=== PATIENT | female | born 1940 | race Caucasian/White ===

== ENCOUNTER → 2018-07-11 16:17 | Outpatient (REF) | payer MEDICARE, SELFPAY | LOC: LAB 16:17 | PROVIDERS: Visit Provider Student in an Organized Health Care Education/Training Program | DX: N89.8 Other specified noninflammatory disorders of vagina (principal) ==

== ENCOUNTER → 2018-10-17 09:20 | Outpatient (CLI) | payer MEDICARE, SELFPAY ==
[2018-10-17 10:05] LABS: BUN Creatinine Ratio 16.7 (6-22); Blood Urea Nitrogen 15 mg/dL (7-17); Calcium 9.3 mg/dL (8.4-10.2); Carbon Dioxide 25 mmol/L (22-32); Chloride 104 mmol/L (98-107); Estimated Glomerular Filt Rate > 60.0 mL/min (>60); Glucose 110 mg/dL (80-110); HEMOLYSIS < 15 (0-50); Potassium 4.2 mmol/L (3.4-5.1); Sodium 139 mmol/L (137-145)
[2018-10-17 11:02] LABS: Thyroid Stimulating Hormone 5.22 uIU/mL (0.47-4.68)
== END ==
PROVIDERS: Visit Provider Physician Assistant
DX: E03.9 Hypothyroidism, unspecified (principal); I10 Essential (primary) hypertension
CPT/HCPCS: 36415; 80048; 84443

== ENCOUNTER → 2018-11-10 11:43 | Outpatient (CLI) | payer MEDICARE, SELFPAY ==
[2018-11-10 13:12] LABS: TSH w/ Reflex to FT4 2.07 uIU/mL (0.47-4.68)
== END ==
PROVIDERS: Visit Provider Physician Assistant
DX: E03.9 Hypothyroidism, unspecified (principal)
CPT/HCPCS: 36415; 84443

== ENCOUNTER → 2018-12-08 14:46 | Outpatient (CLI) | payer MEDICARE, SELFPAY ==
[2018-12-08 15:33] LABS: Appearance Urine UA CLOUDY; Bilirubin Urine UA NEGATIVE (NEGATIVE); Color Urine UA YELLOW; Glucose Urine UA NEGATIVE (Negative); Ketones Urine UA NEGATIVE (NEGATIVE); Leukocyte Esterase Urine UA 2+ (NEGATIVE); Nitrite Urine UA NEGATIVE (Negative); Occult Blood Urine UA 3+ (Negative); Protein Urine UA 3+ (Negative); Specific Gravity Urine UA >=1.030 (1.000-1.035)
[2018-12-08 15:42] LABS: Bacteria Urine Few (2-10); Culture Indicated Urine Specimen Cultured; RBC Urine >100/HPF (0-5/HPF); Squamous Epithelial Cell Urine 0-1 /HPF (0-5/HPF); WBC Urine 5-10/HPF (0-5/HPF)
== END ==
PROVIDERS: Visit Provider Urology
DX: R30.9 Painful micturition, unspecified (principal); R30.0 Dysuria
CPT/HCPCS: 81001; 87086

== ENCOUNTER → 2018-12-14 11:32 | Outpatient (CLI) | payer MEDICARE, SELFPAY ==
[2018-12-14 12:39] LABS: Blood Urea Nitrogen 17 mg/dL (7-17); Estimated Glomerular Filt Rate 53.8 mL/min (>60)
== END ==
PROVIDERS: Visit Provider Urology
DX: Z85.528 Personal history of other malignant neoplasm of kidney (principal)
CPT/HCPCS: 36415; 82565; 84520

== ENCOUNTER → 2018-12-16 12:26 | Outpatient (CLI) | payer MEDICARE, SELFPAY ==
--- NOTE | 2018-12-16 | DI.CT.S_ITS ---
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 After the administration of intravenous contrast, 5 mm thick images again acquired from the diaphragm to the iliac crests in the arterial and urographic phases. 5 mm thick coronal and sagittal reformats were then acquired. For radiation dose reduction, the following was used: automated exposure control, adjustment of mA and/or kV according to patient size. COMPARISON: [facility], CT, CT ABD PELVIS W CON, 04/13/2017, 11:31. FINDINGS: Image quality: Excellent. Lung bases: Lung bases are clear. Heart size is normal. Genitourinary: There has been interval resolution of a small linear low-density soft tissue thickening in the medial left renal fossa. No evidence of new solid tissue in the left renal fossa to suggest recurrent disease. Right renal morphology is normal. The right kidney is under rotated. Other solid organs: Liver is normal in size and redemonstrates innumerable, mainly subcentimeter hypodensities throughout the liver without enhancement. One multilobulated hypodensity measures up to 2.8 cm.. Gallbladder contains dependent sludge in the fundus.. Biliary system is non dilated. Pancreas enhances normally. Spleen is normal in size and enhancement. The left adrenal gland is surgically absent. A stable, slight nodular thickening involving the anterior portion of the right adrenal gland. Peritoneum and bowel: Unenhanced bowel loops are normal in wall thickness and caliber. No free fluid or air. The appendix is surgically absent. Nodes and vessels: No retroperitoneal or mesenteric adenopathy by size criteria. Aorta and inferior vena cava are normal in caliber. Bones: No suspicious bony lesions. Extensive surgical changes to the thoracolumbar spine including multiple levels of transpedicular screws, 2 levels with disc spacers, and Noriega rods in place. Extensive disc height loss. No vertebral body compression fractures. Miscellaneous: No ventral hernias. IMPRESSION: 1. 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 No evidence of residual or recurrent disease. 2. Normal right renal morphology. 3. Gallbladder sludge. 4. 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 Dictated by: Milla Nelson M.D. on 12/16/2018 at 13:49 Approved by: Milla Nelson M.D. on 12/16/2018 at 14:16
== END ==
PROVIDERS: PCP Internal Medicine; Visit Provider Urology
DX: D49.519 Neoplasm of unspecified behavior of unspecified kidney (principal); K83.8 Other specified diseases of biliary tract; K76.89 Other specified diseases of liver
CPT/HCPCS: 74170; Q9967

== ENCOUNTER → 2019-12-08 10:05 | Outpatient (CLI) | payer MEDICARE, SELFPAY ==
[2019-12-08 11:56] LABS: Add Manual Diff / Slide Review NO; Basophils Absolute Auto 100 /uL (0-100); Eosinophils Absolute Auto 200 /uL (0-450); Eosinophils Percent Auto 1.6 % (2-4); Hematocrit 43.3 % (36-46); Hemoglobin 14.7 g/dL (12.0-16.0); Lymphocytes Absolute Auto 3000 /uL (1100-4500); Lymphocytes Percent Auto 32.1 % (25-40); Mean Corpuscular Hemoglobin 32.3 PG (26-34); Mean Corpuscular Volume 95.1 fL (80-100); Monocytes Absolute Auto 900 /uL (0-900); Monocytes Percent Auto 9.5 % (3-14); Neutrophils Absolute Auto 5200 /uL (1500-7000); Neutrophils Percent Auto 55.8 % (50-75); Platelet Count 189 X10^3/uL (150-400); Red Blood Cell Count 4.56 X10^6/uL (4.0-5.2); Red Cell Distribution Width 14.7 % (11.6-14.8); White Blood Cell Count 9.3 X10^3/uL (4.5-11.0)
[2019-12-08 12:19] LABS: Blood Urea Nitrogen 16 mg/dL (7-17); Calcium 9.4 mg/dL (8.4-10.2); Carbon Dioxide 25 mmol/L (22-32); Chloride 106 mmol/L (98-107); Cholesterol 260 mg/dL (140-199); Estimated Glomerular Filt Rate 57.6 mL/min (>60); Glucose 109 mg/dL (80-110); HDL Cholesterol 42 mg/dL (40-60); HEMOLYSIS < 15 (0-50); LDL Cholesterol Calculated 168 mg/dL (<100); Potassium 4.2 mmol/L (3.4-5.1); Sodium 141 mmol/L (137-145); Triglycerides 249 mg/dL (35-150)
== END ==
PROVIDERS: PCP Internal Medicine; Referring Provider Internal Medicine Interventional Cardiology; Visit Provider Internal Medicine Interventional Cardiology
DX: I73.9 Peripheral vascular disease, unspecified (principal); E78.5 Hyperlipidemia, unspecified
CPT/HCPCS: 36415; 80048; 80061; 85025

== ENCOUNTER → 2019-12-12 09:15 | Outpatient (CLI) | payer MEDICARE, SELFPAY ==
[2019-12-12 10:34] LABS: Appearance Urine UA CLOUDY; Bilirubin Urine UA NEGATIVE (NEGATIVE); Color Urine UA YELLOW; Glucose Urine UA NEGATIVE (Negative); Ketones Urine UA NEGATIVE (NEGATIVE); Leukocyte Esterase Urine UA 2+ (NEGATIVE); Nitrite Urine UA POSITIVE (Negative); Occult Blood Urine UA 3+ (Negative); Protein Urine UA 1+ (Negative); Specific Gravity Urine UA 1.025 (1.000-1.035); Urobilinogen Urine UA 0.2 E.U./dL (0.2)
[2019-12-12 10:39] LABS: Bacteria Urine Moderate (10-30); Culture Indicated Urine Specimen Cultured; RBC Urine 30-100/HPF (0-5/HPF); Squamous Epithelial Cell Urine 1-5 /HPF (0-5/HPF); WBC Urine 10-30/HPF (0-5/HPF)
== END ==
PROVIDERS: PCP Internal Medicine; Referring Provider Urology; Visit Provider Urology
DX: R30.0 Dysuria (principal)
CPT/HCPCS: 81001; 87077; 87086; 87147; 87186

== ENCOUNTER → 2020-01-19 07:19 | Outpatient (CLI) | payer MEDICARE, SELFPAY ==
--- NOTE | 2020-01-19 | DI.NM.S_ITS ---
PROCEDURE: NM JOSEPH PERF SPECT R&S PHARM Rest and pharmacological stress myocardial perfusion SPECT with gated imaging and ejection fraction RADIOPHARMACEUTICAL: 12.2 mCi Tc-99m tetrafosmin IV at rest and 25.6 mCi Tc-99m tetrafosmin IV at peak effect of pharmacological stress. [id number] was performed. INDICATIONS: Peripheral vascular disease, unspecified TECHNIQUE: Radiopharmaceutical was injected at peak stress test, and also at rest. SPECT images were obtained. SPECT myocardial perfusion images were displayed in short axis, horizontal long axis, and vertical long axis views. Gated images were reviewed using [employer] software. COMPARISON: None. CARDIAC STRESS: A pharmacologic stress test was performed under the supervision of an attending staff, using an infusion of 0.4mg IV of lexiscan. Hemodynamic data: There is normal blood pressure and heart rate response to pharmacologic stress. Symptoms: The patient denied anginal chest pain. Aminophylline: none EKG: No diagnostic changes of ischemia; no ectopy. FINDINGS: Raw data: There is good myocardial uptake of radiotracer. No significant motion artifacts. Zvaq-[id number]-[id number] ratio is 0.46 (normal is less than 0.38 for tetrafosmin tracer). Left ventricle function: Gated images demonstrate normal left ventricular wall thickening. No segmental wall motion abnormalities. No transient ischemic dilation; TID is 1.05 (normal less than 1.3). Left ventricle resting end diastolic volume is 60 mL. Left ventricle stress ejection fraction is 87%; normal range is above 45%. Myocardial perfusion: There is normal distribution of activity in the right and left ventricular myocardium. No fixed or reversible perfusion defects. IMPRESSION: Low risk, normal pharmaceutical nuclear stress test from ischemia standpoint. Elevated lung heart ratio of 0.46; consider Echo to rule out valvular disease. 1) No perfusion evidence of ischemia or infarction. 2) Normal left ventricular size, wall motion, and systolic function (EF post stress 87%). 3) Elevated lung heart ratio of 0.46; consider echo to rule out valvular disease. 4) No ECG evidence of ischemia. 5) No angina during the study. 6) No prior nuclear stress test available for comparison. Dictated by: Deshaun Iverson MD on 01/19/2020 at 16:24 Approved by: Deshaun Iverson MD on 01/19/2020 at 16:27
== END ==
PROVIDERS: PCP Family Medicine; Referring Provider Family Medicine; Visit Provider Internal Medicine Interventional Cardiology
DX: I73.9 Peripheral vascular disease, unspecified (principal); I70.0 Atherosclerosis of aorta
CPT/HCPCS: 78452; 93017; A9502; J2785

== ENCOUNTER → 2020-02-01 09:28 | Outpatient (CLI) | payer MEDICARE, SELFPAY ==
[2020-02-01 11:01] LABS: Alanine Aminotransferase 15 IU/L (<35); Albumin Globulin Ratio 1.3 (1.0-2.8); Alkaline Phosphatase 126 U/L (38-126); Aspartate Aminotransferase 25 IU/L (14-36); BUN Creatinine Ratio 15.7 (6-22); Bilirubin Total 0.4 mg/dL (0.2-1.3); Blood Urea Nitrogen 14 mg/dL (7-17); C-Reactive Protein Quant 1.4 mg/dL (<1.0); Calcium 9.1 mg/dL (8.4-10.2); Carbon Dioxide 23 mmol/L (22-32); Chloride 106 mmol/L (98-107); Estimated Glomerular Filt Rate > 60.0 mL/min (>60); Glucose 110 mg/dL (80-110); HEMOLYSIS < 15 (0-50); Potassium 4.1 mmol/L (3.4-5.1); Sodium 137 mmol/L (137-145)
[2020-02-01 11:11] LABS: Erythrocyte Sedimentation Rate 42 MM/HR (0-20)
[2020-02-01 16:04] LABS: Hepatitis B Surface Antigen NEGATIVE s/c (NEGATIVE)
[2020-02-01 16:24] LABS: Hep C Virus Ab w/Reflex Quant NEGATIVE s/c (NEGATIVE)
[2020-02-02 04:36] LABS: Hepatitis B Core AB w/Reflex Negative (Negative)
== END ==
PROVIDERS: PCP Family Medicine; Referring Provider Internal Medicine Rheumatology; Visit Provider Internal Medicine Rheumatology
DX: Z11.59 Encounter for screening for other viral diseases (principal); Z91.89 Other specified personal risk factors, not elsewhere classified; M12.9 Arthropathy, unspecified
CPT/HCPCS: 36415; 80053; 83516; 83520; 85651; 86140; 86225; 86235; 86430; 86704; 86706; 86803; 87340

== ENCOUNTER → 2020-05-07 16:32 | Outpatient (CLI) | payer MEDICARE, SELFPAY ==
[2020-05-07 16:43] LABS: RBC Urine None Seen (0-5/HPF)
[2020-05-07 16:53] LABS: Appearance Urine UA CLEAR; Bilirubin Urine UA NEGATIVE (NEGATIVE); Color Urine UA YELLOW; Glucose Urine UA NEGATIVE (Negative); Ketones Urine UA NEGATIVE (NEGATIVE); Leukocyte Esterase Urine UA 1+ (NEGATIVE); Nitrite Urine UA NEGATIVE (Negative); Occult Blood Urine UA NEGATIVE (Negative); Protein Urine UA TRACE (Negative); Urobilinogen Urine UA 0.2 E.U./dL (0.2)
[2020-05-07 16:58] LABS: pH Urine UA 5.5 (4.5-8.0)
[2020-05-07 17:08] LABS: Bacteria Urine Few (2-10); Culture Indicated Urine Specimen Cultured; Squamous Epithelial Cell Urine 1-5 /HPF (0-5/HPF); WBC Urine 10-30/HPF (0-5/HPF)
== END ==
PROVIDERS: PCP Family Medicine; Referring Provider Urology; Visit Provider Urology
DX: R30.0 Dysuria (principal)
CPT/HCPCS: 81001; 87086

== ENCOUNTER → 2020-05-15 16:03 | Outpatient (CLI) | payer MEDICARE, SELFPAY | PROVIDERS: PCP Family Medicine; Visit Provider Physician Assistant | DX: N30.01 Acute cystitis with hematuria (principal) | CPT/HCPCS: 87077; 87086; 87186 ==

== ENCOUNTER 2020-06-22 12:17 | Emergency (ER) | payer MEDICARE, SELFPAY ==
[2020-06-22] VITALS (10 sets, daily range): BP systolic 115–153; BP diastolic 70–85; PULSE 81–145; RESP 12–25; TEMP 36.8; O2SAT 94–99
--- NOTE | 2020-06-22 12:33 | DI.RAD.S_ITS ---
PROCEDURE: XR CHEST 1V INDICATIONS: SOB TECHNIQUE: One view of the chest was acquired. COMPARISON: [facility], CT, CT CHEST WO CON, 12/21/2016, 13:01. [facility], CR, CHEST 2 VIEW, 01/24/2016, 12:58. FINDINGS: Surgical changes and devices: Partially imaged lower thoracic spinal fusion hardware. Lungs and pleura: Mild diffuse interstitial prominence, likely chronic. No focal consolidations. No pneumothorax or pleural effusion. Minimal streaky bibasilar opacities. Mediastinum: Mediastinal contours appear stable. Heart size is normal. Bones and chest wall: No suspicious bony lesions. Overlying soft tissues appear unremarkable. IMPRESSION: 1. Chronic appearing subtle diffuse interstitial prominence suggestive of chronic interstitial lung disease. 2. Minimal streaky bibasilar opacities favored to represent atelectasis. No focal consolidation. Dictated by: Yann Ferreira M.D. on 06/22/2020 at 12:23 Approved by: Yann Ferreira M.D. on 06/22/2020 at 12:26
--- NOTE | 2020-06-22 12:36 | ED_ITS ---
HPI - Arrhythmia/Palpitations <Nasra LeavittARRON - Last Filed: 06/22/20 17:49> General Chief Complaint: Arrhythmia/Palpitations Stated Complaint: Off of medication/having side effects Time Seen by Provider: 06/22/20 12:21 Source: patient Mode of arrival: Ambulatory Limitations: no limitations History of Present Illness HPI narrative: 79yo female smoker, with a histrory of HTN and anxiety, history of nephrectomy due to renal cancer, presents emergency department for medication refill. She states she ran out of her Effexor which she has taken daily for the past few years without side effects. She states her last dose was approximately 3 days ago, she was attempting to switch pharmacies and the pharmacy did not have a refill prescription. Patient states today she developed anxiety, high heart rate, and shortness of breath. She believes this may be related to the medication. She denies any chest pain, dizziness, nausea, vomiting, diarrhea, abdominal pain, activity intolerance, vision changes, or any other concerns. She states she has run out of her Effexor a few years ago, does not remember if he had any of these feelings at this time. Related Data Home Medications Medication Instructions Recorded Confirmed aspirin 81 mg tablet,delayed 81 mg PO DAILY 01/19/19 03/02/19 release estradiol 1 mg tablet 1 mg PO DAILY #90 tab 01/19/19 03/02/19 levothyroxine 100 mcg tablet 100 mcg PO DAILY #90 tab 01/19/19 03/02/19 multivitamin 1 tab PO DAILY 01/19/19 03/02/19 venlafaxine 150 mg 150 mg PO DAILY #90 cap 01/19/19 03/02/19 capsule,extended release 24 hr zolpidem 5 mg tablet 5 mg PO DAILY #90 tab 01/19/19 03/02/19 nitrofurantoin 100 mg PO BEDTIME cap 03/02/19 03/02/19 monohydrate/macrocrystals 100 mg capsule sennosides 8.6 mg-docusate sodium 1 tab PO BID 03/02/19 03/02/19 50 mg tablet Previous Rx's Medication Instructions Recorded nystatin 100,000 unit/gram topical 1 applictn TOP TID #60 gram 01/19/19 powder atorvastatin 20 mg tablet 20 mg PO DAILY #90 tab 03/02/19 carisoprodol 350 mg tablet 350 mg PO BEDTIME #30 tab 03/02/19 metoprolol succinate 25 mg capsule 25 mg PO DAILY #30 each 03/02/19 sprinkle, ext. release 24 hr alprazolam 0.5 mg tablet See Rx Instructions PO .COMPLEX 03/17/19 PRN #45 tab hydroxyzine HCl 25 mg tablet 25 mg PO Q6H PRN #120 tab 03/17/19 venlafaxine [Effexor XR] 150 mg PO DAILY 20 Days #20 cap 06/22/20 Allergies Allergy/AdvReac Type Severity Reaction Status Date / Time cyclobenzaprine Allergy Unknown Verified 05/15/20 15:54 [CYCLOBENZAPRINE] doxycycline Allergy Diarrhea Verified 05/15/20 15:54 morphine Allergy hallucinati Verified 05/15/20 15:54 ons Review of Systems <ARRON Acosta - Last Filed: 06/22/20 17:49> Review of Systems Narrative: REVIEW OF SYSTEMS: GENERAL: Denies fever or chills. HENT: No head trauma. EYES: No loss of vision, double vision, eye pain, or irritation. CARDIOVASCULAR: No chest pain. Reports increased heart rate, see HPI. RESPIRATORY: No shortness of breath or cough. GASTROINTESTINAL: No nausea, vomiting, diarrhea, or constipation. GENITOURINARY: No flank pain or dysuria. MUSCULOSKELETAL: No pain. INTEGUMENTARY: No rash, lesions, or pruritus. NEURO: No numbness or tingling. PSYCH: No behavior or mood changes. Patient History <ARRON Acosta - Last Filed: 06/22/20 17:49> Medical History Anxiety (Chronic) Depression (Chronic) Essential hypertension (Chronic) Hyperlipidemia (Chronic) Hypothyroidism, acquired (Chronic) Urinary incontinence (Chronic) Urinary tract infection (Acute) Surgical History History of back surgery (Chronic) S/P cataract extraction and insertion of intraocular lens (Chronic) S/P hysterectomy (Chronic ~1976) Social History Smoking Status: Former smoker Smoking Status: Former smoker alcohol intake frequency: 0-2 drinks per day Substance Use Type: does not use Exam <Nasra ARRON Leavitt - Last Filed: 06/22/20 17:49> Initial Vital Signs Initial Vital Signs: Vital Signs Temperature 98.3 F 06/22/20 12:20 Pulse Rate 145 H 06/22/20 12:20 Respiratory Rate 24 06/22/20 12:20 Blood Pressure 136/83 06/22/20 12:20 Pulse Oximetry 96 06/22/20 12:20 PHYSICAL EXAMINATION: GENERAL: Well groomed, alert, and cooperative. Answers questions promptly and appropriately. Vital signs noted. HENT: Normocephalic, atraumatic. Ear canals patent. Oral mucosa is pink and moist. EYES: Conjunctiva pink, sclera white, no periorbital swelling. CHEST: Normal to inspection and without deformities. CARDIOVASCULAR: S1 and S2 sounds normal. Increased rate and regular rhythm, no murmurs, clicks, or bruits. RESPIRATORY: Normal respiratory rate, trachea midline, airway patent. No stridor, nasal flaring or accessory muscle use. Lungs are clear in all perez without wheeze, rhonchi, or crackles. No cough observed. MUSCULOSKELETAL: Normal gait and coordination. Equal tone and mass bilaterally. EXTREMITIES: CMS intact. Moves all extremities. SKIN: Warm, dry, soft, appropriate color for ethnicity. No lesions, rashes, or wounds. NEURO: Alert and Oriented X 3. Good coordination. No ataxia, or sensory deficits, or cognitive issues. PSYCH: Appropriate affect and mood. <Florencio Tellez DO - Last Filed: 06/22/20 17:59> Initial Vital Signs Initial Vital Signs: Vital Signs Temperature 98.3 F 06/22/20 12:20 Pulse Rate 145 H 06/22/20 12:20 Respiratory Rate 24 06/22/20 12:20 Blood Pressure 136/83 06/22/20 12:20 Pulse Oximetry 96 06/22/20 12:20 Scores <ARRON Acosta - Last Filed: 06/22/20 17:49> PERC Score Age greater than or equal to 50 years: Yes Heart rate greater than or equal to 100 bpm: Yes Room Air O2 Sat less than 95%: No Unilateral leg swelling: No Recent trauma or surgery: No Hemoptysis: No Prior PE or DVT: No Hormone Use: No Total PERC Score: 2 Wells' Criteria for PE Clinical signs and symptoms of DVT: No PE is #1 Dx or equally likely: No Heart rate > 100: Yes Immobilization at least 3 days or surg in previous 4 weeks: No History of PE or DVT: No Hemoptysis: No Malignancy w/Treatment within 6 months or palliative: No Wells' PE Score total: 1.5 Course <ARRON Acosta - Last Filed: 06/22/20 17:49> Course Course Narrative: 1400: Patient states she is feeling nauseated, Nate villegas PT Updated on laboratory results and need for CT scan. Patient consented. HR decreased to 96bpm. 1500: Patient states she is feeling much better, RT called to demonstrate spacer and inhaler teaching. Patient and family updated on results. Family agreed to plan of care verbalized understanding. Orders Ordered: ED Orders 06/22/20 12:28 EKG-12 Lead Stat 06/22/20 12:33 XR chest 1V Stat 06/22/20 13:02 Complete Blood Count AUTO DIFF Stat Comprehensive Metabolic Panel Stat D Dimer Stat Lipase Stat Troponin & CK Cardiac Panel Stat 06/22/20 13:49 COVID19 -ED/INPAT/OR/L&D Stat 06/22/20 14:00 CT angio chest PE protocol Stat Discontinued Medications Albuterol (Ventolin Hfa Prepack) 1 box MISC SEEINSTR ONE Stop: 06/22/20 15:41 Last Admin: 06/22/20 15:50 Dose: 1 box Documented by: BRIANNA Sodium Chloride (Normal Saline 0.9%) 1,000 mls @ 150 mls/hr IV CONT JAHAIRA Last Infusion: 06/22/20 15:56 Dose: 0 mls/hr Documented by: Infusion: 06/22/20 14:38 Dose: 500 mls/hr Documented by: Admin: 06/22/20 13:07 Dose: 150 mls/hr Documented by: FAREED Sodium Chloride (Normal Saline 0.9%) 1,000 mls @ 500 mls/hr IV BOLUS ONE Stop: 06/22/20 16:34 Last Admin: 06/22/20 14:39 Dose: Not Given Documented by: FAREED Ondansetron HCl (Zofran) 4 mg IV NOW ONE Stop: 06/22/20 14:12 Last Admin: 06/22/20 14:14 Dose: 4 mg Documented by: FAREED Venlafaxine HCl (Effexor Xr) 150 mg PO DAILY [facility] Last Admin: 06/22/20 12:47 Dose: 150 mg Documented by: MARTA Vital Signs Vital signs: Vital Signs - 8 hr 06/22/20 12:20 06/22/20 12:31 06/22/20 13:00 Temperature 98.3 F Pulse Rate 145 H 116 H 107 H Respiratory Rate 24 21 23 Blood Pressure 136/83 115/77 Pulse Oximetry 96 96 96 06/22/20 13:30 06/22/20 14:00 06/22/20 14:32 Temperature Pulse Rate 100 H 91 H 85 Respiratory Rate 19 13 22 Blood Pressure 122/85 126/71 Pulse Oximetry 94 94 97 06/22/20 14:57 06/22/20 15:00 06/22/20 15:51 Temperature Pulse Rate 81 81 Respiratory Rate 25 H 22 20 Blood Pressure 147/72 H 142/70 H Pulse Oximetry 98 98 99 06/22/20 15:57 Temperature Pulse Rate 82 Respiratory Rate 12 Blood Pressure 153/73 H Pulse Oximetry 98 <Florencio Tellez DO - Last Filed: 06/22/20 17:59> Orders Ordered: ED Orders 06/22/20 12:28 EKG-12 Lead Stat 06/22/20 12:33 XR chest 1V Stat 06/22/20 13:02 Complete Blood Count AUTO DIFF Stat Comprehensive Metabolic Panel Stat D Dimer Stat Lipase Stat Troponin & CK Cardiac Panel Stat 06/22/20 13:49 COVID19 -ED/INPAT/OR/L&D Stat 06/22/20 14:00 CT angio chest PE protocol Stat Discontinued Medications Albuterol (Ventolin Hfa Prepack) 1 box MISC SEEINSTR ONE Stop: 06/22/20 15:41 Last Admin: 06/22/20 15:50 Dose: 1 box Documented by: BRIANNA Sodium Chloride (Normal Saline 0.9%) 1,000 mls @ 150 mls/hr IV CONT JAHAIRA Last Infusion: 06/22/20 15:56 Dose: 0 mls/hr Documented by: Infusion: 06/22/20 14:38 Dose: 500 mls/hr Documented by: Admin: 06/22/20 13:07 Dose: 150 mls/hr Documented by: FAREED Sodium Chloride (Normal Saline 0.9%) 1,000 mls @ 500 mls/hr IV BOLUS ONE Stop: 06/22/20 16:34 Last Admin: 06/22/20 14:39 Dose: Not Given Documented by: FAREED Ondansetron HCl (Zofran) 4 mg IV NOW ONE Stop: 06/22/20 14:12 Last Admin: 06/22/20 14:14 Dose: 4 mg Documented by: FAREED Venlafaxine HCl (Effexor Xr) 150 mg PO DAILY JAHAIRA Last Admin: 06/22/20 12:47 Dose: 150 mg Documented by: MARTA Vital Signs Vital signs: Vital Signs - 8 hr 06/22/20 12:20 06/22/20 12:31 06/22/20 13:00 Temperature 98.3 F Pulse Rate 145 H 116 H 107 H Respiratory Rate 24 21 23 Blood Pressure 136/83 115/77 Pulse Oximetry 96 96 96 06/22/20 13:30 06/22/20 14:00 06/22/20 14:32 Temperature Pulse Rate 100 H 91 H 85 Respiratory Rate 19 13 22 Blood Pressure 122/85 126/71 Pulse Oximetry 94 94 97 06/22/20 14:57 06/22/20 15:00 06/22/20 15:51 Temperature Pulse Rate 81 81 Respiratory Rate 25 H 22 20 Blood Pressure 147/72 H 142/70 H Pulse Oximetry 98 98 99 06/22/20 15:57 Temperature Pulse Rate 82 Respiratory Rate 12 Blood Pressure 153/73 H Pulse Oximetry 98 MDM - Arrhythmia/Palpitations <ARRON Acosta - Last Filed: 06/22/20 17:49> Medical Records Attestation: I reviewed the patient's medical records. Lab Data Attestation: I reviewed the patient's lab results. Result diagrams: 06/22/20 13:02 06/22/20 13:02 Labs: Lab Results 06/22/20 06/22/20 06/22/20 Range/Units 13:02 13:02 13:02 WBC 10.9 (4.5-11.0) X10^3/uL RBC 4.44 (4.0-5.2) X10^6/uL Hgb 13.7 (12.0-16.0) g/dL Hct 41.5 (36-46) % MCV 93.4 (80-100) fL MCH 30.9 (26-34) PG MCHC 33.1 (30-36) % RDW 14.4 (11.6-14.8) % Plt Count 163 (150-400) X10^3/uL Neut % (Auto) 68.2 (50-75) % Lymph % (Auto) 17.8 L (25-40) % Alpine % (Auto) 10.5 (3-14) % Eos % (Auto) 2.0 (2-4) % Baso % (Auto) 1.5 (0-2) % Neut # (Auto) 7400 H (1102-5956) /uL Lymph # (Auto) 1900 (9098-1143) /uL Alpine # (Auto) 1100 H (0-900) /uL Eos # (Auto) 200 (0-450) /uL Baso # (Auto) 200 H (0-100) /uL D-Dimer 552 H (<230) ng/mL Sodium 137 (137-145) mmol/L Potassium 4.1 (3.4-5.1) mmol/L Chloride 106 (98-107) mmol/L Carbon Dioxide 25 (22-32) mmol/L BUN 16 (7-17) mg/dL Creatinine 0.91 (0.52-1.04) mg/dL Estimated GFR 59.8 L (>60) mL/min BUN/Creatinine Ratio 17.6 (6-22) Glucose 122 H (80-110) mg/dL Calcium 9.3 (8.4-10.2) mg/dL Total Bilirubin 0.7 (0.2-1.3) mg/dL AST 38 H (14-36) IU/L ALT 30 (<35) IU/L Alkaline Phosphatase 157 H (38-126) U/L Total Creatine Kinase 26 L (30-135) U/L CK-MB (CK-2) TNP CK-MB (CK-2) Rel Index TNP Troponin I < 0.012 (0.01-0.034) ng/mL Total Protein 7.7 (6.3-8.2) g/dL Albumin 4.2 (3.5-5.0) g/dL Globulin 3.5 (1.7-4.1) g/dL Albumin/Globulin Ratio 1.2 (1.0-2.8) Lipase 186 (23-300) U/L COVID-19 PCR (Negative) 06/22/20 Range/Units 13:49 WBC (4.5-11.0) X10^3/uL RBC (4.0-5.2) X10^6/uL Hgb (12.0-16.0) g/dL Hct (36-46) % MCV (80-100) fL MCH (26-34) PG MCHC (30-36) % RDW (11.6-14.8) % Plt Count (150-400) X10^3/uL Neut % (Auto) (50-75) % Lymph % (Auto) (25-40) % Alpine % (Auto) (3-14) % Eos % (Auto) (2-4) % Baso % (Auto) (0-2) % Neut # (Auto) (2185-5070) /uL Lymph # (Auto) (0334-3976) /uL Alpine # (Auto) (0-900) /uL Eos # (Auto) (0-450) /uL Baso # (Auto) (0-100) /uL D-Dimer (<230) ng/mL Sodium (137-145) mmol/L Potassium (3.4-5.1) mmol/L Chloride (98-107) mmol/L Carbon Dioxide (22-32) mmol/L BUN (7-17) mg/dL Creatinine (0.52-1.04) mg/dL Estimated GFR (>60) mL/min BUN/Creatinine Ratio (6-22) Glucose (80-110) mg/dL Calcium (8.4-10.2) mg/dL Total Bilirubin (0.2-1.3) mg/dL AST (14-36) IU/L ALT (<35) IU/L Alkaline Phosphatase (38-126) U/L Total Creatine Kinase (30-135) U/L CK-MB (CK-2) CK-MB (CK-2) Rel Index Troponin I (0.01-0.034) ng/mL Total Protein (6.3-8.2) g/dL Albumin (3.5-5.0) g/dL Globulin (1.7-4.1) g/dL Albumin/Globulin Ratio (1.0-2.8) Lipase (23-300) U/L COVID-19 PCR Negative (Negative) Imaging Data Chest x-ray: Radiologist's Impresson: [address] [id number] XRay Report Signed Patient: Nikki Voss [facility]#: [id number] : 2Acct:[id number] Age/Sex: 79 / FDate of Service: 06/22/20 Loc: ED Accession Number: [id number] Procedure: XR chest 1V Ordering Provider: Nasra Leavitt PROCEDURE: XR CHEST 1V INDICATIONS: SOB TECHNIQUE: One view of the chest was acquired. COMPARISON: [facility], CT, CT CHEST WO CON, 12/21/2016, 13:01. [facility], CR, CHEST 2 VIEW, 01/24/2016, 12:58. FINDINGS: Surgical changes and devices: Partially imaged lower thoracic spinal fusion hardware. Lungs and pleura: Mild diffuse interstitial prominence, likely chronic. No focal consolidations. No pneumothorax or pleural effusion. Minimal streaky bibasilar opacities. Mediastinum: Mediastinal contours appear stable. Heart size is normal. Bones and chest wall: No suspicious bony lesions. Overlying soft tissues appear unremarkable. IMPRESSION: 1. Chronic appearing subtle diffuse interstitial prominence suggestive of chronic interstitial lung disease. 2. Minimal streaky bibasilar opacities favored to represent atelectasis. No focal consolidation. Dictated by: Yann Ferreira M.D. on 06/22/2020 at 12:23 Approved by: Yann Ferreira M.D. on 06/22/2020 at 12:26 CT scan - chest: Radiologist's Impresson: [address] [address] [address] Scan Report Signed Patient: Nikki Voss [facility]#: [id number] : 2At:[id number] Age/Sex: 79 / FDate of Service: 06/22/20 Loc: ED Accession Number: [id number] Procedure: CT angio chest PE protocol Ordering Provider: Hedlin,Nasra [employer] PROCEDURE: CT ANGIO CHEST PE PROTOCOL INDICATIONS: SOb, elevated d-dimer TECHNIQUE: After the administration of intravenous contrast, 2 mm thick sections acquired from the pulmonary apices to the posterior costophrenic angles. 3-dimensional maximum intensity projection (MIP) coronal and sagittal reformats were then acquired through the thorax. For radiation dose reduction, the following was used: automated exposure control, adjustment of mA and/or kV according to patient size. COMPARISON: [facility], CT, CT ABDOMEN WO/W CON, 12/16/2018, 12:30. [facility], CT, CT CHEST WO CON, 12/21/2016, 13:01. FINDINGS: Image quality: Excellent. Pulmonary arteries: Pulmonary arteries are normal in size, and demonstrate no intraluminal filling defects to suggest central pulmonary embolism. Lungs and pleura: Patchy bilateral dependent atelectasis. No focal consolidations. Stable nodule in the right middle lobe. No pleural effusions or pneumothorax. Central and peripheral airways are patent. There is bilateral perihilar airway thickening of the central and more peripheral airways involving all lobes. Mediastinum: Heart size is normal, without pericardial effusion. Scattered atherosclerotic calcifications of the coronary arteries are noted. No mediastinal or hilar adenopathy by size criteria. Redemonstration of numerous scattered mediastinal lymph nodes more notable for number rather than size and likely reactive in etiology. Thoracic aorta is normal in caliber and enhancement. Esophagus is normal in caliber, without hiatal hernia. Bones and chest wall: No suspicious bony lesions. Ribs and thoracic spine appear intact throughout. Thyroid gland is stable in appearance. No axillary or supraclavicular adenopathy. No acute compression fractures. Status post spinal fusion of the lower thoracic and visualized lumbar spine. Abdomen: Redemonstration of innumerable hepatic hypodensities likely representing cysts. Remainder of the visualized upper abdominal solid organs appear normal in the early arterial phase of enhancement. IMPRESSION: No acute pulmonary emboli. Bilateral airway thickening likely representing nonspecific bronchitis versus reactive airway disease. Scattered patchy dependent atelectasis. No focal consolidation. Stable appearance of innumerable hepatic hypodensities which likely represent hepatic cysts. Dictated by: Yann Ferreira M.D. on 06/22/2020 at 13:44 Approved by: Yann Ferreira M.D. on 06/22/2020 at 13:54 ECG Data Interpretation: 1230: Sinus tach, rate 118, SD interval 178, QTC 454. No ST elevation, no ectopy. No T-wave inversion. EKG also viewed by Dr. Tellez per protocol. MDM Narrative Medical decision making narrative: 79yo presents emergency department for shortness of breath. Last took her Effexor 3 days ago. I suspect patient's shortness of breath is most likely related to her chronic lung disease/bronchitis as seen on x-ray and CT. Albuterol and spacer teaching were given. Patient states she quit smoking 3 weeks ago. Less likely PE given negative CT PE scan which was ordered after positive D- dimer (positive age adjusted D-dimer), this was initially ordered due to well's criteria, patient was tachycardic and short of breath, history of cancer. Less concern for ACS as EKG is non-remarkable other than some sinus tachycardia, troponin negative, chest x-ray negative for any heart abnormalities. Patient continued to have chest pain. Less concern for acute infection given lack of fever, tachycardia resolved after administration of a small amount of fluids, white blood cell count within normal limits, no suspicious source for infection such as dysuria or cough. COVID-19 negative. No viral symptoms. It is possible that Effexor may also be contributing to the when the patient is feeling. She was given a bridge prescription for the next 2 weeks. She is encouraged to follow-up with PCP to continue her prescription. Strict return precautions given for new or worsening symptoms. Patient and agreed to plan of care and verbalized understanding. <Florencio Tellez, DO - Last Filed: 06/22/20 17:59> Lab Data Labs: Lab Results 06/22/20 06/22/20 06/22/20 Range/Units 13:02 13:02 13:02 WBC 10.9 (4.5-11.0) X10^3/uL RBC 4.44 (4.0-5.2) X10^6/uL Hgb 13.7 (12.0-16.0) g/dL Hct 41.5 (36-46) % MCV 93.4 (80-100) fL MCH 30.9 (26-34) PG MCHC 33.1 (30-36) % RDW 14.4 (11.6-14.8) % Plt Count 163 (150-400) X10^3/uL Neut % (Auto) 68.2 (50-75) % Lymph % (Auto) 17.8 L (25-40) % Alpine % (Auto) 10.5 (3-14) % Eos % (Auto) 2.0 (2-4) % Baso % (Auto) 1.5 (0-2) % Neut # (Auto) 7400 H (0486-6761) /uL Lymph # (Auto) 1900 (4594-0941) /uL Alpine # (Auto) 1100 H (0-900) /uL Eos # (Auto) 200 (0-450) /uL Baso # (Auto) 200 H (0-100) /uL D-Dimer 552 H (<230) ng/mL Sodium 137 (137-145) mmol/L Potassium 4.1 (3.4-5.1) mmol/L Chloride 106 (98-107) mmol/L Carbon Dioxide 25 (22-32) mmol/L BUN 16 (7-17) mg/dL Creatinine 0.91 (0.52-1.04) mg/dL Estimated GFR 59.8 L (>60) mL/min BUN/Creatinine Ratio 17.6 (6-22) Glucose 122 H (80-110) mg/dL Calcium 9.3 (8.4-10.2) mg/dL Total Bilirubin 0.7 (0.2-1.3) mg/dL AST 38 H (14-36) IU/L ALT 30 (<35) IU/L Alkaline Phosphatase 157 H (38-126) U/L Total Creatine Kinase 26 L (30-135) U/L CK-MB (CK-2) TNP CK-MB (CK-2) Rel Index TNP Troponin I < 0.012 (0.01-0.034) ng/mL Total Protein 7.7 (6.3-8.2) g/dL Albumin 4.2 (3.5-5.0) g/dL Globulin 3.5 (1.7-4.1) g/dL Albumin/Globulin Ratio 1.2 (1.0-2.8) Lipase 186 (23-300) U/L COVID-19 PCR (Negative) 06/22/20 Range/Units 13:49 WBC (4.5-11.0) X10^3/uL RBC (4.0-5.2) X10^6/uL Hgb (12.0-16.0) g/dL Hct (36-46) % MCV (80-100) fL MCH (26-34) PG MCHC (30-36) % RDW (11.6-14.8) % Plt Count (150-400) X10^3/uL Neut % (Auto) (50-75) % Lymph % (Auto) (25-40) % Alpine % (Auto) (3-14) % Eos % (Auto) (2-4) % Baso % (Auto) (0-2) % Neut # (Auto) (2716-0077) /uL Lymph # (Auto) (3452-0297) /uL Alpine # (Auto) (0-900) /uL Eos # (Auto) (0-450) /uL Baso # (Auto) (0-100) /uL D-Dimer (<230) ng/mL Sodium (137-145) mmol/L Potassium (3.4-5.1) mmol/L Chloride (98-107) mmol/L Carbon Dioxide (22-32) mmol/L BUN (7-17) mg/dL Creatinine (0.52-1.04) mg/dL Estimated GFR (>60) mL/min BUN/Creatinine Ratio (6-22) Glucose (80-110) mg/dL Calcium (8.4-10.2) mg/dL Total Bilirubin (0.2-1.3) mg/dL AST (14-36) IU/L ALT (<35) IU/L Alkaline Phosphatase (38-126) U/L Total Creatine Kinase (30-135) U/L CK-MB (CK-2) CK-MB (CK-2) Rel Index Troponin I (0.01-0.034) ng/mL Total Protein (6.3-8.2) g/dL Albumin (3.5-5.0) g/dL Globulin (1.7-4.1) g/dL Albumin/Globulin Ratio (1.0-2.8) Lipase (23-300) U/L COVID-19 PCR Negative (Negative) Discharge Plan Departure Patient Disposition: Home Clinical Impression: Breath shortness, Encounter for medication refill, Bronchitis Discharge Date/Time: 06/22/20 15:58 Instructions: DI for Chronic Bronchitis Activity Restrictions/Additional Instructions: Thank you for entrusting me with your care today. As discussed, your laboratory work and EKG are non-remarkable. Your CT scan is negative for any blood clots in your lungs. There was an incidental finding of possible cyst on your liver and bronchitis. Please follow-up with your primary care provider regarding the findings. I have given you a prescription for inhaler, use this when you feel short of breath. A can increased heart rate and make you feel jittery. I have refilled your Effexor prescription for the next few weeks, however, you will have to visit your primary care provider to get a full years prescription. Return emergency department for any new or worsening symptoms especially chest pain, worsening shortness of breath, high fevers, or any other concerns. Prescriptions: New venlafaxine [Effexor XR] 150 mg capsule,extended release 24hr 150 mg PO DAILY 20 Days Qty: 20 RF: 0 No Action hydroxyzine HCl 25 mg tablet 25 mg PO Q6H PRN (Reason: itching) Qty: 120 RF: 0 alprazolam 0.5 mg tablet See Rx Instructions PO .COMPLEX PRN (Reason: anxiety) Qty: 45 RF: 0 zolpidem 5 mg tablet 5 mg PO DAILY Qty: 90 RF: 0 aspirin 81 mg tablet,delayed release (DR/EC) 81 mg PO DAILY RF: 0 estradiol 1 mg tablet 1 mg PO DAILY Qty: 90 RF: 0 levothyroxine 100 mcg tablet 100 mcg PO DAILY Qty: 90 RF: 0 venlafaxine 150 mg capsule,extended release 24hr 150 mg PO DAILY Qty: 90 RF: 0 multivitamin tablet 1 tab PO DAILY RF: 0 nystatin 100,000 unit/gram powder 1 applictn TOP TID Qty: 60 RF: 3 nitrofurantoin monohyd/m-cryst 100 mg capsule 100 mg PO BEDTIME RF: 0 sennosides-docusate sodium [Senexon-S] 8.6-50 mg tablet 1 tab PO BID RF: 0 atorvastatin [Lipitor] 20 mg tablet 20 mg PO DAILY Qty: 90 RF: 3 carisoprodol [Soma] 350 mg tablet 350 mg PO BEDTIME Qty: 30 RF: 3 metoprolol succinate 25 mg cap,sprnohemile,ER 24hr dose pack 25 mg PO DAILY Qty: 30 RF: 3 Referrals: Emiliano Vicente [Primary Care Provider] - <Florencio Tellez, - Last Filed: 06/22/20 17:59> Cosign ED Attending Cosignature Attestation: Dr Tellez Co-Sign Statement: I was available for consultation during this patient's emergency department visit. This chart is signed by myself for administrative purposes only. I did not have direct contact with this patient during this visit. They were seen independently by the APC.
[2020-06-22] MEDS: VENLAFAXINE ER 75 MG CAP 150 MG PO (12:47)
[2020-06-22] MEDS: SODIUM CHLORIDE 0.9% 1,000 ML 150 ML IV (13:07)
[2020-06-22 13:09] LABS: Add Manual Diff / Slide Review NO; Basophils Absolute Auto 200 /uL (0-100); Basophils Percent Auto 1.5 % (0-2); Eosinophils Absolute Auto 200 /uL (0-450); Hematocrit 41.5 % (36-46); Hemoglobin 13.7 g/dL (12.0-16.0); Lymphocytes Absolute Auto 1900 /uL (1100-4500); Lymphocytes Percent Auto 17.8 % (25-40); Mean Corpuscular HGB Conc 33.1 % (30-36); Mean Corpuscular Hemoglobin 30.9 PG (26-34); Mean Corpuscular Volume 93.4 fL (80-100); Monocytes Absolute Auto 1100 /uL (0-900); Monocytes Percent Auto 10.5 % (3-14); Neutrophils Absolute Auto 7400 /uL (1500-7000); Neutrophils Percent Auto 68.2 % (50-75); Platelet Count 163 X10^3/uL (150-400); Red Blood Cell Count 4.44 X10^6/uL (4.0-5.2); Red Cell Distribution Width 14.4 % (11.6-14.8); White Blood Cell Count 10.9 X10^3/uL (4.5-11.0)
[2020-06-22 13:22] LABS: Alanine Aminotransferase 30 IU/L (<35); Albumin 4.2 g/dL (3.5-5.0); Albumin Globulin Ratio 1.2 (1.0-2.8); Alkaline Phosphatase 157 U/L (38-126); Aspartate Aminotransferase 38 IU/L (14-36); BUN Creatinine Ratio 17.6 (6-22); Bilirubin Total 0.7 mg/dL (0.2-1.3); Blood Urea Nitrogen 16 mg/dL (7-17); Calcium 9.3 mg/dL (8.4-10.2); Carbon Dioxide 25 mmol/L (22-32); Chloride 106 mmol/L (98-107); Creatine Kinase 26 U/L (30-135); Estimated Glomerular Filt Rate 59.8 mL/min (>60); Globulin 3.5 g/dL (1.7-4.1); Glucose 122 mg/dL (80-110); HEMOLYSIS 34 (0-50); Lipase 186 U/L (23-300); Potassium 4.1 mmol/L (3.4-5.1); Sodium 137 mmol/L (137-145); Total Protein 7.7 g/dL (6.3-8.2)
[2020-06-22 13:34] LABS: Troponin I < 0.012 ng/mL (0.01-0.034)
[2020-06-22 13:47] LABS: D Dimer 552 ng/mL (<230)
--- NOTE | 2020-06-22 14:00 | DI.CT.S_ITS ---
PROCEDURE: CT ANGIO CHEST PE PROTOCOL INDICATIONS: SOb, elevated d-dimer TECHNIQUE: After the administration of intravenous contrast, 2 mm thick sections acquired from the pulmonary apices to the posterior costophrenic angles. 3-dimensional maximum intensity projection (MIP) coronal and sagittal reformats were then acquired through the thorax. For radiation dose reduction, the following was used: automated exposure control, adjustment of mA and/or kV according to patient size. COMPARISON: [facility], CT, CT ABDOMEN WO/W CON, 12/16/2018, 12:30. [facility], CT, CT CHEST WO CON, 12/21/2016, 13:01. FINDINGS: Image quality: Excellent. Pulmonary arteries: Pulmonary arteries are normal in size, and demonstrate no intraluminal filling defects to suggest central pulmonary embolism. Lungs and pleura: Patchy bilateral dependent atelectasis. No focal consolidations. Stable nodule in the right middle lobe. No pleural effusions or pneumothorax. Central and peripheral airways are patent. There is bilateral perihilar airway thickening of the central and more peripheral airways involving all lobes. Mediastinum: Heart size is normal, without pericardial effusion. Scattered atherosclerotic calcifications of the coronary arteries are noted. No mediastinal or hilar adenopathy by size criteria. Redemonstration of numerous scattered mediastinal lymph nodes more notable for number rather than size and likely reactive in etiology. Thoracic aorta is normal in caliber and enhancement. Esophagus is normal in caliber, without hiatal hernia. Bones and chest wall: No suspicious bony lesions. Ribs and thoracic spine appear intact throughout. Thyroid gland is stable in appearance. No axillary or supraclavicular adenopathy. No acute compression fractures. Status post spinal fusion of the lower thoracic and visualized lumbar spine. Abdomen: Redemonstration of innumerable hepatic hypodensities likely representing cysts. Remainder of the visualized upper abdominal solid organs appear normal in the early arterial phase of enhancement. IMPRESSION: No acute pulmonary emboli. Bilateral airway thickening likely representing nonspecific bronchitis versus reactive airway disease. Scattered patchy dependent atelectasis. No focal consolidation. Stable appearance of innumerable hepatic hypodensities which likely represent hepatic cysts. Dictated by: Yann Ferreira M.D. on 06/22/2020 at 13:44 Approved by: Yann Ferreira M.D. on 06/22/2020 at 13:54
[2020-06-22] MEDS: ONDANSETRON 4 MG/2 ML INJ IV (14:14)
[2020-06-22 14:33] LABS: COVID19 -Nasal RAPID Negative (Negative)
[2020-06-22] MEDS: ALBUTEROL HFA PREPACK 1 BOX MISC (15:50)
== END 2020-06-22 15:58 | disposition home or self-care (01) ==
PROVIDERS: Emergency Provider Nurse Practitioner; PCP Family Medicine
DX: J40 Bronchitis, not specified as acute or chronic (principal); R06.02 Shortness of breath; Z76.0 Encounter for issue of repeat prescription; F41.9 Anxiety disorder, unspecified
CPT/HCPCS: 36415; 71045; 71275; 80053; 82550; 83690; 84484; 85025; 85379; 87635; 93005; 94640; 96361; 96374; 99284; J2405; Q9967

== ENCOUNTER → 2020-06-23 08:53 | Outpatient (CLI) | payer MEDICARE, SELFPAY ==
[2020-06-24 20:15] LABS: COVID19 Sendout Not Detected (Not Detect)
== END ==
PROVIDERS: PCP Family Medicine; Visit Provider Physician Assistant
DX: Z11.59 Encounter for screening for other viral diseases (principal)
CPT/HCPCS: 87635

== ENCOUNTER → 2020-06-27 12:35 | Outpatient (CLI) | payer MEDICARE, SELFPAY ==
[2020-06-27 13:03] LABS: Appearance Urine UA CLEAR; Bilirubin Urine UA NEGATIVE (NEGATIVE); Color Urine UA YELLOW; Glucose Urine UA NEGATIVE (Negative); Ketones Urine UA NEGATIVE (NEGATIVE); Leukocyte Esterase Urine UA 2+ (NEGATIVE); Nitrite Urine UA POSITIVE (Negative); Occult Blood Urine UA 3+ (Negative); Protein Urine UA 2+ (Negative); Urobilinogen Urine UA 0.2 E.U./dL (0.2)
[2020-06-27 13:59] LABS: pH Urine UA 6.5 (4.5-8.0)
[2020-06-27 14:00] LABS: Calcium Oxalate Crystals Urine Few; RBC Urine 5-10/HPF (0-5/HPF); Renal Epithelial Cells Urine 0-1/HPF (0-1/HPF); Squamous Epithelial Cell Urine 1-5 /HPF (0-5/HPF); Transitional Epi Cells Urine 0-1/HPF (0-5/HPF); WBC Urine >100/HPF (0-5/HPF)
[2020-06-27 14:01] LABS: Bacteria Urine Many (>30); Culture Indicated Urine Specimen Cultured
== END ==
PROVIDERS: PCP Family Medicine; Referring Provider Urology; Visit Provider Urology
DX: R30.9 Painful micturition, unspecified (principal)
CPT/HCPCS: 81001; 87077; 87086; 87186

== ENCOUNTER → 2020-07-22 14:10 | Outpatient (CLI) | payer MEDICARE, SELFPAY ==
[2020-07-22 17:07] LABS: COVID19 -Nasal RAPID Negative (Negative)
== END ==
PROVIDERS: PCP Family Medicine; Visit Provider Physician Assistant
DX: Z11.59 Encounter for screening for other viral diseases (principal)
CPT/HCPCS: 87635

== ENCOUNTER → 2020-07-31 10:09 | Outpatient (CLI) | payer MEDICARE, SELFPAY ==
[2020-07-31 10:20] LABS: RBC Urine None Seen (0-5/HPF)
[2020-07-31 11:26] LABS: Appearance Urine UA CLOUDY; Bilirubin Urine UA NEGATIVE (NEGATIVE); Color Urine UA YELLOW; Glucose Urine UA NEGATIVE (Negative); Ketones Urine UA TRACE (NEGATIVE); Leukocyte Esterase Urine UA 1+ (NEGATIVE); Nitrite Urine UA NEGATIVE (Negative); Occult Blood Urine UA 3+ (Negative); Protein Urine UA 1+ (Negative); Specific Gravity Urine UA 1.025 (1.000-1.035); Urobilinogen Urine UA 0.2 E.U./dL (0.2); pH Urine UA 5.5 (4.5-8.0)
[2020-07-31 11:32] LABS: Bacteria Urine Many (>30); Calcium Oxalate Crystals Urine Occasional; Culture Indicated Urine Specimen Cultured; WBC Urine 10-30/HPF (0-5/HPF)
== END ==
PROVIDERS: PCP Family Medicine; Referring Provider Urology; Visit Provider Urology
DX: R30.9 Painful micturition, unspecified (principal)
CPT/HCPCS: 81001; 87086

== ENCOUNTER → 2020-08-26 15:50 | Outpatient (CLI) | payer MEDICARE, SELFPAY ==
--- NOTE | 2020-08-26 | DI.RAD.S_ITS ---
PROCEDURE: XR PELVIS 1-2V INDICATIONS: S/P IMPLANTATION OF URINARY ELECTRIC STIMULATOR DEVICE TECHNIQUE: 2 view(s) of the pelvis acquired. COMPARISON: None. FINDINGS: Bones: No fractures or dislocations. No suspicious bony lesions. Partially visualized lower lumbar fusion hardware as well as SI fusion is noted. Hardware is intact. Stimulator is noted overlying the left iliac bone. Intact lead is noted projecting over the central/right paracentral sacrum. Soft tissues: Visualized bowel gas pattern is normal. No suspicious soft tissue calcifications. IMPRESSION: Stimulator placement as above. Dictated by: Juanita Olivares M.D. on 08/26/2020 at 16:51 Approved by: Juanita Olivares M.D. on 08/26/2020 at 16:52
== END ==
PROVIDERS: PCP Family Medicine; Referring Provider Dermatology MOHS-Micrographic Surgery; Visit Provider Dermatology MOHS-Micrographic Surgery
DX: Z46.6 Encounter for fitting and adjustment of urinary device (principal); Z96.82 Presence of neurostimulator
CPT/HCPCS: 72170

== ENCOUNTER 2020-09-14 14:44 | Emergency (ER) | payer MEDICARE, SELFPAY ==
[2020-09-14 14:45] VITALS: BP 137/74; PULSE 115; RESP 16; TEMP 36.2; O2SAT 99
[2020-09-14 15:19] LABS: Appearance Urine UA TURBID; Bilirubin Urine UA NEGATIVE (NEGATIVE); Color Urine UA YELLOW; Glucose Urine UA NEGATIVE (Negative); Ketones Urine UA TRACE (NEGATIVE); Leukocyte Esterase Urine UA 2+ (NEGATIVE); Nitrite Urine UA NEGATIVE (Negative); Occult Blood Urine UA 3+ (Negative); Protein Urine UA 2+ (Negative); Urobilinogen Urine UA 0.2 E.U./dL (0.2)
--- NOTE | 2020-09-14 15:23 | PC.NURSE ---
reports a day or two of bladder pain. reports frequent UTIs and urinairy incontinance with a bladder stimulator in place to help with dribbling. Patient concerned for the stimulator causing the pain and stopped her stimulator. no help with pain relief.
--- NOTE | 2020-09-14 15:29 | ED_ITS ---
HPI - Female Genitourinary General Chief complaint: Urogenital-Female Stated complaint: states bladder problem going on Time Seen by Provider: 09/14/20 14:54 Source: patient Mode of arrival: Ambulatory Limitations: no limitations History of Present Illness HPI Narrative: 80-year-old female history of hypertension, overactive bladder, peripheral vascular disease, nephrectomy due to renal cancer presenting today with pain in her urethra. She says is been ongoing for about a week. She has been over active bladder stimulator which she has turned off. Apparently there was an x-ray done about a week ago to make sure that it was in the correct place. She denies any fever or chills no abdominal pain back pain nausea or vomiting. MD Complaint: UTI Onset (ago): week(s) (1) Related Data Home Medications Medication Instructions Recorded Confirmed aspirin 81 mg tablet,delayed 81 mg PO DAILY 01/19/19 03/02/19 release estradiol 1 mg tablet 1 mg PO DAILY #90 tab 01/19/19 03/02/19 levothyroxine 100 mcg tablet 100 mcg PO DAILY #90 tab 01/19/19 03/02/19 multivitamin 1 tab PO DAILY 01/19/19 03/02/19 venlafaxine 150 mg 150 mg PO DAILY #90 cap 01/19/19 03/02/19 capsule,extended release 24 hr zolpidem 5 mg tablet 5 mg PO DAILY #90 tab 01/19/19 03/02/19 nitrofurantoin 100 mg PO BEDTIME cap 03/02/19 03/02/19 monohydrate/macrocrystals 100 mg capsule sennosides 8.6 mg-docusate sodium 1 tab PO BID 03/02/19 03/02/19 50 mg tablet Previous Rx's Medication Instructions Recorded nystatin 100,000 unit/gram topical 1 applictn TOP TID #60 gram 01/19/19 powder carisoprodol 350 mg tablet 350 mg PO BEDTIME #30 tab 03/02/19 alprazolam 0.5 mg tablet See Rx Instructions PO .COMPLEX 03/17/19 PRN #45 tab hydroxyzine HCl 25 mg tablet 25 mg PO Q6H PRN #120 tab 03/17/19 atorvastatin 20 mg tablet 20 mg PO DAILY #90 tab 08/21/20 metoprolol succinate 25 mg 25 mg PO DAILY #90 tab 08/21/20 tablet,extended release 24 hr cephalexin [Keflex] 500 mg PO TID #21 cap 09/14/20 phenazopyridine [Pyridium] 100 mg PO TID PRN #6 tab 09/14/20 Allergies Allergy/AdvReac Type Severity Reaction Status Date / Time cyclobenzaprine Allergy Unknown Verified 09/14/20 15:27 [CYCLOBENZAPRINE] doxycycline Allergy Diarrhea Verified 09/14/20 15:27 morphine Allergy hallucinati Verified 09/14/20 15:27 ons Review of Systems Review of Systems Narrative: GENERAL: Denies chills, fatigue, malaise, fever, sweats, travel HEENT: Denies sinus pain, ear pain, sore throat, difficulty swallowing, neck p ain RESPIRATORY: Denies dyspnea, cough, wheezing, hemoptysis, sputum. CARDIOVASCULAR: Denies chest pain, palpitations, orthopnea, edema GASTROINTESTINAL: Denies nausea, vomiting, abdominal pain, diarrhea, constipation, melena. : See HPI MUSCULOSKELETAL: Denies weakness, joint pain, or bony pain SKIN: No rash, no erythema, no pruritus NEUROLOGIC: Denies weakness, dizziness, headache, numbness, change in speech, confusion PSYCHIATRIC: No concerning psychosocial issues. 12 point review of systems is negative except for those stated above and HPI Patient History Medical History (Updated 09/14/20 @ 16:01 by Zahra Ordonez DO) Anxiety Depression Essential hypertension Hyperlipidemia Hypothyroidism, acquired Urinary incontinence Urinary tract infection Surgical History History of back surgery S/P cataract extraction and insertion of intraocular lens S/P hysterectomy (~1976) alcohol intake frequency: 0-2 drinks per day Substance Use Type: does not use Exam Initial Vital Signs Initial Vital Signs: Vital Signs Temperature 97.1 F L 09/14/20 14:45 Pulse Rate 115 H 09/14/20 14:45 Respiratory Rate 16 09/14/20 14:45 Blood Pressure 137/74 09/14/20 14:45 Pulse Oximetry 99 09/14/20 14:45 GENERAL: Well-appearing, well-nourished and in no acute distress. HEENT: Head atraumatic,EOMI, pupils reactive, face symmetric, moist mucous membranes CARDIOVASCULAR: Regular rate and rhythm without murmurs, rubs or gallops. RESPIRATORY: Breath sounds equal bilaterally, no wheezes rales or rhonchi. ABDOMEN: Soft, nontender. Normoactive bowel sounds all 4 quadrants. No guarding or rebound. : No CVA tenderness EXTREMITIES: Normal range of motion, no clubbing or edema. Neurovascularly intact NEUROLOGICAL: Alert and oriented x4.Normal gait and speech SKIN: Warm, dry, no laceration, no petechiae, no rashes or lesions. Course Orders Ordered: ED Orders 09/14/20 15:10 UA Complete [Urinalysis and Microscopic] Stat Urine Culture Stat Vital Signs Vital signs: Vital Signs - 8 hr 09/14/20 14:45 09/14/20 16:09 Temperature 97.1 F L Pulse Rate 115 H 101 H Respiratory Rate 16 16 Blood Pressure 137/74 132/78 Pulse Oximetry 99 99 MDM - Female Genitourinary Lab Data Labs: Lab Results 09/14/20 Range/Units 15:10 Urine Color Yellow Urine Appearance Turbid Urine pH 5.5 (4.5-8.0) Ur Specific [place] 1.020 (1.000-1.035) Urine Protein 2+ H (Negative) Urine Glucose (UA) Negative (Negative) g/dL Urine Ketones Trace H (NEGATIVE) Urine Occult Blood 3+ H (Negative) Urine Nitrate Negative (Negative) Urine Bilirubin Negative (NEGATIVE) Urine Urobilinogen 0.2 (0.2) E.U./dL Ur Leukocyte Esterase 2+ H (NEGATIVE) Urine RBC 10-30/hpf H (0-5/HPF) Urine WBC 30-100/hpf H (0-5/HPF) Ur Squamous Epith Cells 1-5 /hpf (0-5/HPF) Ur Transition Epith Cell 1-5/hpf (0-5/HPF) Urine Bacteria Moderate (10-30) H (None) Ur Culture Indicated? Specimen cultured MDM Narrative Medical decision making narrative: Patient's signs and symptoms of UTI despite prophylactic Macrobid. At this time will start her on Keflex. She overall does not appear septic afebrile. Previous cultures have been reviewed will start her on Keflex. Discharge Plan Departure Patient Disposition: Home Clinical Impression: Acute UTI Instructions: DI for Urinary Tract Infection (UTI) Activity Restrictions/Additional Instructions: *You have been diagnosed with bladder infection *What to do: You do seem to have frequent bladder infections. Please follow-up with your urologist *Continue to take medications as directed Keflex 500 mg 3 times a day for 7 days *Follow up with your primary care provider in 2-3 days *Return to ER if you should have a fever, pain or any new, worsening or concerning symptoms Prescriptions: New cephalexin [Keflex] 500 mg capsule 500 mg PO TID Qty: 21 RF: 0 phenazopyridine [Pyridium] 100 mg tablet 100 mg PO TID PRN (Reason: pain) Qty: 6 RF: 0 No Action hydroxyzine HCl 25 mg tablet 25 mg PO Q6H PRN (Reason: itching) Qty: 120 RF: 0 alprazolam 0.5 mg tablet See Rx Instructions PO .COMPLEX PRN (Reason: anxiety) Qty: 45 RF: 0 atorvastatin [Lipitor] 20 mg tablet 20 mg PO DAILY Qty: 90 RF: 0 metoprolol succinate 25 mg tablet extended release 24 hr 25 mg PO DAILY Qty: 90 RF: 0 zolpidem 5 mg tablet 5 mg PO DAILY Qty: 90 RF: 0 aspirin 81 mg tablet,delayed release (DR/EC) 81 mg PO DAILY RF: 0 estradiol 1 mg tablet 1 mg PO DAILY Qty: 90 RF: 0 levothyroxine 100 mcg tablet 100 mcg PO DAILY Qty: 90 RF: 0 venlafaxine 150 mg capsule,extended release 24hr 150 mg PO DAILY Qty: 90 RF: 0 multivitamin tablet 1 tab PO DAILY RF: 0 nystatin 100,000 unit/gram powder 1 applictn TOP TID Qty: 60 RF: 3 nitrofurantoin monohyd/m-cryst 100 mg capsule 100 mg PO BEDTIME RF: 0 sennosides-docusate sodium [Senexon-S] 8.6-50 mg tablet 1 tab PO BID RF: 0 carisoprodol [Soma] 350 mg tablet 350 mg PO BEDTIME Qty: 30 RF: 3 Referrals: Emiliano Vicente MD [Primary Care Provider] -
[2020-09-14 15:53] LABS: pH Urine UA 5.5 (4.5-8.0)
[2020-09-14 15:58] LABS: RBC Urine 10-30/HPF (0-5/HPF)
[2020-09-14 15:59] LABS: Bacteria Urine Moderate (10-30); Culture Indicated Urine Specimen Cultured; Squamous Epithelial Cell Urine 1-5 /HPF (0-5/HPF); Transitional Epi Cells Urine 1-5/HPF (0-5/HPF); WBC Urine 30-100/HPF (0-5/HPF)
[2020-09-14 16:09] VITALS: BP 132/78; PULSE 101; RESP 16; O2SAT 99
== END 2020-09-14 16:10 | disposition home or self-care (01) ==
PROVIDERS: Emergency Provider Emergency Medicine; PCP Family Medicine
DX: N39.0 Urinary tract infection, site not specified (principal); I10 Essential (primary) hypertension; E78.5 Hyperlipidemia, unspecified; E03.9 Hypothyroidism, unspecified; Z86.79 Personal history of other diseases of the circulatory system; Z85.528 Personal history of other malignant neoplasm of kidney
CPT/HCPCS: 81001; 87077; 87086; 87186; 99281; 99282

== ENCOUNTER → 2020-09-25 09:06 | Outpatient (CLI) | payer MEDICARE, SELFPAY ==
--- NOTE | 2020-09-25 | DI.ECHO.S_ITS ---
[place] +---------+ [facility] +---------+ : : [address] : : : : [id number] : : : : Phone: [phone]+ Echocardiogram Report + + :Name: DANIE VERNON Study Date: 09/25/2020 Height: 65 in : :[facility] : Weight: 180 lb: : Gender: Female BSA: 1.9 m2 : :: 1940 Age: 80 yrs BP: 88/64 mmHg: :Reason For Study: ATHEROSCLEROTIC HEART DISEASE OF [place] : :CORONARY ARTERY : :Ordering Physician: : :JESÚS ISABEL Performed By: Sally Kwong : :Referring: SYL DILL : + + Interpretation Summary Small left ventricular cavity with hyperdynamic function and ejection fraction 70-75%. The aortic valve is mildly calcified. Mild mitral annular calcification. Procedure: A two-dimensional transthoracic echocardiogram with color flow and Doppler was performed. The study quality was technically difficult. There is no prior echocardiogram noted for this patient. The patient was in sinus rhythm with heart rates between 72-94 bpm during the exam. Left Ventricle: The left ventricular cavity is small. An intracavitary gradient is suspected. The left ventricle is hyperdynamic. The ejection fraction is estimated to be 70-75%. There are no focal wall motion abnormalities. Right Ventricle: The right ventricle is normal in size and function. Atria: Both atria are normal in size. There is no Doppler evidence for an interatrial shunt. Mitral Valve: The mitral valve leaflets appear mildly thickened, but open well. There is mild mitral annular calcification. There is trace mitral regurgitation. Aortic Valve: The aortic valve is mildly calcified. The aortic valve is trileaflet. There is no aortic valve stenosis. No aortic regurgitation is present. Tricuspid Valve: The tricuspid valve is normal in structure and function. The right ventricular systolic pressure is estimated to be at least 16 mmHg based on an estimated right atrial pressure of 3 mm Hg. There is trace tricuspid regurgitation. Pulmonic Valve: The pulmonic valve is not well visualized. There is no pulmonic valvular regurgitation. Great Vessels: The aortic root is normal size. The dimensions of the ascending aorta are normal. The IVC is of normal diameter and collapses greater than 50% with a sniff. This suggests a low right atrial pressure of 3 mm Hg. Pericardium/ Pleura There is no pericardial effusion. There is an anterior echo-free space consistent with a fat pad. There is no pleural effusion. MMode/2D Measurements & Calculations LVIDd: 3.4 cm LVOT diam: 2.0 cm LVIDs: 1.9 cm Ao root diam: 3.1 cm FS: 43.0 % asc Aorta Diam: 3.3 cm IVSd: 1.0 cm Ao Arch Diam (Prox Trans): 2.8 cm LVPWd: 0.88 cm LV garner. diameter/BSA (cm/m^2): 1.8 LV sys. diameter/BSA (cm/m^2): 1.0 LA A2 area: 19.4 cm2 RA long axis: 4.5 cm LA A4 area: 13.7 cm2 RA area: 10.0 cm2 LA length (vol): 4.9 cm RA vol: 18.9 ml LA vol: 46.1 ml RA : 10.0 ml/m2 LA vol index: 24.4 ml/m2 IVC diam: 0.94 cm RVD1 (basal): 2.4 cm TAPSE: 1.4 cm Doppler Measurements & Calculations Ao V2 max: 104.3 cm/sec LVOT Max Amanuel: 85.1 cm/sec Ao V2 mean: 79.3 cm/sec LV V1 max P.9 mmHg Ao max P.3 mmHg LV V1 VTI: 15.0 cm Ao mean P.7 mmHg DANIEL(I,D): 2.5 cm2 Ao V2 VTI: 17.9 cm DANIEL(V,D): 2.5 cm2 sev ratio: 0.84 DANIEL indexed to BSA (cm^2/m^2): 1.3 MV E max amanuel: 50.3 cm/sec TR max amanuel: 179.5 cm/sec MV A max amanuel: 93.5 cm/sec TR max P.9 mmHg MV E/A: 0.54 PA V2 max: 49.1 cm/sec Med Peak E' Amanuel: 4.8 cm/sec PA V2 mean: 29.7 cm/sec E/E' med: 10.5 PA mean P.44 mmHg Lat Peak E' Amanuel: 5.4 cm/sec PA pr(Accel): 25.9 mmHg E/E' lat: 9.3 E/e' average: 9.9 MV dec time: 0.24 sec SV(LVOT): 45.0 ml Electronically signed by: Jesús Pineda on Reading Physician:09/28/2020 11:18 AM
== END ==
PROVIDERS: PCP Family Medicine; Referring Provider Internal Medicine Interventional Cardiology; Visit Provider Internal Medicine Interventional Cardiology
DX: I25.10 Atherosclerotic heart disease of native coronary artery without angina pectoris (principal)
CPT/HCPCS: 93306

== ENCOUNTER → 2020-09-30 13:34 | Outpatient (CLI) | payer MEDICARE, SELFPAY ==
[2020-09-30 14:12] LABS: COVID19 -Nasal RAPID Negative (Negative)
== END ==
PROVIDERS: PCP Family Medicine; Visit Provider Nurse Practitioner
DX: Z20.822 Contact with and (suspected) exposure to COVID-19 (principal); Z01.812 Encounter for preprocedural laboratory examination
CPT/HCPCS: 87635; C9803

== ENCOUNTER 2020-11-02 14:24 | Emergency (ER) | payer MEDICARE, SELFPAY ==
[2020-11-02] VITALS (13 sets, daily range): BP systolic 98–136; BP diastolic 57–71; PULSE 73–90; RESP 11–35; TEMP 36.3; O2SAT 93–98; BMI 29.9
[2020-11-02] MEDS: SODIUM CHLORIDE 0.9% 500 ML 1000 ML IV (15:43)
[2020-11-02] MEDS: ONDANSETRON 4 MG/2 ML INJ IV (15:43)
[2020-11-02 15:45] LABS: Add Manual Diff / Slide Review NO; Basophils Absolute Auto 100 /uL (0-100); Basophils Percent Auto 1.4 % (0-2); Eosinophils Absolute Auto 400 /uL (0-450); Eosinophils Percent Auto 4.4 % (2-4); Hematocrit 37.8 % (36-46); Hemoglobin 12.5 g/dL (12.0-16.0); Lymphocytes Absolute Auto 1700 /uL (1100-4500); Lymphocytes Percent Auto 17.6 % (25-40); Mean Corpuscular HGB Conc 33.2 % (30-36); Mean Corpuscular Hemoglobin 30.9 PG (26-34); Mean Corpuscular Volume 93.1 fL (80-100); Monocytes Absolute Auto 1100 /uL (0-900); Monocytes Percent Auto 10.8 % (3-14); Neutrophils Absolute Auto 6500 /uL (1500-7000); Neutrophils Percent Auto 65.8 % (50-75); Platelet Count 127 X10^3/uL (150-400); Red Blood Cell Count 4.06 X10^6/uL (4.0-5.2); Red Cell Distribution Width 15.6 % (11.6-14.8); White Blood Cell Count 9.8 X10^3/uL (4.5-11.0)
[2020-11-02 16:00] LABS: Alanine Aminotransferase 37 IU/L (<35); Albumin 3.9 g/dL (3.5-5.0); Alkaline Phosphatase 122 U/L (38-126); Aspartate Aminotransferase 58 IU/L (14-36); BUN Creatinine Ratio 12.8 (6-22); Bilirubin Total 0.6 mg/dL (0.2-1.3); Blood Urea Nitrogen 14 mg/dL (7-17); Calcium 9.6 mg/dL (8.4-10.2); Carbon Dioxide 23 mmol/L (22-32); Chloride 107 mmol/L (98-107); Estimated Glomerular Filt Rate 48.4 mL/min (>60); Globulin 3.8 g/dL (1.7-4.1); Glucose 112 mg/dL (80-110); HEMOLYSIS < 15 (0-50); Lipase 319 U/L (23-300); Sodium 138 mmol/L (137-145); Total Protein 7.7 g/dL (6.3-8.2)
[2020-11-02 16:09] LABS: D Dimer 470 ng/mL (<230)
--- NOTE | 2020-11-02 16:44 | ED_ITS ---
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 Patient reports urinary frequency and dysuria with bladder spasms. Patient also reports short of breath which is new findings. Patient denies chest pain, dizziness, or near syncope. Patient has been taking Soma which has been helping with bladder spasm. Patient reports onset of her symptoms about a month ago while she was in the hospital after the surgery but had not started on antibiotic medications. Patient denies fever, chills but has been nauseous with vomiting for last several days. Patien t reports chronic back pain but denies new/different flank pain. She states feel crappy. 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 Patient also reports surgical incision on right low abdomen/groin is still open and would like it to be assessed. Patient states has been using purewick at home. Related Data Home Medications Medication Instructions Recorded Confirmed aspirin 81 mg tablet,delayed 81 mg PO DAILY 01/19/19 03/02/19 release estradiol 1 mg tablet 1 mg PO DAILY #90 tab 01/19/19 03/02/19 levothyroxine 100 mcg tablet 100 mcg PO DAILY #90 tab 01/19/19 03/02/19 multivitamin 1 tab PO DAILY 01/19/19 03/02/19 venlafaxine 150 mg 150 mg PO DAILY #90 cap 01/19/19 03/02/19 capsule,extended release 24 hr zolpidem 5 mg tablet 5 mg PO DAILY #90 tab 01/19/19 03/02/19 nitrofurantoin 100 mg PO BEDTIME cap 03/02/19 03/02/19 monohydrate/macrocrystals 100 mg capsule sennosides 8.6 mg-docusate sodium 1 tab PO BID 03/02/19 03/02/19 50 mg tablet Previous Rx's Medication Instructions Recorded nystatin 100,000 unit/gram topical 1 applictn TOP TID #60 gram 01/19/19 powder carisoprodol 350 mg tablet 350 mg PO BEDTIME #30 tab 03/02/19 alprazolam 0.5 mg tablet See Rx Instructions PO .COMPLEX 03/17/19 PRN #45 tab hydroxyzine HCl 25 mg tablet 25 mg PO Q6H PRN #120 tab 03/17/19 atorvastatin 20 mg tablet 20 mg PO DAILY #90 tab 08/21/20 metoprolol succinate 25 mg 25 mg PO DAILY #90 tab 08/21/20 tablet,extended release 24 hr cephalexin [Keflex] 500 mg PO TID #21 cap 09/14/20 phenazopyridine [Pyridium] 100 mg PO TID PRN #6 tab 09/14/20 cephalexin 500 mg PO BID 7 Days #14 cap 11/02/20 ondansetron 4 mg PO TID-QID PRN #7 tab 11/02/20 phenazopyridine [Pyridium] 100 mg PO TID PRN #6 tab 11/02/20 Allergies Allergy/AdvReac Type Severity Reaction Status Date / Time cyclobenzaprine Allergy Unknown Verified 11/02/20 14:48 [CYCLOBENZAPRINE] doxycycline Allergy Diarrhea Verified 11/02/20 14:48 morphine Allergy hallucinati Verified 11/02/20 14:48 ons Review of Systems <SHAUN MimsP - Last Filed: 11/02/20 20:03> Review of Systems Narrative: General: Denies fever, chills, fatigue, malaise, sweats. HEENT: Denies sinus pain, ear pain, sore throat, difficulty swallowing, dizziness. Respiratory: Denies (+) SOB with exertion, dyspnea, cough, wheezing, hemoptysis, sputum. Cardiovascular: Denies chest pain, palpitations, orthopnea, edema. Gastrointestinal: See HPI : See HPI Musculoskeletal: Denies weakness, joint pain or bony pain. Skin: See HPI Neurologic: Denies weakness, headache, numbness, change in speech, confusion, seizures, incoordination. Psychiatric: No concerning psychosocial issues. 12-point review of systems is negative except for those stated above. Patient History <ARRON Mims - Last Filed: 11/02/20 20:03> Medical History (Updated 11/02/20 @ 18:50 by ARRON Mims) Anxiety Depression Essential hypertension Hyperlipidemia Hypothyroidism, acquired Urinary incontinence Urinary tract infection Surgical History (Updated 11/02/20 @ 18:22 by ARRON Mims) History of back surgery S/P cataract extraction and insertion of intraocular lens S/P femoral-popliteal bypass surgery S/P hysterectomy (~1976) alcohol intake frequency: 0-2 drinks per day Substance Use Type: does not use Exam <ARRON Mims - Last Filed: 11/02/20 20:03> Narrative Exam Narrative: GEN: Alert, oriented x 3, well appearing and nourished, and in no acute distress. Head: Normal cephalic, atraumatic. No scalp or temporal tenderness, palpable mass or rash. EYES: Pupils are equal, round, and reactive to light and accommodation. Extraocular muscles are intact bilaterally. There is no subconjunctival hemorrhage, exudate and sclera non-icteric. ENT: Hearing grossly intact. Nose without bleeding, purulent discharge or deviation. Mucous membrane dry, no mucosal lesion. Throat without erythema, tonsillar hypertrophy or exudate. Uvula in midline, airway patent. Neck: Trachea in midline. No JVD, non-tender without lymphadenopathy. No masses or thyroid megaly. Supple, non-tender and no meningeal signs. CARDIAC: Normal regular rate and rhythm without murmurs, gallops, or rubs. No chest wall tenderness. No peripheral edema, cyanosis or pallor. Capillary refill is less than 2 seconds. RESPIRATORY: Lungs are clear to auscultate bilaterally. No cough, wheezes, rales, or rhonchi. No stridor, respiratory distress, increase work of breathing, or accessary muscle used. ABD: Abdomen soft and non-distended. Mild tenderness to palpate in suprapubic region. No guarding or rebound tenderness to palpate. Bowel sounds are normal in all 4 quadrants. There is no palpable masses or organomegaly. EXT: Full painless ROM of all extremities with no loss of sensation, strength, effusion or edema. SKIN: 4.5 cm surgical wound opened with thick, yellow discharge on the base of wound which appears to be moist. Surrounding skin mild warmth and erythema without overt hea or redness. Warm, dry, normal color for patient. BACK: Nontender without deformity or crepitance. No flank tenderness. NEUROLOGICAL: Alert and oriented to place, time and person. Sensation and motor function intact bilaterally. No facial droops, dysphasia. PSYCHIATRIC: Good judgement and reason, without hallucinations, abnormal affect or abnormal behaviors during the examination. Patient is not suicidal. Initial Vital Signs Initial Vital Signs: Vital Signs Pulse Rate 88 11/02/20 14:45 Respiratory Rate 35 H 11/02/20 14:45 Pulse Oximetry 95 11/02/20 14:45 <Florencio Tellez DO - Last Filed: 11/05/20 20:17> Initial Vital Signs Initial Vital Signs: Vital Signs Pulse Rate 88 11/02/20 14:45 Respiratory Rate 35 H 11/02/20 14:45 Pulse Oximetry 95 11/02/20 14:45 Scores <ARRON Mims - Last Filed: 11/02/20 20:03> GCS Louisa coma scale eye opening: Spontaneous Chantel coma scale verbal response: Orientated [place] coma scale motor response: Obey commands Louisa coma scale total score: 15 PERC Score Age greater than or equal to 50 years: Yes Heart rate greater than or equal to 100 bpm: No Room Air O2 Sat less than 95%: No Unilateral leg swelling: No Recent trauma or surgery: Yes Hemoptysis: No Prior PE or DVT: No Hormone Use: No Total PERC Score: 2 qSOFA Altered Mental Status (GCS <15): No Respiratory rate greater than/equal to 22: Yes Systolic blood pressure less than or equal to 100: No qSOFA Total: 1 0-1 Not High Risk 1-3 High risk Wells' Criteria for PE Clinical signs and symptoms of DVT: No PE is #1 Dx or equally likely: No Heart rate > 100: No Immobilization at least 3 days or surg in previous 4 weeks: Yes History of PE or DVT: No Hemoptysis: No Malignancy w/Treatment within 6 months or palliative: No Wells' PE Score total: 1.5 Course <ARRON Mims - Last Filed: 11/02/20 20:03> Orders Ordered: Discontinued Medications Cephalexin HCl (Cephalexin 250 Mg Capsule) 500 mg PO NOW ONE Stop: 11/02/20 18:37 Last Admin: 11/02/20 18:55 Dose: 500 mg Documented by: OLEG Sodium Chloride (Normal Saline 0.9%) 500 mls @ 1,000 mls/hr IV BOLUS ONE Stop: 11/02/20 15:29 Last Infusion: 11/02/20 16:45 Dose: 0 mls/hr Documented by: Admin: 11/02/20 15:43 Dose: 1,000 mls/hr Documented by: OLEG Ondansetron HCl (Ondansetron 4 Mg/2 Ml Inj) 4 mg IV NOW ONE Stop: 11/02/20 15:01 Last Admin: 11/02/20 15:43 Dose: 4 mg Documented by: OLEG Phenazopyridine HCl (Phenazopyridine 100 Mg Tablet) 100 mg PO NOW ONE Stop: 11/02/20 18:37 Last Admin: 11/02/20 18:55 Dose: 100 mg Documented by: OLEG Vital Signs Vital signs: Vital Signs - 8 hr 11/02/20 14:45 11/02/20 14:48 11/02/20 15:00 Temperature 97.4 F L Pulse Rate 88 90 85 Respiratory Rate 35 H 18 22 Blood Pressure 127/60 Pulse Oximetry 95 96 93 11/02/20 15:30 11/02/20 15:37 11/02/20 16:00 Temperature Pulse Rate 85 79 73 Respiratory Rate 30 H 28 H 16 Blood Pressure 98/64 115/57 L Pulse Oximetry 97 94 93 11/02/20 16:30 11/02/20 17:00 11/02/20 17:04 Temperature Pulse Rate 78 77 Respiratory Rate 29 H 30 H Blood Pressure 109/62 Pulse Oximetry 96 97 98 11/02/20 17:30 11/02/20 18:00 11/02/20 18:30 Temperature Pulse Rate 73 75 75 Respiratory Rate 14 11 L 11 L Blood Pressure 109/71 Pulse Oximetry 95 96 96 11/02/20 18:53 Temperature Pulse Rate 76 Respiratory Rate 33 H Blood Pressure 136/61 Pulse Oximetry 93 <Florencio Tellez DO - Last Filed: 11/05/20 20:17> Orders Ordered: Discontinued Medications Cephalexin HCl (Cephalexin 250 Mg Capsule) 500 mg PO NOW ONE Stop: 11/02/20 18:37 Last Admin: 11/02/20 18:55 Dose: 500 mg Documented by: OLEG Sodium Chloride (Normal Saline 0.9%) 500 mls @ 1,000 mls/hr IV BOLUS ONE Stop: 11/02/20 15:29 Last Infusion: 11/02/20 16:45 Dose: 0 mls/hr Documented by: Admin: 11/02/20 15:43 Dose: 1,000 mls/hr Documented by: OLEG Ondansetron HCl (Ondansetron 4 Mg/2 Ml Inj) 4 mg IV NOW ONE Stop: 11/02/20 15:01 Last Admin: 11/02/20 15:43 Dose: 4 mg Documented by: OLEG Phenazopyridine HCl (Phenazopyridine 100 Mg Tablet) 100 mg PO NOW ONE Stop: 11/02/20 18:37 Last Admin: 11/02/20 18:55 Dose: 100 mg Documented by: OLEG Vital Signs Vital signs: Vital Signs - 8 hr 11/02/20 14:45 11/02/20 14:48 11/02/20 15:00 Temperature 97.4 F L Pulse Rate 88 90 85 Respiratory Rate 35 H 18 22 Blood Pressure 127/60 Pulse Oximetry 95 96 93 11/02/20 15:30 11/02/20 15:37 11/02/20 16:00 Temperature Pulse Rate 85 79 73 Respiratory Rate 30 H 28 H 16 Blood Pressure 98/64 115/57 L Pulse Oximetry 97 94 93 11/02/20 16:30 11/02/20 17:00 11/02/20 17:04 Temperature Pulse Rate 78 77 Respiratory Rate 29 H 30 H Blood Pressure 109/62 Pulse Oximetry 96 97 98 11/02/20 17:30 11/02/20 18:00 11/02/20 18:30 Temperature Pulse Rate 73 75 75 Respiratory Rate 14 11 L 11 L Blood Pressure 109/71 Pulse Oximetry 95 96 96 11/02/20 18:53 Temperature Pulse Rate 76 Respiratory Rate 33 H Blood Pressure 136/61 Pulse Oximetry 93 MDM - Female Genitourinary <ARRON Mims - Last Filed: 11/02/20 20:03> Differential Diagnosis Differential diagnosis: Likely urinary tract infection and other (Cellulitis, decreased kidney function, sepsis) Medical Records Attestation: I reviewed the patient's medical records. Lab Data Attestation: I reviewed the patient's lab results. Result diagrams: 11/02/20 15:34 11/02/20 15:34 Labs: Lab Results 11/02/20 11/02/20 11/02/20 Range/Units 15:34 15:34 15:34 WBC 9.8 (4.5-11.0) X10^3/uL RBC 4.06 (4.0-5.2) X10^6/uL Hgb 12.5 (12.0-16.0) g/dL Hct 37.8 (36-46) % MCV 93.1 (80-100) fL MCH 30.9 (26-34) PG MCHC 33.2 (30-36) % RDW 15.6 H (11.6-14.8) % Plt Count 127 L (150-400) X10^3/uL Neut % (Auto) 65.8 (50-75) % Lymph % (Auto) 17.6 L (25-40) % Gregory % (Auto) 10.8 (3-14) % Eos % (Auto) 4.4 H (2-4) % Baso % (Auto) 1.4 (0-2) % Neut # (Auto) 6500 (9771-5570) /uL Lymph # (Auto) 1700 (9285-8273) /uL Gregory # (Auto) 1100 H (0-900) /uL Eos # (Auto) 400 (0-450) /uL Baso # (Auto) 100 (0-100) /uL D-Dimer 470 H (<230) ng/mL Sodium 138 (137-145) mmol/L Potassium 4.0 (3.4-5.1) mmol/L Chloride 107 (98-107) mmol/L Carbon Dioxide 23 (22-32) mmol/L BUN 14 (7-17) mg/dL Creatinine 1.09 H (0.52-1.04) mg/dL Estimated GFR 48.4 L (>60) mL/min BUN/Creatinine Ratio 12.8 (6-22) Glucose 112 H (80-110) mg/dL Calcium 9.6 (8.4-10.2) mg/dL Total Bilirubin 0.6 (0.2-1.3) mg/dL AST 58 H (14-36) IU/L ALT 37 H (<35) IU/L Alkaline Phosphatase 122 (38-126) U/L Total Protein 7.7 (6.3-8.2) g/dL Albumin 3.9 (3.5-5.0) g/dL Globulin 3.8 (1.7-4.1) g/dL Albumin/Globulin Ratio 1.0 (1.0-2.8) Lipase 319 H (23-300) U/L Urine Color Urine Appearance Urine pH (4.5-8.0) Ur Specific [place] (1.000-1.035) Urine Protein (Negative) Urine Glucose (UA) (Negative) g/dL Urine Ketones (NEGATIVE) Urine Occult Blood (Negative) Urine Nitrate (Negative) Urine Bilirubin (NEGATIVE) Ur Bilirubin Confirm (Negative) Urine Urobilinogen (0.2) E.U./dL Ur Leukocyte Esterase (NEGATIVE) Urine RBC (0-5/HPF) Urine WBC (0-5/HPF) Ur Squamous Epith Cells (0-5/HPF) Urine Bacteria (None) Ur Culture Indicated? 11/02/20 Range/Units 17:00 WBC (4.5-11.0) X10^3/uL RBC (4.0-5.2) X10^6/uL Hgb (12.0-16.0) g/dL Hct (36-46) % MCV (80-100) fL MCH (26-34) PG MCHC (30-36) % RDW (11.6-14.8) % Plt Count (150-400) X10^3/uL Neut % (Auto) (50-75) % Lymph % (Auto) (25-40) % Gregory % (Auto) (3-14) % Eos % (Auto) (2-4) % Baso % (Auto) (0-2) % Neut # (Auto) (6256-1235) /uL Lymph # (Auto) (4629-0945) /uL Gregory # (Auto) (0-900) /uL Eos # (Auto) (0-450) /uL Baso # (Auto) (0-100) /uL D-Dimer (<230) ng/mL Sodium (137-145) mmol/L Potassium (3.4-5.1) mmol/L Chloride (98-107) mmol/L Carbon Dioxide (22-32) mmol/L BUN (7-17) mg/dL Creatinine (0.52-1.04) mg/dL Estimated GFR (>60) mL/min BUN/Creatinine Ratio (6-22) Glucose (80-110) mg/dL Calcium (8.4-10.2) mg/dL Total Bilirubin (0.2-1.3) mg/dL AST (14-36) IU/L ALT (<35) IU/L Alkaline Phosphatase (38-126) U/L Total Protein (6.3-8.2) g/dL Albumin (3.5-5.0) g/dL Globulin (1.7-4.1) g/dL Albumin/Globulin Ratio (1.0-2.8) Lipase (23-300) U/L Urine Color Lor Urine Appearance Cloudy Urine pH 5.0 (4.5-8.0) Ur Specific [place] 1.025 (1.000-1.035) Urine Protein 2+ H (Negative) Urine Glucose (UA) Trace H (Negative) g/dL Urine Ketones Trace H (NEGATIVE) Urine Occult Blood Trace-intact (Negative) Urine Nitrate Positive H (Negative) Urine Bilirubin 1+ H (NEGATIVE) Ur Bilirubin Confirm Negative (Negative) Urine Urobilinogen 0.2 (0.2) E.U./dL Ur Leukocyte Esterase 1+ H (NEGATIVE) Urine RBC 1-5/hpf D (0-5/HPF) Urine WBC >100/hpf H (0-5/HPF) Ur Squamous Epith Cells 10-30 /hpf H D (0-5/HPF) Urine Bacteria Moderate (10-30) H (None) Ur Culture Indicated? Specimen cultured ECG Data Attestation: I personally reviewed and interpreted this ECG as follows: Prior ECG tracings: available for review Interpretation: Sinus rhythm rate at 81. Normal [place]. DC interval 182, QRS duration 72, QT/QTC 410/[address] changes Similar to previous EKGs in June 2020. MDM Narrative Medical decision making narrative: This is a 80 year female who presents to ED with UTI symptoms with dysuria, bladder spasming discomfort, and urinary frequency intermittently for about a month. Patient reports she has frequent UTI and takes low-dose of Macrobid. Patient denies fever, chills but has been having nausea and diarrhea for last couple of days. She also reports new short of breath with exertion after she had recent surgery for femoral popliteal bypass in left leg at [facility] on 10/02/20. Concerned for pulmonary embolism after surgery, D-dimer and EKG ordered. Wells criteria for pulmonary embolism is 1.5 and PERC score is 1. D-dimer is 470 and negative for age adjusted an EKG is normal sinus rhythm without acute ST changes. No tachycardia in ED. stable H&H of 12.5/37.8 without leukocytosis. Given patient had nausea, vomiting, diarrhea for last couple of days with having 1 functioning kidney, chemistry test was ordered and obtained. Electrolytes were unremarkable but slightly decreased kidney function from her baseline. Today's creatinine is 1.09 with estimated GFR of 48.4 which could be related to mild dehydration. Liver function test slightly elevated of AST 58, ALT 37, alk phosphatase 122 with normal total bilirubin. Lipase mildly elevated to 319. Patient's baseline liver function test mildly elevated in the past. Patient does not endorses epigastric pain but suprapubic tenderness to palpate per physical exam. Nontoxic appearing. Patient afebrile. Blood pressure is within normal tensive without tachycardia. Patient was treated with IV fluid with normal saline while in ED. she was not able to provide good urine sample on arrival but after the IV hydration she was able to provide urine. Urine test shows positive for urine nitrate, protein, 1+ leukocyte esterase with greater than 100 urine WBC, squamous epithelial cell and moderate bacteria. Patient also has 4.5 cm small dehisced surgical wound in left groin without overt signs of infection. Patient advised to follow-up with her surgeon as her PCP also recommended. Concerned for infection, wound culture obtained and is pending. Patient was treated with 1st dose of Keflex 500 mg and Pyridium before leaving ED and advised to continue with medication treatment for next 7 days. Patient informed will receive a phone call from us if requires antibiotic medication change. Zofran ordered for home use for as needed nausea and vomiting and advised to hydrate adequately. Patient also advised to use probiotics while on antibiotic medication. Return precautions discussed with patient and she verbalized understanding and agreement with the treatment plan. <Florencio Tellez, DO - Last Filed: 11/05/20 20:17> Lab Data Labs: Lab Results 11/02/20 11/02/20 11/02/20 Range/Units 15:34 15:34 15:34 WBC 9.8 (4.5-11.0) X10^3/uL RBC 4.06 (4.0-5.2) X10^6/uL Hgb 12.5 (12.0-16.0) g/dL Hct 37.8 (36-46) % MCV 93.1 (80-100) fL MCH 30.9 (26-34) PG MCHC 33.2 (30-36) % RDW 15.6 H (11.6-14.8) % Plt Count 127 L (150-400) X10^3/uL Neut % (Auto) 65.8 (50-75) % Lymph % (Auto) 17.6 L (25-40) % Gregory % (Auto) 10.8 (3-14) % Eos % (Auto) 4.4 H (2-4) % Baso % (Auto) 1.4 (0-2) % Neut # (Auto) 6500 (6059-4610) /uL Lymph # (Auto) 1700 (4495-3680) /uL Gregory # (Auto) 1100 H (0-900) /uL Eos # (Auto) 400 (0-450) /uL Baso # (Auto) 100 (0-100) /uL D-Dimer 470 H (<230) ng/mL Sodium 138 (137-145) mmol/L Potassium 4.0 (3.4-5.1) mmol/L Chloride 107 (98-107) mmol/L Carbon Dioxide 23 (22-32) mmol/L BUN 14 (7-17) mg/dL Creatinine 1.09 H (0.52-1.04) mg/dL Estimated GFR 48.4 L (>60) mL/min BUN/Creatinine Ratio 12.8 (6-22) Glucose 112 H (80-110) mg/dL Calcium 9.6 (8.4-10.2) mg/dL Total Bilirubin 0.6 (0.2-1.3) mg/dL AST 58 H (14-36) IU/L ALT 37 H (<35) IU/L Alkaline Phosphatase 122 (38-126) U/L Total Protein 7.7 (6.3-8.2) g/dL Albumin 3.9 (3.5-5.0) g/dL Globulin 3.8 (1.7-4.1) g/dL Albumin/Globulin Ratio 1.0 (1.0-2.8) Lipase 319 H (23-300) U/L Urine Color Urine Appearance Urine pH (4.5-8.0) Ur Specific [place] (1.000-1.035) Urine Protein (Negative) Urine Glucose (UA) (Negative) g/dL Urine Ketones (NEGATIVE) Urine Occult Blood (Negative) Urine Nitrate (Negative) Urine Bilirubin (NEGATIVE) Ur Bilirubin Confirm (Negative) Urine Urobilinogen (0.2) E.U./dL Ur Leukocyte Esterase (NEGATIVE) Urine RBC (0-5/HPF) Urine WBC (0-5/HPF) Ur Squamous Epith Cells (0-5/HPF) Urine Bacteria (None) Ur Culture Indicated? 11/02/20 Range/Units 17:00 WBC (4.5-11.0) X10^3/uL RBC (4.0-5.2) X10^6/uL Hgb (12.0-16.0) g/dL Hct (36-46) % MCV (80-100) fL MCH (26-34) PG MCHC (30-36) % RDW (11.6-14.8) % Plt Count (150-400) X10^3/uL Neut % (Auto) (50-75) % Lymph % (Auto) (25-40) % Gregory % (Auto) (3-14) % Eos % (Auto) (2-4) % Baso % (Auto) (0-2) % Neut # (Auto) (4679-1603) /uL Lymph # (Auto) (8250-4976) /uL Gregory # (Auto) (0-900) /uL Eos # (Auto) (0-450) /uL Baso # (Auto) (0-100) /uL D-Dimer (<230) ng/mL Sodium (137-145) mmol/L Potassium (3.4-5.1) mmol/L Chloride (98-107) mmol/L Carbon Dioxide (22-32) mmol/L BUN (7-17) mg/dL Creatinine (0.52-1.04) mg/dL Estimated GFR (>60) mL/min BUN/Creatinine Ratio (6-22) Glucose (80-110) mg/dL Calcium (8.4-10.2) mg/dL Total Bilirubin (0.2-1.3) mg/dL AST (14-36) IU/L ALT (<35) IU/L Alkaline Phosphatase (38-126) U/L Total Protein (6.3-8.2) g/dL Albumin (3.5-5.0) g/dL Globulin (1.7-4.1) g/dL Albumin/Globulin Ratio (1.0-2.8) Lipase (23-300) U/L Urine Color Lor Urine Appearance Cloudy Urine pH 5.0 (4.5-8.0) Ur Specific [place] 1.025 (1.000-1.035) Urine Protein 2+ H (Negative) Urine Glucose (UA) Trace H (Negative) g/dL Urine Ketones Trace H (NEGATIVE) Urine Occult Blood Trace-intact (Negative) Urine Nitrate Positive H (Negative) Urine Bilirubin 1+ H (NEGATIVE) Ur Bilirubin Confirm Negative (Negative) Urine Urobilinogen 0.2 (0.2) E.U./dL Ur Leukocyte Esterase 1+ H (NEGATIVE) Urine RBC 1-5/hpf D (0-5/HPF) Urine WBC >100/hpf H (0-5/HPF) Ur Squamous Epith Cells 10-30 /hpf H D (0-5/HPF) Urine Bacteria Moderate (10-30) H (None) Ur Culture Indicated? Specimen cultured Discharge Plan Departure Patient Disposition: Home Clinical Impression: Acute UTI, Decreased renal function Instructions: DI for Urinary Tract Infection (UTI) Activity Restrictions/Additional Instructions: You have been diagnosed with [UTI and decreased kidney function from her baseline. Creatinine level 1.09 and estimated GFR is 48.4. It is likely due to mild dehydration. Hydrate adequately and please follow-up with your primary care doctor for recheck in the future. No indications for severe infection and screening test for PE D-dimer was within normal. Your liver function test and lipase are mildly elevated]. What to do: *Take your medications as directed. Please take Keflex twice a day for next 7 days. Pyridium up to total 6 doses as needed for bladder spasm and dysuria. You will receive a phone call from us if urine culture indicates recurring antibiotic medication change in a couple of days. While your taking Keflex, you can stop taking Macrobid. Zofran has been also transmitted to use for nausea as needed. This medication has been transmitted to [facility]. *Follow up with your primary care provider in 2-3 days, call for an appointment. Let them know you were seen in the ED and that we asked you to be seen in follow up. *Return to ED if you have any new, worsening, or concerning symptoms, such as [fever, flank pain, unable to tolerate medications, chest pain, breathing difficulty, near fainting, abdominal pain or any acute concerns]. Prescriptions: New cephalexin 500 mg capsule 500 mg PO BID 7 Days Qty: 14 RF: 0 phenazopyridine [Pyridium] 100 mg tablet 100 mg PO TID PRN (Reason: pain) Qty: 6 RF: 0 ondansetron 4 mg tablet,disintegrating 4 mg PO TID-QID PRN (Reason: nausea and vomiting) Qty: 7 RF: 0 No Action hydroxyzine HCl 25 mg tablet 25 mg PO Q6H PRN (Reason: itching) Qty: 120 RF: 0 alprazolam 0.5 mg tablet See Rx Instructions PO .COMPLEX PRN (Reason: anxiety) Qty: 45 RF: 0 atorvastatin [Lipitor] 20 mg tablet 20 mg PO DAILY Qty: 90 RF: 0 metoprolol succinate 25 mg tablet extended release 24 hr 25 mg PO DAILY Qty: 90 RF: 0 zolpidem 5 mg tablet 5 mg PO DAILY Qty: 90 RF: 0 aspirin 81 mg tablet,delayed release (DR/EC) 81 mg PO DAILY RF: 0 estradiol 1 mg tablet 1 mg PO DAILY Qty: 90 RF: 0 levothyroxine 100 mcg tablet 100 mcg PO DAILY Qty: 90 RF: 0 venlafaxine 150 mg capsule,extended release 24hr 150 mg PO DAILY Qty: 90 RF: 0 multivitamin tablet 1 tab PO DAILY RF: 0 nystatin 100,000 unit/gram powder 1 applictn TOP TID Qty: 60 RF: 3 nitrofurantoin monohyd/m-cryst 100 mg capsule 100 mg PO BEDTIME RF: 0 sennosides-docusate sodium [Senexon-S] 8.6-50 mg tablet 1 tab PO BID RF: 0 carisoprodol [Soma] 350 mg tablet 350 mg PO BEDTIME Qty: 30 RF: 3 cephalexin [Keflex] 500 mg capsule 500 mg PO TID Qty: 21 RF: 0 phenazopyridine [Pyridium] 100 mg tablet 100 mg PO TID PRN (Reason: pain) Qty: 6 RF: 0 Referrals: Meghan Chu MD [Primary Care Provider] - <Florencio Tellez DO - Last Filed: 11/05/20 20:17> Cosign ED Attending Cosignature Attestation: Dr Tellez Co-Sign Statement: I was available for consultation during this patient's emergency department visit. This chart is signed by myself for administrative purposes only. I did not have direct contact with this patient during this visit. They were seen independently by the APC.
[2020-11-02 18:31] LABS: Bilirubin Urine UA 1+ (NEGATIVE); Glucose Urine UA TRACE g/dL (Negative); Ketones Urine UA TRACE (NEGATIVE); Leukocyte Esterase Urine UA 1+ (NEGATIVE); Nitrite Urine UA POSITIVE (Negative); Occult Blood Urine UA TRACE-INTACT (Negative); Protein Urine UA 2+ (Negative); Specific Gravity Urine UA 1.025 (1.000-1.035); Urobilinogen Urine UA 0.2 E.U./dL (0.2)
[2020-11-02 18:32] LABS: Appearance Urine UA Cloudy; Color Urine UA Amber
[2020-11-02 18:39] LABS: Bacteria Urine Moderate (10-30); Culture Indicated Urine Specimen Cultured; Ictotest Urine Negative (Negative); RBC Urine 1-5/HPF (0-5/HPF); Squamous Epithelial Cell Urine 10-30 /HPF (0-5/HPF); WBC Urine >100/HPF (0-5/HPF)
[2020-11-02] MEDS: PHENAZOPYRIDINE 100 MG TABLET PO (18:55)
[2020-11-02] MEDS: cephALEXin 250 MG CAPSULE 500 MG PO (18:55)
== END 2020-11-02 19:01 | disposition home or self-care (01) ==
PROVIDERS: Emergency Provider Nurse Practitioner Family; PCP Internal Medicine
DX: N39.0 Urinary tract infection, site not specified (principal); N28.9 Disorder of kidney and ureter, unspecified; R06.02 Shortness of breath
CPT/HCPCS: 36415; 51798; 80053; 81001; 83690; 85025; 85379; 87070; 87075; 87077; 87086; 87147; 87186; 87205; 93005; 93010; 96361; 96374; 99284; J2405

== ENCOUNTER → 2020-12-19 11:09 | Outpatient (CLI) | payer MEDICARE, SELFPAY ==
--- NOTE | 2020-12-19 11:11 | DI.RAD.S_ITS ---
PROCEDURE: FL BARIUM SWALLOW INDICATIONS: Dysphagia, unspecified COMPARISON: None. FINDINGS: Function: There is reduced peristalsis with loss of the primary wave. Multiple tertiary contractions are present.. No elicited gastroesophageal reflux. Morphology: Air-contrast images demonstrate normal mucosal morphology. Single contrast views show no esophageal strictures, extrinsic mass effects, or diverticula. IMPRESSION: Esophageal dysmotility. Dictated by: Radha Estrella M.D. on 12/19/2020 at 14:58 Approved by: Radha Estrella M.D. on 12/19/2020 at 14:59
== END ==
PROVIDERS: PCP Internal Medicine; Referring Provider Student in an Organized Health Care Education/Training Program; Visit Provider Student in an Organized Health Care Education/Training Program
DX: R13.10 Dysphagia, unspecified (principal); K22.4 Dyskinesia of esophagus
CPT/HCPCS: 74220

== ENCOUNTER 2021-01-21 19:55 | Emergency (ER) | payer MEDICARE, SELFPAY ==
[2021-01-21] VITALS (9 sets, daily range): BP systolic 136–149; BP diastolic 59–84; PULSE 79–111; RESP 16–25; TEMP 36.7; O2SAT 96–98
--- NOTE | 2021-01-21 20:20 | DI.RAD.S_ITS ---
PROCEDURE: XR ABDOMEN MIN 2V INDICATIONS: abd pain, constipation TECHNIQUE: 2 views of the abdomen were acquired. COMPARISON: None. FINDINGS: Surgical changes and devices: Extensive thoracolumbosacral fusion. Stimulator device. Bowel: No pneumoperitoneum. The bowel gas pattern is normal. Mild fecal load. Soft tissues: No masses; visualized solid organ contours appear normal in size. No suspicious abdominal calcifications. Bones: No suspicious bony abnormalities. IMPRESSION: Normal bowel gas pattern. Mild fecal load. Dictated by: Prosper Couch M.D. on 01/21/2021 at 20:50 Approved by: Prosper Couch M.D. on 01/21/2021 at 20:51
[2021-01-21 20:24] LABS: Add Manual Diff / Slide Review NO; Basophils Absolute Auto 100 /uL (0-100); Basophils Percent Auto 0.9 % (0-2); Eosinophils Absolute Auto 100 /uL (0-450); Eosinophils Percent Auto 0.7 % (2-4); Hemoglobin 13.9 g/dL (12.0-16.0); Lymphocytes Absolute Auto 1400 /uL (1100-4500); Lymphocytes Percent Auto 9.5 % (25-40); Mean Corpuscular HGB Conc 33.2 % (30-36); Mean Corpuscular Volume 93.4 fL (80-100); Monocytes Absolute Auto 1100 /uL (0-900); Monocytes Percent Auto 7.9 % (3-14); Neutrophils Absolute Auto 11600 /uL (1500-7000); Platelet Count 144 X10^3/uL (150-400); Red Cell Distribution Width 15.1 % (11.6-14.8); White Blood Cell Count 14.3 X10^3/uL (4.5-11.0)
[2021-01-21 20:31] LABS: Alanine Aminotransferase 33 IU/L (<35); Albumin 4.1 g/dL (3.5-5.0); Alkaline Phosphatase 144 U/L (38-126); Aspartate Aminotransferase 57 IU/L (14-36); BUN Creatinine Ratio 14.7 (6-22); Bilirubin Total 0.7 mg/dL (0.2-1.3); Blood Urea Nitrogen 15 mg/dL (7-17); Calcium 10.1 mg/dL (8.4-10.2); Carbon Dioxide 23 mmol/L (22-32); Chloride 105 mmol/L (98-107); Estimated Glomerular Filt Rate 52.3 mL/min (>60); Globulin 4.1 g/dL (1.7-4.1); Glucose 116 mg/dL (80-110); HEMOLYSIS 25 (0-50); Lipase 179 U/L (23-300); Potassium 4.1 mmol/L (3.4-5.1); Sodium 136 mmol/L (137-145); Total Protein 8.2 g/dL (6.3-8.2)
[2021-01-21] MEDS: SODIUM CHLORIDE 0.9% 1,000 ML 500 ML IV (20:52)
--- NOTE | 2021-01-21 22:32 | ED_ITS ---
HPI - Abdominal Pain General Chief Complaint: Abdominal Pain Stated Complaint: constipation, abd pain Time Seen by Provider: 01/21/21 20:20 Source: patient and family Mode of arrival: Ambulatory Limitations: no limitations History of Present Illness HPI narrative: This is a 80-year-old female comes emergency department complaint of constipation for the past 4 5 days. She states she has been having small amounts of clear dark liquid for the last day or so. Patient states she tried enema as well as glycerin suppository without much improvement. Patient denies any fevers or chills. No chest pain or shortness of breath. She states she has had pretty significant lower abdominal pain bilaterally. Patient states she has had recent UTIs and she has chronic urinary incontinence and just finished oral antibiotics. She was on Cipro. She states she takes metoprolol for rapid pulse. She denies any prior coronary artery disease, no prior strokes. She has medication for hypothyroidism and dyslipidemia. Patient does have an InterStim for her chronic urinary incontinence. She states she has had back surgery x5. She has had a fem-pop in September and had a barium swallow recently. Patient also notes she has a history of autoimmune skin disease, purigo nodularis. She is allergic to morphine and doxycycline. She takes an aspirin 81 mg when she remembers her primary care is Ramila Galdamez. Related Data Home Medications Medication Instructions Recorded Confirmed aspirin 81 mg tablet,delayed 81 mg PO DAILY 01/19/19 03/02/19 release estradiol 1 mg tablet 1 mg PO DAILY #90 tab 01/19/19 03/02/19 levothyroxine 100 mcg tablet 100 mcg PO DAILY #90 tab 01/19/19 03/02/19 multivitamin 1 tab PO DAILY 01/19/19 03/02/19 venlafaxine 150 mg 150 mg PO DAILY #90 cap 01/19/19 03/02/19 capsule,extended release 24 hr zolpidem 5 mg tablet 5 mg PO DAILY #90 tab 01/19/19 03/02/19 nitrofurantoin 100 mg PO BEDTIME cap 03/02/19 03/02/19 monohydrate/macrocrystals 100 mg capsule sennosides 8.6 mg-docusate sodium 1 tab PO BID 03/02/19 03/02/19 50 mg tablet Previous Rx's Medication Instructions Recorded nystatin 100,000 unit/gram topical 1 applictn TOP TID #60 gram 01/19/19 powder carisoprodol 350 mg tablet 350 mg PO BEDTIME #30 tab 03/02/19 alprazolam 0.5 mg tablet See Rx Instructions PO .COMPLEX 03/17/19 PRN #45 tab hydroxyzine HCl 25 mg tablet 25 mg PO Q6H PRN #120 tab 03/17/19 atorvastatin 20 mg tablet 20 mg PO DAILY #90 tab 08/21/20 metoprolol succinate 25 mg 25 mg PO DAILY #90 tab 08/21/20 tablet,extended release 24 hr cephalexin [Keflex] 500 mg PO TID #21 cap 09/14/20 phenazopyridine [Pyridium] 100 mg PO TID PRN #6 tab 09/14/20 ondansetron 4 mg PO TID-QID PRN #7 tab 11/02/20 phenazopyridine [Pyridium] 100 mg PO TID PRN #6 tab 11/02/20 docusate sodium [Colace] 100 mg PO BID PRN #30 cap 01/22/21 Allergies Allergy/AdvReac Type Severity Reaction Status Date / Time cyclobenzaprine Allergy Unknown Verified 11/02/20 14:48 [CYCLOBENZAPRINE] doxycycline Allergy Diarrhea Verified 11/02/20 14:48 morphine Allergy hallucinati Verified 11/02/20 14:48 ons Review of Systems Review of Systems ROS Unobtainable: All systems reviewed & are unremarkable except as noted in HPI and below Patient History Medical History (Updated 01/22/21 @ 02:17 by Noemy Mendes DO) Anxiety Depression Essential hypertension Hyperlipidemia Hypothyroidism, acquired Prurigo nodularis Urinary incontinence Urinary tract infection Surgical History History of back surgery S/P cataract extraction and insertion of intraocular lens S/P femoral-popliteal bypass surgery S/P hysterectomy (~1976) Social History Smoking Status: Former smoker Smoking Status: Former smoker alcohol intake frequency: 0-2 drinks per day Substance Use Type: does not use Exam Narrative Exam Narrative: GENERAL: Alert and oriented x three, obese female in mild distress. HEENT: Head normocephalic, atraumatic, EOMI, pupils reactive, face symmetric, moist mucous membranes NECK: Supple, full range of motion CARDIOVASCULAR: Regular rate and rhythm without murmurs, rubs or gallops. RESPIRATORY: Breath sounds equal bilaterally, no wheezes rales or rhonchi. ABDOMEN: Soft, patient is quite tender on abdominal exam particularly in the right lower and left lower quadrant.. Normoactive bowel sounds all 4 quadrants. No guarding or rebound, rigidity, no mass. Nondistended. On digital rectal exam patient does have some hard stool noted. No melena or hematochezia. Stool occult is - : No CVA tenderness EXTREMITIES: Normal range of motion, no clubbing or edema. Neurovascularly intact NEUROLOGICAL: Cranial nerves II through XII grossly intact. Moving all extremities SKIN: Warm, dry, no petechiae, no rashes or lesions. Initial Vital Signs Initial Vital Signs: Vital Signs Temperature 98.1 F 01/21/21 20:05 Pulse Rate 111 H 01/21/21 20:05 Respiratory Rate 20 01/21/21 20:05 Blood Pressure 138/84 01/21/21 20:05 Pulse Oximetry 98 01/21/21 20:05 Course Orders Ordered: ED Orders 01/21/21 20:04 EKG-12 Lead Stat 01/21/21 20:13 Complete Blood Count AUTO DIFF Stat Comprehensive Metabolic Panel Stat Lipase Stat 01/21/21 20:20 XR abdomen min 2V Stat 01/21/21 22:49 CT abdomen pelvis w con Stat Discontinued Medications Sodium Chloride (Normal Saline 0.9%) 1,000 mls @ 500 mls/hr IV BOLUS ONE Stop: 01/21/21 22:20 Last Infusion: 01/21/21 23:43 Dose: 0 mls/hr Documented by: Admin: 01/21/21 20:52 Dose: 500 mls/hr Documented by: ZAHRAA Ketorolac Tromethamine (Ketorolac 30 Mg/Ml Vial) 15 mg IV NOW ONE Stop: 01/21/21 22:53 Last Admin: 01/21/21 22:58 Dose: 15 mg Documented by: TIMOTHY Lidocaine HCl (Lidocaine 2% (Glydo) 6 Ml Gel) 6 ml TOP NOW ONE Stop: 01/22/21 01:16 Magnesium Citrate (Magnesium Citrate 300 Ml Solution) 300 ml PO NOW ONE Stop: 06/09/21 01:54 Last Admin: 01/22/21 02:01 Dose: 300 ml Documented by: Vital Signs Vital signs: Vital Signs - 8 hr 01/21/21 20:05 01/21/21 20:19 01/21/21 20:36 Temperature 98.1 F Pulse Rate 111 H 104 H 93 H Respiratory Rate 20 22 17 Blood Pressure 138/84 136/59 L Pulse Oximetry 98 98 97 01/21/21 21:00 01/21/21 21:05 01/21/21 21:30 Temperature Pulse Rate 85 84 94 H Respiratory Rate 16 23 24 Blood Pressure 142/63 H Pulse Oximetry 97 97 96 01/21/21 21:31 01/21/21 22:00 01/21/21 22:09 Temperature Pulse Rate 88 81 79 Respiratory Rate 24 25 H 19 Blood Pressure 149/63 H 138/76 Pulse Oximetry 97 97 MDM - Abdominal Pain Lab Data Attestation: I reviewed the patient's lab results. Result diagrams: 01/21/21 20:13 01/21/21 20:13 Labs: Lab Results 01/21/21 01/21/21 Range/Units 20:13 20:13 WBC 14.3 H (4.5-11.0) X10^3/uL RBC 4.50 (4.0-5.2) X10^6/uL Hgb 13.9 (12.0-16.0) g/dL Hct 42.0 (36-46) % MCV 93.4 (80-100) fL MCH 31.0 (26-34) PG MCHC 33.2 (30-36) % RDW 15.1 H (11.6-14.8) % Plt Count 144 L (150-400) X10^3/uL Neut % (Auto) 81.0 H (50-75) % Lymph % (Auto) 9.5 L (25-40) % [place] % (Auto) 7.9 (3-14) % Eos % (Auto) 0.7 L (2-4) % Baso % (Auto) 0.9 (0-2) % Neut # (Auto) 03355 H (4173-9925) /uL Lymph # (Auto) 1400 (9537-7350) /uL [place] # (Auto) 1100 H (0-900) /uL Eos # (Auto) 100 (0-450) /uL Baso # (Auto) 100 (0-100) /uL Sodium 136 L (137-145) mmol/L Potassium 4.1 (3.4-5.1) mmol/L Chloride 105 (98-107) mmol/L Carbon Dioxide 23 (22-32) mmol/L BUN 15 (7-17) mg/dL Creatinine 1.02 (0.52-1.04) mg/dL Estimated GFR 52.3 L (>60) mL/min BUN/Creatinine Ratio 14.7 (6-22) Glucose 116 H (80-110) mg/dL Calcium 10.1 (8.4-10.2) mg/dL Total Bilirubin 0.7 (0.2-1.3) mg/dL AST 57 H (14-36) IU/L ALT 33 (<35) IU/L Alkaline Phosphatase 144 H (38-126) U/L Total Protein 8.2 (6.3-8.2) g/dL Albumin 4.1 (3.5-5.0) g/dL Globulin 4.1 (1.7-4.1) g/dL Albumin/Globulin Ratio 1.0 (1.0-2.8) Lipase 179 (23-300) U/L Imaging Data Abdominal x-ray: Radiologist's Impression: [address] [id number] ReportSigned Patient: Nikki Voss [facility]#: [id number]: 2Acct:[id number]/Sex: 80 / FDate of Service: 01/21/21Loc: EDAccession Number: [id number] Procedure: XR abdomen min 2V Ordering Provider: Noemy Mendes D.O. PROCEDURE: XR ABDOMEN MIN 2V INDICATIONS: abd pain, constipation TECHNIQUE: 2 views of the abdomen were acquired. COMPARISON: None. FINDINGS: Surgical changes and devices: Extensive thoracolumbosacral fusion. Stimulator device. Bowel: No pneumoperitoneum. The bowel gas pattern is normal. Mild fecal load. Soft tissues: No masses; visualized solid organ contours appear normal in size. No suspicious abdominal calcifications. Bones: No suspicious bony abnormalities. IMPRESSION: Normal bowel gas pattern. Mild fecal load. Dictated by: Prosper Couch M.D. on 01/21/2021 at 20:50 Approved by: Prosper Couch M.D. on 01/21/2021 at 20:51 CT scan - abdomen/pelvis: Radiologist's Impression: Mild reticular interstitial thickening in the lingula and right middle lung. Bibasilar atelectasis. The liver is cirrhotic. Scattered hypodense lesions in the liver may represent cysts. Hyperdense layering stones in the gallbladder. The left kidney is absent. Mild rectal fecal impaction with minimal perirectal stranding and mild presacral edema. No bowel obstruction pneumoperitoneum or pneumatosis. The appendix is absent. Calcified plaque in the nonaneurysmal aorta and iliac arteries. Uterus is absent. No suspicious adnexal lesions. Prior surgical changes in left inguinal region with partially seen left SFA stent. Intact posterior thoracolumbar fusion. Left-sided sacral neurostimulator device. ECG Data Attestation: I personally reviewed and interpreted this ECG as follows: Interpretation: Sinus tachycardia rate of 108 CT 186 QRS of 68 QTC of 474. No acute ST elevation or depression noted. MDM Narrative Medical decision making narrative: This is a 80 comes in with complaint of constipation with the last 4 days with some overflow incontinence. Patient states she has had been increasing abdominal pain and is quite uncomfortable on exam her x-ray does not show any obstructive changes she does have some hard formed stool on digital rectal exam. After discussion patient is quite tender on her physical exam on her right lower left lower quadrants. Concerned the patient might have some colitis or other changes that would be appropriate to evaluate he and she is agreeable to CT imaging. Imaging does show some proctitis in addition to her constipation, patient does have a leukocytosis today with decrease in platelets. 136, slightly elevated AST and alk phos which appears similar to priors from June of 2020 with no other acute lab changes noted. CT today shows proctitis. Patient had enema with very minimal output and attemped digital disimpaction but unable to reach stool. Discharge Plan Departure Patient Disposition: Home Clinical Impression: Acute proctitis Constipation Qualifiers: Constipation type: other constipation type Qualified Code(s): K59.09 - Other constipation Instructions: DI for Constipation Activity Restrictions/Additional Instructions: Follow up with your physician in the next 2-3 days for recheck. Your imaging today shows constipation but also proctitis or irritation of the rectum as well. I would recommend taking colace 1-2 tablets daily. Prescription to [facility] in [place]. Miralax once daily or twice daily if you are not having any improvement after 24 hours of colace. Make sure to increase your fluid intake, these medications won't work well if you are not well hydrated. It's is helpful to increase the fiber in your diet as well. Please return to the ER for fevers greater 100.4 F, new or worsening abdominal, rectal or back or flank pain, black or bloody stools, persistent vomiting, inability to pass bowel movement or gas/flatus, lightheadedness or passing out or other new or concerning symptoms. Prescriptions: New docusate sodium [Colace] 100 mg capsule 100 mg PO BID PRN (Reason: constipation) Qty: 30 RF: 0 No Action hydroxyzine HCl 25 mg tablet 25 mg PO Q6H PRN (Reason: itching) Qty: 120 RF: 0 alprazolam 0.5 mg tablet See Rx Instructions PO .COMPLEX PRN (Reason: anxiety) Qty: 45 RF: 0 atorvastatin [Lipitor] 20 mg tablet 20 mg PO DAILY Qty: 90 RF: 0 metoprolol succinate 25 mg tablet extended release 24 hr 25 mg PO DAILY Qty: 90 RF: 0 zolpidem 5 mg tablet 5 mg PO DAILY Qty: 90 RF: 0 aspirin 81 mg tablet,delayed release (DR/EC) 81 mg PO DAILY RF: 0 estradiol 1 mg tablet 1 mg PO DAILY Qty: 90 RF: 0 levothyroxine 100 mcg tablet 100 mcg PO DAILY Qty: 90 RF: 0 venlafaxine 150 mg capsule,extended release 24hr 150 mg PO DAILY Qty: 90 RF: 0 multivitamin tablet 1 tab PO DAILY RF: 0 nystatin 100,000 unit/gram powder 1 applictn TOP TID Qty: 60 RF: 3 nitrofurantoin monohyd/m-cryst 100 mg capsule 100 mg PO BEDTIME RF: 0 sennosides-docusate sodium [Senexon-S] 8.6-50 mg tablet 1 tab PO BID RF: 0 carisoprodol [Soma] 350 mg tablet 350 mg PO BEDTIME Qty: 30 RF: 3 cephalexin [Keflex] 500 mg capsule 500 mg PO TID Qty: 21 RF: 0 phenazopyridine [Pyridium] 100 mg tablet 100 mg PO TID PRN (Reason: pain) Qty: 6 RF: 0 phenazopyridine [Pyridium] 100 mg tablet 100 mg PO TID PRN (Reason: pain) Qty: 6 RF: 0 ondansetron 4 mg tablet,disintegrating 4 mg PO TID-QID PRN (Reason: nausea and vomiting) Qty: 7 RF: 0 Referrals: Meghan Chu MD [Primary Care Provider] -
--- NOTE | 2021-01-21 22:49 | DI.CT.S_ITS ---
PROCEDURE: CT ABDOMEN PELVIS W CON INDICATIONS: constipation, lower abdominal tenderness. TECHNIQUE: After the administration of intravenous contrast, 5 mm thick sections acquired from the diaphragm to the symphysis. 5 mm coronal and sagittal reformats were acquired. For radiation dose reduction, the following was used: automated exposure control, adjustment of mA and/or kV according to patient size. COMPARISON: [facility], CT, CT ABDOMEN WO/W CON, 12/16/2018, 12:30. [facility], CT, CT ABD PELVIS W CON, 04/13/2017, 11:31. FINDINGS: Image quality: Excellent. ABDOMEN: Lung bases: Minimal basilar dependent change. Heart size is normal. Solid organs: The appearance of the liver is unchanged over multiple years, with innumerable low-density lesions possibly representing cysts versus biliary hamartomas. Gallbladder contains numerous tiny hyperdense stones versus sludge.. Biliary system is non dilated. Pancreas enhances normally. Spleen is normal in size and enhancement. No adrenal nodules. Left kidney is surgically absent. Right kidney is unremarkable. Peritoneum and bowel: Moderate rectal fecal impaction with some degree of presacral edema. Colon is otherwise normal in caliber with moderately large fecal debris. Small bowel is unremarkable. No free air, free fluid, or abscess cavity. Nodes and vessels: No retroperitoneal or mesenteric adenopathy by size criteria. Aorta and inferior vena cava are normal in size. Occluded proximal aspect of left fem-pop bypass graft. Miscellaneous: No ventral hernias. PELVIS: Genitourinary: Bladder wall thickness is normal. Miscellaneous: No inguinal hernias or adenopathy. Uterus is surgically absent. Bones: No suspicious bony lesions. No vertebral body compression fractures. Extensive posterior lateral fusion hardware bridging T9 through the sacrum. IMPRESSION: 1. Remote left nephrectomy. 2. Unchanged appearance of the liver suggesting innumerable cysts versus biliary hamartomas. 3. No evidence of metastatic disease. 4. Gallbladder sludge versus numerous tiny layering stones. 5. Moderate rectal fecal impaction with associated presacral edema. 6. Left fem-pop bypass graft incidentally noted to be thrombosed. Comment: Final report is concordant with preliminary interpretation provided by [facility]. Dictated by: Prosper Couch M.D. on 01/22/2021 at 7:35 Approved by: Prosper Couch M.D. on 01/22/2021 at 7:50
[2021-01-21] MEDS: KETOROLAC 30 MG/ML VIAL 15 MG IV (22:58)
[2021-01-22] MEDS: LIDOCAINE 2% (GLYDO) 6 ML GEL TOP (01:20)
[2021-01-22] MEDS: MAGNESIUM CITRATE 300 ML SOLUTION PO (02:01)
[2021-01-22 02:18] VITALS: BP 155/67; PULSE 88; RESP 20; O2SAT 96
== END 2021-01-22 02:15 | disposition home or self-care (01) ==
PROVIDERS: Emergency Provider Emergency Medicine; PCP Internal Medicine
DX: K62.89 Other specified diseases of anus and rectum (principal); K59.09 Other constipation
CPT/HCPCS: 36415; 74019; 74177; 80053; 83690; 85025; 93005; 96361; 96374; 99284; J1885; Q9967

== ENCOUNTER → 2021-02-24 13:45 | Outpatient (CLI) | payer MEDICARE, SELFPAY | PROVIDERS: PCP Internal Medicine; Visit Provider Urology | DX: N39.0 Urinary tract infection, site not specified (principal); B96.20 Unspecified Escherichia coli [E. coli] as the cause of diseases classified elsewhere; R30.0 Dysuria; Z85.528 Personal history of other malignant neoplasm of kidney; Z90.5 Acquired absence of kidney | CPT/HCPCS: 51798; 81002; 87077; 87086; 87186; 99214 ==

== ENCOUNTER 2021-02-26 14:19 | Emergency (ER) | payer MEDICARE, SELFPAY ==
[2021-02-26 14:44] VITALS: BP 114/66; PULSE 119; RESP 16; TEMP 36.4; O2SAT 95; BMI 29.0
--- NOTE | 2021-02-26 15:11 | ED.FEMALEGU ---
HPI - Female Genitourinary General Chief complaint: Urogenital-Female Stated complaint: uti/in a lot of pain Time Seen by Provider: 02/26/21 14:58 Source: patient Mode of arrival: Wheelchair Limitations: no limitations History of Present Illness HPI Narrative: Nikki presents today with chief complaint of increased frequency urination, burning with urination, bladder spasms. She has a long-time history of urinary tract infections. She saw her urologist yesterday and the test was performed which came back positive for infection. They sent off for culture and not start her on antibiotics. She has tried contacting them but has been unable to get through. Review of her records shows that she has pansensitive E coli. She reports that ciprofloxacin has worked well in the past for her infections. She denies any significant abdominal pain, new back pain, fever, decreased urine output or any other acute concerns or complaints at this time. Related Data Home Medications Medication Instructions Recorded Confirmed aspirin 81 mg tablet,delayed 81 mg PO DAILY 01/19/19 02/24/21 release levothyroxine 100 mcg tablet 100 mcg PO DAILY #90 tab 01/19/19 02/24/21 multivitamin 1 tab PO DAILY 01/19/19 02/24/21 venlafaxine 150 mg 150 mg PO DAILY #90 cap 01/19/19 02/24/21 capsule,extended release 24 hr nitrofurantoin 100 mg PO BEDTIME cap 03/02/19 02/24/21 monohydrate/macrocrystals 100 mg capsule cholecalciferol (vitamin D3) 50 PO 02/24/21 02/24/21 mcg (2,000 unit) capsule melatonin 1 mg tablet mg PO 02/24/21 02/24/21 Previous Rx's Medication Instructions Recorded nystatin 100,000 unit/gram topical 1 applictn TOP TID #60 gram 01/19/19 powder carisoprodol 350 mg tablet (Soma) 350 mg PO BEDTIME #30 tab 03/02/19 hydroxyzine HCl 25 mg tablet 25 mg PO Q6H PRN #120 tab 03/17/19 atorvastatin 20 mg tablet (Lipitor) 20 mg PO DAILY #90 tab 08/21/20 metoprolol succinate 25 mg 25 mg PO DAILY #90 tab 08/21/20 tablet,extended release 24 hr docusate sodium 100 mg capsule 100 mg PO BID PRN #30 cap 01/22/21 (Colace) ciprofloxacin HCl 500 mg tablet 500 mg PO BID 5 Days #10 tab 02/26/21 (Cipro) sulfamethoxazole 800 1 tab PO BID #28 tab 02/26/21 mg-trimethoprim 160 mg tablet (Bactrim DS) Allergies Allergy/AdvReac Type Severity Reaction Status Date / Time cyclobenzaprine Allergy Unknown Verified 02/24/21 12:46 [CYCLOBENZAPRINE] doxycycline Allergy Diarrhea Verified 02/24/21 12:46 morphine Allergy hallucinati Verified 02/24/21 12:46 ons Review of Systems Review of Systems Narrative: As per HPI Patient History Medical History (Updated 02/26/21 @ 15:30 by Jamari Guzmán PA-C) Anxiety Chronic urinary tract infection Depression Dysuria E. coli urinary tract infection Essential hypertension History of kidney cancer Hyperlipidemia Hypothyroidism, acquired Prurigo nodularis Urinary incontinence Urinary tract infection Surgical History History of back surgery History of nephrectomy S/P cataract extraction and insertion of intraocular lens S/P femoral-popliteal bypass surgery S/P hysterectomy (~1976) S/P insertion of spinal cord stimulator alcohol intake frequency: 0-2 drinks per day Substance Use Type: does not use Exam Narrative Exam Narrative: Exam Narrative: Const General: cooperative, healthy appearing, comfortable, no acute distress, well developed and well groomed Nutritional Appearance: average body habitus Orientation: alert and oriented x3 HENMT Head: normal to inspection and atraumatic Ears: hearing grossly normal bilaterally Nose: external nose normal and nares normal Face and sinus: normal facial exam Neck Neck: normal visual inspection and supple Resp Effort & Inspection: normal respiratory effort, able to speak in complete sentences, no audible wheezes, not labored, no nasal flaring and no respiratory distress GI Nondistended, normal to inspection, nontender to palpation No CVA tenderness Neuro General: alert, oriented x3, gait normal, tone normal and moves all extremities Cognition: normal cognition Speech: speech normal Gait: normal gait Initial Vital Signs Initial Vital Signs: Vital Signs Temperature 97.5 F L 02/26/21 14:44 Pulse Rate 119 H 02/26/21 14:44 Respiratory Rate 16 02/26/21 14:44 Blood Pressure 114/66 02/26/21 14:44 Pulse Oximetry 95 02/26/21 14:44 Course Orders Ordered: Discontinued Medications Phenazopyridine HCl (Phenazopyridine 100 Mg Tablet) 100 mg PO NOW ONE Stop: 02/26/21 15:37 Last Admin: 02/26/21 15:49 Dose: 100 mg Documented by: ILENE Vital Signs Vital signs: Vital Signs - 8 hr 02/26/21 14:44 Temperature 97.5 F L Pulse Rate 119 H Respiratory Rate 16 Blood Pressure 114/66 Pulse Oximetry 95 Discharge Plan Departure Patient Disposition: Home Clinical Impression: Urinary tract infection Discharge Date/Time: 02/26/21 15:51 Instructions: DI for Urinary Tract Infection (UTI) Activity Restrictions/Additional Instructions: It was nice to meet you this afternoon. Please take the antibiotics as recommended. You can use azo as needed to help with symptoms. Return precautions including fever, decreased urine output, significant increase in pain, or any other new or worsening complaints. Thank you Jamari SHAH Prescriptions: New ciprofloxacin HCl [Cipro] 500 mg tablet 500 mg PO BID 5 Days Qty: 10 RF: 0 Discontinued phenazopyridine [Pyridium] 100 mg tablet 100 mg PO TID PRN (Reason: pain) Qty: 6 RF: 0 No Action hydroxyzine HCl 25 mg tablet 25 mg PO Q6H PRN (Reason: itching) Qty: 120 RF: 0 atorvastatin [Lipitor] 20 mg tablet 20 mg PO DAILY Qty: 90 RF: 0 metoprolol succinate 25 mg tablet extended release 24 hr 25 mg PO DAILY Qty: 90 RF: 0 aspirin 81 mg tablet,delayed release (DR/EC) 81 mg PO DAILY RF: 0 levothyroxine 100 mcg tablet 100 mcg PO DAILY Qty: 90 RF: 0 venlafaxine 150 mg capsule,extended release 24hr 150 mg PO DAILY Qty: 90 RF: 0 multivitamin tablet 1 tab PO DAILY RF: 0 nystatin 100,000 unit/gram powder 1 applictn TOP TID Qty: 60 RF: 3 nitrofurantoin monohyd/m-cryst 100 mg capsule 100 mg PO BEDTIME RF: 0 carisoprodol [Soma] 350 mg tablet 350 mg PO BEDTIME Qty: 30 RF: 3 docusate sodium [Colace] 100 mg capsule 100 mg PO BID PRN (Reason: constipation) Qty: 30 RF: 0 melatonin 1 mg tablet PO RF: 0 cholecalciferol (vitamin D3) 50 mcg (2,000 unit) capsule PO RF: 0 sulfamethoxazole-trimethoprim [Bactrim DS] 800-160 mg tablet 1 tab PO BID Qty: 28 RF: 0 Referrals: Meghan Chu MD [Primary Care Provider] -
[2021-02-26] MEDS: PHENAZOPYRIDINE 100 MG TABLET PO (15:49)
== END 2021-02-26 15:51 | disposition home or self-care (01) ==
PROVIDERS: Emergency Provider Physician Assistant; PCP Internal Medicine
DX: N39.0 Urinary tract infection, site not specified (principal)
CPT/HCPCS: 99283

== ENCOUNTER → 2021-03-10 15:55 | Outpatient (CLI) | payer MEDICARE, SELFPAY ==
--- NOTE | 2021-03-10 15:59 | DI.ECHO.S_ITS ---
[facility] +---------+ : : [address] : : : : [id number] : : : : Phone: [phone]+ Echocardiogram Report + + :Name: DANIE VERNON Study Date: 03/10/2021 Height: 66 in : :[facility] ReadingLocation: Weight: 180 lb : : Gender: Female BSA: 1.9 m2 : :: 1940 Age: 80 yrs BP: 155/85 mmHg: :Reason For Study: TACHYCARDIA : :Ordering Physician: PILY, : :CHASTITY Performed By: Sally Kwong : :Referring: CHASTITY NASCIMENTO : + + Interpretation Summary Normal left ventricle size with ejection fraction 60-65%. Mild aortic valve sclerosis. Mild mitral annular calcification. Mildly enlarged ascending aorta. Comparison is made with the echocardiogram of 09/25/2020, there has been no significant change. Procedure: A two-dimensional transthoracic echocardiogram with color flow and Doppler was performed. The study quality was technically adequate. Comparison is made with the echocardiogram of 09/25/2020. The patient was in sinus rhythm with heart rates between 75-87 bpm during the exam. Left Ventricle: The left ventricle is normal in size. The ejection fraction is estimated to be 60-65%. There are no focal wall motion abnormalities. Diastolic parameters suggest a relaxation abnormality of the left ventricle, consistent with probable normal filling pressures. Right Ventricle: The right ventricle is normal in size and function. Atria: Both atria are normal in size. There is no Doppler evidence for an interatrial shunt. Mitral Valve: The mitral valve leaflets appear mildly thickened, but open well. There is mild mitral annular calcification. There is trace mitral regurgitation. Aortic Valve: There is mild aortic valve sclerosis. The aortic valve is trileaflet. The aortic valve opens well. There is no aortic valve stenosis. No aortic regurgitation is present. Tricuspid Valve: The tricuspid valve is normal in structure and function. Pulmonary artery pressures cannot be estimated because of the lack of a measurable TR jet velocity but the IVC suggests a CVP of around 3 mmHg. There is trace tricuspid regurgitation. Pulmonic Valve: The pulmonic valve is not well visualized. There is mild pulmonic regurgitation. Great Vessels: The aortic root is normal size. The ascending aorta is mildly enlarged. The IVC is of normal diameter and collapses greater than 50% with a sniff. This suggests a low right atrial pressure of 3 mm Hg. Pericardium/ Pleura There is no pericardial effusion. There is no pleural effusion. MMode/2D Measurements & Calculations LVIDd: 3.3 cm LVOT diam: 2.0 cm LVIDs: 2.2 cm Ao root diam: 3.1 cm FS: 34.1 % asc Aorta Diam: 3.5 cm IVSd: 0.88 cm Ao Arch Diam (Prox Trans): 2.5 cm LVPWd: 0.88 cm LV garner. diameter/BSA (cm/m^2): 1.7 LV sys. diameter/BSA (cm/m^2): 1.1 LA A2 area: 20.1 cm2 RA long axis: 4.9 cm LA A4 area: 14.1 cm2 RA area: 13.7 cm2 LA length (vol): 5.4 cm RA vol: 32.9 ml LA vol: 45.0 ml RA : 17.2 ml/m2 LA vol index: 23.6 ml/m2 IVC diam: 1.2 cm RVD1 (basal): 2.8 cm TAPSE: 1.8 cm Doppler Measurements & Calculations Ao V2 max: 111.3 cm/sec LVOT Max Amanuel: 70.7 cm/sec Ao V2 mean: 80.5 cm/sec LV V1 max P.0 mmHg Ao max P.0 mmHg LV V1 VTI: 12.8 cm Ao mean P.9 mmHg DANIEL(I,D): 1.6 cm2 Ao V2 VTI: 23.9 cm DANIEL(V,D): 1.9 cm2 sev ratio: 0.53 DANIEL indexed to BSA (cm^2/m^2): 0.84 MV E max amanuel: 51.4 cm/sec PA pr(Accel): 34.5 mmHg MV A max amanuel: 81.4 cm/sec MV E/A: 0.63 Med Peak E' Amanuel: 5.2 cm/sec E/E' med: 9.9 Lat Peak E' Amanuel: 5.0 cm/sec E/E' lat: 10.2 E/e' average: 10.0 MV dec time: 0.29 sec SV(LVOT): 38.6 ml Electronically signed by: Maddison Pineda on Reading Physician:03/10/2021 05:47 PM
== END ==
PROVIDERS: PCP Physician Assistant; Referring Provider Physician Assistant; Visit Provider Physician Assistant
DX: I37.1 Nonrheumatic pulmonary valve insufficiency (principal); I77.89 Other specified disorders of arteries and arterioles; R00.0 Tachycardia, unspecified
CPT/HCPCS: 93306

== ENCOUNTER 2021-03-17 01:33 | Emergency (ER) | payer MEDICARE, SELFPAY ==
--- NOTE | 2021-03-17 01:41 | DI.CT.S_ITS ---
PROCEDURE: CT HEAD/BRAIN WO CON INDICATIONS: fall with head injury TECHNIQUE: Noncontrast 4.5 mm thick angled axial sections acquired from the foramen magnum to the vertex, with coronal and sagittal reformats. For radiation dose reduction, the following was used: automated exposure control, adjustment of mA and/or kV according to patient size. COMPARISON: None. FINDINGS: Image quality: Excellent. CSF spaces: Basal cisterns are patent. No extra-axial fluid collections. The ventricles are symmetric in size and shape. Brain: No intracranial bleeds or masses. There is cerebral volume loss for age, with resultant ventricular and sulcal prominence. There are periventricular and deep white matter chronic small vessel ischemic changes. There is intracranial internal carotid artery and vertebral artery atherosclerosis. Skull and face: Calvarium and visualized facial bones appear intact, without suspicious lesions. Sinuses: Visualized sinuses and mastoids are clear. IMPRESSION: No acute intracranial disease process. Dictated by: Beulah Bryant MD, PhD on 03/17/2021 at 7:11 Approved by: Beulah Bryant MD, PhD on 03/17/2021 at 7:12
[2021-03-17 01:42] VITALS: BP 138/76; PULSE 85; RESP 14; TEMP 36.9; O2SAT 94
--- NOTE | 2021-03-17 01:54 | ED_ITS ---
HPI - Fall General Chief Complaint: Fall Stated Complaint: GLF/ Hit Head Time Seen by Provider: 03/17/21 01:35 Source: patient and EMS Mode of arrival: EMS History of Present Illness HPI Narrative: 80-year-old female former smoker with history of hyperlipidemia presents with a chief complaint of a ground level fall resulting in a scalp laceration. She denies loss of consciousness nor nausea or vomiting. She takes no blood thinners. She denies any neck or back pain and is otherwise well and free of complaint. Her tetanus will need to be updated. Related Data Home Medications Medication Instructions Recorded Confirmed aspirin 81 mg tablet,delayed 81 mg PO DAILY 01/19/19 03/14/21 release levothyroxine 100 mcg tablet 100 mcg PO DAILY #90 tab 01/19/19 03/14/21 multivitamin 1 tab PO DAILY 01/19/19 03/14/21 venlafaxine 150 mg 150 mg PO DAILY #90 cap 01/19/19 03/14/21 capsule,extended release 24 hr nitrofurantoin 100 mg PO BEDTIME cap 03/02/19 03/14/21 monohydrate/macrocrystals 100 mg capsule cholecalciferol (vitamin D3) 50 PO 02/24/21 03/14/21 mcg (2,000 unit) capsule melatonin 1 mg tablet mg PO 02/24/21 03/14/21 metoprolol succinate 50 mg 50 mg PO BID tab 03/14/21 03/14/21 tablet,extended release 24 hr Previous Rx's Medication Instructions Recorded nystatin 100,000 unit/gram topical 1 applictn TOP TID #60 gram 01/19/19 powder carisoprodol 350 mg tablet (Soma) 350 mg PO BEDTIME #30 tab 03/02/19 hydroxyzine HCl 25 mg tablet 25 mg PO Q6H PRN #120 tab 03/17/19 atorvastatin 20 mg tablet (Lipitor) 20 mg PO DAILY #90 tab 08/21/20 docusate sodium 100 mg capsule 100 mg PO BID PRN #30 cap 01/22/21 (Colace) sulfamethoxazole 800 1 tab PO BID #28 tab 02/26/21 mg-trimethoprim 160 mg tablet (Bactrim DS) Allergies Allergy/AdvReac Type Severity Reaction Status Date / Time cyclobenzaprine Allergy Unknown Verified 03/17/21 01:42 [CYCLOBENZAPRINE] doxycycline Allergy Diarrhea Verified 03/17/21 01:42 morphine Allergy hallucinati Verified 03/17/21 01:42 ons Review of Systems Review of Systems Narrative: GENERAL: Denies chills, fatigue, malaise, fever, sweats. HEENT: Denies sinus pain, ear pain, sore throat, difficulty swallowing, dizziness. RESPIRATORY: Denies dyspnea, cough, wheezing, hemoptysis, sputum. CARDIOVASCULAR: Denies chest pain, palpitations, orthopnea, edema, GASTROINTESTINAL: Denies nausea, vomiting, abdominal pain, diarrhea, constipation, melena. : Denies dysuria, frequency, incontinence, hematuria, urinary retention. MUSCULOSKELETAL: denies weakness, joint pain, or bony pain SKIN: See HPI NEUROLOGIC: Denies weakness, headache, numbness, change in speech, confusion, seizures, incoordination. PSYCHIATRIC: No concerning psychosocial issues. 12 point review of systems is negative except for those stated above Patient History Medical History Anxiety Chronic urinary tract infection Depression Dysuria E. coli urinary tract infection Essential hypertension History of kidney cancer Hyperlipidemia Hypothyroidism, acquired Prurigo nodularis Urinary incontinence Urinary tract infection Vaginal ulceration Surgical History History of back surgery History of nephrectomy S/P cataract extraction and insertion of intraocular lens S/P femoral-popliteal bypass surgery S/P hysterectomy (~1976) S/P insertion of spinal cord stimulator Social History Smoking Status: Former smoker Smoking Status: Former smoker alcohol intake frequency: holidays/special occasions only Substance Use Type: does not use Exam Narrative Exam Narrative: GENERAL: [80] year old patient appears stated age. Well- developed patient, in mild distress. GCS 15 HEAD: Atraumatic. Normocephalic. Scalp laceration 0.5cm on occiput EYES: Pupils equal round and reactive. Extraocular motions intact. No scleral icterus. No injection or drainage. ENT: Nose without bleeding, purulent drainage. Throat without erythema, tonsi llar hypertrophy or exudate. Airway patent. NECK: Trachea midline. Non tender CARDIOVASCULAR: Regular rate and rhythm without murmurs, gallops, or rubs. Left lateral ribs tender to palpation RESPIRATORY: Clear to auscultation. Breath sounds equal bilaterally. No wheezes, rales, or rhonchi. GASTROINTESTINAL: Abdomen soft, non-tender, nondistended. EXTREMITIES: No edema or joint tenderness. BACK: Nontender without deformity or crepitance. No flank tenderness. NEURO: AOx3. SKIN: No rash or erythema of visible areas Initial Vital Signs Initial Vital Signs: Vital Signs Temperature 98.5 F 03/17/21 01:42 Pulse Rate 85 03/17/21 01:42 Respiratory Rate 14 03/17/21 01:42 Blood Pressure 138/76 03/17/21 01:42 Pulse Oximetry 94 03/17/21 01:42 Procedures Laceration Repair Laceration 1: Site: face Size (cm): 0.5 Description: stellate Depth: simple, single layer Local Anesthetic: lidocaine 1% and with epi Course Orders Ordered: ED Orders 03/17/21 01:41 CT head/brain wo con Stat 03/17/21 02:09 XR ribs LT min 3V w CXR1V Stat Discontinued Medications Diphtheria/Tetanus/Acell Pertussis (Tet,Diph,Pertuss(Acell),Vac/Pf 0.5 Ml Syringe) 0.5 ml IM .ONCE ONE Stop: 03/17/21 01:42 Last Admin: 03/17/21 02:26 Dose: 0.5 ml Documented by: [email or web address] Lidocaine/Epinephrine (Lidocaine 1% W/Epi) 1 ml SUBCUT NOW ONE Stop: 03/17/21 01:42 Last Admin: 03/17/21 02:25 Dose: 1 ml Documented by: [email or web address] Vital Signs Vital signs: Vital Signs - 8 hr 03/17/21 01:42 Temperature 98.5 F Pulse Rate 85 Respiratory Rate 14 Blood Pressure 138/76 Pulse Oximetry 94 MDM - Fall Imaging Data CT scan - head: Radiologist's Impression: No acute findings Chest x-ray: Radiologist's Impression: No fracture or pneumothorax Discharge Plan Departure Patient Disposition: Home Clinical Impression: Laceration of scalp Qualifiers: Encounter type: initial encounter Qualified Code(s): S01.01XA - Laceration without foreign body of scalp, initial encounter Instructions: How to Prevent Falls Activity Restrictions/Additional Instructions: Please keep the wound clean and dry to the best of your ability. Please monitor for signs of infection such as redness to the skin or increasing pain. Have the rafael removed by your doctor in about 7 days. If you are unable to get into your doctor, we would be happy to remove the rafael in that same timeframe. Prescriptions: No Action hydroxyzine HCl 25 mg tablet 25 mg PO Q6H PRN (Reason: itching) Qty: 120 RF: 0 atorvastatin [Lipitor] 20 mg tablet 20 mg PO DAILY Qty: 90 RF: 0 aspirin 81 mg tablet,delayed release (DR/EC) 81 mg PO DAILY RF: 0 levothyroxine 100 mcg tablet 100 mcg PO DAILY Qty: 90 RF: 0 venlafaxine 150 mg capsule,extended release 24hr 150 mg PO DAILY Qty: 90 RF: 0 multivitamin tablet 1 tab PO DAILY RF: 0 nystatin 100,000 unit/gram powder 1 applictn TOP TID Qty: 60 RF: 3 nitrofurantoin monohyd/m-cryst 100 mg capsule 100 mg PO BEDTIME RF: 0 carisoprodol [Soma] 350 mg tablet 350 mg PO BEDTIME Qty: 30 RF: 3 docusate sodium [Colace] 100 mg capsule 100 mg PO BID PRN (Reason: constipation) Qty: 30 RF: 0 melatonin 1 mg tablet PO RF: 0 cholecalciferol (vitamin D3) 50 mcg (2,000 unit) capsule PO RF: 0 sulfamethoxazole-trimethoprim [Bactrim DS] 800-160 mg tablet 1 tab PO BID Qty: 28 RF: 0 metoprolol succinate 50 mg tablet extended release 24 hr 50 mg PO BID RF: 0 Referrals: Ramila Galdamez PA-C [Primary Care Provider] -
--- NOTE | 2021-03-17 02:09 | DI.RAD.S_ITS ---
PROCEDURE: XR RIBS LT MIN 3V W CXR1V INDICATIONS: fall with left rib pain TECHNIQUE: 2 views of the left ribs were acquired, along with a single view chest. COMPARISON: [facility], CT, CT ABDOMEN PELVIS W CON, 01/21/2021, 22:56. [facility], CR, XR CHEST 1V, 06/22/2020, 12:51. FINDINGS: Surgical changes and devices: None. Bones and chest wall: Minimal undulation at the 8-10th lateral ribs. No dislocations. No suspicious bony lesions. Overlying soft tissues appear unremarkable. Thoracolumbar spine hardware partially visualized. Lungs and pleura: No pleural effusions or pneumothorax. Lungs appear clear. Mediastinum: Mediastinal contours appear normal. Heart size is normal. IMPRESSION: Minimal undulation at the left 8-10th lateral ribs. These are suspicious for nondisplaced fractures. -CT of the chest could be considered for further evaluation if clinically indicated This exam is discordant with the preliminary interpretation. Comment: Findings were discussed with Dr. Mendes at the time of dictation. Dictated by: Keith Adams M.D. on 03/17/2021 at 7:50 Approved by: Keith Adams M.D. on 03/17/2021 at 8:03
[2021-03-17] MEDS: LIDOCAINE 1% W/EPI 1 ML SUBCUT (02:25)
[2021-03-17] MEDS: TET,DIPH,PERTUSS(ACELL),VAC/PF 0.5 ML SYRINGE IM (02:26)
[2021-03-17 03:47] VITALS: BP 139/76; PULSE 74; RESP 14; O2SAT 99
== END 2021-03-17 03:48 | disposition home or self-care (01) ==
PROVIDERS: Emergency Provider Emergency Medicine; PCP Physician Assistant
DX: S01.01XA Laceration without foreign body of scalp, initial encounter (principal); R07.81 Pleurodynia; W19.XXXA Unspecified fall, initial encounter; Z23 Encounter for immunization
CPT/HCPCS: 12001; 70450; 71101; 90471; 99283; 99284; 90715

== ENCOUNTER → 2021-04-15 09:44 | Outpatient (CLI) | payer MEDICARE, SELFPAY ==
--- NOTE | 2021-04-15 09:46 | DI.US.S_ITS ---
PROCEDURE: US ABDOMEN COMPLETE INDICATIONS: PAIN TECHNIQUE: Real-time scanning was performed of the abdominal and retroperitoneal organs, with image documentation. COMPARISON: [facility], US, ABDOMEN SONOGRAM, 11/08/2010, 8:27. [facility], CT, CT ABDOMEN WO/W CON, 12/16/2018, 12:30. [facility], CT, CT ABDOMEN PELVIS W CON, 01/21/2021, 22:56. FINDINGS: Liver: The liver is diffusely heterogeneous, without normal tissue identified. A complex cyst can be seen on the left medially measuring 2.7 x 2.3 x 3.5 cm. Within the left lobe laterally, there is a complex cyst seen that measures 1.3 x 1.4 x 1.8 cm. The main portal vein demonstrates normal size and demonstrates normal appearing, hepatopetal flow. Gallbladder: Numerous tiny layering stones can be seen. The gallbladder wall is not thickened, measuring 3 mm or less. No specific pericholecystic fluid is seen. The sonographic Hsu sign is negative. Biliary ducts: Intrahepatic bile ducts are non-dilated. Extrahepatic bile duct caliber measures 3 mm. Normal is 6-7 mm or less in diameter, or 10 mm or less post-cholecystectomy. Pancreas: Visualized portions of the pancreas are sonographically normal. Spleen: Spleen is normal in size and homogeneous in echotexture. Kidneys: The left kidney measures 11 cm in length and demonstrates no hydronephrosis. No shadowing stones are seen. No solid right kidney masses can be seen. The left kidney has been removed. Aorta: Visualized aorta is normal in caliber at less than 3 cm. Iliacs: Not seen, secondary to overlying bowel gas. IVC: Intrahepatic inferior vena cava is patent. Miscellaneous: No free abdominal fluid. IMPRESSION: Gallstones are seen, yet without additional sonographic signs of cholecystitis. Negative for biliary dilatation. Please correlate with physical examination findings, patient presentation, and laboratory values. Abnormal liver, with numerous cystic appearing lesions. The liver abnormalities are better demonstrated on prior CT. Prior left nephrectomy. Dictated by: Geovany Vanessa M.D. on 04/15/2021 at 13:46 Approved by: Geovany Vanessa M.D. on 04/15/2021 at 13:49
== END ==
PROVIDERS: PCP Physician Assistant; Referring Provider Physician Assistant; Visit Provider Physician Assistant
DX: R10.9 Unspecified abdominal pain (principal); R79.89 Other specified abnormal findings of blood chemistry; K80.20 Calculus of gallbladder without cholecystitis without obstruction; K76.9 Liver disease, unspecified; Z90.5 Acquired absence of kidney
CPT/HCPCS: 76700

== ENCOUNTER 2021-05-16 15:54 | Emergency (ER) | payer MEDICARE, SELFPAY ==
[2021-05-16] VITALS (9 sets, daily range): BP systolic 130–174; BP diastolic 63–81; PULSE 101–147; RESP 11–15; TEMP 36; O2SAT 90–96; BMI 27.4
[2021-05-16 16:17] LABS: Appearance Urine UA CLEAR; Bilirubin Urine UA 1+ (NEGATIVE); Color Urine UA YELLOW; Glucose Urine UA NEGATIVE (Negative); Ketones Urine UA 1+ (NEGATIVE); Leukocyte Esterase Urine UA 1+ (NEGATIVE); Nitrite Urine UA NEGATIVE (Negative); Occult Blood Urine UA TRACE-LYSED (Negative); Protein Urine UA 2+ (Negative); Specific Gravity Urine UA 1.025 (1.000-1.035); Urobilinogen Urine UA 0.2 E.U./dL (0.2)
[2021-05-16 16:37] LABS: Bacteria Urine None Seen; Culture Indicated Urine Cult Not Indicated; RBC Urine 1-5/HPF (0-5/HPF); Squamous Epithelial Cell Urine 5-10 /HPF (0-5/HPF); WBC Urine 5-10/HPF (0-5/HPF)
--- NOTE | 2021-05-16 16:37 | ED.FEMALEGU ---
HPI - Female Genitourinary General Chief complaint: Urogenital-Female Stated complaint: urinary pain x5 day Time Seen by Provider: 05/16/21 16:35 Source: patient Mode of arrival: Wheelchair History of Present Illness HPI Narrative: The patient is a 80-year-old female with history of nephrectomy, frequent UTIs a, she reports dysuria today. presenting today with intermittent vomiting for last 5 days some abdominal pain and she reports symptoms of UTI. She denies any fever or chills. She has some body aches. Some epigastric pain were she reports burning. She took 2 tablets of low-dose Macrobid this this morning. She has not been taking any of her other medications. She states that she is in the process of moving and she does not know where all of her pills are. She states that she is always tachycardic she has not taken her metoprolol however she initially is quite tachycardic. She denies any chest pain palpitations dizziness or lightheadedness. She denies any back pain. Related Data Home Medications Medication Instructions Recorded Confirmed aspirin 81 mg tablet,delayed 81 mg PO DAILY 01/19/19 04/30/21 release levothyroxine 100 mcg tablet 100 mcg PO DAILY #90 tab 01/19/19 04/30/21 multivitamin 1 tab PO DAILY 01/19/19 04/30/21 venlafaxine 150 mg 150 mg PO DAILY #90 cap 01/19/19 04/30/21 capsule,extended release 24 hr cholecalciferol (vitamin D3) 50 PO 02/24/21 04/30/21 mcg (2,000 unit) capsule melatonin 1 mg tablet mg PO 02/24/21 04/30/21 metoprolol succinate 50 mg 50 mg PO BID tab 03/14/21 04/30/21 tablet,extended release 24 hr Previous Rx's Medication Instructions Recorded nystatin 100,000 unit/gram topical 1 applictn TOP TID #60 gram 01/19/19 powder carisoprodol 350 mg tablet (Soma) 350 mg PO BEDTIME #30 tab 03/02/19 hydroxyzine HCl 25 mg tablet 25 mg PO Q6H PRN #120 tab 03/17/19 atorvastatin 20 mg tablet (Lipitor) 20 mg PO DAILY #90 tab 08/21/20 docusate sodium 100 mg capsule 100 mg PO BID PRN #30 cap 01/22/21 (Colace) atorvastatin 20 mg tablet 20 mg PO DAILY #14 tab 05/16/21 metoprolol succinate 50 mg capsule 50 mg PO DAILY #14 ea 05/16/21 sprinkle, ext. release 24 hr phenazopyridine 100 mg tablet 100 mg PO TID PRN #6 tab 05/16/21 (Pyridium) venlafaxine 150 mg 150 mg PO DAILY #14 cap 05/16/21 capsule,extended release 24 hr Allergies Allergy/AdvReac Type Severity Reaction Status Date / Time cyclobenzaprine Allergy Unknown Verified 05/16/21 16:00 [CYCLOBENZAPRINE] doxycycline Allergy Diarrhea Verified 05/16/21 16:00 morphine Allergy hallucinati Verified 05/16/21 16:00 ons Review of Systems Review of Systems Narrative: GENERAL: Denies chills, fatigue, malaise, fever, sweats, travel HEENT: Denies sinus pain, ear pain, sore throat, difficulty swallowing, neck pain RESPIRATORY: Denies dyspnea, cough, wheezing, hemoptysis, sputum. CARDIOVASCULAR: Denies chest pain, palpitations, orthopnea, edema GASTROINTESTINAL: Denies nausea, vomiting, abdominal pain, diarrhea, constipation, melena. : See HPI MUSCULOSKELETAL: Denies weakness, joint pain, or bony pain SKIN: No rash, no erythema, no pruritus NEUROLOGIC: Denies weakness, dizziness, headache, numbness, change in speech, confusion PSYCHIATRIC: No concerning psychosocial issues. 12 point review of systems is negative except for those stated above and HPI Patient History Medical History Anxiety Chronic urinary tract infection Depression Dysuria E. coli urinary tract infection Essential hypertension History of kidney cancer Hyperlipidemia Hypothyroidism, acquired Prurigo nodularis Urinary incontinence Urinary tract infection Vaginal ulceration Surgical History History of back surgery History of nephrectomy S/P cataract extraction and insertion of intraocular lens S/P femoral-popliteal bypass surgery S/P hysterectomy (~1976) S/P insertion of spinal cord stimulator alcohol intake frequency: 0-2 drinks per day Substance Use Type: does not use Exam Initial Vital Signs Initial Vital Signs: Vital Signs Temperature 96.8 F L 05/16/21 16:00 Pulse Rate 147 H 05/16/21 16:00 Respiratory Rate 15 05/16/21 16:00 Blood Pressure 132/69 05/16/21 16:00 Pulse Oximetry 92 05/16/21 16:00 GENERAL: Alert well-appearing 80-year-old female in no acute distress. HEENT: Head atraumatic,EOMI, pupils reactive, face symmetric, moist mucous membranes CARDIOVASCULAR: Regular rate tachycardic no murmur RESPIRATORY: Breath sounds equal bilaterally, no wheezes rales or rhonchi. ABDOMEN: Soft, nontender. Normoactive bowel sounds all 4 quadrants. No guarding or rebound. : No CVA tenderness EXTREMITIES: Normal range of motion, no clubbing or edema. Neurovascularly intact NEUROLOGICAL: Alert and oriented x4.Normal gait and speech. SKIN: Warm, dry, no laceration, no petechiae, no rashes or lesions. Course Orders Ordered: Discontinued Medications Sodium Chloride (Normal Saline 0.9%) 1,000 mls @ 1,000 mls/hr IV BOLUS ONE Stop: 05/16/21 17:36 Last Infusion: 05/16/21 17:29 Dose: 0 mls/hr Documented by: Admin: 05/16/21 16:54 Dose: 1,000 mls/hr Documented by: ZAHRAA Vital Signs Vital signs: Vital Signs - 8 hr 05/16/21 16:00 05/16/21 16:21 05/16/21 16:26 Temperature 96.8 F L Pulse Rate 147 H 128 H 126 H Respiratory Rate 15 15 Blood Pressure 132/69 135/81 Pulse Oximetry 92 91 90 L 05/16/21 16:30 Temperature Pulse Rate 124 H Respiratory Rate 11 L Blood Pressure 130/75 Pulse Oximetry 91 MDM - Female Genitourinary Lab Data Result diagrams: 05/16/21 16:25 05/16/21 16:25 Labs: Lab Results 05/16/21 05/16/21 05/16/21 Range/Units 16:05 16:25 16:25 WBC 10.2 (4.5-11.0) X10^3/uL RBC 4.19 (4.0-5.2) X10^6/uL Hgb 13.4 (12.0-16.0) g/dL Hct 40.0 (36-46) % MCV 95.5 (80-100) fL MCH 32.0 (26-34) PG MCHC 33.5 (30-36) % RDW 14.9 H (11.6-14.8) % Plt Count 150 (150-400) X10^3/uL Neut % (Auto) 61.9 (50-75) % Lymph % (Auto) 17.4 L (25-40) % [place] % (Auto) 14.2 H (3-14) % Eos % (Auto) 4.9 H (2-4) % Baso % (Auto) 1.6 (0-2) % Neut # (Auto) 6300 (4327-5254) /uL Lymph # (Auto) 1800 (9086-6344) /uL [place] # (Auto) 1500 H (0-900) /uL Eos # (Auto) 500 H (0-450) /uL Baso # (Auto) 200 H (0-100) /uL Sodium 141 (137-145) mmol/L Potassium 3.7 (3.4-5.1) mmol/L Chloride 108 H (98-107) mmol/L Carbon Dioxide 24 (22-32) mmol/L BUN 18 H (7-17) mg/dL Creatinine 0.96 (0.52-1.04) mg/dL Estimated GFR 56.1 L (>60) mL/min BUN/Creatinine Ratio 18.8 (6-22) Glucose 116 H (80-110) mg/dL Lactate (0.7-2.1) mmol/L Calcium 10.1 (8.4-10.2) mg/dL Total Bilirubin 0.9 (0.2-1.3) mg/dL AST 85 H (14-36) IU/L ALT 50 H (<35) IU/L Alkaline Phosphatase 124 (38-126) U/L Total Creatine Kinase 47 (30-135) U/L CK-MB (CK-2) TNP CK-MB (CK-2) Rel Index TNP Troponin I < 0.012 (0.01-0.034) ng/mL Total Protein 8.4 H (6.3-8.2) g/dL Albumin 4.2 (3.5-5.0) g/dL Globulin 4.2 H (1.7-4.1) g/dL Albumin/Globulin Ratio 1.0 (1.0-2.8) Procalcitonin (<0.5) ng/mL Urine Color Yellow Urine Appearance Clear Urine pH 5.0 (4.5-8.0) Ur Specific [place] 1.025 (1.000-1.035) Urine Protein 2+ H (Negative) Urine Glucose (UA) Negative (Negative) g/dL Urine Ketones 1+ H (NEGATIVE) Urine Occult Blood Trace-lysed (Negative) Urine Nitrate Negative (Negative) Urine Bilirubin 1+ H (NEGATIVE) Ur Bilirubin Confirm Negative (Negative) Urine Urobilinogen 0.2 (0.2) E.U./dL Ur Leukocyte Esterase 1+ H (NEGATIVE) Urine RBC 1-5/hpf (0-5/HPF) Urine WBC 5-10/hpf H (0-5/HPF) Ur Squamous Epith Cells 5-10 /hpf H (0-5/HPF) Urine Bacteria None seen (None) Ur Culture Indicated? Cult not indicated SARS-CoV-2 (PCR) (Negative) 05/16/21 05/16/21 05/16/21 Range/Units 16:25 16:25 16:56 WBC (4.5-11.0) X10^3/uL RBC (4.0-5.2) X10^6/uL Hgb (12.0-16.0) g/dL Hct (36-46) % MCV (80-100) fL MCH (26-34) PG MCHC (30-36) % RDW (11.6-14.8) % Plt Count (150-400) X10^3/uL Neut % (Auto) (50-75) % Lymph % (Auto) (25-40) % [place] % (Auto) (3-14) % Eos % (Auto) (2-4) % Baso % (Auto) (0-2) % Neut # (Auto) (3589-0214) /uL Lymph # (Auto) (0189-9348) /uL [place] # (Auto) (0-900) /uL Eos # (Auto) (0-450) /uL Baso # (Auto) (0-100) /uL Sodium (137-145) mmol/L Potassium (3.4-5.1) mmol/L Chloride (98-107) mmol/L Carbon Dioxide (22-32) mmol/L BUN (7-17) mg/dL Creatinine (0.52-1.04) mg/dL Estimated GFR (>60) mL/min BUN/Creatinine Ratio (6-22) Glucose (80-110) mg/dL Lactate 1.7 (0.7-2.1) mmol/L Calcium (8.4-10.2) mg/dL Total Bilirubin (0.2-1.3) mg/dL AST (14-36) IU/L ALT (<35) IU/L Alkaline Phosphatase (38-126) U/L Total Creatine Kinase (30-135) U/L CK-MB (CK-2) CK-MB (CK-2) Rel Index Troponin I (0.01-0.034) ng/mL Total Protein (6.3-8.2) g/dL Albumin (3.5-5.0) g/dL Globulin (1.7-4.1) g/dL Albumin/Globulin Ratio (1.0-2.8) Procalcitonin 0.10 (<0.5) ng/mL Urine Color Urine Appearance Urine pH (4.5-8.0) Ur Specific [place] (1.000-1.035) Urine Protein (Negative) Urine Glucose (UA) (Negative) g/dL Urine Ketones (NEGATIVE) Urine Occult Blood (Negative) Urine Nitrate (Negative) Urine Bilirubin (NEGATIVE) Ur Bilirubin Confirm (Negative) Urine Urobilinogen (0.2) E.U./dL Ur Leukocyte Esterase (NEGATIVE) Urine RBC (0-5/HPF) Urine WBC (0-5/HPF) Ur Squamous Epith Cells (0-5/HPF) Urine Bacteria (None) Ur Culture Indicated? SARS-CoV-2 (PCR) Negative (Negative) ECG Data Interpretation: Sinus tachycardia rate [address] changes MDM Narrative Medical decision making narrative: Improved very nicely with fluids. At this time she does not appear septic or have an acute infection. In fact urine does not look like there is infection at all. Possible cystitis. However she did take dose of antibiotics earlier today it may have skewed things. However it is very difficult to say. Well. At this time will give her Pyridium and recommend she return if symptoms worsen. She is also requesting that she have some of her medications be refilled since she cannot find her set this time. Discharge Plan Departure Patient Disposition: Home Clinical Impression: Dysuria, Essential hypertension Instructions: DI for Dysuria -- Adult Activity Restrictions/Additional Instructions: *You have been diagnosed with dysuria *What to do: At this time blood work done urine do not show any sign of infection. I recommend waiting to see if symptoms worsen. May try Pyridium. Please try and find her other medications and start taking them as prescribed as well. *Continue to take medications as directed Pyridium 100 mg 3 times a day only for 3 days Metoprolol 50 mg once daily Atorvastatin 20 mg daily Venlafaxine 150 mg daily *Follow up with your primary care provider in 2-3 days *Return to ER if you should have fever, pain, urinary frequency or new, worsening or concerning symptoms Prescriptions: New metoprolol succinate 50 mg capsule,sprinkle,ER 24hr 50 mg PO DAILY Qty: 14 RF: 0 phenazopyridine [Pyridium] 100 mg tablet 100 mg PO TID PRN (Reason: pain) Qty: 6 RF: 0 atorvastatin 20 mg tablet 20 mg PO DAILY Qty: 14 RF: 0 venlafaxine 150 mg capsule,extended release 24hr 150 mg PO DAILY Qty: 14 RF: 0 No Action hydroxyzine HCl 25 mg tablet 25 mg PO Q6H PRN (Reason: itching) Qty: 120 RF: 0 atorvastatin [Lipitor] 20 mg tablet 20 mg PO DAILY Qty: 90 RF: 0 aspirin 81 mg tablet,delayed release (DR/EC) 81 mg PO DAILY RF: 0 levothyroxine 100 mcg tablet 100 mcg PO DAILY Qty: 90 RF: 0 venlafaxine 150 mg capsule,extended release 24hr 150 mg PO DAILY Qty: 90 RF: 0 multivitamin tablet 1 tab PO DAILY RF: 0 nystatin 100,000 unit/gram powder 1 applictn TOP TID Qty: 60 RF: 3 carisoprodol [Soma] 350 mg tablet 350 mg PO BEDTIME Qty: 30 RF: 3 docusate sodium [Colace] 100 mg capsule 100 mg PO BID PRN (Reason: constipation) Qty: 30 RF: 0 melatonin 1 mg tablet PO RF: 0 cholecalciferol (vitamin D3) 50 mcg (2,000 unit) capsule PO RF: 0 metoprolol succinate 50 mg tablet extended release 24 hr 50 mg PO BID RF: 0 Referrals: Ramila Galdamez PA-C [Primary Care Provider] -
[2021-05-16 16:52] LABS: Add Manual Diff / Slide Review NO; Basophils Absolute Auto 200 /uL (0-100); Basophils Percent Auto 1.6 % (0-2); Eosinophils Absolute Auto 500 /uL (0-450); Eosinophils Percent Auto 4.9 % (2-4); Hemoglobin 13.4 g/dL (12.0-16.0); Lymphocytes Absolute Auto 1800 /uL (1100-4500); Lymphocytes Percent Auto 17.4 % (25-40); Mean Corpuscular HGB Conc 33.5 % (30-36); Mean Corpuscular Volume 95.5 fL (80-100); Monocytes Absolute Auto 1500 /uL (0-900); Monocytes Percent Auto 14.2 % (3-14); Neutrophils Absolute Auto 6300 /uL (1500-7000); Neutrophils Percent Auto 61.9 % (50-75); Platelet Count 150 X10^3/uL (150-400); Red Blood Cell Count 4.19 X10^6/uL (4.0-5.2); Red Cell Distribution Width 14.9 % (11.6-14.8); White Blood Cell Count 10.2 X10^3/uL (4.5-11.0)
[2021-05-16] MEDS: SODIUM CHLORIDE 0.9% 1,000 ML 1000 ML IV (16:54)
[2021-05-16 16:56] LABS: Ictotest Urine Negative (Negative)
[2021-05-16 16:58] LABS: Lactate (Lactic Acid) 1.7 mmol/L (0.7-2.1)
[2021-05-16 17:00] LABS: Alanine Aminotransferase 50 IU/L (<35); Albumin 4.2 g/dL (3.5-5.0); Alkaline Phosphatase 124 U/L (38-126); Aspartate Aminotransferase 85 IU/L (14-36); BUN Creatinine Ratio 18.8 (6-22); Bilirubin Total 0.9 mg/dL (0.2-1.3); Blood Urea Nitrogen 18 mg/dL (7-17); Calcium 10.1 mg/dL (8.4-10.2); Carbon Dioxide 24 mmol/L (22-32); Chloride 108 mmol/L (98-107); Creatine Kinase 47 U/L (30-135); Estimated Glomerular Filt Rate 56.1 mL/min (>60); Globulin 4.2 g/dL (1.7-4.1); Glucose 116 mg/dL (80-110); HEMOLYSIS < 15 (0-50); Potassium 3.7 mmol/L (3.4-5.1); Sodium 141 mmol/L (137-145); Total Protein 8.4 g/dL (6.3-8.2)
[2021-05-16 17:11] LABS: Troponin I < 0.012 ng/mL (0.01-0.034)
[2021-05-16 17:21] LABS: COVID19 -Nasal RAPID Negative (Negative)
--- NOTE | 2021-05-16 17:41 | PC.NURSE ---
Pt pulled nitrofurantoin medication vial out of purse, states she has been taking at night for a month r/t UTI. States she took 2 pills this morning for symptoms.
== END 2021-05-16 18:28 | disposition home or self-care (01) ==
PROVIDERS: Emergency Provider Emergency Medicine; PCP Physician Assistant
DX: R30.0 Dysuria (principal); R10.13 Epigastric pain; I10 Essential (primary) hypertension; R00.0 Tachycardia, unspecified; Z20.822 Contact with and (suspected) exposure to COVID-19
CPT/HCPCS: 36415; 80053; 81001; 82550; 83605; 84145; 84484; 85025; 87040; 87635; 93005; 96360; 99284; C9803

== ENCOUNTER → 2021-05-26 12:26 | Outpatient (CLI) | payer MEDICARE, SELFPAY ==
[2021-05-26 13:14] LABS: Appearance Urine UA CLOUDY; Bilirubin Urine UA NEGATIVE (NEGATIVE); Color Urine UA YELLOW; Glucose Urine UA NEGATIVE (Negative); Ketones Urine UA NEGATIVE (NEGATIVE); Leukocyte Esterase Urine UA 3+ (NEGATIVE); Nitrite Urine UA POSITIVE (Negative); Occult Blood Urine UA 2+ (Negative); Protein Urine UA TRACE (Negative); Urobilinogen Urine UA 0.2 E.U./dL (0.2)
[2021-05-26 13:39] LABS: Bacteria Urine Many (>30); Culture Indicated Urine Specimen Cultured; RBC Urine 5-10/HPF (0-5/HPF); Squamous Epithelial Cell Urine 1-5 /HPF (0-5/HPF); WBC Urine >100/HPF (0-5/HPF)
== END ==
PROVIDERS: PCP Physician Assistant; Referring Provider Physician Assistant; Visit Provider Physician Assistant
DX: N39.0 Urinary tract infection, site not specified (principal)
CPT/HCPCS: 81001; 87077; 87086; 87186

== ENCOUNTER 2022-01-25 17:04 | Emergency (ER) | payer MEDICARE, SELFPAY ==
[2022-01-25 17:22] VITALS: BP 123/65; PULSE 80; RESP 20; TEMP 36.6; O2SAT 95
== END 2022-01-25 19:27 | disposition left against medical advice (07) ==
PROVIDERS: Emergency Provider Emergency Medicine; PCP Physician Assistant
CPT/HCPCS: 99281

== ENCOUNTER → 2022-05-06 11:24 | Outpatient (CLI) | payer MEDICARE, SELFPAY ==
[2022-05-06 11:49] LABS: Appearance Urine UA CLOUDY; Bilirubin Urine UA NEGATIVE (NEGATIVE); Color Urine UA YELLOW; Glucose Urine UA NEGATIVE (Negative); Ketones Urine UA NEGATIVE (NEGATIVE); Leukocyte Esterase Urine UA 2+ (NEGATIVE); Nitrite Urine UA NEGATIVE (Negative); Occult Blood Urine UA NEGATIVE (Negative); Protein Urine UA TRACE (Negative); Specific Gravity Urine UA 1.025 (1.000-1.035); Urobilinogen Urine UA 0.2 E.U./dL (0.2)
[2022-05-06 12:12] LABS: Bacteria Urine Moderate (10-30); RBC Urine 0-1/HPF (0-5/HPF); Squamous Epithelial Cell Urine 5-10 /HPF (0-5/HPF); WBC Urine 30-100/HPF (0-5/HPF)
[2022-05-06 12:13] LABS: Calcium Oxalate Crystals Urine Few; Culture Indicated Urine Specimen Cultured
== END ==
PROVIDERS: PCP Physician Assistant; Referring Provider Urology; Visit Provider Urology
DX: R39.15 Urgency of urination (principal); R35.0 Frequency of micturition; Z87.440 Personal history of urinary (tract) infections
CPT/HCPCS: 36415; 81001; 87086

== ENCOUNTER → 2022-08-03 12:43 | Outpatient (CLI) | payer MEDICARE, SELFPAY | PROVIDERS: PCP Physician Assistant; Visit Provider Physician Assistant Medical | DX: R30.0 Dysuria (principal) | CPT/HCPCS: 87077; 87086; 87186 ==

== ENCOUNTER 2022-11-17 19:24 | Emergency (ER) | payer MEDICARE, SELFPAY ==
[2022-11-17] VITALS (14 sets, daily range): BP systolic 131–191; BP diastolic 60–78; PULSE 61–74; RESP 9–22; TEMP 36.4; O2SAT 95–98; BMI 27.4
--- NOTE | 2022-11-17 19:29 | DI.CT.S_ITS ---
PROCEDURE: CT HEAD/BRAIN WO CON INDICATIONS: fall, landing on forhead, did not catch herself with hands TECHNIQUE: Noncontrast 4.5 mm thick angled axial sections acquired from the foramen magnum to the vertex, with coronal and sagittal reformats. For radiation dose reduction, the following was used: automated exposure control, adjustment of mA and/or kV according to patient size. COMPARISON: [facility], CT, CT HEAD/BRAIN WO CON, 03/17/2021, 1:57. FINDINGS: Image quality: Excellent. CSF spaces: Basal cisterns are patent. No extra-axial fluid collections. The ventricles are symmetric in size and shape. Brain: No intracranial bleeds or masses. There is cerebral volume loss for age, with resultant ventricular and sulcal prominence. There are periventricular and deep white matter chronic small vessel ischemic changes. There is intracranial internal carotid artery atherosclerosis. Skull and face: Small frontal subcutaneous scalp hematoma. Calvarium and visualized facial bones appear intact, without suspicious lesions. Sinuses: Visualized sinuses and mastoids are clear. IMPRESSION: Small frontal scalp hematoma. No skull fracture. No acute intracranial hemorrhage. Approved by: Steve Jara M.D. on 11/17/2022 at 20:03
--- NOTE | 2022-11-17 19:30 | DI.CT.S_ITS ---
PROCEDURE: CT CERVICAL SPINE WO CON INDICATIONS: fall onto forhead TECHNIQUE: Noncontrast 3 mm thick sections acquired from the skull base to the T4 level. Sagittal and coronal reformats were then constructed. For radiation dose reduction, the following was used: automated exposure control, adjustment of mA and/or kV according to patient size. COMPARISON: None. FINDINGS: Image quality: Excellent. Bones: No acute fractures or dislocations. Visualized superior ribs are intact. Multilevel degenerative disc disease and uncovertebral joint and facet hypertrophy are seen, which are most prominent at the C5-6 level. Soft tissues: Prevertebral soft tissues are normal in thickness. No paravertebral hematomas. No apical pneumothoraces. IMPRESSION: No acute cervical spine fracture or subluxation. Approved by: Steve Jara M.D. on 11/17/2022 at 20:05
--- NOTE | 2022-11-17 19:30 | ED.FALL ---
HPI - Fall General Chief Complaint: Fall Stated Complaint: GLF Time Seen by Provider: 11/17/22 19:28 Mode of arrival: EMS History of Present Illness HPI Narrative: 82-year-old woman with a history hypertension, hyperlipidemia, chronic urinary tract infection currently on prophylactic Keflex daily, hypothyroidism and distant history of kidney cancer was at home today in her usual state of health when she tripped over a small heater and landed with a direct impact mid forehead. She was not able to get her hands around to try and prevent any damage. She has some minor abrasions to knees. Some minor tenderness to her left elbow and a very large central forehead goose egg. She is not complaining of cervical spine pain. When asked if she had anything to drink today she describes enjoying a milkshake around 4:00 this afternoon. She does not describe a headache. She notes she was able to sit up but not able to stand up after the injury but once helped up she was able to bear weight. She describes no recent fevers, cough, chills. She does feel like she is getting a recurrent bladder infection and was planning on seeing her provider tomorrow to see if additional antibiotics were required. She is describing no dizziness, palpitations, dyspnea. She is very adamant that this was a purely mechanical fall. Related Data Home Medications Medication Instructions Recorded Confirmed aspirin 81 mg tablet,delayed 81 mg PO DAILY 01/19/19 04/30/21 release levothyroxine 100 mcg tablet 100 mcg PO DAILY #90 tabs 01/19/19 04/30/21 multivitamin 1 tab PO DAILY 01/19/19 04/30/21 venlafaxine 150 mg 150 mg PO DAILY #90 caps 01/19/19 04/30/21 capsule,extended release 24 hr cholecalciferol (vitamin D3) 50 PO 02/24/21 04/30/21 mcg (2,000 unit) capsule melatonin 1 mg tablet mg PO 02/24/21 04/30/21 metoprolol succinate 50 mg 50 mg PO BID 03/14/21 04/30/21 tablet,extended release 24 hr Previous Rx's Medication Instructions Recorded nystatin 100,000 unit/gram topical 1 applictn topical TID #60 grams 01/19/19 powder carisoprodol 350 mg tablet (Soma) 350 mg PO BEDTIME #30 tabs 03/02/19 hydroxyzine HCl 25 mg tablet 25 mg PO Q6H PRN itching #120 tabs 03/17/19 atorvastatin 20 mg tablet (Lipitor) 20 mg PO DAILY #90 tabs 08/21/20 docusate sodium 100 mg capsule 100 mg PO BID PRN constipation #30 01/22/21 (Colace) caps atorvastatin 20 mg tablet 20 mg PO DAILY #14 tabs 05/16/21 metoprolol succinate 50 mg capsule 50 mg PO DAILY #14 ea 05/16/21 sprinkle, ext. release 24 hr phenazopyridine 100 mg tablet 100 mg PO TID PRN pain 6 doses #6 05/16/21 (Pyridium) tabs venlafaxine 150 mg 150 mg PO DAILY #14 caps 05/16/21 capsule,extended release 24 hr ciprofloxacin HCl 250 mg tablet 250 mg PO BID #10 tabs 08/03/22 sulfamethoxazole 800 1 tab PO BID #20 tabs 11/17/22 mg-trimethoprim 160 mg tablet (Bactrim DS) Allergies Allergy/AdvReac Type Severity Reaction Status Date / Time cyclobenzaprine Allergy Unknown Verified 05/16/21 16:00 [CYCLOBENZAPRINE] doxycycline Allergy Diarrhea Verified 05/16/21 16:00 morphine Allergy hallucinati Verified 05/16/21 16:00 ons Review of Systems Review of Systems Narrative: Pertinent positive and negative findings as per HPI Patient History Medical History Anxiety Chronic urinary tract infection Depression Dysuria E. coli urinary tract infection Essential hypertension History of kidney cancer Hyperlipidemia Hypothyroidism, acquired Prurigo nodularis Urinary incontinence Urinary tract infection Vaginal ulceration Surgical History History of back surgery History of nephrectomy S/P cataract extraction and insertion of intraocular lens S/P femoral-popliteal bypass surgery S/P hysterectomy (~1976) S/P insertion of spinal cord stimulator Social History Smoking Status: Current some day smoker Smoking Status: Current some day smoker alcohol intake frequency: 0-2 drinks per day Substance Use Type: does not use Exam Initial Vital Signs Initial Vital Signs: Vital Signs Temperature 97.6 F 11/17/22 19:21 Pulse Rate 70 11/17/22 19:21 Respiratory Rate 18 11/17/22 19:21 Blood Pressure 141/76 H 11/17/22 19:21 Pulse Oximetry 97 11/17/22 19:21 Oxygen Delivery Method Room Air 11/17/22 19:21 General: Healthy appearing, in no acute distress. Able to give a complete and coherent history. Well-nourished well-developed. Mildly diaphoretic. HEENT: Large hematoma, mid forehead with no obvious laceration, Moist mucous membranes, normal sclera with reactive pupils, minor swelling over her nose with some dried blood around the nose itself. She is edentulous and does not describe jaw pain or tenderness. Neck: No JVD, supple, Respiratory: Lungs are clear to auscultation, no wheezing no rales no rhonchi. Full and symmetrical air movement Cardiac: Regular rate and rhythm no murmurs no bruits Abdomen: Soft, nontender, good bowel tones, no flank pain Skin: Mildly diaphoretic, no rashes Neurologic: Grossly neurologically intact with no obvious asymmetries or abnormalities Extremities: Minor abrasion to the left knee. Minor tenderness to the left elbow with otherwise full range of motion and no abrasions or contusion Psych: Cooperative, appropriate insight and affect Course Orders Ordered: ED Orders 11/17/22 19:15 Comprehensive Metabolic Panel Stat Troponin I Stat 11/17/22 19:29 CT head/brain wo con Stat 11/17/22 19:30 CT cervical spine wo con Stat 11/17/22 19:39 XR chest 1V Stat EKG-12 Lead Stat 11/17/22 22:48 Urine Culture Stat Discontinued Medications Ketorolac Tromethamine (Ketorolac 30 Mg/Ml Vial) 15 mg IV NOW ONE Stop: 11/17/22 21:15 Last Admin: 11/17/22 21:18 Dose: 15 mg Documented By: AP Trimethoprim/Sulfamethoxazole (Trimeth/Sulfa 160/800 (Ds) Tablet) 1 tab PO NOW ONE Stop: 11/17/22 22:46 Vital Signs Vital signs: Vital Signs - 8 hr 11/17/22 19:21 11/17/22 19:41 11/17/22 19:49 Temperature 97.6 F Pulse Rate 70 66 Respiratory Rate 18 Blood Pressure 141/76 H 131/60 Pulse Oximetry 97 95 Oxygen Delivery Method Room Air 11/17/22 19:49 11/17/22 20:00 11/17/22 20:00 Temperature Pulse Rate 65 61 Respiratory Rate 22 Blood Pressure 131/62 Pulse Oximetry 95 96 Oxygen Delivery Method 11/17/22 20:15 11/17/22 20:15 11/17/22 20:30 Temperature Pulse Rate 63 Respiratory Rate 20 Blood Pressure 146/67 H 142/67 H Pulse Oximetry 96 Oxygen Delivery Method 11/17/22 20:30 11/17/22 20:46 11/17/22 20:46 Temperature Pulse Rate 61 63 Respiratory Rate 19 12 Blood Pressure 164/71 H Pulse Oximetry 96 96 Oxygen Delivery Method 11/17/22 21:00 11/17/22 21:00 11/17/22 21:15 Temperature Pulse Rate 67 Respiratory Rate 12 Blood Pressure 169/78 H 165/75 H Pulse Oximetry 97 Oxygen Delivery Method 11/17/22 21:15 11/17/22 21:30 11/17/22 21:30 Temperature Pulse Rate 68 70 Respiratory Rate 11 L 19 Blood Pressure 191/75 H Pulse Oximetry 97 96 Oxygen Delivery Method 11/17/22 21:46 11/17/22 21:46 Temperature Pulse Rate 71 Respiratory Rate 9 L Blood Pressure 166/75 H Pulse Oximetry 97 Oxygen Delivery Method MDM - Fall Lab Data 11/17/22 19:15 Labs: Lab Results 11/17/22 Range/Units 19:15 Sodium 138 (137-145) mmol/L Potassium 4.5 (3.4-5.1) mmol/L Chloride 107 (98-107) mmol/L Carbon Dioxide 23 (22-32) mmol/L BUN 19 H (7-17) mg/dL Creatinine 0.99 (0.52-1.04) mg/dL Estimated GFR 57 L (>60) mL/min BUN/Creatinine Ratio 19.2 (6-22) Glucose 94 (80-110) mg/dL Calcium 9.2 (8.4-10.2) mg/dL Total Bilirubin 0.8 (0.2-1.3) mg/dL AST 48 H (14-36) IU/L ALT 22 (<35) IU/L Alkaline Phosphatase 88 (38-126) U/L Troponin I < 0.012 (0.01-0.034) ng/mL Total Protein 7.4 (6.3-8.2) g/dL Albumin 4.0 (3.5-5.0) g/dL Globulin 3.4 (1.7-4.1) g/dL Albumin/Globulin Ratio 1.2 (1.0-2.8) MDM Narrative Medical decision making narrative: CC: Self-described mechanical fall with large hematoma to forehead Complicating co-morbidities: Age, limited mobility after 2 knee replacements. Corroborating data: Data collected from: patient, Medical records reviewed: Primary care notes and cloth finishing range tender notes reviewed Differential considered: Patient describes this as a mechanical fall, concern for skull fracture, intracranial bleed with the mechanism C1-2 C2 fractures are considered even though she is not complaining of significant tenderness. She does not have an explanation for her diaphoresis so additional workup will be done just to make sure that this truly was a mechanical fall. With her recent increased urinary tract symptoms have asked for a urinary sample as well Exam documented above, pertinent findings include: Unexplained diaphoresis and large hematoma without laceration to her forehead Lab Test results independently reviewed as above. Pertinent findings: Chemistries are unremarkable Troponin is reassuring Independently reviewed EKG Sinus rhythm at a rate of 64 First-degree block with rightward axis No acute ischemic changes Imaging studies independently reviewed: Head CT: Small frontal scalp hematoma, no skull fracture and no intracranial hemorrhage Cervical spine CT: No acute cervical spine injury Chest x-ray: Low lung volumes, mild pulmonary edema versus vascular crowding Re-evaluations and discussion:1030pm patient is re-evaluated. The large hematoma over her forehead is already seeping in and around her eyes. She is able to get up and walk. Notes for chronic back pain is still present but not particularly worse. She also complains of the continued dysuria and is able to walk to the bathroom to give us a urine sample. She and her are both informed of the reassuring head, cervical spine CTs and chest x-rays. Once her pain has been adequately addressed, diaphoresis has resolved. There is no evidence of infection beyond worsening urinary tract symptoms, no evidence for sepsis no suggestion of acute coronary syndrome. She typically uses Aleve and prefers no additional narcotics or medications. She was given dose of Toradol in the emergency room with slight relief. At this point she will be safe for discharge home. We discussed how much more she is going to hurt tomorrow and anticipated course of recovery including significant bruising over her mid face. She and her both understand and will return if symptoms are worse Discharge Plan Departure Patient Disposition: Home Clinical Impression: Acute exacerbation of chronic low back pain, Acute lower UTI (urinary tract infection) Traumatic hematoma of forehead Qualifiers: Encounter type: initial encounter Qualified Code(s): S00.83XA - Contusion of other part of head, initial encounter Instructions: DI for Hematoma (Bruise), How to Prevent Falls Activity Restrictions/Additional Instructions: Thank you for coming in today I am sorry that you ended up falling. That giant bruise from your forehead is going to give you an impressive bruise all through the middle of your face that will likely take 2-3 weeks to completely heal. Fortunately, there is no bleeding inside your brain and you did not injure your cervical spine. Chest x-ray does not show any acute injuries either. Your urine today does suggest that you may be developing an infection despite your daily Keflex antibiotic prophylaxis. Based on the urine culture from August 03, I am going to suggest that you complete a 10 day course of Septra, sulfa antibiotic. Your urine will be cultured. Please do follow-up with your primary care doctor If you find that you are getting worse or develop any new symptoms, please feel free to return to the emergency department for further evaluation. Prescriptions: New sulfamethoxazole-trimethoprim [Bactrim DS] 800-160 mg tablet 1 tab PO BID Qty: 20 0RF No Action ciprofloxacin HCl 250 mg tablet 250 mg PO BID Qty: 10 1RF hydroxyzine HCl 25 mg tablet 25 mg PO Q6H PRN (Reason: itching) Qty: 120 0RF atorvastatin [Lipitor] 20 mg tablet 20 mg PO DAILY Qty: 90 0RF Rx Instructions: PT DUE FOR FOLLOW UP W/PCP PRIOR TO FUTURE FILLS. OVER A YEAR SINCE LAST SEEN. THANKS. 08/21/20 aspirin 81 mg tablet,delayed release (DR/EC) 81 mg PO DAILY levothyroxine 100 mcg tablet 100 mcg PO DAILY Qty: 90 Patient Comments: 1 TAB DAILY, 1X A WEEK 2 TABS. venlafaxine 150 mg capsule,extended release 24hr 150 mg PO DAILY Qty: 90 multivitamin tablet 1 tab PO DAILY nystatin 100,000 unit/gram powder 1 applictn TOP TID Qty: 60 3RF carisoprodol [Soma] 350 mg tablet 350 mg PO BEDTIME Qty: 30 3RF docusate sodium [Colace] 100 mg capsule 100 mg PO BID PRN (Reason: constipation) Qty: 30 0RF metoprolol succinate 50 mg capsule,sprinkle,ER 24hr 50 mg PO DAILY Qty: 14 0RF phenazopyridine [Pyridium] 100 mg tablet 100 mg PO TID PRN (Reason: pain) Qty: 6 0RF atorvastatin 20 mg tablet 20 mg PO DAILY Qty: 14 0RF venlafaxine 150 mg capsule,extended release 24hr 150 mg PO DAILY Qty: 14 0RF melatonin 1 mg tablet PO Patient Comments: take 1 tablet by mouth at bedtime if needed cholecalciferol (vitamin D3) 50 mcg (2,000 unit) capsule PO Patient Comments: take 1 capsule by mouth once daily metoprolol succinate 50 mg tablet extended release 24 hr 50 mg PO BID Referrals: Ramila Galdamez PA-C [Primary Care Provider] - Stand Alone Forms: Patient Portal/API
--- NOTE | 2022-11-17 19:39 | DI.RAD.S_ITS ---
PROCEDURE: XR CHEST 1V INDICATIONS: fall, diaphoresis TECHNIQUE: One view of the chest was acquired. COMPARISON: [facility], CR, XR CHEST 1VW (PORTABLE), 02/08/2017, 12:35. [facility], CR, XR CHEST 1V, 06/22/2020, 12:51. FINDINGS: Surgical changes and devices: Postsurgical changes are demonstrated within the lower thoracic and lumbar spine. Lungs and pleura: There are low lung volumes. There is pulmonary vascular prominence consistent with pulmonary edema or vascular crowding. No definite pleural effusions or pneumothorax with evaluation limited by supine technique. Mediastinum: Mediastinal contours appear normal. Heart size is normal. Bones and chest wall: No suspicious bony lesions. Overlying soft tissues appear unremarkable. IMPRESSION: 1. Low lung volumes with mild pulmonary edema or vascular crowding. Dictated by: Colby Milner M.D. on 11/17/2022 at 20:34 Approved by: Colby Milner M.D. on 11/17/2022 at 20:35
[2022-11-17 20:01] LABS: Alanine Aminotransferase 22 IU/L (<35); Albumin Globulin Ratio 1.2 (1.0-2.8); Alkaline Phosphatase 88 U/L (38-126); Aspartate Aminotransferase 48 IU/L (14-36); BUN Creatinine Ratio 19.2 (6-22); Bilirubin Total 0.8 mg/dL (0.2-1.3); Blood Urea Nitrogen 19 mg/dL (7-17); Calcium 9.2 mg/dL (8.4-10.2); Carbon Dioxide 23 mmol/L (22-32); Chloride 107 mmol/L (98-107); Estimated Glomerular Filt Rate 57 mL/min (>60); Globulin 3.4 g/dL (1.7-4.1); Glucose 94 mg/dL (80-110); HEMOLYSIS 44 (0-50); Potassium 4.5 mmol/L (3.4-5.1); Sodium 138 mmol/L (137-145); Total Protein 7.4 g/dL (6.3-8.2)
[2022-11-17 20:13] LABS: Troponin I < 0.012 ng/mL (0.01-0.034)
[2022-11-17] MEDS: KETOROLAC 30 MG/ML VIAL 15 MG IV (21:18)
[2022-11-17] MEDS: TRIMETH/SULFA 160/800 (DS) TABLET 1 TAB PO (23:00)
== END 2022-11-17 23:04 | disposition home or self-care (01) ==
PROVIDERS: Emergency Provider Emergency Medicine; PCP Physician Assistant
DX: S00.83XA Contusion of other part of head, initial encounter (principal); M54.50 Low back pain, unspecified; N39.0 Urinary tract infection, site not specified; W18.30XA Fall on same level, unspecified, initial encounter
CPT/HCPCS: 70450; 71045; 72125; 80053; 84484; 93005; 96374; 99284; J1885

== ENCOUNTER → 2023-02-24 13:44 | Outpatient (CLI) | payer MEDICARE, SELFPAY | PROVIDERS: PCP Physician Assistant; Visit Provider Physician Assistant | DX: R30.0 Dysuria (principal) | CPT/HCPCS: 87077; 87086; 87186 ==

== ENCOUNTER 2023-03-26 14:36 | Emergency (ER) | payer MEDICARE, SELFPAY ==
[2023-03-26 15:40] VITALS: BP 156/69; PULSE 87; RESP 20; TEMP 36.6; O2SAT 96; BMI 29.0
[2023-03-26 16:28] LABS: Add Manual Diff / Slide Review NO; Basophils Absolute Auto 100 /uL (0-100); Basophils Percent Auto 1.3 % (0-2); Eosinophils Absolute Auto 100 /uL (0-450); Eosinophils Percent Auto 1.1 % (2-4); Hematocrit 40.4 % (36-46); Hemoglobin 13.4 g/dL (12.0-16.0); Lymphocytes Absolute Auto 2100 /uL (1100-4500); Lymphocytes Percent Auto 19.2 % (25-40); Mean Corpuscular HGB Conc 33.1 % (30-36); Mean Corpuscular Hemoglobin 31.2 PG (26-34); Mean Corpuscular Volume 94.3 fL (80-100); Monocytes Absolute Auto 1300 /uL (0-900); Monocytes Percent Auto 11.6 % (3-14); Neutrophils Absolute Auto 7300 /uL (1500-7000); Neutrophils Percent Auto 66.8 % (50-75); Platelet Count 134 X10^3/uL (150-400); Red Blood Cell Count 4.28 X10^6/uL (4.0-5.2); Red Cell Distribution Width 15.5 % (11.6-14.8); White Blood Cell Count 10.9 X10^3/uL (4.5-11.0)
[2023-03-26 16:37] LABS: Alanine Aminotransferase 15 IU/L (<35); Albumin 4.1 g/dL (3.5-5.0); Albumin Globulin Ratio 1.2 (1.0-2.8); Alkaline Phosphatase 101 U/L (38-126); Aspartate Aminotransferase 22 IU/L (14-36); Bilirubin Total 0.3 mg/dL (0.2-1.3); Blood Urea Nitrogen 20 mg/dL (7-17); Calcium 8.7 mg/dL (8.4-10.2); Carbon Dioxide 27 mmol/L (22-32); Chloride 104 mmol/L (98-107); Estimated Glomerular Filt Rate 53 mL/min (>60); Globulin 3.3 g/dL (1.7-4.1); Glucose 91 mg/dL (80-110); HEMOLYSIS < 15 (0-50); Lipase 327 U/L (23-300); Potassium 4.4 mmol/L (3.4-5.1); Sodium 139 mmol/L (137-145); Total Protein 7.4 g/dL (6.3-8.2)
[2023-03-26 19:03] LABS: Specific Gravity Urine UA 1.025 (1.000-1.035)
[2023-03-26 19:11] LABS: Appearance Urine UA CLOUDY; Color Urine UA ORANGE
[2023-03-26 19:12] LABS: Bacteria Urine Moderate (10-30); Culture Indicated Urine Specimen Cultured; RBC Urine 1-5/HPF (0-5/HPF); Squamous Epithelial Cell Urine 1-5 /HPF (0-5/HPF); WBC Urine >100/HPF (0-5/HPF)
== END 2023-03-26 19:05 | disposition left against medical advice (07) ==
PROVIDERS: Emergency Medicine; Emergency Provider Emergency Medicine; PCP Physician Assistant; Visit Provider Emergency Medicine
DX: N39.0 Urinary tract infection, site not specified (principal)
CPT/HCPCS: 36415; 80053; 81001; 83690; 85025; 87077; 87086; 87186; 99283

== ENCOUNTER → 2023-04-14 13:38 | Outpatient (CLI) | payer MEDICARE, SELFPAY ==
[2023-04-14 15:33] LABS: BUN Creatinine Ratio 12.6 (6-22); Blood Urea Nitrogen 12 mg/dL (7-17); Estimated Glomerular Filt Rate > 60 mL/min (>60)
[2023-04-14 16:11] LABS: Appearance Urine UA CLOUDY; Bacteria Urine Many (>30); Color Urine UA ORANGE; Culture Indicated Urine Specimen Cultured; RBC Urine 1-5/HPF (0-5/HPF); Squamous Epithelial Cell Urine 1-5 /HPF (0-5/HPF); WBC Urine >100/HPF (0-5/HPF)
== END ==
PROVIDERS: PCP Physician Assistant; Referring Provider Physician Assistant Medical; Visit Provider Physician Assistant Medical
DX: R39.9 Unspecified symptoms and signs involving the genitourinary system (principal); Z85.520 Personal history of malignant carcinoid tumor of kidney
CPT/HCPCS: 36415; 81001; 82565; 84520; 87077; 87086; 87186

== ENCOUNTER → 2023-04-15 13:45 | Outpatient (CLI) | payer MEDICARE, SELFPAY ==
--- NOTE | 2023-04-15 | DI.CT.S_ITS ---
PROCEDURE: CT ABDOMEN RENAL PROTOCOL INDICATIONS: HISTORY OF RENAL CELL CARCINOMA TECHNIQUE: Optional 5 mm thick noncontrast images acquired from the diaphragm to the iliac crests. After the administration of intravenous contrast, 5 mm thick images again acquired from the diaphragm to the iliac crests in the arterial and urographic phases. 5 mm thick coronal and sagittal reformats were then acquired. For radiation dose reduction, the following was used: automated exposure control, adjustment of mA and/or kV according to patient size. COMPARISON: [facility], CT, CT ABDOMEN PELVIS W CON, 01/21/2021, 22:56. FINDINGS: Image quality: Excellent. Lung bases: Lung bases are clear. Heart size is normal. Genitourinary: Left kidney is surgically absent. There is a 2 mm nonobstructing anterior middle pole stone. Right kidney is unremarkable with normal enhancement and normal size without hydronephrosis. Other solid organs: Liver is normal in size and enhancement. Gallbladder contains numerous small stones. . Biliary system is non dilated. Pancreas enhances normally. Spleen is normal in size and enhancement. No adrenal nodules. Peritoneum and bowel: Unenhanced bowel loops are normal in wall thickness and caliber. No free fluid or air. Nodes and vessels: No retroperitoneal or mesenteric adenopathy by size criteria. Aorta and inferior vena cava are normal in caliber. Bones: No suspicious bony lesions. No vertebral body compression fractures. Extensive lumbar surgical hardware and upper thoracic surgical hardware. Miscellaneous: No ventral hernias. IMPRESSION: 1. Remote left nephrectomy. 2. Tiny nonobstructing right renal stone. Otherwise unremarkable right kidney. Dictated by: Prosper Couch M.D. on 04/15/2023 at 17:36 Approved by: Prosper Couch M.D. on 04/15/2023 at 17:39
== END ==
PROVIDERS: PCP Physician Assistant; Referring Provider Physician Assistant Medical; Visit Provider Physician Assistant Medical
DX: N20.0 Calculus of kidney (principal); K80.20 Calculus of gallbladder without cholecystitis without obstruction; Z85.528 Personal history of other malignant neoplasm of kidney; Z90.5 Acquired absence of kidney
CPT/HCPCS: 74170; Q9967

== ENCOUNTER → 2023-04-27 14:15 | Outpatient (CLI) | payer MEDICARE, SELFPAY ==
[2023-04-27 15:19] LABS: Color Urine UA Orange
[2023-04-27 15:20] LABS: Appearance Urine UA Cloudy
[2023-04-27 15:21] LABS: Bacteria Urine Many (>30); Culture Indicated Urine Specimen Cultured; RBC Urine None Seen (0-5/HPF); Squamous Epithelial Cell Urine None Seen (0-5/HPF); WBC Urine >100/HPF (0-5/HPF)
== END ==
PROVIDERS: PCP Physician Assistant; Referring Provider Physician Assistant Medical; Visit Provider Physician Assistant Medical
DX: R39.9 Unspecified symptoms and signs involving the genitourinary system (principal)
CPT/HCPCS: 81001; 87077; 87086; 87186

== ENCOUNTER 2023-05-10 18:22 | Emergency (ER) | payer MEDICARE, SELFPAY ==
[2023-05-10] VITALS (7 sets, daily range): BP systolic 139–159; BP diastolic 63–69; PULSE 75–89; RESP 16; TEMP 35.9; O2SAT 90–97; BMI 29.0
[2023-05-10] MEDS: PHENAZOPYRIDINE 100 MG TABLET PO (19:22)
[2023-05-10 21:25] LABS: Appearance Urine UA CLOUDY; Color Urine UA ORANGE
[2023-05-10 21:27] LABS: pH Urine UA 6.5 (4.5-8.0)
[2023-05-10 21:38] LABS: Bacteria Urine Moderate (10-30); WBC Urine >100/HPF (0-5/HPF)
[2023-05-10 21:39] LABS: Culture Indicated Urine Specimen Cultured; Squamous Epithelial Cell Urine 1-5 /HPF (0-5/HPF)
[2023-05-10 21:42] LABS: RBC Urine 0-1/HPF (0-5/HPF)
[2023-05-10] MEDS: NITROFURANTOIN ER 100 MG CAPSULE PO (23:25)
[2023-05-10] MEDS: IBUPROFEN 400 MG TABLET 800 MG PO (23:26)
[2023-05-11] VITALS: BP 143/65; PULSE 74; O2SAT 98
--- NOTE | 2023-05-11 00:10 | ED_ITS ---
HPI - Female Genitourinary General Chief complaint: Urogenital-Female Stated complaint: thinks uti/painful Time Seen by Provider: 05/10/23 23:02 Source: patient, RN notes reviewed and old records reviewed Mode of arrival: Wheelchair Limitations: no limitations History of Present Illness HPI Narrative: 82-year-old female with history of recurrent UTIs, hypertension, unilateral nephrectomy. Dyslipidemia presenting with complaint of burning urination, suprapubic pain but also vaginal irritation. Patient states she is been on multiple antibiotics including amoxicillin or Augmentin, Bactrim has not had any improvement. She states pain has been worsening. There is pain with urination but also in the vaginal area itself is very painful and feels like it is burning. She has not had any pelvic exams. She denies fevers or chills. She is had nausea she would vomiting the other day but nothing recently. She denies any other upper abdominal back or flank pain. She states she is urinating regularly. Patient states she is been having bowel movements. Related Data Home Medications Medication Instructions Recorded Confirmed aspirin 81 mg tablet,delayed 81 mg PO DAILY 01/19/19 04/30/21 release levothyroxine 100 mcg tablet 100 mcg PO DAILY #90 tabs 01/19/19 04/30/21 multivitamin 1 tab PO DAILY 01/19/19 04/30/21 venlafaxine 150 mg 150 mg PO DAILY #90 caps 01/19/19 04/30/21 capsule,extended release 24 hr cholecalciferol (vitamin D3) 50 PO 02/24/21 04/30/21 mcg (2,000 unit) capsule melatonin 1 mg tablet mg PO 02/24/21 04/30/21 metoprolol succinate 50 mg 50 mg PO BID 03/14/21 04/30/21 tablet,extended release 24 hr Previous Rx's Medication Instructions Recorded nystatin 100,000 unit/gram topical 1 applictn topical TID #60 grams 01/19/19 powder carisoprodol 350 mg tablet (Soma) 350 mg PO BEDTIME #30 tabs 03/02/19 hydroxyzine HCl 25 mg tablet 25 mg PO Q6H PRN itching #120 tabs 03/17/19 atorvastatin 20 mg tablet (Lipitor) 20 mg PO DAILY #90 tabs 08/21/20 docusate sodium 100 mg capsule 100 mg PO BID PRN constipation #30 01/22/21 (Colace) caps atorvastatin 20 mg tablet 20 mg PO DAILY #14 tabs 05/16/21 metoprolol succinate 50 mg capsule 50 mg PO DAILY #14 ea 05/16/21 sprinkle, ext. release 24 hr phenazopyridine 100 mg tablet 100 mg PO TID PRN pain 6 doses #6 05/16/21 (Pyridium) tabs venlafaxine 150 mg 150 mg PO DAILY #14 caps 05/16/21 capsule,extended release 24 hr ciprofloxacin HCl 250 mg tablet 250 mg PO BID #10 tabs 08/03/22 sulfamethoxazole 800 1 tab PO BID #20 tabs 11/17/22 mg-trimethoprim 160 mg tablet (Bactrim DS) sulfamethoxazole 800 1 tab PO Q12H #14 tabs 02/24/23 mg-trimethoprim 160 mg tablet (Bactrim DS) miconazole nitrate 2 % vaginal 1 appful vaginal BEDTIME 7 days 05/11/23 cream (Miconazole-7) #45 grams Allergies Allergy/AdvReac Type Severity Reaction Status Date / Time cyclobenzaprine Allergy Unknown Verified 05/10/23 18:40 [CYCLOBENZAPRINE] doxycycline Allergy Diarrhea Verified 05/10/23 18:40 morphine Allergy hallucinati Verified 05/10/23 18:40 ons acetaminophen [From Percocet] AdvReac Vomiting Verified 05/10/23 18:40 amoxicillin [From Augmentin] AdvReac Nausea Verified 05/10/23 18:40 clavulanic acid AdvReac Nausea Verified 05/10/23 18:40 [From Augmentin] oxycodone [From Percocet] AdvReac Vomiting Verified 05/10/23 18:40 Review of Systems Review of Systems ROS Unobtainable: All systems reviewed & are unremarkable except as noted in HPI and below Patient History Medical History Anxiety Chronic urinary tract infection Depression Dysuria E. coli urinary tract infection Essential hypertension History of kidney cancer Hyperlipidemia Hypothyroidism, acquired Prurigo nodularis Urinary incontinence Urinary tract infection Vaginal ulceration Surgical History History of back surgery History of nephrectomy S/P cataract extraction and insertion of intraocular lens S/P femoral-popliteal bypass surgery S/P hysterectomy (~1976) S/P insertion of spinal cord stimulator alcohol intake frequency: 0-2 drinks per day Substance Use Type: does not use Exam Narrative Exam Narrative: GENERAL: Alert and oriented x three, elderly female in [id number] distress. HEENT: Head normocephalic, atraumatic, EOMI, pupils reactive, face symmetric, moist mucous membranes NECK: Supple, full range of motion CARDIOVASCULAR: Regular rate and rhythm without murmurs, rubs or gallops. RESPIRATORY: Breath sounds equal bilaterally, no wheezes rales or rhonchi. ABDOMEN: Soft, nontender on exam even over the suprapubic area. Normoactive bowel sounds all 4 quadrants. No guarding or rebound, rigidity, no mass. Female: externa vaginal examl normal, intravaginally patient has quite a bit of erythema with some scalloping skin breakdown but no subcutaneous exposure. No vaginal bleeding, mild discharge discolored orange (likely from recent pyridium), no cervical motion tenderness, normal speculum exam, no adnexal tenderness/mass. Bimanual exam is normal, no enlarged or tender uterus. Non- gravid. : No CVA tenderness EXTREMITIES: Normal range of motion, no clubbing or edema. Neurovascularly intact NEUROLOGICAL: Cranial nerves II through XII grossly intact. Moving all extremities SKIN: Warm, dry, no petechiae, no rashes or lesions. Initial Vital Signs Initial Vital Signs: Vital Signs Temperature 96.6 F L 05/10/23 18:34 Pulse Rate 89 05/10/23 18:34 Respiratory Rate 16 05/10/23 18:34 Blood Pressure 139/69 05/10/23 18:34 Pulse Oximetry 97 05/10/23 18:34 Oxygen Delivery Method Room Air 05/10/23 18:34 Course Orders Ordered: ED Orders 05/10/23 21:14 Urinalysis and Microscopic Stat Urine Culture Stat 05/11/23 00:25 Genital Culture Stat Wet Prep Tric BV Aspen Stat Discontinued Medications Ibuprofen (Ibuprofen 400 Mg Tablet) 800 mg PO NOW ONE Stop: 05/10/23 23:16 Last Admin: 05/10/23 23:26 Dose: 800 mg Documented By: Nitrofurantoin Macrocrystals (Nitrofurantoin Er 100 Mg Capsule) 100 mg PO NOW ONE Stop: 05/10/23 23:16 Last Admin: 05/10/23 23:25 Dose: 100 mg Documented By: SUZANNE Phenazopyridine HCl (Phenazopyridine 100 Mg Tablet) 100 mg PO NOW ONE Stop: 05/10/23 19:10 Last Admin: 05/10/23 19:22 Dose: 100 mg Documented By: ANGEL Tramadol HCl (Tramadol 50 Mg Prepack) 1 bottle MISC SEEINSTR ONE Stop: 05/11/23 00:44 Last Admin: 05/11/23 00:52 Dose: 1 bottle Documented By: SUZANNE Vital Signs Vital signs: Vital Signs - 8 hr 05/10/23 22:43 05/10/23 23:00 05/10/23 23:01 Temperature Pulse Rate 78 78 82 Blood Pressure Pulse Oximetry 96 95 90 L 05/10/23 23:01 05/10/23 23:20 05/10/23 23:31 Temperature Pulse Rate 78 Blood Pressure 159/68 H 140/63 Pulse Oximetry 97 05/10/23 23:32 05/11/23 00:00 05/11/23 00:00 Temperature Pulse Rate 75 74 Blood Pressure 143/65 H Pulse Oximetry 95 98 05/11/23 00:32 05/11/23 00:32 05/11/23 00:45 Temperature 98 F Pulse Rate 82 Blood Pressure 145/79 H Pulse Oximetry 95 MDM - Female Genitourinary Lab Data Labs: Lab Results 05/10/23 Range/Units 21:14 Urine Color [place] Urine Appearance Cloudy Urine pH 6.5 (4.5-8.0) Ur Specific [place] 1.020 (1.000-1.035) Urine Protein TNP Urine Glucose (UA) TNP Urine Ketones TNP Urine Occult Blood TNP Urine Nitrate TNP Urine Bilirubin TNP Urine Urobilinogen TNP Ur Leukocyte Esterase TNP Urine RBC 0-1/hpf (0-5/HPF) Urine WBC >100/hpf H (0-5/HPF) Ur Squamous Epith Cells 1-5 /hpf (0-5/HPF) Urine Bacteria Moderate (10-30) H (None) Ur Culture Indicated? Specimen cultured Micro UA Comment [facility] Narrative Medical decision making narrative: 82-year-old female with her UTIs but patient is nontender suprapubically. She also notes vaginal irritation. She is not had any pelvic exam is urine shows white cells but no nitrites. On exam patient was quite a bit of vaginal irritation consistent with vaginitis. Wet prep and genital culture were sent. After review of history with patient she is felt to be low risk for gonorrhea/chlamydia does not appear to be herpetic. Patient given prescription for Monistat to mixed with zinc oxide for the affected area. As well as oral Monistat. Discussed return precautions. Patient was given a prepack for pain as she is quite uncomfortable. Discharge Plan Departure Patient Disposition: Home Clinical Impression: Vaginitis Activity Restrictions/Additional Instructions: Your exam today shows irritation of the vaginal lining. Your urine shows white cells but this can sometimes be found with vaginitis. I would wait for culture before starting any antibiotics for UTI. You do have to genital cultures pending if the shows changes that require additional antibiotics or treatment you will be contacted. Use topical zinc oxide, mixed with the antifungal cream provided. Apply nightly to the affected area. Take oral antifungal once daily until gone. Prescription sent to [facility] in [place]. Please return for fevers, new or worsening abdominal back or flank pain, vaginal bleeding, worsening pain, difficulty or inability to urinate, fevers, vomiting or other new or concerning changes. Prescriptions: New miconazole nitrate [Miconazole-7] 2 % cream 1 appful vaginal BEDTIME 7 Days Qty: 45 0RF No Action ciprofloxacin HCl 250 mg tablet 250 mg PO BID Qty: 10 1RF sulfamethoxazole-trimethoprim [Bactrim DS] 800-160 mg tablet 1 tab PO Q12H Qty: 14 0RF hydroxyzine HCl 25 mg tablet 25 mg PO Q6H PRN (Reason: itching) Qty: 120 0RF atorvastatin [Lipitor] 20 mg tablet 20 mg PO DAILY Qty: 90 0RF Rx Instructions: PT DUE FOR FOLLOW UP W/PCP PRIOR TO FUTURE FILLS. OVER A YEAR SINCE LAST SEEN. THANKS. 08/21/20 aspirin 81 mg tablet,delayed release (DR/EC) 81 mg PO DAILY levothyroxine 100 mcg tablet 100 mcg PO DAILY Qty: 90 Patient Comments: 1 TAB DAILY, 1X A WEEK 2 TABS. venlafaxine 150 mg capsule,extended release 24hr 150 mg PO DAILY Qty: 90 multivitamin tablet 1 tab PO DAILY nystatin 100,000 unit/gram powder 1 applictn TOP TID Qty: 60 3RF carisoprodol [Soma] 350 mg tablet 350 mg PO BEDTIME Qty: 30 3RF sulfamethoxazole-trimethoprim [Bactrim DS] 800-160 mg tablet 1 tab PO BID Qty: 20 0RF docusate sodium [Colace] 100 mg capsule 100 mg PO BID PRN (Reason: constipation) Qty: 30 0RF metoprolol succinate 50 mg capsule,sprinkle,ER 24hr 50 mg PO DAILY Qty: 14 0RF phenazopyridine [Pyridium] 100 mg tablet 100 mg PO TID PRN (Reason: pain) Qty: 6 0RF atorvastatin 20 mg tablet 20 mg PO DAILY Qty: 14 0RF venlafaxine 150 mg capsule,extended release 24hr 150 mg PO DAILY Qty: 14 0RF melatonin 1 mg tablet PO Patient Comments: take 1 tablet by mouth at bedtime if needed cholecalciferol (vitamin D3) 50 mcg (2,000 unit) capsule PO Patient Comments: take 1 capsule by mouth once daily metoprolol succinate 50 mg tablet extended release 24 hr 50 mg PO BID Referrals: Kaelyn Meier PA-C [Primary Care Provider] - Stand Alone Forms: Patient Portal/API
[2023-05-11 00:32] VITALS: BP 145/79; PULSE 82; O2SAT 95
[2023-05-11 00:45] VITALS: TEMP 36.6
[2023-05-11] MEDS: TRAMADOL 50 MG PREPACK 1 BOTTLE MISC (00:52)
== END 2023-05-11 00:54 | disposition home or self-care (01) ==
PROVIDERS: Emergency Provider Emergency Medicine; PCP Physician Assistant
DX: N76.0 Acute vaginitis (principal); Z79.899 Other long term (current) drug therapy
CPT/HCPCS: 81001; 87070; 87077; 87086; 87186; 87205; 87210; 99283

== ENCOUNTER 2023-05-12 15:53 | Emergency (ER) | payer MEDICARE, SELFPAY ==
[2023-05-12] VITALS (12 sets, daily range): BP systolic 123–167; BP diastolic 55–70; PULSE 59–67; RESP 16; TEMP 36.5; O2SAT 96–100; BMI 29.0
--- NOTE | 2023-05-12 20:19 | ED_ITS ---
HPI - Female Genitourinary General Chief complaint: Urogenital-Female Stated complaint: UTI Time Seen by Provider: 05/12/23 18:04 Source: patient Mode of arrival: Wheelchair History of Present Illness HPI Narrative: 82-year-old female nonsmoker with history of hypertension and hyperlipidemia with frequent UTIs and recent visit for urinary symptoms and subsequent diagnosis of vaginitis returns in the chief complaint is dysuria, frequency and urgency, particularly uncomfortable when urinating with burning. She had some urinary symptoms during the most recent visit and was not initially treated with antibiotics but her culture has come back with sensitivities noted. She denies any systemic complaints and is not dizzy nor weak or lightheaded. She denies any fever or chills. She denies chest pain, shortness of breath or cough. She denies any abdominal pain, vaginal discharge. Related Data Home Medications Medication Instructions Recorded Confirmed aspirin 81 mg tablet,delayed 81 mg PO DAILY 01/19/19 04/30/21 release levothyroxine 100 mcg tablet 100 mcg PO DAILY #90 tabs 01/19/19 04/30/21 multivitamin 1 tab PO DAILY 01/19/19 04/30/21 venlafaxine 150 mg 150 mg PO DAILY #90 caps 01/19/19 04/30/21 capsule,extended release 24 hr cholecalciferol (vitamin D3) 50 PO 02/24/21 04/30/21 mcg (2,000 unit) capsule melatonin 1 mg tablet mg PO 02/24/21 04/30/21 metoprolol succinate 50 mg 50 mg PO BID 03/14/21 04/30/21 tablet,extended release 24 hr Previous Rx's Medication Instructions Recorded nystatin 100,000 unit/gram topical 1 applictn topical TID #60 grams 01/19/19 powder carisoprodol 350 mg tablet (Soma) 350 mg PO BEDTIME #30 tabs 03/02/19 hydroxyzine HCl 25 mg tablet 25 mg PO Q6H PRN itching #120 tabs 03/17/19 atorvastatin 20 mg tablet (Lipitor) 20 mg PO DAILY #90 tabs 08/21/20 docusate sodium 100 mg capsule 100 mg PO BID PRN constipation #30 01/22/21 (Colace) caps atorvastatin 20 mg tablet 20 mg PO DAILY #14 tabs 05/16/21 metoprolol succinate 50 mg capsule 50 mg PO DAILY #14 ea 05/16/21 sprinkle, ext. release 24 hr phenazopyridine 100 mg tablet 100 mg PO TID PRN pain 6 doses #6 05/16/21 (Pyridium) tabs venlafaxine 150 mg 150 mg PO DAILY #14 caps 05/16/21 capsule,extended release 24 hr ciprofloxacin HCl 250 mg tablet 250 mg PO BID #10 tabs 08/03/22 sulfamethoxazole 800 1 tab PO BID #20 tabs 11/17/22 mg-trimethoprim 160 mg tablet (Bactrim DS) sulfamethoxazole 800 1 tab PO Q12H #14 tabs 02/24/23 mg-trimethoprim 160 mg tablet (Bactrim DS) miconazole nitrate 2 % vaginal 1 appful vaginal BEDTIME 7 days 05/11/23 cream (Miconazole-7) #45 grams nitrofurantoin 100 mg PO Q12H 7 days #14 caps 05/12/23 monohydrate/macrocrystals 100 mg capsule (Macrobid) Allergies Allergy/AdvReac Type Severity Reaction Status Date / Time cyclobenzaprine Allergy Unknown Verified 05/12/23 16:31 [CYCLOBENZAPRINE] doxycycline Allergy Diarrhea Verified 05/12/23 16:31 morphine Allergy hallucinati Verified 05/12/23 16:31 ons acetaminophen [From Percocet] AdvReac Vomiting Verified 05/12/23 16:31 amoxicillin [From Augmentin] AdvReac Nausea Verified 05/12/23 16:31 clavulanic acid AdvReac Nausea Verified 05/12/23 16:31 [From Augmentin] oxycodone [From Percocet] AdvReac Vomiting Verified 05/12/23 16:31 Review of Systems Review of Systems Narrative: GENERAL: Denies chills, fatigue, malaise, fever, sweats. HEENT: Denies sinus pain, ear pain, sore throat, difficulty swallowing, dizziness. RESPIRATORY: Denies dyspnea, cough, wheezing, hemoptysis, sputum. CARDIOVASCULAR: Denies chest pain, palpitations, orthopnea, edema, GASTROINTESTINAL: Denies nausea, vomiting, abdominal pain, diarrhea, constipation, melena. : See HPI MUSCULOSKELETAL: denies weakness, joint pain, or bony pain SKIN: Denies rash, skin lesions, or other NEUROLOGIC: Denies weakness, headache, numbness, change in speech, confusion, seizures, incoordination. PSYCHIATRIC: No concerning psychosocial issues. 12 point review of systems is negative except for those stated above Patient History Medical History Anxiety Chronic urinary tract infection Depression Dysuria E. coli urinary tract infection Essential hypertension History of kidney cancer Hyperlipidemia Hypothyroidism, acquired Prurigo nodularis Urinary incontinence Urinary tract infection Vaginal ulceration Surgical History History of back surgery History of nephrectomy S/P cataract extraction and insertion of intraocular lens S/P femoral-popliteal bypass surgery S/P hysterectomy (~1976) S/P insertion of spinal cord stimulator alcohol intake frequency: 0-2 drinks per day Substance Use Type: does not use Exam Narrative Exam Narrative: GEN: AOx3 and in mild distress EYES: Pupils are equal, round, and reactive to light and accommodation. Extraoccular muscles are intact bilaterally. There is no subconjunctival hemorrhage or exudate. CHEST: Lungs are clear to auscultation bilaterally and free of wheezes, rales, or rhonchi. Heart rate is regular rhythm, there are no murmurs, clicks, rubs, or gallops. There is no chest wall tenderness. ABD: Abdomen is soft and nontender. There is no guarding or rebound. Bowel sounds are normal in all 4 quadrants. There is no mass or organomegaly. PELVIC: refused given recent exam EXT: Full painless ROM of all extremities with no loss of sensation or strength. SKIN: Warm, pink, and dry. No erythema or rash Initial Vital Signs Initial Vital Signs: Vital Signs Temperature 97.7 F 05/12/23 16:26 Pulse Rate 60 05/12/23 16:26 Respiratory Rate 16 05/12/23 16:26 Blood Pressure 123/57 L 05/12/23 16:26 Pulse Oximetry 99 05/12/23 16:26 Oxygen Delivery Method Room Air 05/12/23 16:26 Course Orders Ordered: Discontinued Medications Hydrocodone Bitart/Acetaminophen (Hydrocodone/Acet 5/325 Prepack) 1 bottle MISC SEEINSTR ONE Stop: 05/12/23 20:21 Last Admin: 05/12/23 20:29 Dose: 1 bottle Documented By: TAYLOR Nitrofurantoin Macrocrystals (Nitrofurantoin Er 100 Mg Capsule) 100 mg PO NOW ONE Stop: 05/12/23 18:37 Last Admin: 05/12/23 18:43 Dose: Not Given Documented By: ANJEL Nitrofurantoin Macrocrystals (Nitrofurantoin Er 100 Mg Capsule) 100 mg PO NOW ONE Stop: 05/12/23 20:35 Last Admin: 05/12/23 20:35 Dose: 100 mg Documented By: TAYLOR Phenazopyridine HCl (Phenazopyridine 100 Mg Tablet) 100 mg PO NOW ONE Stop: 05/12/23 18:37 Last Admin: 05/12/23 18:44 Dose: Not Given Documented By: ANJEL Vital Signs Vital signs: Vital Signs - 8 hr 05/12/23 18:15 05/12/23 18:30 05/12/23 18:45 Pulse Rate 59 L 60 63 Blood Pressure Pulse Oximetry 99 99 100 Oxygen Delivery Method 05/12/23 18:12 05/12/23 19:00 05/12/23 19:15 Pulse Rate 61 60 Blood Pressure 167/63 H Pulse Oximetry 99 97 Oxygen Delivery Method 05/12/23 19:30 05/12/23 19:50 05/12/23 19:50 Pulse Rate 63 65 Blood Pressure 165/70 H Pulse Oximetry 98 98 Oxygen Delivery Method Room Air 05/12/23 20:00 05/12/23 20:01 05/12/23 20:01 Pulse Rate 60 63 Blood Pressure 124/55 L Pulse Oximetry 96 96 Oxygen Delivery Method Room Air 05/12/23 20:15 Pulse Rate 67 Blood Pressure Pulse Oximetry 97 Oxygen Delivery Method Room Air MDM - Female Genitourinary MDM Narrative Medical decision making narrative: [82] year old patient presents with dysuria, frequency and urgency Multiple etiologies for patient's symptoms considered including, but not limited to: [UTI versus vaginitis versus other] Prior Charts reviewed in our EMR Primary Historian: patient Labs reviewed and interpreted by myself: Urine consistent with UTI, recent cultures and sensitivity noted, recent pelvic exam swabs noted Patient history and physical exam reassuring, no systemic complaints, no signs of sepsis, though she has been on multiple rounds of antibiotics she does have a relatively resistant strain of E coli and had been on Augmentin, Bactrim in other antibiotics that are likely resistant. Nitrofurantoin chosen given its expected affected his given this culture and sensitivity, patient has no signs of upper tract infection such as back pain, fever, chills or vomiting to suggest that nitrofurantoin would not be appropriate given its minimal renal parenchymal penetration. Patient given discharge instructions and encouraged to follow closely Findings and discharge diagnosis discussed with patient/family followed by verbalization of understanding Return precautions discussed with patient/family whom verbalize understanding of diagnosis and plan Discharge Plan Departure Patient Disposition: Home Clinical Impression: Urinary tract infection Instructions: DI for Urinary Tract Infection (UTI) Activity Restrictions/Additional Instructions: *You have been diagnosed with [urinary tract infection] *What to do: *Please continue to take your regular medications as directed. [ x] New medication prescriptions sent to your pharmacy: [ [facility]] [ ] New medication written as a paper prescription [ ] No new medications given *Please follow up with your urologist as planned on Wednesday. Also as we discussed I have included contact information for local gynecology given your recent diagnosis of vaginitis *If you do not have a primary care provider please contact the [facility] Resource line at [phone]. They will ask some questions about your medical history and help get you set up with a doctor in the community. *Return to Emergency Department if you should have any new, worsening or concerning symptoms, such as [fever greater than 101 F, shaking chills, worsening pain, persistent vomiting or other bothersome symptoms] Prescriptions: New nitrofurantoin monohyd/m-cryst [Macrobid] 100 mg capsule 100 mg PO Q12H 7 Days Qty: 14 0RF Rx Instructions: must administer with a meal/food No Action ciprofloxacin HCl 250 mg tablet 250 mg PO BID Qty: 10 1RF sulfamethoxazole-trimethoprim [Bactrim DS] 800-160 mg tablet 1 tab PO Q12H Qty: 14 0RF hydroxyzine HCl 25 mg tablet 25 mg PO Q6H PRN (Reason: itching) Qty: 120 0RF atorvastatin [Lipitor] 20 mg tablet 20 mg PO DAILY Qty: 90 0RF Rx Instructions: PT DUE FOR FOLLOW UP W/PCP PRIOR TO FUTURE FILLS. OVER A YEAR SINCE LAST SEEN. THANKS. 08/21/20 aspirin 81 mg tablet,delayed release (DR/EC) 81 mg PO DAILY levothyroxine 100 mcg tablet 100 mcg PO DAILY Qty: 90 Patient Comments: 1 TAB DAILY, 1X A WEEK 2 TABS. venlafaxine 150 mg capsule,extended release 24hr 150 mg PO DAILY Qty: 90 multivitamin tablet 1 tab PO DAILY nystatin 100,000 unit/gram powder 1 applictn TOP TID Qty: 60 3RF carisoprodol [Soma] 350 mg tablet 350 mg PO BEDTIME Qty: 30 3RF sulfamethoxazole-trimethoprim [Bactrim DS] 800-160 mg tablet 1 tab PO BID Qty: 20 0RF docusate sodium [Colace] 100 mg capsule 100 mg PO BID PRN (Reason: constipation) Qty: 30 0RF metoprolol succinate 50 mg capsule,sprinkle,ER 24hr 50 mg PO DAILY Qty: 14 0RF phenazopyridine [Pyridium] 100 mg tablet 100 mg PO TID PRN (Reason: pain) Qty: 6 0RF atorvastatin 20 mg tablet 20 mg PO DAILY Qty: 14 0RF venlafaxine 150 mg capsule,extended release 24hr 150 mg PO DAILY Qty: 14 0RF miconazole nitrate [Miconazole-7] 2 % cream 1 appful vaginal BEDTIME 7 Days Qty: 45 0RF melatonin 1 mg tablet PO Patient Comments: take 1 tablet by mouth at bedtime if needed cholecalciferol (vitamin D3) 50 mcg (2,000 unit) capsule PO Patient Comments: take 1 capsule by mouth once daily metoprolol succinate 50 mg tablet extended release 24 hr 50 mg PO BID Referrals: Kaelyn Meier PA-C [Primary Care Provider] - Khoa Lopez MD [Physician] - Stand Alone Forms: Patient Portal/API
[2023-05-12] MEDS: HYDROCODONE/ACET 5/325 PREPACK 1 BOTTLE MISC (20:29)
[2023-05-12] MEDS: NITROFURANTOIN ER 100 MG CAPSULE PO (20:35)
== END 2023-05-12 20:40 | disposition home or self-care (01) ==
PROVIDERS: Emergency Provider Emergency Medicine; PCP Physician Assistant
DX: N39.0 Urinary tract infection, site not specified (principal); Z79.899 Other long term (current) drug therapy
CPT/HCPCS: 99283

== ENCOUNTER → 2023-05-31 14:26 | Outpatient (CLI) | payer MEDICARE, SELFPAY ==
[2023-05-31 16:01] LABS: Appearance Urine UA CLOUDY; Bilirubin Urine UA 1+ (NEGATIVE); Color Urine UA YELLOW; Glucose Urine UA TRACE g/dL (Negative); Ketones Urine UA NEGATIVE (NEGATIVE); Leukocyte Esterase Urine UA 3+ (NEGATIVE); Nitrite Urine UA POSITIVE (Negative); Occult Blood Urine UA 3+ (Negative); Protein Urine UA 3+ (Negative)
[2023-05-31 16:25] LABS: Ictotest Urine Negative (Negative)
[2023-05-31 16:34] LABS: Bacteria Urine Many (>30); Culture Indicated Urine Specimen Cultured; RBC Urine 5-10/HPF (0-5/HPF); Squamous Epithelial Cell Urine 5-10 /HPF (0-5/HPF); WBC Urine 30-100/HPF (0-5/HPF)
== END ==
PROVIDERS: PCP Physician Assistant; Referring Provider Physician Assistant Medical; Visit Provider Physician Assistant Medical
DX: R39.9 Unspecified symptoms and signs involving the genitourinary system (principal)
CPT/HCPCS: 81001; 87077; 87086; 87186

== ENCOUNTER → 2023-09-03 10:27 | Outpatient (CLI) | payer MEDICARE, SELFPAY ==
--- NOTE | 2023-09-03 10:30 | DI.CT.S_ITS ---
PROCEDURE: CT ABDOMEN PELVIS WO CON INDICATIONS: Abnormal weight loss TECHNIQUE: Axial sections were acquired from the lung bases to the pubic symphysis. Coronal and sagittal reformats were performed. For radiation dose reduction, the following was used: automated exposure control, adjustment of mA and/or kV according to patient size. COMPARISON: [facility], CT, CT ABDOMEN RENAL PROTOCOL, 04/15/2023, 14:58. [facility], CT, CT ABDOMEN PELVIS W CON, 01/21/2021, 22:56. No prior report is available. FINDINGS: Image quality: Diagnostic. Lower Chest: Chronic fibrotic lung changes and tree in bud in the partially visualized lung bases. URINARY: Right kidney: Surgically absent. No definite remaining renal parenchyma seen in the surgical bed. Left Kidney: Nonobstructive 2 mm stone versus atherosclerotic calcification in its interpolar region. No hydronephrosis or renal mass on this noncontrast image.. Right Ureter: Not visualized Left Ureter: No hydroureter Bladder: Limited evaluation with no IV contrast. Mostly decompressed and poorly evaluated. A foci of air is seen in the bladder of unknown etiology. ABDOMEN: Liver: In normal hyperdense lesions, largest career representative hypodense lesion in the left lobe measures 2.2 x 2.9 cm (previously 2.3 x 2.9 cm) appearing unchanged. Gallbladder: Vicarious excretion of contrast versus tiny calculi /sludge in the dependent portion Biliary ducts: No definite biliary dilation. Pancreas: No ductal dilation. Spleen: Size is within normal limits. Adrenal Glands: No adrenal nodules. Stomach and Bowel: Normal colonic caliber, without significant wall thickening. Peritoneum: No abnormal intraperitoneal fluid. No free air. Ventral Wall: No hernia. Abdominal Nodes: Otherwise no enlarged retroperitoneal or mesenteric lymph nodes. Vessels: Aorta and inferior vena cava are normal in size. PELVIS: Pelvic Organs: Small amount of air seen in the cervix. Nonvisualized uterus. Questionable soft tissue density right adnexa could be residual right ovary (72/2) or lymph node appearing similar to prior study in 2020 Pelvic Nodes: Unremarkable. Miscellaneous: Partially visualized left femoral bypass. Bones: Extensive postop changes of the lumbar and thoracic spine with posterior spinal fusion orthopedic hardware, intervertebral spacers. Grade 1 anterolisthesis of L4 over L5. Severe osteopenia.. IMPRESSION: 1. Chronic fibrotic lung changes. Left lingular/upper lobe consolidative changes were not well visualized on prior study ; if indicated follow-up CT of the chest in 3-6 months may followup. 2. Multiple hypodense liver lesions appearing similar to prior studies going back to 2020. Dictated by: Khoa Rodas M.D. on 09/03/2023 at 12:39 Approved by: Khoa Rodsa M.D. on 09/03/2023 at 13:32
== END ==
PROVIDERS: PCP Physician Assistant; Referring Provider Physician Assistant; Visit Provider Physician Assistant
DX: R63.4 Abnormal weight loss (principal); K76.9 Liver disease, unspecified; R11.2 Nausea with vomiting, unspecified; R77.9 Abnormality of plasma protein, unspecified; R74.8 Abnormal levels of other serum enzymes; E03.9 Hypothyroidism, unspecified; R79.89 Other specified abnormal findings of blood chemistry; R71.8 Other abnormality of red blood cells; Z90.5 Acquired absence of kidney
CPT/HCPCS: 74176

== ENCOUNTER 2024-04-03 14:44 | Observation (INO) | payer MEDICARE, SELFPAY ==
[2024-04-03] VITALS (12 sets, daily range): BP systolic 108–157; BP diastolic 54–73; PULSE 77–90; RESP 14–21; TEMP 35.7–36.6; O2SAT 95–98; BMI 32.0
--- NOTE | 2024-04-03 14:44 | DI.CT.S_ITS ---
PROCEDURE: CT STROKE INDICATIONS: Positive BE-FAST, Stroke symptoms TECHNIQUE: Noncontrast 4.5 mm thick angled axial sections acquired from the foramen magnum to the vertex, with coronal reformats. For radiation dose reduction, the following was used: automated exposure control, adjustment of mA and/or kV according to patient size. COMPARISON: [facility], CT, CT HEAD/BRAIN WO CON, 03/17/2021, 1:57. FINDINGS: Image quality: Diagnostic. CSF spaces: Basal cisterns are patent. No extra-axial fluid collections. The ventricles are symmetric in size and shape. Brain: No intracranial bleeds or masses. There is cerebral volume loss for age, with resultant ventricular and sulcal prominence. There are severe periventricular and deep white matter chronic small vessel ischemic changes. There is intracranial internal carotid artery atherosclerosis. Skull and face: Calvarium and visualized facial bones appear intact, without suspicious lesions. Sinuses: Visualized sinuses and mastoids are clear. IMPRESSION: No acute intracranial pathology. Age-related volume loss and severe small vessel ischemic change Comment: Findings were discussed with Dr. Sanchez on 04/03/2024 at 1459 hours This study fulfills neurological imaging criteria for inclusion or exclusion of acute stroke therapies based on available published neurological guidelines. Dictated by: Prosper Couch M.D. on 04/03/2024 at 14:58 Approved by: Prosper Couch M.D. on 04/03/2024 at 15:01
--- NOTE | 2024-04-03 14:44 | EKG_ITS ---
[address] [id number] [place] [address] Test Date: 2024-04-04 Pat Name: Nikki Voss Department: [facility] Room: 218 Gender: Female [employer]: GLORIA : 1940 Requested By: Order Number: [id number] Reading MD: Juvenal Collins Measurements Intervals [place] Rate: 75 P: 53 TX: 192 QRS: 16 QRSD: 70 T: 36 QT: 410 QTc: 457 Interpretive Statements Sinus rhythm Low voltage QRS Electronically Signed On 04-10-2024 9:05:36 PDT by Juvenal Collins
--- NOTE | 2024-04-03 14:44 | DI.RAD.S_ITS ---
PROCEDURE: XR CHEST 1V INDICATIONS: Possible stroke TECHNIQUE: One view of the chest was acquired. COMPARISON: [facility], CR, XR CHEST 1V, 11/17/2022, 19:51. [facility], CR, XR CHEST 1V, 06/22/2020, 12:51. FINDINGS: Suboptimal due to patient rotation. Surgical changes and devices: Surgical fusion of the thoracolumbar spine. Lungs and pleura: Lungs are clear. No pleural effusions or pneumothorax. Mediastinum: Mediastinal contours appear normal. Heart size is normal. Bones and chest wall: No suspicious bony lesions. Overlying soft tissues appear unremarkable. IMPRESSION: No acute cardiopulmonary abnormality is seen. Dictated by: Damaso Arias M.D. on 04/03/2024 at 15:55 Approved by: Damaso Arias M.D. on 04/03/2024 at 15:55
--- NOTE | 2024-04-03 14:46 | DI.CT.S_ITS ---
PROCEDURE: CT ANGIO HEAD AND NECK INDICATIONS: code stroke TECHNIQUE: After the administration of intravenous contrast, 1 mm thick sections acquired from the aortic arch through the [place]. 3-dimensional gkezwuw-kxucfsmtr-fdjvnuwfgm (MIP) and/or volume rendering reformats were acquired of the central intracranial vasculature and neck separately. For radiation dose reduction, the following was used: automated exposure control, adjustment of mA and/or kV according to patient size. COMPARISON: None. FINDINGS: Image quality: Diagnostic. BRAIN: CSF spaces: Ventricles are normal in size and shape. Basal cisterns are patent. No extra-axial fluid collections. Brain: No significant abnormality of the brain can be seen. Skull and face: Calvarium and facial bones appear intact, without suspicious lesions. Orbits appear normal. Sinuses: Sinuses and mastoids are clear. HEAD CT ANGIOGRAPHY: Anterior circulation: Intracranial internal carotid arteries demonstrate extensive calcifications and severe resultant stenotic disease bilaterally in the cavernous portions. The flow within the paired anterior cerebral arteries is normal and symmetric. The flow within the middle cerebral arteries is normal and symmetric. The anterior communicating artery is seen. No aneurysms are seen. Posterior circulation: Visualized portions of the vertebral arteries demonstrate normal caliber, and join to form a normal appearing basilar artery. Flow within the posterior cerebral arteries is normal and symmetric. No aneurysms are seen. NECK CT ANGIOGRAPHY: Carotid system: The great vessels demonstrate a conventional anatomy as they arise from the aortic arch. The origins of the common carotid arteries appear patent. The common carotid arteries demonstrate normal caliber and courses. The bifurcation regions are both widely patent. Approximately 50-60% proximal right internal carotid artery stenosis secondary to a mixture of hard and soft plaque. High-grade proximal left internal carotid artery focal stenosis, measuring up to 90%.. Posterior circulation: The origins of the vertebral arteries both appear widely patent. The more superior extracranial portions of both vertebral arteries also demonstrate normal courses and calibers. They join to form a normal appearing basilar artery. Soft tissues: Visualized neck soft tissues demonstrate no suspicious abnormalities. Bones: No suspicious bony lesions. Visualized cervical spine appears normally aligned. IMPRESSION: 1. 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 2. No intracranial large vessel occlusion. No intracranial bowel phenomena identified. 3. High-grade proximal left internal carotid artery stenosis, moderate proximal right internal carotid artery stenosis. Comment: Findings were discussed with Dr. Sanchez on 04/03/2024 at 1507 hours Any quantitative measurements of stenosis were performed using NASCET criteria. Dictated by: Prosper Couch M.D. on 04/03/2024 at 15:01 Approved by: Prosper Couch M.D. on 04/03/2024 at 15:08
--- NOTE | 2024-04-03 15:08 | ED.NEUROSD ---
HPI - Neuro Symptoms/Deficit General Chief Complaint: Neuro Symptoms/Deficit Stated Complaint: code stroke Time Seen by Provider: 04/03/24 15:07 Source: EMS Mode of arrival: EMS History of Present Illness HPI Narrative: 83-year-old female denies history of previous stroke or mini stroke symptoms, last known well proximally 130, noted to have difficulty with speaking, and right facial droop, EMS was called, patient was aphasic and had right-sided facial droop, glucose in the field not diminished. Symptoms seemed to be improved on route. No blood thinner medications, no aspirin or other antiplatelet medications being taken. She has history of hypertension, no history of diabetes, still smokes occasionally. No injury or trauma. No known shaking or seizure activity. No incontinence of urine or stool. On Anticoagulants: No Related Data Home Medications Medication Instructions Recorded Confirmed aspirin 81 mg tablet,delayed 81 mg PO DAILY 01/19/19 04/03/24 release levothyroxine 100 mcg tablet 100 mcg PO DAILY #90 tabs 01/19/19 04/03/24 multivitamin 1 tab PO DAILY 01/19/19 04/03/24 cholecalciferol (vitamin D3) 50 50 mcg PO DAILY 02/24/21 04/03/24 mcg (2,000 unit) capsule metoprolol succinate 50 mg 50 mg PO BID 03/14/21 04/03/24 tablet,extended release 24 hr bimatoprost 0.03 % drops with 1 drp topical ONCE PM 04/03/24 04/03/24 applicator, eyelash base carisoprodol 350 mg tablet 350 mg PO 3XD PRN Pain (Scale 04/03/24 04/03/24 Score 4-6) d-mannose 500 mg capsule 500 mg PO BID PRN infection 04/03/24 04/03/24 prevention venlafaxine 150 mg 150 mg PO DAILY 04/03/24 04/03/24 capsule,extended release 24 hr Previous Rx's Medication Instructions Recorded nystatin 100,000 unit/gram topical 1 applictn topical TID #60 grams 01/19/19 powder docusate sodium 100 mg capsule 100 mg PO BID PRN constipation #30 01/22/21 (Colace) caps atorvastatin 20 mg tablet 20 mg PO DAILY #14 tabs 05/16/21 phenazopyridine 100 mg tablet 100 mg PO TID PRN pain 6 doses #6 05/16/21 (Pyridium) tabs Allergies Allergy/AdvReac Type Severity Reaction Status Date / Time cyclobenzaprine Allergy Unknown Verified 04/03/24 14:56 [CYCLOBENZAPRINE] doxycycline Allergy Diarrhea Verified 04/03/24 14:56 morphine Allergy hallucinati Verified 04/03/24 14:56 ons acetaminophen [From Percocet] AdvReac Vomiting Verified 04/03/24 14:56 amoxicillin [From Augmentin] AdvReac Nausea Verified 04/03/24 14:56 clavulanic acid AdvReac Nausea Verified 04/03/24 14:56 [From Augmentin] oxycodone [From Percocet] AdvReac Vomiting Verified 04/03/24 14:56 Review of Systems Review of Systems Narrative: see HPI Hematologic/Lymphatic On Anticoagulants: No Patient History Medical History Vaginal ulceration E. coli urinary tract infection History of kidney cancer Dysuria Chronic urinary tract infection Prurigo nodularis Urinary tract infection Essential hypertension Anxiety Urinary incontinence Hypothyroidism, acquired Hyperlipidemia Depression Surgical History S/P insertion of spinal cord stimulator History of nephrectomy S/P femoral-popliteal bypass surgery S/P cataract extraction and insertion of intraocular lens S/P hysterectomy (~1976) History of back surgery Social History household members: spouse Smoking Status: Current every day smoker alcohol intake: current Smoking Status: Current every day smoker alcohol intake frequency: 0-2 drinks per day Substance Use Type: does not use Exam Narrative Exam Narrative: GENERAL: Well-developed patient, in mild distress. HEAD: Atraumatic. Normocephalic. EYES: Pupils equal round and reactive. Extraocular motions intact. No scleral icterus. No injection or drainage. ENT: Nose without bleeding, purulent drainage. Throat without erythema, tonsillar hypertrophy or exudate. Airway patent. NECK: Trachea midline. Non tender CARDIOVASCULAR: Regular rate and rhythm without murmurs, gallops, or rubs. RESPIRATORY: Clear to auscultation. Breath sounds equal bilaterally. No wheezes, rales, or rhonchi. GASTROINTESTINAL: Abdomen soft, non-tender, nondistended. EXTREMITIES: No edema or joint tenderness. BACK: Nontender without deformity or crepitance. No flank tenderness. NEURO: AOx3. Alert and cooperative. She does have slurred speech there is no family present but she feels that she has not back to her baseline speech. Pupils equal round reactive to light, extraocular muscles intact, on widened smiling dye can not tell that there is a difference in right versus left, no obvious facial droop. Extrudes in deviates tongue normally. Intact light touch upper mid lower face. Motor 5/5 upper extremities. Motor 4/5 lower extremities but seem equal, she may have some baseline lower extremity weakness, this no asymmetry however. [id number] testing normal. Was able to perform heel to cunha testing well. SKIN: No rash or erythema of visible areas Initial Vital Signs Initial Vital Signs: Vital Signs Temperature 97.8 F 04/03/24 14:51 Pulse Rate 90 04/03/24 14:51 Respiratory Rate 16 04/03/24 14:51 Blood Pressure 120/64 04/03/24 14:51 Pulse Oximetry 98 04/03/24 14:51 Oxygen Delivery Method Room Air 04/03/24 14:51 Course Orders Ordered: ED Orders 04/03/24 14:44 CT Stroke Stat XR chest 1V Stat EKG-12 Lead Stat 04/03/24 14:46 CT angio head and neck Stat 04/03/24 14:48 Complete Blood Count AUTO DIFF Stat Comprehensive Metabolic Panel Stat Magnesium Stat PTT Partial Thromboplastin Chuck Stat Prothrombin Time INR Stat Troponin & CK Cardiac Panel Stat 04/03/24 16:06 US carotid doppler BI Stat 04/03/24 18:57 Urine Drug Screen, Rapid Stat Aspirin (Aspirin Ec 81 Mg Tablet) 81 mg PO DAILY [facility] Atorvastatin Calcium (Atorvastatin 20 Mg Tablet) 80 mg PO BEDTIME [facility] Calcium Carbonate (Calcium Carbonate 500 Mg Tab) 1,000 mg PO Q4HR PRN PRN Reason: Dyspepsia Clopidogrel Bisulfate (Clopidogrel 75 Mg Tablet) 75 mg PO DAILY [facility] Heparin Sodium (Porcine) (Heparin 5,000 Unit/Ml Vial) 5,000 unit SUBCUT BID [facility] Ceftriaxone Sodium 1,000 mg/ (Sodium Chloride) 100 mls @ 200 mls/hr IV Q24H JAHAIRA Stop: 04/05/24 18:00 Last Admin: 04/03/24 17:51 Dose: 200 mls/hr Documented By: RAJINDER Levothyroxine Sodium (Levothyroxine 100 Mcg Tablet) 100 mcg PO 0600 [facility] Naloxone HCl (Naloxone 0.4 Mg/Ml Vial) 0.2 mg IV Q2MIN PRN PRN Reason: Opiate Reversal Ondansetron HCl (Ondansetron 4 Mg/2 Ml Inj) 4 mg IV NOW PRN PRN Reason: Nausea And Vomiting Ondansetron HCl (Ondansetron 4 Mg Odt) 4 mg SL NOW PRN PRN Reason: Nausea And Vomiting Sennosides (Sennosides 8.6 Mg Tablet) 17.2 mg PO BEDTIME JAHAIRA Venlafaxine HCl (Venlafaxine Er 75 Mg Cap) 150 mg PO DAILY JAHAIRA Discontinued Medications Aspirin (Aspirin Ec 325 Mg Tablet) 325 mg PO NOW ONE Stop: 04/03/24 16:05 Last Admin: 04/03/24 16:34 Dose: 325 mg Documented By: RB Clopidogrel Bisulfate (Clopidogrel 75 Mg Tablet) 300 mg PO NOW ONE Stop: 04/03/24 16:05 Last Admin: 04/03/24 16:34 Dose: 300 mg Documented By: RB Vital Signs Vital signs: Vital Signs - 8 hr 04/03/24 14:51 04/03/24 14:54 04/03/24 14:57 Temperature 97.8 F Pulse Rate 90 90 87 Respiratory Rate 16 17 Blood Pressure 120/64 Pulse Oximetry 98 97 98 Oxygen Delivery Method Room Air 04/03/24 14:57 04/03/24 15:00 04/03/24 15:30 Temperature Pulse Rate 86 89 Respiratory Rate 18 21 Blood Pressure 120/64 Pulse Oximetry 97 96 Oxygen Delivery Method 04/03/24 15:45 04/03/24 15:45 04/03/24 16:00 Temperature Pulse Rate 83 84 Respiratory Rate 14 17 Blood Pressure 108/59 L Pulse Oximetry 97 96 Oxygen Delivery Method 04/03/24 16:01 04/03/24 16:01 Temperature Pulse Rate 85 Respiratory Rate 17 Blood Pressure 113/54 L Pulse Oximetry 97 Oxygen Delivery Method MDM - Neuro Symptoms/Deficit Lab Data Attestation: I reviewed the patient's lab results. 04/03/24 14:48 04/03/24 14:48 Labs: Lab Results 04/03/24 Range/Units 14:48 WBC 10.5 (4.5-11.0) X10^3/uL RBC 4.64 (4.0-5.2) X10^6/uL Hgb 14.7 (12.0-16.0) g/dL Hct 44.6 (36-46) % MCV 96.0 (80-100) fL MCH 31.7 (26-34) PG MCHC 33.0 (30-36) % RDW 17.3 H (11.6-14.8) % Plt Count 148 L (150-400) X10^3/uL Neut % (Auto) 62.4 (50-75) % Lymph % (Auto) 22.6 L (25-40) % [facility] % (Auto) 11.2 (3-14) % Eos % (Auto) 1.6 L (2-4) % Baso % (Auto) 2.2 H (0-2) % Neut # (Auto) 6500 (4694-0514) /uL Lymph # (Auto) 2400 (1146-8922) /uL [facility] # (Auto) 1200 H (0-900) /uL Eos # (Auto) 200 (0-450) /uL Baso # (Auto) 200 H (0-100) /uL PT 10.7 (9.4-12.5) SECONDS INR 0.9 (0.9-1.3) APTT 37 H (25.1-36.5) SECONDS Sodium 139 (137-145) mmol/L Potassium 4.2 (3.4-5.1) mmol/L Chloride 107 (98-107) mmol/L Carbon Dioxide 25 (22-32) mmol/L BUN 15 (7-17) mg/dL Creatinine 0.95 (0.52-1.04) mg/dL Estimated GFR 60 (>60) mL/min BUN/Creatinine Ratio 15.8 (6-22) Glucose 115 H (80-110) mg/dL Calcium 9.0 (8.4-10.2) mg/dL Magnesium 1.9 (1.6-2.3) mg/dL Total Bilirubin 0.4 (0.2-1.3) mg/dL AST 24 (14-36) IU/L ALT 14 (<35) IU/L Alkaline Phosphatase 104 (38-126) U/L Total Creatine Kinase 28 L (30-135) U/L Troponin I < 0.012 (0.01-0.034) ng/mL Total Protein 7.3 (6.3-8.2) g/dL Albumin 3.9 (3.5-5.0) g/dL Globulin 3.4 (1.7-4.1) g/dL Albumin/Globulin Ratio 1.1 (1.0-2.8) Point of Care Testing Glucose POC 113 Imaging Data CTA Head/Neck: Radiologist's Impression: [address] [address] [address] Scan Report Signed Patient: Nikki Voss MR#: [id number] : 1940 Acct:[id number] Age/Sex: 83 / F Date of Service: 04/03/24 Loc: ED Accession Number: [id number] Procedure: CT angio head and neck Ordering Provider: Noble Sanchez MD PROCEDURE: CT ANGIO HEAD AND NECK INDICATIONS: code stroke TECHNIQUE: After the administration of intravenous contrast, 1 mm thick sections acquired from the aortic arch through the [place]. 3-dimensional vriebbh-tgbbdpyuf-ckdajobktj (MIP) and/or volume rendering reformats were acquired of the central intracranial vasculature and neck separately. For radiation dose reduction, the following was used: automated exposure control, adjustment of mA and/or kV according to patient size. COMPARISON: None. FINDINGS: Image quality: Diagnostic. BRAIN: CSF spaces: Ventricles are normal in size and shape. Basal cisterns are patent. No extra-axial fluid collections. Brain: No significant abnormality of the brain can be seen. Skull and face: Calvarium and facial bones appear intact, without suspicious lesions. Orbits appear normal. Sinuses: Sinuses and mastoids are clear. HEAD CT ANGIOGRAPHY: Anterior circulation: Intracranial internal carotid arteries demonstrate extensive calcifications and severe resultant stenotic disease bilaterally in the cavernous portions. The flow within the paired anterior cerebral arteries is normal and symmetric. The flow within the middle cerebral arteries is normal and symmetric. The anterior communicating artery is seen. No aneurysms are seen. Posterior circulation: Visualized portions of the vertebral arteries demonstrate normal caliber, and join to form a normal appearing basilar artery. Flow within the posterior cerebral arteries is normal and symmetric. No aneurysms are seen. NECK CT ANGIOGRAPHY: Carotid system: The great vessels demonstrate a conventional anatomy as they arise from the aortic arch. The origins of the common carotid arteries appear patent. The common carotid arteries demonstrate normal caliber and courses. The bifurcation regions are both widely patent. Approximately 50-60% proximal right internal carotid artery stenosis secondary to a mixture of hard and soft plaque. High-grade proximal left internal carotid artery focal stenosis, measuring up to 90%.. Posterior circulation: The origins of the vertebral arteries both appear widely patent. The more superior extracranial portions of both vertebral arteries also demonstrate normal courses and calibers. They join to form a normal appearing basilar artery. Soft tissues: Visualized neck soft tissues demonstrate no suspicious abnormalities. Bones: No suspicious bony lesions. Visualized cervical spine appears normally aligned. IMPRESSION: 1. 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 2. No intracranial large vessel occlusion. No intracranial bowel phenomena identified. 3. High-grade proximal left internal carotid artery stenosis, moderate proximal right internal carotid artery stenosis. Comment: Findings were discussed with Dr. Sanchez on 04/03/[address] scan - head: Radiologist's Impression: [place] [address] CT Scan Report Signed Patient: Nikki Voss MR#: [id number] : 1940 Acct:[id number] Age/Sex: 83 / F Date of Service: 04/03/24 Loc: ED Accession Number: [id number] Procedure: CT angio head and neck Ordering Provider: Noble Sanchez MD PROCEDURE: CT ANGIO HEAD AND NECK INDICATIONS: code stroke TECHNIQUE: After the administration of intravenous contrast, 1 mm thick sections acquired from the aortic arch through the [place]. 3-dimensional ooqnjtq-rzetggxxx-kqedfljsnw (MIP) and/or volume rendering reformats were acquired of the central intracranial vasculature and neck separately. For radiation dose reduction, the following was used: automated exposure control, adjustment of mA and/or kV according to patient size. COMPARISON: None. FINDINGS: Image quality: Diagnostic. BRAIN: CSF spaces: Ventricles are normal in size and shape. Basal cisterns are patent. No extra-axial fluid collections. Brain: No significant abnormality of the brain can be seen. Skull and face: Calvarium and facial bones appear intact, without suspicious lesions. Orbits appear normal. Sinuses: Sinuses and mastoids are clear. HEAD CT ANGIOGRAPHY: Anterior circulation: Intracranial internal carotid arteries demonstrate extensive calcifications and severe resultant stenotic disease bilaterally in the cavernous portions. The flow within the paired anterior cerebral arteries is normal and symmetric. The flow within the middle cerebral arteries is normal and symmetric. The anterior communicating artery is seen. No aneurysms are seen. Posterior circulation: Visualized portions of the vertebral arteries demonstrate normal caliber, and join to form a normal appearing basilar artery. Flow within the posterior cerebral arteries is normal and symmetric. No aneurysms are seen. NECK CT ANGIOGRAPHY: Carotid system: The great vessels demonstrate a conventional anatomy as they arise from the aortic arch. The origins of the common carotid arteries appear patent. The common carotid arteries demonstrate normal caliber and courses. The bifurcation regions are both widely patent. Approximately 50-60% proximal right internal carotid artery stenosis secondary to a mixture of hard and soft plaque. High-grade proximal left internal carotid artery focal stenosis, measuring up to 90%.. Posterior circulation: The origins of the vertebral arteries both appear widely patent. The more superior extracranial portions of both vertebral arteries also demonstrate normal courses and calibers. They join to form a normal appearing basilar artery. Soft tissues: Visualized neck soft tissues demonstrate no suspicious abnormalities. Bones: No suspicious bony lesions. Visualized cervical spine appears normally aligned. IMPRESSION: 1. 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 2. No intracranial large vessel occlusion. No intracranial bowel phenomena identified. 3. High-grade proximal left internal carotid artery stenosis, moderate proximal right internal carotid artery stenosis. Comment: Findings were discussed with Dr. Sanchez on 04/03/2024 at 1507 hours Any quantitative measurements of stenosis were performed using NASCET criteria. Dictated by: Prosper Couch M.D. on 04/03/2024 at 15:01 Approved by: Prosper Couch M.D. on 04/03/2024 at 15:08 [facility] Narrative Medical decision making narrative: 83-year-old female with dysarthria and right facial droop that seems to be improving, NIHSS score 2 for slight dysarthria on our assessment, glucose in the field normal. Normal sinus rhythm on the monitor, EKG pending. CT head stroke protocol no acute changes per phone call to radiology, CT angiogram head and neck vessel results still pending. We will consult Neurology 1515, case discussed with tele stroke Neurology on-call Dr. Castellanos at [facility], she will initiate consultation as patient still has residual symptoms although seems to be improving, NIHSS score likely too low for lytics but might be interventional candidate, she will assess further. 1600, case discussed with tele stroke Dr. Castellanos, after completion of tele-consultation. Low NIHSS score and improving, no lytics advised. Patient is a dual antiplatelet therapy candidate, advised full-strength aspirin Plavix then baby aspirin daily and 75 mg Plavix daily for 21 day course. Consider brain MRI however the patient has some kind of bladder stimulator that is still in place, not known to be compatible with MRI, we could not find any listing of MRI after bladder stimulator was placed 3 years ago to know if she had tolerated this. In the absence of MRI brain study she advises CT head noncontrast repeat at 12:00 p.m.. She also advises further evaluation of the carotids with Doppler ultrasound, stenosis noted on CT angiogram study. Advises admission on telemetry, fasting lipids in the morning, echocardiogram with bubble study. Patient agreeable to this plan. We will contact hospitalist Patient was able to pass swallow screen, see nursing notes. Plavix 300 mg oral dose given, aspirin 325 mg dose given. 1620, case discussed with hospitalist Dr. Garcias, accepts patient for admission to observation Critical Care Time Critical Care Time Total Critical Care Time: 35 Attestation: The high probability of a clinically significant, sudden or life threatening deterioration of the [cerebrovascular, neurologic] system(s) required my full and direct attention, intervention and personal management. The aggregate critical care time was [35] minutes. This time is in addition to time spent performing reported procedures but includes the following: [x] Data Review and interpretation [x] Patient assessment and monitoring of vital signs [x] Documentation [x] Medication orders and management Discharge Plan Departure Patient Disposition: Admitted As Inpatient Clinical Impression: Stroke Admit Date/Time: 04/03/24 16:20 Admit Provider: Juvenal Collins
[2024-04-03 15:15] LABS: Add Manual Diff / Slide Review NO; Basophils Absolute Auto 200 /uL (0-100); Basophils Percent Auto 2.2 % (0-2); Eosinophils Absolute Auto 200 /uL (0-450); Eosinophils Percent Auto 1.6 % (2-4); Hematocrit 44.6 % (36-46); Hemoglobin 14.7 g/dL (12.0-16.0); INR 0.9 (0.9-1.3); Lymphocytes Absolute Auto 2400 /uL (1100-4500); Lymphocytes Percent Auto 22.6 % (25-40); Mean Corpuscular Hemoglobin 31.7 PG (26-34); Monocytes Absolute Auto 1200 /uL (0-900); Monocytes Percent Auto 11.2 % (3-14); Neutrophils Absolute Auto 6500 /uL (1500-7000); Neutrophils Percent Auto 62.4 % (50-75); Platelet Count 148 X10^3/uL (150-400); Prothrombin Time 10.7 SECONDS (9.4-12.5); Red Blood Cell Count 4.64 X10^6/uL (4.0-5.2); Red Cell Distribution Width 17.3 % (11.6-14.8); White Blood Cell Count 10.5 X10^3/uL (4.5-11.0)
[2024-04-03 15:18] LABS: PTT Partial Thromboplastin Tim 37 SECONDS (25.1-36.5)
[2024-04-03 15:20] LABS: Alanine Aminotransferase 14 IU/L (<35); Albumin 3.9 g/dL (3.5-5.0); Albumin Globulin Ratio 1.1 (1.0-2.8); Alkaline Phosphatase 104 U/L (38-126); Aspartate Aminotransferase 24 IU/L (14-36); BUN Creatinine Ratio 15.8 (6-22); Bilirubin Total 0.4 mg/dL (0.2-1.3); Blood Urea Nitrogen 15 mg/dL (7-17); Carbon Dioxide 25 mmol/L (22-32); Chloride 107 mmol/L (98-107); Creatine Kinase 28 U/L (30-135); Estimated Glomerular Filt Rate 60 mL/min (>60); Globulin 3.4 g/dL (1.7-4.1); Glucose 115 mg/dL (80-110); HEMOLYSIS < 15 (0-50); Magnesium 1.9 mg/dL (1.6-2.3); Potassium 4.2 mmol/L (3.4-5.1); Sodium 139 mmol/L (137-145); Total Protein 7.3 g/dL (6.3-8.2)
[2024-04-03 15:31] LABS: Troponin I < 0.012 ng/mL (0.01-0.034)
--- NOTE | 2024-04-03 16:02 | PC.NURSE ---
Bedside telehealth consult with Neurology. Dr Castellanos, recommends no TNK at this time, admission for observation. Dr Sanchez at bedside for conclusion of consult.
[2024-04-03] MEDS: ASPIRIN EC 325 MG TABLET PO (16:34)
[2024-04-03] MEDS: CLOPIDOGREL 75 MG TABLET 300 MG PO (16:34)
--- NOTE | 2024-04-03 16:58 | P.HP_ITS ---
History of Present Illness History of Present Illness Date Patient Seen: 04/03/24 Chief complaint: code stroke Narrative: ED physician: 83-year-old female denies history of previous stroke or mini stroke symptoms, last known well proximally 130, noted to have difficulty with speaking, and right facial droop, EMS was called, patient was aphasic and had right-sided facial droop, glucose in the field not diminished. Symptoms seemed to be improved on route. No blood thinner medications, no aspirin or other antiplatelet medications being taken. She has history of hypertension, no history of diabetes, still smokes occasionally. No injury or trauma. No known shaking or seizure activity. No incontinence of urine or stool. On Anticoagulants: No. Additional information: She notes that her speech became affected around 130 in the afternoon and she had a hard time walking without the assistance of her . She lives in a mobile RV with him. She does not have teeth and her speech is always a little slurred but it was much worse. I saw her in her room after come up to the floor. She was with her family who feels her speech is almost back to normal or back to normal. The patient denied any obvious weakness of 1 leg or arm versus the other. She feels back to normal now. She has no history of TIA or stroke. She does have a long history of smoking and still smokes a couple of cigarettes a day. She does have severe peripheral arterial disease with a failed fem-pop on the left leg. CTA did confirm fairly severe cerebrovascular disease with a duplex ultrasound recommended. This lap and tomorrow. She declines nicotine patch. She was full resuscitation. She has a [employer] bladder stimulator in place with a battery. This is going to be changed out in the near future. This is a contraindication to MRI. 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 She denies urinary symptoms. She did not have a great answer for how they identify an acute UTI versus colonization with her in terms of symptoms. [facility] Medical History Vaginal ulceration E. coli urinary tract infection History of kidney cancer Dysuria Chronic urinary tract infection Prurigo nodularis Urinary tract infection Essential hypertension Anxiety Urinary incontinence Hypothyroidism, acquired Hyperlipidemia Depression Surgical History S/P insertion of spinal cord stimulator History of nephrectomy S/P femoral-popliteal bypass surgery S/P cataract extraction and insertion of intraocular lens S/P hysterectomy (~1976) History of back surgery Social History household members: spouse Smoking Status: Current every day smoker alcohol intake: current Meds Home Medications and Allergies Home Medications Medication Instructions Recorded Confirmed Type aspirin 81 mg tablet,delayed 81 mg PO DAILY 01/19/19 04/30/21 History release levothyroxine 100 mcg tablet 100 mcg PO DAILY #90 tabs 01/19/19 04/30/21 History multivitamin 1 tab PO DAILY 01/19/19 04/30/21 History nystatin 100,000 unit/gram topical 1 applictn topical TID #60 grams 01/19/19 04/30/21 Rx powder venlafaxine 150 mg 150 mg PO DAILY #90 caps 01/19/19 04/30/21 History capsule,extended release 24 hr carisoprodol 350 mg tablet (Soma) 350 mg PO BEDTIME #30 tabs 03/02/19 04/30/21 Rx hydroxyzine HCl 25 mg tablet 25 mg PO Q6H PRN itching #120 tabs 03/17/19 04/30/21 Rx atorvastatin 20 mg tablet (Lipitor) 20 mg PO DAILY #90 tabs 08/21/20 04/30/21 Rx docusate sodium 100 mg capsule 100 mg PO BID PRN constipation #30 01/22/21 04/30/21 Rx (Colace) caps cholecalciferol (vitamin D3) 50 PO 02/24/21 04/30/21 History mcg (2,000 unit) capsule melatonin 1 mg tablet mg PO 02/24/21 04/30/21 History metoprolol succinate 50 mg 50 mg PO BID 03/14/21 04/30/21 History tablet,extended release 24 hr atorvastatin 20 mg tablet 20 mg PO DAILY #14 tabs 05/16/21 Rx metoprolol succinate 50 mg capsule 50 mg PO DAILY #14 ea 05/16/21 Rx sprinkle, ext. release 24 hr phenazopyridine 100 mg tablet 100 mg PO TID PRN pain 6 doses #6 05/16/21 Rx (Pyridium) tabs venlafaxine 150 mg 150 mg PO DAILY #14 caps 05/16/21 Rx capsule,extended release 24 hr ciprofloxacin HCl 250 mg tablet 250 mg PO BID #10 tabs 08/03/22 08/03/22 Rx sulfamethoxazole 800 1 tab PO BID #20 tabs 11/17/22 Rx mg-trimethoprim 160 mg tablet (Bactrim DS) sulfamethoxazole 800 1 tab PO Q12H #14 tabs 02/24/23 02/24/23 Rx mg-trimethoprim 160 mg tablet (Bactrim DS) Allergies Allergy/AdvReac Type Severity Reaction Status Date / Time cyclobenzaprine Allergy Unknown Verified 04/03/24 14:56 [CYCLOBENZAPRINE] doxycycline Allergy Diarrhea Verified 04/03/24 14:56 morphine Allergy hallucinati Verified 04/03/24 14:56 ons acetaminophen [From Percocet] AdvReac Vomiting Verified 04/03/24 14:56 amoxicillin [From Augmentin] AdvReac Nausea Verified 04/03/24 14:56 clavulanic acid AdvReac Nausea Verified 04/03/24 14:56 [From Augmentin] oxycodone [From Percocet] AdvReac Vomiting Verified 04/03/24 14:56 Review of Systems Review of Systems Narrative: All else reviewed and otherwise unremarkable except as noted in the history and physical. Exam Vital Signs (past 8 hours): - 04/03/24 14:51 04/03/24 14:54 04/03/24 14:57 Temperature 97.8 F Pulse Rate 90 90 87 Respiratory Rate 16 17 Blood Pressure 120/64 Pulse Oximetry 98 97 98 Oxygen Delivery Method Room Air 04/03/24 14:57 04/03/24 15:00 04/03/24 15:30 Temperature Pulse Rate 86 89 Respiratory Rate 18 21 Blood Pressure 120/64 Pulse Oximetry 97 96 Oxygen Delivery Method 04/03/24 15:45 04/03/24 15:45 04/03/24 16:00 Temperature Pulse Rate 83 84 Respiratory Rate 14 17 Blood Pressure 108/59 L Pulse Oximetry 97 96 Oxygen Delivery Method 04/03/24 16:01 04/03/24 16:01 04/03/24 16:30 Temperature Pulse Rate 85 Respiratory Rate 17 Blood Pressure 113/54 L 113/55 L Pulse Oximetry 97 Oxygen Delivery Method 04/03/24 16:30 Temperature Pulse Rate 77 Respiratory Rate 15 Blood Pressure Pulse Oximetry 97 Oxygen Delivery Method Oxygen Delivery Method Room Air Narrative Exam Narrative: NAD, alert and oriented, fluent speech, calm. Normocephalic skull, EOMI, anicteric sclera, symmetric pupils. Oropharynx unremarkable, no droop. Neck supple, midline trachea, no adenopathy. Lungs clear, normal rate and effort. Heart regular, no murmur gallop or rub. Abdomen is soft, non distended and non tender. Extremities are free of edema. Skin is free of rash or lesions. Joints are not swollen or deformed. Judgment appears to be normal. Neuro: Normal arm and leg strength with good straight leg raises bilaterally as well as negative pronator drift. Speech is normal and there is very mild dysarthria. She has a very mild left-sided mouth droop. This may be chronic. Cranial nerves are otherwise intact. Objective ECG Impression: Pending Imaging Multiple studies: : Radiologist's impression: Brain CT: No acute intracranial pathology. Age-related volume loss and severe small vessel ischemic change Comment: Findings were discussed with Dr. Sanchez on 04/03/2024 at 1459 hours Head and neck CTA: 1. 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 2. No intracranial large vessel occlusion. No intracranial bowel phenomena identified. 3. High-grade proximal left internal carotid artery stenosis, moderate proximal right internal carotid artery stenosis. Chest x-ray: No acute cardiopulmonary abnormality is seen. Labs 04/03/24 14:48 04/03/24 14:48 Labs: Laboratory Results - last 24 hr 04/03/24 14:48 WBC 10.5 RBC 4.64 Hgb 14.7 Hct 44.6 MCV 96.0 MCH 31.7 MCHC 33.0 RDW 17.3 H Plt Count 148 L Neut % (Auto) 62.4 Lymph % (Auto) 22.6 L Cabell % (Auto) 11.2 Eos % (Auto) 1.6 L Baso % (Auto) 2.2 H Neut # (Auto) 6500 Lymph # (Auto) 2400 Cabell # (Auto) 1200 H Eos # (Auto) 200 Baso # (Auto) 200 H PT 10.7 INR 0.9 APTT 37 H Sodium 139 Potassium 4.2 Chloride 107 Carbon Dioxide 25 BUN 15 Creatinine 0.95 Estimated GFR 60 BUN/Creatinine Ratio 15.8 Glucose 115 H Calcium 9.0 Magnesium 1.9 Total Bilirubin 0.4 AST 24 ALT 14 Alkaline Phosphatase 104 Total Creatine Kinase 28 L Troponin I < 0.012 Total Protein 7.3 Albumin 3.9 Globulin 3.4 Albumin/Globulin Ratio 1.1 Assessment & Plan Assessment & Plan narrative: 1. TIA versus CVA with dysarthria, present on admission and active. 2. Urinary tract infection, present on admission and active. 3. Essential hypertension, present on admission and active. 4. Hyperlipidemia, present on admission and active. 5. Remote kidney cancer, not present on admission are active. She had a nephrectomy. 6. Bladder neurotransmitter, present on admission and active. Plan: -emergency physician discussed with tele neuro at [facility]. Their recommendations were dual antiplatelet therapy for 21 days and then monotherapy. Continue high dose atorvastatin. They recommended carotid duplex ultrasounds and a repeat CT of the brain a 24 hours a she can not have MRI of the brain due to a neurostimulator in her bladder. He was unclear if this is MRI compatible. Also recommend a 2D echo. -monitor dysarthria. -PT, OT, and speech assessments. -discharge planning. -permissive hypertension for 24-48 hours. Full code Proxy decision maker, Eliazar. Observation status, it is unclear if this is TIA or stroke. Initially anticipate a 1 midnight length of stay. Time-Based Coding :: 35 min spent with patient and on the chart (including review of chart, obtaining history, exam, reviewing outside data, placing orders, documenting exam and treatment plan, and counseling patient) on 04/03. Quality MIPS - Admit I confirm the patient?s Advance Care Plan is present, Code status is documented, Surrogate decision maker is in patient?s record [If Yes, STOP here]: Yes MIPS - Meds 'Current medications' to include all prescriptions, [id number] products, herbals, cannabis/cannabidiol products, and vitamin/mineral/dietary (nutritional) supplements. I have utilized all available resources to obtain, update, or review the patient?s current medications. [If Yes, STOP here]: Yes
[2024-04-03] MEDS: cefTRIAXone 1,000 MG in SODIUM CHLORIDE 0.9% 100 ML 200 MG IV (17:51)
[2024-04-03 19:08] LABS: Ur Creatinine Normal (Normal); Ur Specific Gravity Normal (Normal); Urine pH Normal (Normal)
[2024-04-03 19:09] LABS: UR Morphine/Opiate cutoff 300 Negative (Negative); Urine Amphetamines Negative (Negative); Urine Barbiturates Negative (Negative); Urine Benzodiazepines Negative (Negative); Urine Cocaine Negative (Negative); Urine MDMA Negative (Negative); Urine Methadone Negative (Negative); Urine Methamphetamines Negative (Negative); Urine Oxycodone Negative (Negative); Urine Phencyclidine Negative (Negative); Urine Tetrahydrocannabinol Negative (Negative); Urine Tricyclic Antidepressant Negative (Negative)
[2024-04-03 19:23] LABS: Appearance Urine UA CLEAR; Bilirubin Urine UA NEGATIVE (NEGATIVE); Color Urine UA YELLOW; Glucose Urine UA NEGATIVE (Negative); Ketones Urine UA NEGATIVE (NEGATIVE); Leukocyte Esterase Urine UA 1+ (NEGATIVE); Nitrite Urine UA POSITIVE (Negative); Occult Blood Urine UA TRACE-INTACT (Negative); Protein Urine UA TRACE (Negative); Specific Gravity Urine UA 1.015 (1.000-1.035); Urobilinogen Urine UA 0.2 E.U./dL (0.2)
[2024-04-03 19:42] LABS: Bacteria Urine Moderate (10-30); RBC Urine 0-1/HPF (0-5/HPF); Squamous Epithelial Cell Urine 1-5 /HPF (0-5/HPF); Urine Volume 10mL (spun); WBC Urine 30-100/HPF (0-5/HPF)
[2024-04-03 19:43] LABS: Culture Indicated Urine Specimen Cultured; White Blood Cell Casts Urine 1-5/LPF
[2024-04-03] MEDS: HEPARIN 5,000 UNIT/ML VIAL 5000 UNIT SUBCUT (21:13)
[2024-04-03] MEDS: SENNOSIDES 8.6 MG TABLET 17.2 MG PO (21:13)
[2024-04-03] MEDS: VENLAFAXINE ER 75 MG CAP 150 MG PO (21:13)
[2024-04-03] MEDS: ATORVASTATIN 20 MG TABLET 80 MG PO (21:13)
[2024-04-03] MEDS: ACETAMINOPHEN 325 MG TABLET 650 MG PO (21:58)
[2024-04-03] MEDS: PHENAZOPYRIDINE 100 MG TABLET PO (21:59)
[2024-04-04 03:00] VITALS: BP 139/61; PULSE 76; RESP 18; TEMP 35.9; O2SAT 95
[2024-04-04] MEDS: LEVOTHYROXINE 100 MCG TABLET PO (05:02)
[2024-04-04] MEDS: ACETAMINOPHEN 325 MG TABLET 650 MG PO (05:02)
[2024-04-04 05:28] LABS: Add Manual Diff / Slide Review NO; Basophils Absolute Auto 200 /uL (0-100); Basophils Percent Auto 1.5 % (0-2); Eosinophils Absolute Auto 200 /uL (0-450); Eosinophils Percent Auto 1.6 % (2-4); Hematocrit 41.8 % (36-46); Hemoglobin 13.8 g/dL (12.0-16.0); Lymphocytes Absolute Auto 2100 /uL (1100-4500); Lymphocytes Percent Auto 20.1 % (25-40); Mean Corpuscular HGB Conc 33.1 % (30-36); Mean Corpuscular Hemoglobin 31.6 PG (26-34); Mean Corpuscular Volume 95.4 fL (80-100); Monocytes Absolute Auto 1200 /uL (0-900); Monocytes Percent Auto 11.3 % (3-14); Neutrophils Absolute Auto 6800 /uL (1500-7000); Neutrophils Percent Auto 65.5 % (50-75); Platelet Count 130 X10^3/uL (150-400); Red Blood Cell Count 4.38 X10^6/uL (4.0-5.2); Red Cell Distribution Width 16.8 % (11.6-14.8); White Blood Cell Count 10.4 X10^3/uL (4.5-11.0)
[2024-04-04 05:41] LABS: BUN Creatinine Ratio 15.5 (6-22); Blood Urea Nitrogen 16 mg/dL (7-17); Calcium 8.7 mg/dL (8.4-10.2); Carbon Dioxide 24 mmol/L (22-32); Chloride 108 mmol/L (98-107); Estimated Glomerular Filt Rate 54 mL/min (>60); Glucose 103 mg/dL (80-110); HEMOLYSIS < 15 (0-50); Hemoglobin A1C% w Est Avg Glu 5.5 % (4.0-6.0); Potassium 3.8 mmol/L (3.4-5.1); Sodium 138 mmol/L (137-145)
[2024-04-04 07:00] VITALS: BP 160/68; PULSE 79; RESP 19; TEMP 35.8; O2SAT 95
--- NOTE | 2024-04-04 08:00 | DI.US.S_ITS ---
PROCEDURE: US CAROTID DOPPLER BI INDICATIONS: CVA TECHNIQUE: Color and pulse Doppler interrogation was performed of both carotid systems, with image documentation and velocity measurements. COMPARISON: [facility], CT, CT ANGIO HEAD AND NECK, 04/03/2024, 14:45. FINDINGS: Stenosis calculations are based on SRU (Society of Radiologists in Ultrasound) criteria. Technically difficult study secondary to patient body habitus. Right side: Brachial blood pressure: 134/62 mm Hg. Common carotid artery peak systolic velocity: 62 cm/sec. Internal carotid artery peak systolic velocity: 95 cm/sec. Internal carotid artery end diastolic velocity: 30 cm/sec. External carotid artery peak systolic velocity: 118 cm/sec. ICA/CCA peak systolic ratio: 1.3 . Mayers scale imaging description: Calcified plaque decreases visualization of lumen Percent internal carotid artery stenosis: Less than 50% by peak systolic velocity criteria. This is supported by the CTA imaging. Vertebral artery: Flow direction is antegrade. Left side: Brachial blood pressure: 140/76 mm Hg. Common carotid artery peak systolic velocity: 70 cm/sec. Internal carotid artery peak systolic velocity: 158 cm/sec. Internal carotid artery end diastolic velocity: 40 cm/sec. External carotid artery peak systolic velocity: 111 cm/sec. ICA/CCA peak systolic ratio: 2.3 . Mayers scale imaging description: Calcific plaque Percent internal carotid artery stenosis: The peak systolic velocity obtained suggests a stenosis of between 50-69%. However, the CT angiogram suggests a severe stenosis. Reference images 196 and 197 of series 8. Vertebral artery: Flow direction is antegrade. IMPRESSION: 1. This is a technically difficult study. 2. Peak systolic velocity imaging in the left internal carotid region suggests a stenosis of between 50-69%. However, the CT angiogram suggests a severe stenosis that is greater than 70%. Reference the specific images from the CT angiogram. 3. Less than 50% proximal right internal carotid artery stenosis. Dictated by: Prosper Couch M.D. on 04/04/2024 at 8:41 Approved by: Prosper Couch M.D. on 04/04/2024 at 8:46
--- NOTE | 2024-04-04 09:57 | DI.ECHO.S_ITS ---
[place] [facility]---------+ [facility] : : [id number] [place] : : [id number] : : Phone: [phone] Echocardiogram Report + + :Name: DANIE VERNON Study Date: 04/04/2024 Height: 66 in : :[facility] ReadingLocation: Weight: 198 lb : : Gender: Female BSA: 2.0 m2 : :: 1940 Age: 83 yrs BP: 139/61 mmHg: :Reason For Study: TIA/CVA : :Ordering Physician: BENNY, : :GOGO Neville Performed By: Sally Kwong : :Referring: GOGO ZAPATA : + + Interpretation Summary 1) Normal left ventricular thickness, size, wall motion, and systolic function (EF 55-60%). 2) Normal right ventricular size with low normal function. 3) No significant valvular abnormalities. 4) Compared to the Echo done 03/10/2021, no significant change. Procedure: A two-dimensional transthoracic echocardiogram with color flow and Doppler was performed. The study quality was technically difficult. Comparison is made with the echocardiogram of 03/10/2021. The patient was in sinus rhythm with heart rates between 69-76 bpm during the exam. Left Ventricle: The left ventricle is normal in size and wall thickness. The ejection fraction is estimated to be 55-60%. Left ventricular systolic function appears normal without focal wall motion abnormalities. Diastolic parameters suggest a relaxation abnormality of the left ventricle, consistent with probable normal filling pressures. Right Ventricle: The right ventricle is normal size. Right ventricular systolic function is at the lower limits of normal. Atria: The left atrial size is normal. Right atrial size is normal. There is no Doppler evidence for an interatrial shunt. Mitral Valve: There is mild mitral annular calcification. The mitral valve leaflets appear mildly thickened, but open well. There is trace mitral regurgitation. Aortic Valve: The aortic valve is mildly calcified. The aortic valve is trileaflet. There is mild aortic valve sclerosis. There is no aortic valve stenosis. No aortic regurgitation is present. Tricuspid Valve: The tricuspid valve is normal in structure and function. There is trace tricuspid regurgitation. Pulmonary artery pressures cannot be estimated because of the lack of a measurable TR jet velocity but the IVC suggests a CVP of around 13 mmHg. Pulmonic Valve: The pulmonic valve is not well seen, but is grossly normal. There is trace pulmonic regurgitation. Great Vessels: The aortic root is normal size. The ascending aorta is at the upper limits of normal in size. The inferior vena cava was not well visualized. Pericardium/ Pleura There is no pericardial effusion. There is no pleural effusion. MMode/2D Measurements & Calculations LVIDd: 3.7 cm LVOT diam: 2.2 cm LVIDs: 2.6 cm Ao root diam: 3.0 cm FS: 29.2 % asc Aorta Diam: 3.4 cm IVSd: 0.99 cm Ao Arch Diam (Prox Trans): 2.7 cm LVPWd: 0.98 cm LV garner. diameter/BSA (cm/m^2): 1.9 LV sys. diameter/BSA (cm/m^2): 1.3 LA A2 area: 21.2 cm2 RA long axis: 4.7 cm LA A4 area: 15.4 cm2 RA area: 13.3 cm2 LA length (vol): 5.9 cm RA vol: 32.3 ml LA vol: 46.7 ml RA : 16.2 ml/m2 LA vol index: 23.5 ml/m2 RVD1 (basal): 3.1 cm RVD2 (mid): 2.4 cm TAPSE: 1.5 cm Doppler Measurements & Calculations Ao V2 max: 165.6 cm/sec LVOT Max Amanuel: 79.9 cm/sec Ao V2 mean: 114.7 cm/sec LV V1 max P.6 mmHg Ao max P.0 mmHg LV V1 VTI: 19.5 cm Ao mean P.0 mmHg DANIEL(I,D): 2.0 cm2 Ao V2 VTI: 36.8 cm DANIEL(V,D): 1.8 cm2 sev ratio: 0.53 DANIEL indexed to BSA (cm^2/m^2): 1.0 MV E max amanuel: 62.9 cm/sec TR max amanuel: 178.9 cm/sec MV A max amanuel: 101.1 cm/sec TR max P.8 mmHg MV E/A: 0.62 PA V2 max: 70.3 cm/sec Med Peak E' Amanuel: 4.0 cm/sec PA V2 mean: 49.7 cm/sec E/E' med: 15.8 PA mean P.1 mmHg Lat Peak E' Amanuel: 6.5 cm/sec PA pr(Accel): 48.2 mmHg E/E' lat: 9.6 E/e' average: 12.7 MV dec time: 0.29 sec SV(LVOT): 73.6 ml Reading Physician:09:16 AM
[2024-04-04] MEDS: ASPIRIN EC 81 MG TABLET PO (10:06)
[2024-04-04] MEDS: HEPARIN 5,000 UNIT/ML VIAL 5000 UNIT SUBCUT (10:06)
[2024-04-04] MEDS: VENLAFAXINE ER 75 MG CAP 150 MG PO (10:06)
[2024-04-04] MEDS: CLOPIDOGREL 75 MG TABLET PO (10:06)
[2024-04-04 11:00] VITALS: BP 150/78; PULSE 87; RESP 17; TEMP 35.8; O2SAT 96
--- NOTE | 2024-04-04 11:16 | PT.IIE ---
Current Diagnoses Transient cerebral ischemic attack, unspecified (04/03/24) Surgical History (Last Reviewed 04/03/24 @ 16:58 by Juvenal Collins MD) History of back surgery History of nephrectomy S/P cataract extraction and insertion of intraocular lens S/P femoral-popliteal bypass surgery S/P hysterectomy (~1976) S/P insertion of spinal cord stimulator Medical History (Last Reviewed 04/03/24 @ 16:58 by Juvenal Collins MD) Anxiety Chronic urinary tract infection Depression Dysuria E. coli urinary tract infection Essential hypertension History of kidney cancer Hyperlipidemia Hypothyroidism, acquired Prurigo nodularis Urinary incontinence Urinary tract infection Vaginal ulceration Physical Therapy Inpatient Evaluation/Re-Eval M1 PT/OT-IP Prior Functional Status Start: 04/04/24 12:57 Freq: NEEDED Status: Active Protocol: Document 04/04/24 11:16 AB (Rec: 04/04/24 13:15 AB [id number]) Medical Review Prior Functional Status Medical History Reviewed Yes Communication able to make needs known; with confusion Mobility and Gait pt stated that she was independent with all mobilities and ambulation without AD Social History Household Members spouse Living Arrangements RV Number of Floors (Floors) One Floor Number of Stairs To Enter/Railing? 4 steps L rail ascending to enter the house Home Environment Standard Height Toilet,Walk in Shower Home Equipment Front Wheel Walker,Hand Held Shower,Grab Bars In Shower Additional Social History Comment pt sleeps on a recliner at home M2 PT-IP Current Condition Start: 04/04/24 12:57 Freq: NEEDED Status: Active Protocol: Document 04/04/24 11:16 AB (Rec: 04/04/24 13:15 AB [id number]) Physical Therapy Current Condition Current Condition Evaluation Date 04/04/24 Treatment Diagnosis CVA; difficulty in walking Onset Date 04/03/24 M3 PT-IP Subjective Start: 04/04/24 12:57 Freq: NEEDED Status: Active Protocol: Document 04/04/24 11:16 AB (Rec: 04/04/24 13:15 AB [id number]) Subjective Physical Therapy Visit Type Type Initial Evaluation Visit Start Time 11:16 Visit Stop Time 11:50 Number of CREATIVE WRITING TEACHER Visits 0 Physical Therapy Visit Comments Patient Comments agreeable to do PT M4 PT-IP Mobility and Gait Start: 04/04/24 12:57 Freq: NEEDED Status: Active Protocol: Document 04/04/24 11:16 AB (Rec: 04/04/24 13:15 AB [id number]) PT-Bed Mobility Assessment Supine to Sit Supine to Sit Moderate Assistance,Maximum Assistance PT-Transfer Assessment Sit to and From Stand Sit to and from Stand Contact Guard Assistance,1 Person Assistance,Use of Upper Extremities Equipment Transfer Assistive Device Gait Belt,Front Wheeled Walker Orthotic/Prosthetic Devices or Brace: No Transfers Transfer Destination Chair Transfer Technique ambulated Transfer Ability Level of Assist Contact Guard Assistance,1 Person Assistance,Use of Upper Extremities Comments Mobility Comments pt trying to sit on EOB with NAC in room. pt completed supine to sit mod to max A and max cues. c/o dizziness during sitting. BP: 153/80. obtained PLOF and home set up from pt. pt stated that she had previous back surgeries and does not sleep on her bed and has a reclincer to sleep on. completed sit to stand from the EOB CGA and ambulated in room using FWW CGA ~ 15 ft . presents with unsteady antalgic gait but without LOB. attempted to ambulate without AD but pt does not think she is steady and wants to use FWW. pt stated that she already has a FWW at home. pt sat on the chair and rested . agreed to do stairs. completed sit to stand from chair SBA and ambulated in the hallway ~ 40 ft using fWW SBA to occasional CGA. pt completed up/down steps holding on to L rail with B hands SBA. completed 2 sets. pt ambulated back to her room using FWW ~ 125 ft. pt sat on her chair. positioned pt on the chair. call light and table placed within reach. Gait Assessment Gait Gait Assistance Required: Contact Guard Assist Distance (Feet) 125 Able to Maintain Weight Bearing Status Yes During Gait Assistive Devices Assistive Device Gait Belt,Front Wheeled Walker Orthotic/Prosthetic Devices or Brace: No Gait Deviations General Gait Pattern Antalgic,Decreased Stride Length,Decreased Feet Clearance Factors Limiting Gait Function Factors Limiting Gait Function Decreased Activity Tolerance, Decreased Strength,Limited Range of Motion,Poor Balance Stair Climbing Assessment Evaluation Level of Assist On Stairs Standby Assistance Devices Stair Climbing Assistive Devices Left Railing Technique/Endurance Stair Climbing Direction Ascend and Descend Stair Climbing Technique Step to Step Number of Steps Climbed 3 Query Text: Stair Climbing Set # Repetitions (reps) 2 PT-Balance Assessment Sitting Balance and Reactions Static Sitting Balance Ability Normal Dynamic Sitting Balance Ability Good Standing Balance and Reactions Static Standing Balance Ability Fair Dynamic Standing Balance Ability Fair Device Used FWW M5 PT-IP Objective Assessments Start: 04/04/24 12:57 Freq: NEEDED Status: Active Protocol: Document 04/04/24 11:16 AB (Rec: 04/04/24 13:15 AB [id number]) Orientation Orientation/Cognition Level of Alertness Alert Orientation Name,Situation Language Function Ability Hard of Hearing Safety Awareness Decreased Safety Awareness Memory Description Short Term Impaired Comments with slight confusion and memory issues Gross Range of Motion Lower Extremity ROM Assessment Within Functional Limits Strength Lower Extremity Strength Assessment Right Impaired Hip 3+/5 Knee 4-/5 Coordination Assessment Gross Coordination Gross Coordination WNL Sensation Assessment Sensation Gross Sensation WNL Muscle Tone Muscle Tone WNL Yes M6 PT-IP Treatment Start: 04/04/24 12:57 Freq: NEEDED Status: Active Protocol: Document 04/04/24 11:16 AB (Rec: 04/04/24 13:15 AB [id number]) Physical Therapy Treatment Education Education Provided Safety M7 PT-IP Assessment and Plan Start: 04/04/24 12:57 Freq: NEEDED Status: Active Protocol: Document 04/04/24 11:16 AB (Rec: 04/04/24 13:15 AB [id number]) PT Summary Assessment and Plan Potential Rehabilitation Potential Fair Status of Condition at Evaluation Stable Summary Impairments Pain,ROM,Strength,Balance, Coordination,Sensation,Tone, Cognition,Bed Mobility, Transfers,Gait,Activity Tolerance Assessment Summary pt is an 83 y/o F who presented to the ED for speech difficulties and difficulty in walking. pt admitted for CVA. pt requiring SBA to CGA with transfers using FWW. pt plans to go home and spouse to assist. pt may go home when medically stable. Goals Bed Mobility Goal Independent Transfer Goal Independent,Front Wheeled Walker Gait Goal Independent,Front Wheel Walker Gait Distance 200 Other Goals up/down 4 steps L rail mod i improve transfers and ambulation without AD ~ 300 ft mod I Days to Meet Goals 10 Frequency of Treatment Frequency Of Treatment Once a Day Treatment Plan Physical Therapy Treatment Plan Bed Mobility Training,Transfer Training,Gait Training, Therapeutic Exercise,Balance Retraining,Discharge Planning, Hot or Cold Pack,Neuromuscular Re-ed,Coordination Retraining ,Manual Therapy Precautions Other Precautions falls Recommendations To Nursing Amount of Assist Needed 1 Person Assist Discharge Recommendations PT Discharge Recommendations Home with Assistance, Outpatient PT Transportation Needs at Discharge Private Vehicle,Wheelchair/ Cabulance
--- NOTE | 2024-04-04 13:06 | ST.IPIE ---
Visit Care Team Role Provider Type Kaelyn Meier PA-C Primary Care Provider Advanced Bar Attendant Specialty: Medical Address: [address] [place] [address], [id number] Email: Noble Sanchez MD Emergency Provider Physician Referring Provider Specialty: Emergency Medicine Address: [address] [place] [address], [id number] Fax: Email: [email or web address] Juvenal Collins MD Admit Provider Physician Attending Provider Specialty: Internal Medicine Address: [address] [place] [address], [id number] Email: [email or web address] [email or web address] Transient cerebral ischemic attack, unspecified (04/03/24) Past Medical History (Last Reviewed 04/03/24 @ 16:58 by Juvenal Collins MD) Anxiety (Medical) Chronic urinary tract infection (Medical) Depression (Medical) Dysuria (Medical) E. coli urinary tract infection (Medical) Essential hypertension (Medical) History of kidney cancer (Medical) Hyperlipidemia (Medical) Hypothyroidism, acquired (Medical) Prurigo nodularis (Medical) Urinary incontinence (Medical) Urinary tract infection (Medical) Vaginal ulceration (Medical) ST IP Initial Evaluation Report APPRENTICESHIP CONSULTANT Adult Cognitive Linguistic Eval Start: 04/04/24 11:27 Freq: Status: Active Protocol: Document 04/04/24 11:30 SS (Rec: 04/04/24 11:59 SS [id number]) Adult Cognitive Linguistic Evaluation Session Time Visit Start Time 09:40 Visit Stop Time 09:55 Total Visit Minutes 15 Visit Information Visit Number Initial Evaluation Referral Referring Provider Dr. Noble Sanchez Reason for Referral CVA s/sx Setting Assessment Location Acute Care Visit Type Note Type Initial evaluation Patient Information Identification Type Name Patient History Pt was referred to APPRENTICESHIP CONSULTANT for evaluation/treatment of speech /language/cognition and swallowing function following admission to ED with severe cerebrovascular disease and severe peripheral arterial disease. Per H&P report, she denies history of previous stroke or mini stroke symptoms , last known well proximally 130, noted to have difficulty with speaking, and right facial droop, EMS was called, patient was aphasic and had right-sided facial droop, glucose in the field not diminished. Symptoms seemed to be improved on route. No blood thinner medications, no aspirin or other antiplatelet medications being taken. She has history of hypertension, no history of diabetes, still smokes occasionally. No injury or trauma. No known shaking or seizure activity. No incontinence of urine or stool. PMHx includes E. coli urinary tract infection, history of kidney cancer, chronic urinary tract infection, essential hypertension, anxiety, hypothyroidism, hyperlipidemia , and depression. Pt resides with spouse in . They share household management, medication management, and director of financial reporting tasks. 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 Does not wear hearing aids currently. Vision Vision Status Not Impaired Previous Therapy Previous Speech-Language Therapy No Subjective Patient Report Pt was reclined in bed upon APPRENTICESHIP CONSULTANT arrival. Pt denied changes in speech, language, voice, and swallowing. She reported decreased mastication ability as she is edentulous. Additionally, she reported mild difficulty with concentrating, though attributed it fatigue due to minimal sleep since admission to ED. Mental Status Alert,Responsive,Cooperative Assessment Oral Motor Examination Completed Yes: WNL Results CN V (Trigeminal): intact b/l CN VII (Facial): intact b/l CN IX/X (Glossopharyngeal/ Vagus): intact b/l CN XII (Hypoglossal): intact b /l Informal Assessment Receptive Language Normal Yes Expressive Language Normal Yes Pragmatic Language Normal Yes Speech Normal Yes: No dysarthria noted Cognition Normal No Cognitive Impairment(s) Orientation,Attention Formal Assessment Standardized Test/Screener Type [facility] Mental Status ([facility]) Administration Complete Results The [facility] Mental Status (UMS) Examination was used to obtain information regarding the patient?s cognitive abilities. The SLUMS consists of ten questions that assess delayed recall, verbal fluency, comprehension, calculations, attention, working memory, and orientation. A scored is calculated from a possible 30 points. Scores fall in one of three ranges describing a patient?s level of impairment based upon level of education. Patients who have completed high school are expected to score slightly higher on this test than those who have not. For someone with a high school education, WNL is 27-30. The SLUMS was completed on this date. Subtest scores are as follows: Orientation: 3/3 Immediate Recall: 4/5 (not calculated in total score) Numeric Calculation: 1/3 Divergent Namin/3 (total of 15) Delayed Recall: 2/5 Attention/Registration with Digit Span: 1/2 Clock Drawing (Visuospatial & Executive Functioning): 4/4 Geometric Figures: 2/2 Short Story (memory/recall): 4 /8 Total Score: 20/30 Pt demonstrated mild cognitive -communication impairment in the areas of attention and working and short-term memory, though increased fatigue and lack of sleep should be considered as attributing factor. Findings/Results Language Function Within normal limits Cognitive Function Mildly impaired Findings Pt is at an elevated risk of making critical errors with tasks such as medication management, time/schedule management, director of financial reporting, and completion of sap basis consultant, as well as everyday tasks that require adequate skills in the areas of attention and immediate/ delayed memory. Skilled ST services with the goal of providing therapeutic education and training in the use of cognitive-communication compensatory strategies targeting attention and immediate and delayed memory for improved safety and independence at the next level of care are recommended. Pt declined to participate in further treatment services following education on the benefits of participation and expressed that her function was at baseline. Recommended pt seek out referral from PCP for home health or outpatient services if she notes change from baseline abilities upon return home. Pt expressed understanding. Language and speech function were judged to be WFL and no change from baseline was noted given informal assessment. Concomitant Factors Concomitant Factors Hearing loss,Other (comment) Comment Fatigue, lack of sleep Prognosis Prognosis Good Based on Cognitive status,Family support,Time since onset Plan of Care Speech-Language Treatment No Patient/Caregiver Education Described results of evaluation,Patient expressed understanding of evaluation Discharge Recommendations Home with Home Health, Outpatient therapy APPRENTICESHIP CONSULTANT Clinical Swallow Evaluation Start: 04/04/24 11:27 Freq: Status: Active Protocol: Document 04/04/24 11:30 SS (Rec: 04/04/24 11:59 SS [id number]) Clinical Swallow Evaluation Session Time Visit Start Time 09:55 Visit Stop Time 10:15 Total Visit Minutes 20 Visit Information Visit Number Initial Evaluation Referral Referring Provider Dr. Noble Sanchez Reason for Referral Pt reports difficulty with mastication per RN verbal report. Setting Assessment Location Acute Care Visit Type Note Type Initial evaluation Patient Information Identification Type Name History Pt was referred to APPRENTICESHIP CONSULTANT for evaluation/treatment of speech /language/cognition and swallowing function following admission to ED with severe cerebrovascular disease and severe peripheral arterial disease. Per H&P report, she denies history of previous stroke or mini stroke symptoms , last known well proximally 130, noted to have difficulty with speaking, and right facial droop, EMS was called, patient was aphasic and had right-sided facial droop, glucose in the field not diminished. Symptoms seemed to be improved on route. No blood thinner medications, no aspirin or other antiplatelet medications being taken. She has history of hypertension, no history of diabetes, still smokes occasionally. No injury or trauma. No known shaking or seizure activity. No incontinence of urine or stool. PMHx includes E. coli urinary tract infection, history of kidney cancer, chronic urinary tract infection, essential hypertension, anxiety, hypothyroidism, hyperlipidemia , and depression. Subjective Observations RN reported no difficulty with medication intake with liquid wash and no observed s/sx of aspiration. Pt reclined in bed upon APPRENTICESHIP CONSULTANT arrival. She reported difficulty masticating regular textures ( e.g., bread, raw vegetables) and stated that she eats softer food at home. She denied overt s/sx of aspiration. Reported by Patient/Caregiver Other Symptoms Choking Comment Pt reported occasionally choking on bread prior to hospitalization, though no other swallowing concerns. Current Diet Regular (IDDSI 7) Baseline Feeding Method Independent in self-feeding The IDDSI Framework Protocol: IDDSI.1 Objective Assessment Mental Status Alert,Responsive,Cooperative Oral Integrity WFL Dentition Edentulous Lip Function Within normal limits Observation of Lips at Rest Symmetrical Pucker Within normal limits Lip Retraction Within normal limits Alternating Pucker/Lip Retraction Within normal limits Tongue Function Within normal limits Observations of Tongue at Rest Within normal limits Tongue Protrusion Within normal limits Tongue Lateralization Within normal limits Jaw Function Within normal limits Observation of Jaw at Rest Within normal limits Jaw Opening Within normal limits Jaw Closing Within normal limits Jaw Lateralization Within normal limits Jaw Protrusion Within normal limits Jaw Retraction Within normal limits Hard/Soft Palate Function Within normal limits Observations of Hard/Soft Palate Within normal limits Respiratory Sufficiency Within normal limits Food and Liquid Trials Position During Assessment Upright (90 degrees),In bed Liquids Trialed Thin (IDDSI 0) Solid Trials Purred (IDDSI 4),Minced & Moist (IDDSI 5),Regular (IDDSI 7) Administration Type Cup single sip,Cup consecutive sips,Straw Oral Impairment Within normal limits Oral Phase Comments Oral phase was largely timely despite pt being edentulous. She benefitted from liquid wash when masticating regular texture to increase ease of mastication. She demonstrated functional mastication with timely oral transit and complete oral clearance. Pharyngeal Impairment Within normal limits Pharyngeal Phase Comments Pharyngeal phase cannot be assessed at bedside though subjectively appeared timely and coordinated. Pt passed the 3 ounce water test. Pt completed consecutive sips of thin liquids via cup and straw without any concerns. Aspiration risk appears low. Fatigue/Endurance Endurance WNL [place] Swallow Protocol Yes Results Passed 3 oz water test. The IDDSI Framework Protocol: IDDSI.1 Findings Swallowing Function Within normal limits Swallowing Function Comments Currently, pt does not present with indications of oropharyngeal dysphagia. Severity of Swallow Impairment Within normal limits Prognosis Good Based on Cognitive status,Family support,Duration of symptoms/ severity Impact on Safety and Functioning No limitations Recommendations Instrumental Assessment No Swallowing Treatment No Recommended Solids Easy to Chew (IDDSI 7) Recommended Liquids Thin (IDDSI 0) Other Recommendations Recommend easy to chew texture diet, thin liquids, and meds whole with liquid wash as tolerated. No further APPRENTICESHIP CONSULTANT services indicated for dysphagia. Please re-consult if new concerns. Safety Precautions/Swallowing Feed only when alert,Remain Recommendations upright (90 degrees) during all oral intake Medication Recommendations As Tolerated,Whole Discharge Recommendations Home,Home with Home Health, Outpatient therapy Education Patient/Caregiver Education Described results of evaluation,Patient expressed understanding of evaluation
--- NOTE | 2024-04-04 14:09 | DI.CT.S_ITS ---
PROCEDURE: CT HEAD/BRAIN WO CON INDICATIONS: delayed interval CT, can not have MRI TECHNIQUE: Noncontrast 4.5 mm thick angled axial sections acquired from the foramen magnum to the vertex, with coronal and sagittal reformats. For radiation dose reduction, the following was used: automated exposure control, adjustment of mA and/or kV according to patient size. COMPARISON: [facility], CT, CT STROKE, 04/03/2024, 14:45. [facility], CT, CT HEAD/BRAIN WO CON, 11/17/2022, 19:34. FINDINGS: Image quality: Diagnostic. CSF spaces: Basal cisterns are patent. No extra-axial fluid collections. The ventricles are symmetric in size and shape. Brain: No intracranial bleeds or masses. There is cerebral volume loss for age, with resultant ventricular and sulcal prominence. There are periventricular and deep white matter chronic small vessel ischemic changes. There is intracranial internal carotid artery atherosclerosis. Skull and face: Calvarium and visualized facial bones appear intact, without suspicious lesions. Sinuses: Visualized sinuses and mastoids are clear. IMPRESSION: No definite findings of acute stroke can be seen on this short-term follow-up noncontrast head CT. Please consider additional follow-up, if clinically indicated. No acute intracranial hemorrhage is seen. Dictated by: Geovany Vanessa M.D. on 04/04/2024 at 13:47 Approved by: Geovany Vanessa M.D. on 04/04/2024 at 13:49
--- NOTE | 2024-04-04 14:40 | CM.DANOTE ---
Patient is an 83 yo female who was admitted on OBS Status for TIA vs CVA. Pt has [facility] and [employer] for insurance and her PCP is Kaelyn Meier. EMR was reviewed. Per MD, pt with hx of bladder stimulator that make her a r/o for doing MRI so pt to have Echo and CT scan to r/o CVA. Per ST, pt able to swallow and speech cleared but with some cognitive impairment as she scored 20/30 on SLUMS but likely impacted by pt's lack of sleep last night and pt not interested in further cognition work at this time. Per PT, recommending home with spouse assist and outpt PT. 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 Both pt and spouse preference is to discharge home when medically stable and waiting for repeat CT around 1400 to determine any further medical needs. Plan: SW to follow for further imaging to confirm safe d/c home with spouse assist and outpt PT and any further identified discharge planning needs. JOSIAH Lan Discharge Planning/Care Management CM Discharge Assessment Start: 04/04/24 14:36 Freq: Status: Active Protocol: Document 04/04/24 14:38 BF (Rec: 04/04/24 14:40 BF [id number]) Discharge Planning Assessment Assigned Confectionery Maker JOSIAH Robins DPOA/Assigned Designee Name spouse Jones Contact Information [phone] Advance Directives? Yes Advance Directives on File No History Provided By Patient,Significant Other, Medical Record Has Patient been admitted in last 30 No days? Prior Living Arrangements RV Household Members spouse Type of transporation used prior to Relies on Others admit Independent with ADL's Yes Is patient alert and oriented? Yes: some memory issues at baseline Needs Assistance With Home Chores / Shopping Caregiver for Another No DME Already Rented / Owned FWW / Walker Patient/Family Preference OP PT Therapy Barriers to Discharge No Discharge Plan Home Community Services Physical Therapy Transportation Arrangement spouse bedside and can transport Referrals Initiated None needed Whiteboard Updated in Patient Room with Yes name and ext. # of Confectionery Maker Review Status In Process Please Provide Date Initial DC 04/04/24 Assessment Was Performed Next Review Type Continued Stay Review
[2024-04-04 15:00] VITALS: BP 158/70; PULSE 102; RESP 20; TEMP 35.9; O2SAT 98
--- NOTE | 2024-04-04 15:04 | PM.DS.1 ---
History of Present Illness History of Present Illness Date Patient Seen: 04/04/24 Time Patient Seen: 15:04 Chief complaint: code stroke Narrative: ED physician: 83-year-old female denies history of previous stroke or mini stroke symptoms, last known well proximally 130, noted to have difficulty with speaking, and right facial droop, EMS was called, patient was aphasic and had right-sided facial droop, glucose in the field not diminished. Symptoms seemed to be improved on route. No blood thinner medications, no aspirin or other antiplatelet medications being taken. She has history of hypertension, no history of diabetes, still smokes occasionally. No injury or trauma. No known shaking or seizure activity. No incontinence of urine or stool. On Anticoagulants: No. Additional information: She notes that her speech became affected around 130 in the afternoon and she had a hard time walking without the assistance of her . She lives in a mobile RV with him. She does not have teeth and her speech is always a little slurred but it was much worse. I saw her in her room after come up to the floor. She was with her family who feels her speech is almost back to normal or back to normal. The patient denied any obvious weakness of 1 leg or arm versus the other. She feels back to normal now. She has no history of TIA or stroke. She does have a long history of smoking and still smokes a couple of cigarettes a day. She does have severe peripheral arterial disease with a failed fem-pop on the left leg. CTA did confirm fairly severe cerebrovascular disease with a duplex ultrasound recommended. This lap and tomorrow. She declines nicotine patch. She was full resuscitation. She has a [employer] bladder stimulator in place with a battery. This is going to be changed out in the near future. This is a contraindication to MRI. 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 She denies urinary symptoms. She did not have a great answer for how they identify an acute UTI versus colonization with her in terms of symptoms. Discharge Providers Provider Date of admission: 04/03/24 16:20 Discharge Date: 04/04/24 Primary care physician: Kaelyn Meier PA-C Consults: 04/03/24 16:55 Consult to Discharge Planning Routine Comment: 04/03/24 16:56 Consult to Discharge Planning Routine Comment: Consult to Occupational Therapy Evaluate & Treat Comment: Physician Instructions: Evaluate and treat Consult to Physical Therapy Evaluate & Treat Comment: Physician Instructions: Evaluate and Treat Consult to Speech Therapy Evaluate & Treat Comment: Physician Instructions: Evaluate and treat Discharge provider: Sherman Barrios DO Summary Hospital Course Discharge Diagnosis: 1. dysarthria, present on admission and active. Possible TIA. 2. Acute cystitis with possible acute metabolic encephalopathy, present on admission and active. 3. Essential hypertension, present on admission and active. 4. Hyperlipidemia, present on admission and active. 5. Remote kidney cancer, not present on admission are active. She had a nephrectomy. 6. Bladder neurotransmitter, present on admission and active. Hospital Course: This is an 83 year old female with PMH of bladder stimulatory, HTN, HLD who was admitted with dysarthria which improved. Concern was for possible TIA. UA was also positive and she improved with antibiotic therapy (ceftriaxone). She had repeat CT due to inability to obtain MRI which was unremarkable for signs of stroke. Echocardiogram and telemetry was unremarkable as well. At this time it is not clear if patient had a TIA or possible encephalopathy / symptoms from her acute cystitis. Given improvement and patient is already on statin and asa therapy, she was discharged on oral antibiotics without change. Continue to recommend discussions with PCP about possible increase to high intensity dosing of her statin. Given her tolerance of ceftriaxone with improvement, she was discharged on cefdinir for another 6 days to complete complicated UTI treatment. Time Spent with Patient Time spent: Greater than 30 minutes Exam Vital Signs (past 8 hours): - 04/04/24 07:50 04/04/24 11:00 Temperature 96.5 F L Pulse Rate 87 Respiratory Rate 17 Blood Pressure 150/78 H Pulse Oximetry 96 Oxygen Delivery Method Room Air Oxygen Flow Rate 0 Oxygen Delivery Method Room Air Oxygen Flow Rate 0 Narrative Exam Narrative: NAD, alert and oriented, fluent speech, calm. Normocephalic skull, EOMI, anicteric sclera, symmetric pupils. Oropharynx unremarkable, no droop. Neck supple, midline trachea, no adenopathy. Lungs clear, normal rate and effort. Heart regular, no murmur gallop or rub. Abdomen is soft, non distended and non tender. Extremities are free of edema. Skin is free of rash or lesions. Joints are not swollen or deformed. Judgment appears to be normal. Objective Labs 04/04/24 04:50 04/04/24 04:50 Labs: Laboratory Results - last 24 hr 04/03/24 04/03/24 04/03/24 14:48 18:45 18:57 WBC 10.5 RBC 4.64 Hgb 14.7 Hct 44.6 MCV 96.0 MCH 31.7 MCHC 33.0 RDW 17.3 H Plt Count 148 L Neut % (Auto) 62.4 Lymph % (Auto) 22.6 L Nance % (Auto) 11.2 Eos % (Auto) 1.6 L Baso % (Auto) 2.2 H Neut # (Auto) 6500 Lymph # (Auto) 2400 Nance # (Auto) 1200 H Eos # (Auto) 200 Baso # (Auto) 200 H PT 10.7 INR 0.9 APTT 37 H Sodium 139 Potassium 4.2 Chloride 107 Carbon Dioxide 25 BUN 15 Creatinine 0.95 Estimated GFR 60 BUN/Creatinine Ratio 15.8 Glucose 115 H Hemoglobin A1c Calcium 9.0 Magnesium 1.9 Total Bilirubin 0.4 AST 24 ALT 14 Alkaline Phosphatase 104 Total Creatine Kinase 28 L Troponin I < 0.012 Total Protein 7.3 Albumin 3.9 Globulin 3.4 Albumin/Globulin Ratio 1.1 Urine Color Yellow Urine Appearance Clear Urine pH 5.0 Normal Ur Specific [place] 1.015 Urine Protein Trace H Urine Glucose (UA) Negative Urine Ketones Negative Urine Occult Blood Trace-intact Urine Nitrate Positive H Urine Bilirubin Negative Urine Urobilinogen 0.2 Ur Leukocyte Esterase 1+ H Urine RBC 0-1/hpf Urine WBC 30-100/hpf H Ur Squamous Epith Cells 1-5 /hpf Urine Bacteria Moderate (10-30) H WBC Casts 1-5/lpf H Ur Culture Indicated? Specimen cultured Vol Urine Centrifuged 10ml (spun) U Opiates 300ng/mL cut Negative Ur Oxycodone Screen Negative Urine Methadone Screen Negative Ur Barbiturates Screen Negative U Tricyclic Antidepress Negative Ur Phencyclidine Scrn Negative Ur Amphetamines Screen Negative U Methamphetamines Scrn Negative Ur MDMA Scrn (Ecstasy) Negative U Benzodiazepines Scrn Negative Urine Cocaine Screen Negative U Marijuana (THC) Screen Negative Urine Specific [place] Normal Ur Creatinine Normal 04/04/24 04:50 WBC 10.4 RBC 4.38 Hgb 13.8 Hct 41.8 MCV 95.4 MCH 31.6 MCHC 33.1 RDW 16.8 H Plt Count 130 L Neut % (Auto) 65.5 Lymph % (Auto) 20.1 L Nance % (Auto) 11.3 Eos % (Auto) 1.6 L Baso % (Auto) 1.5 Neut # (Auto) 6800 Lymph # (Auto) 2100 Nance # (Auto) 1200 H Eos # (Auto) 200 Baso # (Auto) 200 H PT INR APTT Sodium 138 Potassium 3.8 Chloride 108 H Carbon Dioxide 24 BUN 16 Creatinine 1.03 Estimated GFR 54 L BUN/Creatinine Ratio 15.5 Glucose 103 Hemoglobin A1c 5.5 Calcium 8.7 Magnesium Total Bilirubin AST ALT Alkaline Phosphatase Total Creatine Kinase Troponin I Total Protein Albumin Globulin Albumin/Globulin Ratio Urine Color Urine Appearance Urine pH Ur Specific [place] Urine Protein Urine Glucose (UA) Urine Ketones Urine Occult Blood Urine Nitrate Urine Bilirubin Urine Urobilinogen Ur Leukocyte Esterase Urine RBC Urine WBC Ur Squamous Epith Cells Urine Bacteria WBC Casts Ur Culture Indicated? Vol Urine Centrifuged U Opiates 300ng/mL cut Ur Oxycodone Screen Urine Methadone Screen Ur Barbiturates Screen U Tricyclic Antidepress Ur Phencyclidine Scrn Ur Amphetamines Screen U Methamphetamines Scrn Ur MDMA Scrn (Ecstasy) U Benzodiazepines Scrn Urine Cocaine Screen U Marijuana (THC) Screen Urine Specific [place] Ur Creatinine PFSH Medical History Vaginal ulceration E. coli urinary tract infection History of kidney cancer Dysuria Chronic urinary tract infection Prurigo nodularis Urinary tract infection Essential hypertension Anxiety Urinary incontinence Hypothyroidism, acquired Hyperlipidemia Depression Surgical History S/P insertion of spinal cord stimulator History of nephrectomy S/P femoral-popliteal bypass surgery S/P cataract extraction and insertion of intraocular lens S/P hysterectomy (~1976) History of back surgery Social History household members: spouse Smoking Status: Current every day smoker alcohol intake: current Discharge Plan Discharge Plan Patient Disposition: Home Provider Discharge Comment: You were admitted to the hospital with a possible stroke. Evaluation was not revealing for one and I believe this more likely to be due to a urinary infection. No changes to aspirin and statin medication recommended at this time. Follow up with primary care provider in the next week or so for hospital follow up. Discharge orders & Medications Prescriptions: New cefdinir 300 mg capsule 300 mg PO BID 6 Days Qty: 12 0RF Continued aspirin 81 mg tablet,delayed release (DR/EC) 81 mg PO DAILY levothyroxine 100 mcg tablet 100 mcg PO DAILY Qty: 90 multivitamin tablet 1 tab PO DAILY nystatin 100,000 unit/gram powder 1 applictn TOP TID Qty: 60 3RF docusate sodium [Colace] 100 mg capsule 100 mg PO BID PRN (Reason: constipation) Qty: 30 0RF atorvastatin 20 mg tablet 20 mg PO DAILY Qty: 14 0RF carisoprodol 350 mg tablet 350 mg PO 3XD PRN (Reason: Pain (Scale Score 4-6)) bimatoprost 0.03 % drops with applicator 1 drp TOPICAL ONCE PM d-mannose 500 mg Capsule 500 mg PO BID PRN (Reason: infection prevention) venlafaxine 150 mg capsule,extended release 24hr 150 mg PO DAILY phenazopyridine [Pyridium] 100 mg tablet 100 mg PO TID PRN (Reason: pain) Qty: 6 0RF cholecalciferol (vitamin D3) 50 mcg (2,000 unit) capsule 50 mcg PO DAILY Patient Comments: take 1 capsule by mouth once daily metoprolol succinate 50 mg tablet extended release 24 hr 50 mg PO BID Follow up/Referrals: Kaelyn Meier, PAAna [Primary Care Provider] - Diet/Activity/Treatments Diet: Diet as Tolerated and Regular Activity: As tolerated, no restrictions. Visit Report/Discharge Packet Instructions: DI for Urinary Tract Infection (UTI), How to Prevent Falls Stand Alone Forms: Patient Portal/API, Stroke Signs & Symptoms Discharge Data Primary Care Provider: Kaelyn Meier Attending Provider: Juvenal Collins Admit Date/Time: 04/03/24 16:20 Quality VTE Deep Vein Thrombosis/Pulmonary Embolism Present on Admission: No
--- NOTE | 2024-04-04 17:53 | PC.NURSE ---
Pt feels ready to d/c to home. here who gave home discharge instructions. Discharge packet reviewed. RX has been esent. Pt aware. Questions answered. Pt d/c to home via auto with spouse.
== END 2024-04-04 16:15 | disposition home or self-care (01) ==
LOC: ED 15:07 → AC 16:28
PROVIDERS: Admitting Provider Hospitalist; Emergency Provider Emergency Medicine; PCP Physician Assistant; Referring Provider Emergency Medicine; Visit Provider Hospitalist
DX: R47.1 Dysarthria and anarthria (principal); N30.00 Acute cystitis without hematuria; R29.702 NIHSS score 2; I10 Essential (primary) hypertension; E78.5 Hyperlipidemia, unspecified; F17.210 Nicotine dependence, cigarettes, uncomplicated; Z85.528 Personal history of other malignant neoplasm of kidney
CPT/HCPCS: 36415; 70450; 70496; 70498; 71045; 80048; 80053; 80305; 81001; 82550; 82962; 83036; 83735; 84484; 85025; 85610; 85730; 87086; 92523; 92610; 93005; 93306; 93880; 96365; 96372; 97161; 97166; 97530; 99285; 99291; G0378; Q3014; J0696; J1644; Q9967

== ENCOUNTER 2024-08-01 23:14 | Emergency (ER) | payer MEDICARE, SELFPAY ==
[2024-04-03 16:33] VITALS: BMI 32.0
[2024-08-01 23:17] VITALS: BP 136/64
[2024-08-01 23:18] VITALS: BP 136/64; PULSE 90; RESP 18; TEMP 36.9; O2SAT 96; BMI 28.2
--- NOTE | 2024-08-01 23:19 | EKG_ITS ---
[address] [address] Test Date: 2024-08-01 Pat Name: Nikki Voss Department: [facility] Room: Gender: Female Upper Cutter: : 1940 Requested By: Order Number: [id number] Reading MD: Juvenal Collins Measurements Intervals [place] Rate: 87 P: 55 ND: 196 QRS: 25 QRSD: 68 T: 48 QT: 366 QTc: 440 Interpretive Statements Normal sinus rhythm Possible Left atrial enlargement Low voltage QRS Electronically Signed On 08-02-2024 7:55:02 PST by Juvenal Collins
--- NOTE | 2024-08-01 23:21 | ED_ITS ---
HPI - Chest Pain General Chief Complaint: Chest Pain Stated Complaint: Chest pain Time Seen by Provider: 08/01/24 23:15 History of Present Illness HPI narrative: 83-year-old female with history of hypertension, hyperlipidemia, hypothyroidism presents by EMS from home for left-sided chest pain that began approximately 2- 1/2 hours ago. Patient states that the pain is a ?tightness? that it was constant, does not radiate. Denies history of heart problems. Recent TIA vs CVA in March 2024, unable to get MRI due to bladder stimulator in place. No residual deficits from this event. Related Data Home Medications Medication Instructions Recorded Confirmed aspirin 81 mg tablet,delayed 81 mg PO DAILY 01/19/19 04/03/24 release levothyroxine 100 mcg tablet 100 mcg PO DAILY #90 tabs 01/19/19 04/03/24 multivitamin 1 tab PO DAILY 01/19/19 04/03/24 cholecalciferol (vitamin D3) 50 50 mcg PO DAILY 02/24/21 04/03/24 mcg (2,000 unit) capsule metoprolol succinate 50 mg 50 mg PO BID 03/14/21 04/03/24 tablet,extended release 24 hr bimatoprost 0.03 % drops with 1 drp topical ONCE PM 04/03/24 04/03/24 applicator, eyelash base carisoprodol 350 mg tablet 350 mg PO 3XD PRN Pain (Scale 04/03/24 04/03/24 Score 4-6) d-mannose 500 mg capsule 500 mg PO BID PRN infection 04/03/24 04/03/24 prevention venlafaxine 150 mg 150 mg PO DAILY 04/03/24 04/03/24 capsule,extended release 24 hr Previous Rx's Medication Instructions Recorded nystatin 100,000 unit/gram topical 1 applictn topical TID #60 grams 01/19/19 powder docusate sodium 100 mg capsule 100 mg PO BID PRN constipation #30 01/22/21 (Colace) caps atorvastatin 20 mg tablet 20 mg PO DAILY #14 tabs 05/16/21 phenazopyridine 100 mg tablet 100 mg PO TID PRN pain 6 doses #6 04/04/24 (Pyridium) tabs azithromycin 250 mg tablet See Rx Instructions PO .COMPLEX #6 08/02/24 tabs cefpodoxime 200 mg tablet 200 mg PO Q12H #10 tabs 08/02/24 Allergies Allergy/AdvReac Type Severity Reaction Status Date / Time cyclobenzaprine Allergy Unknown Verified 04/03/24 14:56 [CYCLOBENZAPRINE] doxycycline Allergy Diarrhea Verified 04/03/24 14:56 morphine Allergy hallucinati Verified 04/03/24 14:56 ons acetaminophen [From Percocet] AdvReac Vomiting Verified 04/03/24 14:56 amoxicillin [From Augmentin] AdvReac Nausea Verified 04/03/24 14:56 clavulanic acid AdvReac Nausea Verified 04/03/24 14:56 [From Augmentin] oxycodone [From Percocet] AdvReac Vomiting Verified 04/03/24 14:56 Patient History Medical History Vaginal ulceration E. coli urinary tract infection History of kidney cancer Dysuria Chronic urinary tract infection Prurigo nodularis Urinary tract infection Essential hypertension Anxiety Urinary incontinence Hypothyroidism, acquired Hyperlipidemia Depression Surgical History S/P insertion of spinal cord stimulator History of nephrectomy S/P femoral-popliteal bypass surgery S/P cataract extraction and insertion of intraocular lens S/P hysterectomy (~1976) History of back surgery Social History household members: spouse Smoking Status: Current every day smoker alcohol intake: current Smoking Status: Current every day smoker alcohol intake frequency: a few times a week Exam Initial Vital Signs Initial Vital Signs: Vital Signs Blood Pressure 136/64 08/01/24 23:17 Const: Awake, alert, no acute distress, nontoxic appearing Cardiac: regular rate, regular rhythm RESP: unlabored, clear bilaterally, no wheezing Skin: Warm, Dry, intact, no rashes Neuro: AO x3, CN II-XII grossly intact, moves all extremities Course Orders Ordered: ED Orders 08/01/24 23:19 Chest [XR chest 1V] Stat EKG-12 Lead Stat 08/01/24 23:25 CBC Auto Diff [Complete Blood Count AUTO DIFF] Stat CMP [Comprehensive Metabolic Panel] Stat PT [Prothrombin Time INR] Stat Troponin & CK Cardiac Panel Stat 08/02/24 01:10 Trop I [Troponin I] Stat Discontinued Medications Aspirin (Aspirin 81 Mg Chew Tab) 324 mg PO NOW ONE Stop: 08/01/24 23:22 Last Admin: 08/01/24 23:39 Dose: 324 mg Documented By: TAYLOR Vital Signs Vital signs: Vital Signs - 8 hr 08/01/24 23:17 08/01/24 23:18 08/01/24 23:30 Temperature 98.5 F Pulse Rate 90 86 Respiratory Rate 18 27 H Blood Pressure 136/64 136/64 Pulse Oximetry 96 95 Oxygen Delivery Method Room Air 08/01/24 23:30 08/02/24 00:00 08/02/24 00:00 Temperature Pulse Rate 83 Respiratory Rate 20 Blood Pressure 126/58 L 124/68 Pulse Oximetry 94 Oxygen Delivery Method 08/02/24 00:30 08/02/24 00:30 08/02/24 01:00 Temperature Pulse Rate 86 84 Respiratory Rate 18 36 H Blood Pressure 129/76 Pulse Oximetry 92 95 Oxygen Delivery Method 08/02/24 01:01 08/02/24 01:01 08/02/24 01:30 Temperature Pulse Rate 85 83 Respiratory Rate 22 20 Blood Pressure 152/69 H Pulse Oximetry 95 95 Oxygen Delivery Method 08/02/24 01:31 08/02/24 01:31 08/02/24 02:00 Temperature Pulse Rate 83 83 Respiratory Rate 18 20 Blood Pressure 143/69 H Pulse Oximetry 94 93 Oxygen Delivery Method Room Air Room Air 08/02/24 02:00 Temperature Pulse Rate Respiratory Rate Blood Pressure 120/57 L Pulse Oximetry Oxygen Delivery Method MDM - Chest Pain Differential Diagnosis Differential diagnosis: Likely stable angina, atypical chest pain and costochondritis Lab Data 08/01/24 23:25 08/01/24 23:25 Labs: Lab Results 08/01/24 08/02/24 Range/Units 23:25 01:10 WBC 11.3 H (4.5-11.0) X10^3/uL RBC 5.02 (4.0-5.2) X10^6/uL Hgb 14.5 (12.0-16.0) g/dL Hct 45.6 (36-46) % MCV 90.7 (80-100) fL MCH 28.9 (26-34) PG MCHC 31.9 (30-36) % RDW 16.6 H (11.6-14.8) % Plt Count 116 L (150-400) X10^3/uL Neut % (Auto) 73.2 (50-75) % Lymph % (Auto) 10.1 L (25-40) % Bureau % (Auto) 14.2 H (3-14) % Eos % (Auto) 1.4 L (2-4) % Baso % (Auto) 1.1 (0-2) % Neut # (Auto) 8300 H (5792-9816) /uL Lymph # (Auto) 1100 (9037-9984) /uL [place] # (Auto) 1600 H (0-900) /uL Eos # (Auto) 200 (0-450) /uL Baso # (Auto) 100 (0-100) /uL PT 12.6 H (9.4-12.5) SECONDS INR 1.1 (0.9-1.3) Sodium 134 L (137-145) mmol/L Potassium 4.5 (3.4-5.1) mmol/L Chloride 103 (98-107) mmol/L Carbon Dioxide 29 (22-32) mmol/L BUN 17 (7-17) mg/dL Creatinine 0.86 (0.52-1.04) mg/dL Estimated GFR > 60 (>60) mL/min BUN/Creatinine Ratio 19.8 (6-22) Glucose 86 (80-110) mg/dL Calcium 8.7 (8.4-10.2) mg/dL Total Bilirubin 0.5 (0.2-1.3) mg/dL AST 38 H (14-36) IU/L ALT 20 (<35) IU/L Alkaline Phosphatase 101 (38-126) U/L Total Creatine Kinase 21 L (30-135) U/L Troponin I < 0.012 < 0.012 (0.01-0.034) ng/mL Total Protein 7.3 (6.3-8.2) g/dL Albumin 3.7 (3.5-5.0) g/dL Globulin 3.6 (1.7-4.1) g/dL Albumin/Globulin Ratio 1.0 (1.0-2.8) Imaging Data Chest x-ray: Radiologist's Impression: PROCEDURE: XR CHEST 1V INDICATIONS: chest pain TECHNIQUE: One view of the chest was acquired. COMPARISON: Located Within [facility], CR, XR CHEST 1V, 04/03/2024, 14:45. Located Within [facility], CR, XR CHEST 1V, 11/17/2022, 19:51. FINDINGS: Surgical changes and devices: Surgical fusion the thoracolumbar spine. Lungs and pleura: Left upper lung zone consolidation. Mediastinum: Mediastinal contours appear normal. Heart size is normal. Bones and chest wall: No suspicious bony lesions. Overlying soft tissues appear unremarkable. IMPRESSION: Left upper lobe zone consolidation, concerning for pneumonia. Recommend follow- up in 1-2 months with chest x-ray to ensure resolution. Dictated by: Damaso Arias M.D. on 08/01/2024 at 23:44 Approved by: Damaso Arias M.D. on 08/01/2024 at 23:45 ECG Data Attestation: I personally reviewed and interpreted this ECG as follows: Interpretation: Normal sinus rhythm at 87 beats per minute. Normal CA. No ST T wave changes MDM Narrative Medical decision making narrative: Well-appearing patient with left-sided chest pain. EKG normal sinus rhythm without concerning ischemic findings. Exam overall benign. Laboratory work, x- ray imaging ordered. Laboratory work shows WBC count 11.3, hemoglobin 14.5, platelet count 116 (chronic), sodium 134, potassium 4.5, creatinine 0.86, troponin undetectable x2. Chest x-ray shows left upper lobe infiltrate concerning for pneumonia. This is likely at least a partial cause of the patient's chest pain. Patient was informed of diagnosis. Due to reported allergies/reactions to doxycycline and Augmentin patient will be started on cefpodoxime and azithromycin. Discharge Plan Departure Patient Disposition: Home Clinical Impression: Left upper lobe pneumonia Instructions: DI for Pneumonia -- Adult Activity Restrictions/Additional Instructions: Your blood work, EKG, and chest x-ray do not show any signs of pneumonia, however you do have pneumonia on your left lung, which may be causing some of your pain. Antibiotics has been sent to your pharmacy. Finish all of the antibiotics as prescribed. Follow up with your primary care doctor to make sure that your pneumonia completely goes away. Prescriptions: New cefpodoxime 200 mg tablet 200 mg PO Q12H Qty: 10 0RF Rx Instructions: must administer with a meal/food azithromycin 250 mg tablet See Rx Instructions .ROUTE .COMPLEX Qty: 6 0RF Rx Instructions: For 250 mg dose pack: take 500 mg today (day 1), then 250 mg for 4 days (days 2-5) No Action aspirin 81 mg tablet,delayed release (DR/EC) 81 mg PO DAILY levothyroxine 100 mcg tablet 100 mcg PO DAILY Qty: 90 multivitamin tablet 1 tab PO DAILY nystatin 100,000 unit/gram powder 1 applictn TOP TID Qty: 60 3RF docusate sodium [Colace] 100 mg capsule 100 mg PO BID PRN (Reason: constipation) Qty: 30 0RF atorvastatin 20 mg tablet 20 mg PO DAILY Qty: 14 0RF carisoprodol 350 mg tablet 350 mg PO 3XD PRN (Reason: Pain (Scale Score 4-6)) bimatoprost 0.03 % drops with applicator 1 drp TOPICAL ONCE PM d-mannose 500 mg Capsule 500 mg PO BID PRN (Reason: infection prevention) venlafaxine 150 mg capsule,extended release 24hr 150 mg PO DAILY phenazopyridine [Pyridium] 100 mg tablet 100 mg PO TID PRN (Reason: pain) Qty: 6 0RF cholecalciferol (vitamin D3) 50 mcg (2,000 unit) capsule 50 mcg PO DAILY Patient Comments: take 1 capsule by mouth once daily metoprolol succinate 50 mg tablet extended release 24 hr 50 mg PO BID Referrals: Kaelyn Meier PA-C [Primary Care Provider] - Stand Alone Forms: Patient Portal/API/Survey
[2024-08-01 23:30] VITALS: BP 126/58; PULSE 86; RESP 27; O2SAT 95
[2024-08-01 23:36] LABS: Add Manual Diff / Slide Review NO; Basophils Absolute Auto 100 /uL (0-100); Basophils Percent Auto 1.1 % (0-2); Eosinophils Absolute Auto 200 /uL (0-450); Eosinophils Percent Auto 1.4 % (2-4); Hematocrit 45.6 % (36-46); Hemoglobin 14.5 g/dL (12.0-16.0); Lymphocytes Absolute Auto 1100 /uL (1100-4500); Lymphocytes Percent Auto 10.1 % (25-40); Mean Corpuscular HGB Conc 31.9 % (30-36); Mean Corpuscular Hemoglobin 28.9 PG (26-34); Mean Corpuscular Volume 90.7 fL (80-100); Monocytes Absolute Auto 1600 /uL (0-900); Monocytes Percent Auto 14.2 % (3-14); Neutrophils Absolute Auto 8300 /uL (1500-7000); Neutrophils Percent Auto 73.2 % (50-75); Platelet Count 116 X10^3/uL (150-400); Red Blood Cell Count 5.02 X10^6/uL (4.0-5.2); Red Cell Distribution Width 16.6 % (11.6-14.8); White Blood Cell Count 11.3 X10^3/uL (4.5-11.0)
[2024-08-01] MEDS: ASPIRIN 81 MG CHEW TAB 324 MG PO (23:39)
[2024-08-01 23:44] LABS: INR 1.1 (0.9-1.3); Prothrombin Time 12.6 SECONDS (9.4-12.5)
[2024-08-01 23:48] LABS: Alanine Aminotransferase 20 IU/L (<35); Albumin 3.7 g/dL (3.5-5.0); Alkaline Phosphatase 101 U/L (38-126); Aspartate Aminotransferase 38 IU/L (14-36); BUN Creatinine Ratio 19.8 (6-22); Bilirubin Total 0.5 mg/dL (0.2-1.3); Blood Urea Nitrogen 17 mg/dL (7-17); Calcium 8.7 mg/dL (8.4-10.2); Carbon Dioxide 29 mmol/L (22-32); Chloride 103 mmol/L (98-107); Creatine Kinase 21 U/L (30-135); Estimated Glomerular Filt Rate > 60 mL/min (>60); Globulin 3.6 g/dL (1.7-4.1); Glucose 86 mg/dL (80-110); HEMOLYSIS 37 (0-50); Potassium 4.5 mmol/L (3.4-5.1); Sodium 134 mmol/L (137-145); Total Protein 7.3 g/dL (6.3-8.2)
[2024-08-02] VITALS (7 sets, daily range): BP systolic 120–152; BP diastolic 57–76; PULSE 83–86; RESP 18–36; O2SAT 92–95
[2024-08-02] LABS: Troponin I < 0.012 ng/mL (0.01-0.034)
[2024-08-02 01:41] LABS: Troponin I < 0.012 ng/mL (0.01-0.034)
== END 2024-08-02 02:33 | disposition home or self-care (01) ==
PROVIDERS: Emergency Provider Emergency Medicine; PCP Physician Assistant
DX: J18.9 Pneumonia, unspecified organism (principal); F17.200 Nicotine dependence, unspecified, uncomplicated
CPT/HCPCS: 36415; 71045; 80053; 82550; 84484; 85025; 85610; 93005; 99283; 99284

== ENCOUNTER 2024-08-04 14:43 | Emergency (ER) | payer MEDICARE, SELFPAY ==
[2024-04-03 16:33] VITALS: BMI 32.0
[2024-08-04 15:11] VITALS: BP 113/54; PULSE 78; RESP 16; TEMP 36.6; O2SAT 97; BMI 27.3
--- NOTE | 2024-08-04 15:16 | DI.RAD.S_ITS ---
PROCEDURE: XR CHEST 1V INDICATIONS: sent by pcp for JOB PNA recheck TECHNIQUE: One view of the chest was acquired. COMPARISON: [facility], CT, CT ANGIO HEAD AND NECK, 04/03/2024, 14:45. [facility], CR, XR CHEST 1V, 08/01/2024, 23:23. [facility], CR, XR CHEST 1V, 04/03/2024, 14:45. FINDINGS: Surgical changes and devices: Thoraco lumbosacral spine fusion Noriega rods and screws extend from the lower thoracic spine into the lower lumbosacral spine. Lungs and pleura: Lungs are abnormal with reduced inspiratory volume and mild interval worsening of a left upper lobe pneumonia pattern. No pleural effusions or pneumothorax. Mediastinum: Mediastinal contours appear normal. Heart size is normal. Bones and chest wall: No suspicious bony lesions. Overlying soft tissues appear unremarkable. IMPRESSION: Chronic interstitial prominence but now with superimposed persistent left upper lobe pneumonia. There has been mild worsening of this pneumonia over the prior 3 days. Dictated by: Cachorro Ferreira M.D. on 08/04/2024 at 15:56 Approved by: Cachorro Ferreira M.D. on 08/04/2024 at 16:00
--- NOTE | 2024-08-04 17:58 | ED.RECABL ---
HPI - Recheck/Abnormal Lab/Rx General Chief Complaint: Recheck/Abnormal Lab/Rx Stated Complaint: sent by pcp for CT Time Seen by Provider: 08/04/24 17:57 Related Data Home Medications Medication Instructions Recorded Confirmed aspirin 81 mg tablet,delayed 81 mg PO DAILY 01/19/19 04/03/24 release levothyroxine 100 mcg tablet 100 mcg PO DAILY #90 tabs 01/19/19 04/03/24 multivitamin 1 tab PO DAILY 01/19/19 04/03/24 cholecalciferol (vitamin D3) 50 50 mcg PO DAILY 02/24/21 04/03/24 mcg (2,000 unit) capsule metoprolol succinate 50 mg 50 mg PO BID 03/14/21 04/03/24 tablet,extended release 24 hr bimatoprost 0.03 % drops with 1 drp topical ONCE PM 04/03/24 04/03/24 applicator, eyelash base carisoprodol 350 mg tablet 350 mg PO 3XD PRN Pain (Scale 04/03/24 04/03/24 Score 4-6) d-mannose 500 mg capsule 500 mg PO BID PRN infection 04/03/24 04/03/24 prevention venlafaxine 150 mg 150 mg PO DAILY 04/03/24 04/03/24 capsule,extended release 24 hr Previous Rx's Medication Instructions Recorded nystatin 100,000 unit/gram topical 1 applictn topical TID #60 grams 01/19/19 powder docusate sodium 100 mg capsule 100 mg PO BID PRN constipation #30 01/22/21 (Colace) caps atorvastatin 20 mg tablet 20 mg PO DAILY #14 tabs 05/16/21 phenazopyridine 100 mg tablet 100 mg PO TID PRN pain 6 doses #6 04/04/24 (Pyridium) tabs azithromycin 250 mg tablet See Rx Instructions PO .COMPLEX #6 08/02/24 tabs cefpodoxime 200 mg tablet 200 mg PO Q12H #10 tabs 08/02/24 Allergies Allergy/AdvReac Type Severity Reaction Status Date / Time cyclobenzaprine Allergy Unknown Verified 04/03/24 14:56 [CYCLOBENZAPRINE] doxycycline Allergy Diarrhea Verified 04/03/24 14:56 morphine Allergy hallucinati Verified 04/03/24 14:56 ons acetaminophen [From Percocet] AdvReac Vomiting Verified 04/03/24 14:56 amoxicillin [From Augmentin] AdvReac Nausea Verified 04/03/24 14:56 clavulanic acid AdvReac Nausea Verified 04/03/24 14:56 [From Augmentin] oxycodone [From Percocet] AdvReac Vomiting Verified 04/03/24 14:56 Patient History Medical History Vaginal ulceration E. coli urinary tract infection History of kidney cancer Dysuria Chronic urinary tract infection Prurigo nodularis Urinary tract infection Essential hypertension Anxiety Urinary incontinence Hypothyroidism, acquired Hyperlipidemia Depression Surgical History S/P insertion of spinal cord stimulator History of nephrectomy S/P femoral-popliteal bypass surgery S/P cataract extraction and insertion of intraocular lens S/P hysterectomy (~1976) History of back surgery Social History household members: spouse Smoking Status: Current every day smoker alcohol intake: current Smoking Status: Current every day smoker alcohol intake frequency: a few times a week Exam Initial Vital Signs Initial Vital Signs: Vital Signs Temperature 97.8 F 08/04/24 15:11 Pulse Rate 78 08/04/24 15:11 Respiratory Rate 16 08/04/24 15:11 Blood Pressure 113/54 L 08/04/24 15:11 Pulse Oximetry 97 08/04/24 15:11 Oxygen Delivery Method Room Air 08/04/24 15:11 Course Orders Ordered: ED Orders 08/04/24 15:16 XR chest 1V Stat 08/04/24 17:57 CBC Auto Diff [Complete Blood Count AUTO DIFF] Stat CMP [Comprehensive Metabolic Panel] Stat Procalcitonin Stat Vital Signs Vital signs: Vital Signs - 8 hr 08/04/24 15:11 Temperature 97.8 F Pulse Rate 78 Respiratory Rate 16 Blood Pressure 113/54 L Pulse Oximetry 97 Oxygen Delivery Method Room Air Discharge Plan Departure Prescriptions: No Action aspirin 81 mg tablet,delayed release (DR/EC) 81 mg PO DAILY levothyroxine 100 mcg tablet 100 mcg PO DAILY Qty: 90 multivitamin tablet 1 tab PO DAILY nystatin 100,000 unit/gram powder 1 applictn TOP TID Qty: 60 3RF cefpodoxime 200 mg tablet 200 mg PO Q12H Qty: 10 0RF Rx Instructions: must administer with a meal/food azithromycin 250 mg tablet See Rx Instructions .ROUTE .COMPLEX Qty: 6 0RF Rx Instructions: For 250 mg dose pack: take 500 mg today (day 1), then 250 mg for 4 days (days 2-5) docusate sodium [Colace] 100 mg capsule 100 mg PO BID PRN (Reason: constipation) Qty: 30 0RF atorvastatin 20 mg tablet 20 mg PO DAILY Qty: 14 0RF carisoprodol 350 mg tablet 350 mg PO 3XD PRN (Reason: Pain (Scale Score 4-6)) bimatoprost 0.03 % drops with applicator 1 drp TOPICAL ONCE PM d-mannose 500 mg Capsule 500 mg PO BID PRN (Reason: infection prevention) venlafaxine 150 mg capsule,extended release 24hr 150 mg PO DAILY phenazopyridine [Pyridium] 100 mg tablet 100 mg PO TID PRN (Reason: pain) Qty: 6 0RF cholecalciferol (vitamin D3) 50 mcg (2,000 unit) capsule 50 mcg PO DAILY Patient Comments: take 1 capsule by mouth once daily metoprolol succinate 50 mg tablet extended release 24 hr 50 mg PO BID Referrals: Kaelyn Meier PA-C [Primary Care Provider] -
--- NOTE | 2024-08-04 18:59 | PC.NURSE ---
pt wasa called from waiting area without answer
== END 2024-08-04 19:00 | disposition left against medical advice (07) ==
PROVIDERS: Emergency Provider Emergency Medicine; PCP Physician Assistant
DX: Z76.0 Encounter for issue of repeat prescription (principal)
CPT/HCPCS: 71045; 99281

== ENCOUNTER → 2024-08-11 09:59 | Outpatient (CLI) | payer MEDICARE, SELFPAY ==
[2024-04-03 16:33] VITALS: BMI 32.0
--- NOTE | 2024-08-11 | DI.CT.S_ITS ---
PROCEDURE: CT ANGIO CHEST PE PROTOCOL INDICATIONS: ACUTE ONSET THORACIC PAIN,DYSPNEA,POSITIVE D-DIMER TECHNIQUE: After the administration of intravenous contrast, 2 mm thick sections acquired from the pulmonary apices to the posterior costophrenic angles. 3-dimensional maximum intensity projection (MIP) coronal and sagittal reformats were then acquired through the thorax. For radiation dose reduction, the following was used: automated exposure control, adjustment of mA and/or kV according to patient size. COMPARISON: [facility], CT, CT ABDOMEN PELVIS WO [facility], 09/03/2023, 10:39. FINDINGS: Image quality: Diagnostic. Thyroid: Within normal limits. Cardiac: Heart size within normal limits. No pericardial effusion. RV: LV ratio within normal limits. No bowing of the interventricular septum. No reflux of contrast into the hepatic veins. Aorta: Thoracic aortic diameter within normal limits. Pulmonary Artery: Main pulmonary artery diameter within normal limits. No central filling defect in the pulmonary arteries to the distal interlobar level. Lungs: 2.4 x 1.7 x 2.6 cm (5/86; 7/56) spiculated left upper lobe anterior segmental spiculated mass centered around the bronchovascular bundles. Reticulated opacification within the left upper lobe anterior segment and lingula (5/101). Pleura: No pneumothorax or pleural effusion. Airways: The trachea and mainstem bronchi are patent. Mucosal secretions versus small polyps measuring up to 0.6 cm in maximal dimension in the mid-lower trachea (5/57; 5/77). Mild central bronchiectasis. Lymph Nodes: 8 mm short axis prevascular node (4/47). Otherwise, no mediastinal, hilar, or axillary lymphadenopathy. Esophagus: Within normal limits. Bones: No acute osseous abnormality. Spinal fusion hardware in place with pseudoarthrosis at multiple thoracic levels (). Upper Abdomen: Cholelithiasis versus layering sludge. Re-identified multiple hypodense hepatic lesions, the largest of which measures 2.7 cm at segment 4A (4/107). Micronodular contour of the liver. No splenomegaly in the field of view. No varices. IMPRESSION: 1. No CT evidence of pulmonary embolism to the distal interlobar level. 2. Left upper lobe 2.6 cm spiculated mass, which may represent a primary pulmonary malignancy. EBUS would be recommended for sampling. 3. Cirrhotic morphology of the liver with indeterminate hypodense lesions, although these have been present on prior exams based on available reports. Dictated by: Mark Booker M.D. on 08/11/2024 at 10:46 Approved by: Mark Booker M.D. on 08/11/2024 at 11:00
== END ==
PROVIDERS: PCP Physician Assistant; Referring Provider Family Medicine; Visit Provider Family Medicine
DX: M54.6 Pain in thoracic spine (principal); R91.8 Other nonspecific abnormal finding of lung field; K76.9 Liver disease, unspecified; Z98.1 Arthrodesis status
CPT/HCPCS: 71275; Q9967

== ENCOUNTER 2024-08-19 22:01 | Emergency (ER) | payer MEDICARE, SELFPAY ==
[2024-04-03 16:33] VITALS: BMI 32.0
[2024-08-19 22:06] VITALS: BP 125/70; PULSE 130; RESP 24; TEMP 36.4; O2SAT 96; BMI 28.2
[2024-08-19 22:18] VITALS: PULSE 124; O2SAT 97
[2024-08-19 22:30] VITALS: BP 110/76; PULSE 117; RESP 17; O2SAT 96
--- NOTE | 2024-08-19 22:31 | DI.RAD.S_ITS ---
PROCEDURE: XR CHEST 1V INDICATIONS: chest pain TECHNIQUE: One view of the chest was acquired. COMPARISON: [facility], CR, XR CHEST 1V, 08/04/2024, 15:25. FINDINGS: Surgical changes and devices: Thoracolumbar spinal fusion hardware. Lungs and pleura: Near complete interval resolution of left upper lobe lung opacity. No other parenchymal opacities, effusion, or pneumothorax. Mediastinum: Mediastinal contours appear normal. Heart size is normal. Bones and chest wall: No suspicious bony lesions. Overlying soft tissues appear unremarkable. IMPRESSION: No acute cardiopulmonary disease. Interval improvement in previous left upper lobe pneumonia. Dictated by: Milla Nelson M.D. on 08/19/2024 at 23:21 Approved by: Milla Nelson M.D. on 08/19/2024 at 23:22
--- NOTE | 2024-08-19 22:41 | EKG_ITS ---
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
[2024-08-19 23:00] VITALS: BP 116/72; PULSE 110; RESP 13; O2SAT 96
--- NOTE | 2024-08-19 23:13 | ED.GENADULT ---
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 She has dry coughing today, but otherwise denies recent cough over the last couple of weeks. No loose stools or diarrhea. No blood in stools. No injury trauma new activities. Related Data Home Medications Medication Instructions Recorded Confirmed aspirin 81 mg tablet,delayed 81 mg PO DAILY 01/19/19 04/03/24 release levothyroxine 100 mcg tablet 100 mcg PO DAILY #90 tabs 01/19/19 04/03/24 multivitamin 1 tab PO DAILY 01/19/19 04/03/24 cholecalciferol (vitamin D3) 50 50 mcg PO DAILY 02/24/21 04/03/24 mcg (2,000 unit) capsule metoprolol succinate 50 mg 50 mg PO BID 03/14/21 04/03/24 tablet,extended release 24 hr bimatoprost 0.03 % drops with 1 drp topical ONCE PM 04/03/24 04/03/24 applicator, eyelash base carisoprodol 350 mg tablet 350 mg PO 3XD PRN Pain (Scale 04/03/24 04/03/24 Score 4-6) d-mannose 500 mg capsule 500 mg PO BID PRN infection 04/03/24 04/03/24 prevention venlafaxine 150 mg 150 mg PO DAILY 04/03/24 04/03/24 capsule,extended release 24 hr Previous Rx's Medication Instructions Recorded nystatin 100,000 unit/gram topical 1 applictn topical TID #60 grams 01/19/19 powder docusate sodium 100 mg capsule 100 mg PO BID PRN constipation #30 01/22/21 (Colace) caps atorvastatin 20 mg tablet 20 mg PO DAILY #14 tabs 05/16/21 phenazopyridine 100 mg tablet 100 mg PO TID PRN pain 6 doses #6 04/04/24 (Pyridium) tabs azithromycin 250 mg tablet See Rx Instructions PO .COMPLEX #6 08/02/24 tabs cefpodoxime 200 mg tablet 200 mg PO Q12H #10 tabs 08/02/24 clindamycin HCl 300 mg capsule 300 mg PO Q6H Dental infection 10 08/20/24 days #40 caps levofloxacin 500 mg tablet 500 mg PO DAILY #10 tabs 08/20/24 Allergies Allergy/AdvReac Type Severity Reaction Status Date / Time cyclobenzaprine Allergy Unknown Verified 04/03/24 14:56 [CYCLOBENZAPRINE] doxycycline Allergy Diarrhea Verified 04/03/24 14:56 morphine Allergy hallucinati Verified 04/03/24 14:56 ons acetaminophen [From Percocet] AdvReac Vomiting Verified 04/03/24 14:56 amoxicillin [From Augmentin] AdvReac Nausea Verified 04/03/24 14:56 clavulanic acid AdvReac Nausea Verified 04/03/24 14:56 [From Augmentin] oxycodone [From Percocet] AdvReac Vomiting Verified 04/03/24 14:56 Patient History Medical History Vaginal ulceration E. coli urinary tract infection History of kidney cancer Dysuria Chronic urinary tract infection Prurigo nodularis Urinary tract infection Essential hypertension Anxiety Urinary incontinence Hypothyroidism, acquired Hyperlipidemia Depression Surgical History S/P insertion of spinal cord stimulator History of nephrectomy S/P femoral-popliteal bypass surgery S/P cataract extraction and insertion of intraocular lens S/P hysterectomy (~1976) History of back surgery Social History household members: spouse Smoking Status: Former smoker alcohol intake: current Smoking Status: Former smoker alcohol intake frequency: a few times a week Exam Narrative Exam Narrative: GENERAL: Well-developed patient, in mild distress. Frequent coughing during history and exam HEAD: Atraumatic. Normocephalic. EYES: Pupils equal round and reactive. Extraocular motions intact. No scleral icterus. No injection or drainage. ENT: Nose without bleeding, purulent drainage. Throat without erythema, tonsillar hypertrophy or exudate. Airway patent. NECK: Trachea midline. Non tender CARDIOVASCULAR: Regular rate and rhythm without murmurs, gallops, or rubs. RESPIRATORY: Clear to auscultation. Breath sounds equal bilaterally. No wheezes, rales, or rhonchi. GASTROINTESTINAL: Left upper quadrant area discomfort, no guarding or rebound, nondistended. EXTREMITIES: No edema or joint tenderness. BACK: Nontender without deformity or crepitance. No flank tenderness. NEURO: AOx3. Motor functions grossly nonfocal SKIN: No rash or erythema of visible areas Initial Vital Signs Initial Vital Signs: Vital Signs Temperature 97.6 F 08/19/24 22:06 Pulse Rate 130 H 08/19/24 22:06 Respiratory Rate 24 08/19/24 22:06 Blood Pressure 125/70 08/19/24 22:06 Pulse Oximetry 96 08/19/24 22:06 Oxygen Delivery Method Room Air 08/19/24 22:06 Course Orders Ordered: ED Orders 08/19/24 22:31 XR chest 1V Stat EKG-12 Lead Stat 08/19/24 22:55 Lactate (Lactic Acid) Stat 08/19/24 22:58 Complete Blood Count AUTO DIFF Stat Comprehensive Metabolic Panel Stat Lipase Stat Magnesium Stat NT-proBNP (BNP-Adult 18+) Stat PTT Partial Thromboplastin Chuck Stat Prothrombin Time INR Stat Troponin & CK Cardiac Panel Stat 08/19/24 23:12 CT abdomen pelvis wo con Stat Covid-19 + FLU A/B + RSV - PCR Stat 08/20/24 00:18 Monotest Stat Discontinued Medications Clindamycin HCl (Clindamycin 150 Mg Capsule) 300 mg PO NOW ONE Stop: 08/20/24 00:20 Last Admin: 08/20/24 01:11 Dose: 300 mg Documented By: JOEL Levofloxacin (Levofloxacin 250 Mg Tablet) 500 mg PO NOW ONE Stop: 08/20/24 00:20 Last Admin: 08/20/24 01:11 Dose: 500 mg Documented By: JOEL Vital Signs Vital signs: Vital Signs - 8 hr 08/19/24 22:06 08/19/24 22:18 08/19/24 22:30 Temperature 97.6 F Pulse Rate 130 H 124 H Respiratory Rate 24 Blood Pressure 125/70 110/76 Pulse Oximetry 96 97 Oxygen Delivery Method Room Air 08/19/24 22:30 08/19/24 23:00 08/19/24 23:00 Temperature Pulse Rate 117 H 110 H Respiratory Rate 17 13 Blood Pressure 116/72 Pulse Oximetry 96 96 Oxygen Delivery Method Room Air 08/19/24 23:35 08/20/24 00:00 08/20/24 00:30 Temperature Pulse Rate 110 H 107 H 107 H Respiratory Rate 33 H 11 L 16 Blood Pressure Pulse Oximetry 95 95 Oxygen Delivery Method 08/20/24 00:41 08/20/24 00:41 08/20/24 01:00 Temperature Pulse Rate 104 H 104 H Respiratory Rate 22 15 Blood Pressure 131/76 Pulse Oximetry 95 99 Oxygen Delivery Method 08/20/24 01:01 08/20/24 01:01 Temperature Pulse Rate 103 H Respiratory Rate 18 Blood Pressure 137/65 Pulse Oximetry 98 Oxygen Delivery Method Medical Decision Making Lab Data Lab results reviewed: Yes I reviewed the patient's lab results. 08/19/24 22:58 08/19/24 22:58 Labs: Lab Results 08/19/24 08/19/24 08/19/24 Range/Units 22:55 22:58 23:12 WBC 18.9 H (4.5-11.0) X10^3/uL RBC 5.39 H (4.0-5.2) X10^6/uL Hgb 15.5 (12.0-16.0) g/dL Hct 47.6 H (36-46) % MCV 88.3 (80-100) fL MCH 28.7 (26-34) PG MCHC 32.6 (30-36) % RDW 17.2 H (11.6-14.8) % Plt Count 144 L (150-400) X10^3/uL Neut % (Auto) Not Reportable Lymph % (Auto) Not Reportable Castro % (Auto) Not Reportable Eos % (Auto) Not Reportable Baso % (Auto) Not Reportable Lymph # (Auto) Not Reportable Castro # (Auto) Not Reportable Baso # (Auto) Not Reportable Total Counted 100 Seg Neutrophils % 62.0 (38-70) % Band Neutrophils % 4.0 (3-7) % Lymphocytes % (Manual) 21.0 L (25-45) % Monocytes % (Manual) 3.0 (2-11) % Eosinophils % (Manual) 1.0 L (2-4) % Basophils % (Manual) 2.0 H (0-1) % Metamyelocytes % 6.0 H (-0) % Myelocytes % 1.0 H (-0) % Neutrophils # (Manual) 74296 H (7008-1552) /uL RBC Morphology Normal morphology PT 11.5 (9.4-12.5) SECONDS INR 1.0 (0.9-1.3) APTT 32 (25.1-36.5) SECONDS Sodium 132 L (137-145) mmol/L Potassium 3.8 (3.4-5.1) mmol/L Chloride 104 (98-107) mmol/L Carbon Dioxide 24 (22-32) mmol/L BUN 16 (7-17) mg/dL Creatinine 0.80 (0.52-1.04) mg/dL Estimated GFR > 60 (>60) mL/min BUN/Creatinine Ratio 20.0 (6-22) Glucose 113 H (80-110) mg/dL Lactate 1.3 (0.7-2.1) mmol/L Calcium 9.0 (8.4-10.2) mg/dL Magnesium 1.7 (1.6-2.3) mg/dL Total Bilirubin 0.6 (0.2-1.3) mg/dL AST 39 H (14-36) IU/L ALT 28 (<35) IU/L Alkaline Phosphatase 161 H (38-126) U/L Total Creatine Kinase < 20 L (30-135) U/L Troponin I 0.043 H (0.01-0.034) ng/mL NT-Pro-B Natriuret Pep 785 H (<450) pg/mL Total Protein 7.1 (6.3-8.2) g/dL Albumin 3.4 L (3.5-5.0) g/dL Globulin 3.7 (1.7-4.1) g/dL Albumin/Globulin Ratio 0.9 L (1.0-2.8) Lipase 481 H (23-300) U/L SARS-CoV-2 (PCR) Negative (Negative) Monoscreen Negative (Negative) Influenza A (RT-PCR) Flu a negative (NEGATIVE) Influenza B (RT-PCR) Flu b negative (NEGATIVE) RSV (PCR) Negative (Negative) Imaging Data Chest x-ray: Radiologist's Impression: [address] [address] XRay Report Signed Patient: Nikki Voss MR#: [id number] : 1940 Acct:[id number] Age/Sex: 83 / F Date of Service: 08/19/24 Loc: ED Accession Number: [id number] Procedure: XR chest 1V Ordering Provider: Noble Sanchez MD PROCEDURE: XR CHEST 1V INDICATIONS: chest pain TECHNIQUE: One view of the chest was acquired. COMPARISON: [facility], CR, XR CHEST 1V, 08/04/2024, 15:25. FINDINGS: Surgical changes and devices: Thoracolumbar spinal fusion hardware. Lungs and pleura: Near complete interval resolution of left upper lobe lung opacity. No other parenchymal opacities, effusion, or pneumothorax. Mediastinum: Mediastinal contours appear normal. Heart size is normal. Bones and chest wall: No suspicious bony lesions. Overlying soft tissues appear unremarkable. IMPRESSION: No acute cardiopulmonary disease. Interval improvement in previous left upper lobe pneumonia. Dictated by: Milla Nelson M.D. on 08/19/2024 at 23:21 Approved by: Milla Nelson M.D. on 08/19/2024 at 23:22 CT scan - abdomen/pelvis: Radiologist's Impression: Close Abdomen/Pelvis CT (Signed) Milla Nelson - 08/19/24 Chest X-Ray (Signed) Milla Nelson - 08/19/24 Launch?[place] [id number] CT Scan Report Signed Patient: Nikki Voss MR#: [id number] : 1940 Acct:[id number] Age/Sex: 83 / F Date of Service: 08/19/24 Loc: ED Accession Number: [id number] Procedure: CT abdomen pelvis wo con Ordering Provider: Noble Sanchez MD PROCEDURE: CT ABDOMEN PELVIS WO CON INDICATIONS: left flank/LUQ pain, hx single kidney, noncontrast TECHNIQUE: Axial sections were acquired from the lung bases to the pubic symphysis. Coronal and sagittal reformats were performed. For radiation dose reduction, the following was used: automated exposure control, adjustment of mA and/or kV according to patient size. COMPARISON: [facility], CT, CT ABDOMEN PELVIS WO CON, 09/03/2023, 10:39. FINDINGS: Image quality: Diagnostic. Lower Chest: Mild mixed interstitial and alveolar opacity in the posterior right lower lung. Minimal left posterior pleural thickening/trace fluid. Coronary artery calcification and aortic valvular calcification. URINARY: Right Kidney: Punctate, nonobstructing right mid pole intrarenal calculus. Vascular calcification. Right Ureter: No hydroureter, ureteral calculus, or periureteric inflammation. Left Kidney: Surgically absent Left Ureter: Distal portion is decompressed. The proximal portion is absent. Bladder: Normal wall thickness. No stones. ABDOMEN: Liver: Innumerable hepatic hypodensities, likely cysts, hamartomas, or hemangiomas. Several tiny punctate calcifications in the right hepatic lobe. Nodular margin. Gallbladder: Dependently layering granular stones or hyperdense sludge. No wall thickening. Biliary ducts: No biliary dilation. Pancreas: Normal size and morphology without visible ductal dilatation or inflammation. Spleen: Mild splenomegaly at 13.8 cm in length. Adrenal Glands: Left adrenal gland is absent. Right demonstrates mild nodular thickening, stable compared to the prior exam. Stomach and Bowel: Stomach and small bowel loops are normal caliber. Absent appendix. Normal quantity of colonic stool. No suspicious colon wall thickening or inflammation. Peritoneum: No abnormal intraperitoneal fluid. No free air. Ventral Wall: No hernia. Abdominal Nodes: No enlarged retroperitoneal or mesenteric lymph nodes. Vessels: The abdominal aorta, IVC, and portal vein are of normal caliber. Moderate abdominal aortic atherosclerotic calcification. PELVIS: Pelvic Organs: Hysterectomy. Normal ovaries. Pelvic Nodes: Unremarkable. Miscellaneous: Left femoral artery bypass graft. Bones:. Multilevel thoracolumbar spinal fusion. Bilateral SI joint fusion. No suspicious bone lesion. IMPRESSION: Minor alveolar opacity at the right lung base, possibly aspiration or infection. Cirrhotic liver morphology with several hypodensities not well characterized on this exam. Prior left nephrectomy without evidence of recurrent disease. Mild splenomegaly, new since the prior exam. Correlate with point tenderness. Dictated by: Milla Nelson M.D. on 08/19/2024 at 23:54 Approved by: Milla Nelson M.D. on 08/20/2024 at 0:03 ECG Data Attestation: I personally reviewed and interpreted this ECG as follows: Interpretation: Sinus tachycardia with rate of 113, no obvious ST segment elevation or depression changes. HI 178, QRS 68, QTC 449. 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 Left upper quadrant area tenderness on examination. Nondistended. Afebrile, sirs screen negative. DDx consider pneumonia, colitis, UTI/pyelonephritis, ureteral stone, diverticulitis, other. Labs pending including urinalysis. EKG, troponin, chest x-ray pending. CT abdomen and pelvis noncontrast study. We will avoid IV contrast for now given reported history of single kidney Chest x-ray shows interval improvement left upper lobe infiltrate. See radiology report. CT abdomen and pelvis noncontrast study. Impressions: ?Minor alveolar opacity at the right lung base, possibly aspiration or infection. Cirrhotic liver morphology with several hypodensities not well characterized on this exam. Prior left nephrectomy without evidence of recurrent disease. Mild splenomegaly, new since the prior exam. Correlate with point tenderness. See radiology report Interval splenomegaly noted, cirrhosis noted. We will add Monospot to blood already drawn. Monospot negative. Leukocytosis noted, possible aspiration on right basilar CT pulmonary field noted. Interval improvement on plain radiographs left upper lobe infiltrate. History of allergy to penicillin, doxycycline. History of recurrent urinary tract infection. We will give oral clindamycin, we will give oral Levaquin. Prescription sent to her pharmacy. Patient feels better would like to go home. Advised to take antibiotics as directed. Recheck advised with the regular doctor mid week. Return precautions discussed Discharge Plan Departure Patient Disposition: Home Clinical Impression: Aspiration pneumonia, Abdominal discomfort in left upper quadrant, Splenomegaly, Single kidney, Lung mass Activity Restrictions/Additional Instructions: Recent treatment for pneumonia, now with left upper quadrant discomfort abdomen without trauma. History of recurrent urinary tract infections noted. Elevated white blood cell count noted. Regular chest x-ray shows interval improvement in previous left upper lobe pneumonia, resolving in that area. CT abdomen and pelvis without contrast was performed, single kidney noted, no acute colonic or intestinal changes, possible right basilar lung aspiration pneumonia changes. Unclear if this is a new development, however given lack of alternate explanation for your high white blood cell count, we did initiate treatment. Numerous antibiotic allergies including to penicillins and also to doxycycline. We gave oral clindamycin dose, oral Levaquin antibiotic dose, prescription sent to your pharmacy. This should help with treatment of aspiration pneumonia, also provide some urinary tract infection coverage if that was relevant to your illness today. Splenic enlargement noted on imaging, which apparently is new from prior study. Monospot was sent and was negative, no evidence for mononucleosis which can cause spleen enlargement. You did have some degree of cirrhosis, perhaps the splenomegaly is related to your cirrhosis liver disease. The location of the spleen is in the left upper quadrant, if it is increasing in size that can be some source of discomfort if it is acute. Trial of antibiotics as an outpatient for now. Take your clindamycin and Levaquin antibiotics as directed. Recheck symptoms and examination with your regular doctor been weak upcoming. Return earlier to this/nearest emergency department for any change worsening symptoms or any concerns prior History of spiculated lung mass noted on your previous CT scan of the chest in July 2024, which is worrisome for lung cancer, which will need further follow up as an outpatient. Prescriptions: New clindamycin HCl 300 mg capsule 300 mg PO Q6H 10 Days Qty: 40 0RF levofloxacin 500 mg tablet 500 mg PO DAILY Qty: 10 0RF No Action aspirin 81 mg tablet,delayed release (DR/EC) 81 mg PO DAILY levothyroxine 100 mcg tablet 100 mcg PO DAILY Qty: 90 multivitamin tablet 1 tab PO DAILY nystatin 100,000 unit/gram powder 1 applictn TOP TID Qty: 60 3RF cefpodoxime 200 mg tablet 200 mg PO Q12H Qty: 10 0RF Rx Instructions: must administer with a meal/food azithromycin 250 mg tablet See Rx Instructions .ROUTE .COMPLEX Qty: 6 0RF Rx Instructions: For 250 mg dose pack: take 500 mg today (day 1), then 250 mg for 4 days (days 2-5) docusate sodium [Colace] 100 mg capsule 100 mg PO BID PRN (Reason: constipation) Qty: 30 0RF atorvastatin 20 mg tablet 20 mg PO DAILY Qty: 14 0RF carisoprodol 350 mg tablet 350 mg PO 3XD PRN (Reason: Pain (Scale Score 4-6)) bimatoprost 0.03 % drops with applicator 1 drp TOPICAL ONCE PM d-mannose 500 mg Capsule 500 mg PO BID PRN (Reason: infection prevention) venlafaxine 150 mg capsule,extended release 24hr 150 mg PO DAILY phenazopyridine [Pyridium] 100 mg tablet 100 mg PO TID PRN (Reason: pain) Qty: 6 0RF cholecalciferol (vitamin D3) 50 mcg (2,000 unit) capsule 50 mcg PO DAILY Patient Comments: take 1 capsule by mouth once daily metoprolol succinate 50 mg tablet extended release 24 hr 50 mg PO BID Referrals: Kaelyn Meier PA-C [Primary Care Provider] - Stand Alone Forms: Patient Portal/API/Survey
[2024-08-19 23:15] LABS: Hematocrit 47.6 % (36-46); Hemoglobin 15.5 g/dL (12.0-16.0); Mean Corpuscular HGB Conc 32.6 % (30-36); Mean Corpuscular Hemoglobin 28.7 PG (26-34); Mean Corpuscular Volume 88.3 fL (80-100); Platelet Count 144 X10^3/uL (150-400); Prothrombin Time 11.5 SECONDS (9.4-12.5); Red Blood Cell Count 5.39 X10^6/uL (4.0-5.2); Red Cell Distribution Width 17.2 % (11.6-14.8); White Blood Cell Count 18.9 X10^3/uL (4.5-11.0)
[2024-08-19 23:18] LABS: Add Manual Diff / Slide Review YES; PTT Partial Thromboplastin Tim 32 SECONDS (25.1-36.5)
[2024-08-19 23:21] LABS: Alanine Aminotransferase 28 IU/L (<35); Albumin 3.4 g/dL (3.5-5.0); Albumin Globulin Ratio 0.9 (1.0-2.8); Alkaline Phosphatase 161 U/L (38-126); Aspartate Aminotransferase 39 IU/L (14-36); Bilirubin Total 0.6 mg/dL (0.2-1.3); Blood Urea Nitrogen 16 mg/dL (7-17); Carbon Dioxide 24 mmol/L (22-32); Chloride 104 mmol/L (98-107); Creatine Kinase < 20 U/L (30-135); Estimated Glomerular Filt Rate > 60 mL/min (>60); Globulin 3.7 g/dL (1.7-4.1); Glucose 113 mg/dL (80-110); HEMOLYSIS 30 (0-50); Lipase 481 U/L (23-300); Magnesium 1.7 mg/dL (1.6-2.3); Potassium 3.8 mmol/L (3.4-5.1); Sodium 132 mmol/L (137-145); Total Protein 7.1 g/dL (6.3-8.2)
[2024-08-19 23:31] LABS: Lactate (Lactic Acid) 1.3 mmol/L (0.7-2.1)
[2024-08-19 23:32] LABS: NT-proBNP (BNP-Adult 18+) 785 pg/mL (<450); Troponin I 0.043 ng/mL (0.01-0.034)
[2024-08-19 23:35] VITALS: PULSE 110; RESP 33
[2024-08-19 23:43] LABS: Neutrophils Absolute Manual 12474 /uL (3000-5900); RBC Morphology Normal Morphology; Total Cells Counted 100
[2024-08-19 23:57] LABS: Influenza A - CEPHEID Flu A NEGATIVE (NEGATIVE); Influenza B - CEPHEID Flu B NEGATIVE (NEGATIVE); Respiratory Syncytial Virus Negative (Negative)
[2024-08-19 23:58] LABS: COVID-19 CEPHEID 4-PLEX PCR Negative (Negative)
[2024-08-20] VITALS: PULSE 107; RESP 11; O2SAT 95
[2024-08-20 00:29] LABS: Monotest Negative (Negative)
[2024-08-20 00:30] VITALS: PULSE 107; RESP 16; O2SAT 95
[2024-08-20 00:41] VITALS: BP 131/76; PULSE 104; RESP 22; O2SAT 95
[2024-08-20 01:00] VITALS: PULSE 104; RESP 15; O2SAT 99
[2024-08-20 01:01] VITALS: BP 137/65; PULSE 103; RESP 18; O2SAT 98
[2024-08-20] MEDS: levoFLOXacin 250 MG TABLET 500 MG PO (01:11)
[2024-08-20] MEDS: CLINDAMYCIN 150 MG CAPSULE 300 MG PO (01:11)
== END 2024-08-20 01:20 | disposition home or self-care (01) ==
PROVIDERS: Emergency Provider Emergency Medicine; PCP Physician Assistant
DX: J69.0 Pneumonitis due to inhalation of food and vomit (principal); R10.12 Left upper quadrant pain; R16.1 Splenomegaly, not elsewhere classified; Z90.5 Acquired absence of kidney; R91.8 Other nonspecific abnormal finding of lung field
CPT/HCPCS: 0241U; 36415; 71045; 74176; 80053; 82550; 83605; 83690; 83735; 83880; 84484; 85007; 85025; 85610; 85730; 86318; 93005; 99284

== ENCOUNTER 2024-08-21 17:07 | Inpatient (IN) | payer MEDICARE, SELFPAY ==
[2024-04-03 16:33] VITALS: BMI 32.0
[2024-08-21] VITALS (13 sets, daily range): BP systolic 114–137; BP diastolic 57–89; PULSE 95–111; RESP 12–24; TEMP 36.5; O2SAT 87–98
--- NOTE | 2024-08-21 17:18 | DI.RAD.S_ITS ---
PROCEDURE: XR CHEST 1V INDICATIONS: chest pain TECHNIQUE: One view of the chest was acquired. COMPARISON: [facility], CR, XR CHEST 1V, 08/01/2024, 23:23. [facility], CR, XR CHEST 1V, 08/19/2024, 22:32. FINDINGS: Surgical changes and devices: Partially imaged thoracolumbar fusion hardware. Lungs and pleura: Diffuse interstitial prominence. No focal consolidation. Previously described left upper lobe pneumonia has demonstrated near complete resolution. No new focal consolidations. No substantial pleural effusion. No pneumothorax. Mediastinum: Mediastinal contours appear stable. Heart size is normal. Bones and chest wall: No suspicious bony lesions. Overlying soft tissues appear unremarkable. IMPRESSION: Mild diffuse interstitial prominence which is nonspecific. Findings may represent an infectious or inflammatory process although pulmonary edema may have a similar appearance. No focal consolidations. Dictated by: Yann Ferreira M.D. on 08/21/2024 at 18:05 Approved by: Yann Ferreira M.D. on 08/21/2024 at 18:07
--- NOTE | 2024-08-21 17:18 | EKG_ITS ---
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
[2024-08-21 17:33] LABS: Hematocrit 44.5 % (36-46); Hemoglobin 14.4 g/dL (12.0-16.0); Mean Corpuscular HGB Conc 32.3 % (30-36); Mean Corpuscular Hemoglobin 28.7 PG (26-34); Mean Corpuscular Volume 88.9 fL (80-100); Platelet Count 136 X10^3/uL (150-400); Red Blood Cell Count 5.01 X10^6/uL (4.0-5.2); Red Cell Distribution Width 16.9 % (11.6-14.8); White Blood Cell Count 15.2 X10^3/uL (4.5-11.0)
[2024-08-21 17:34] LABS: Add Manual Diff / Slide Review YES
[2024-08-21 17:46] LABS: Neutrophils Absolute Manual 11552 /uL (3000-5900); Total Cells Counted 100
[2024-08-21 17:47] LABS: Anisocytosis 1+
[2024-08-21 17:51] LABS: Alanine Aminotransferase 33 IU/L (<35); Albumin 3.4 g/dL (3.5-5.0); Alkaline Phosphatase 181 U/L (38-126); Aspartate Aminotransferase 47 IU/L (14-36); BUN Creatinine Ratio 21.6 (6-22); Bilirubin Total 0.4 mg/dL (0.2-1.3); Blood Urea Nitrogen 16 mg/dL (7-17); Calcium 8.9 mg/dL (8.4-10.2); Carbon Dioxide 27 mmol/L (22-32); Chloride 104 mmol/L (98-107); Creatine Kinase < 20 U/L (30-135); Estimated Glomerular Filt Rate > 60 mL/min (>60); Globulin 3.5 g/dL (1.7-4.1); Glucose 92 mg/dL (80-110); HEMOLYSIS 23 (0-50); Lipase 448 U/L (23-300); Magnesium 1.7 mg/dL (1.6-2.3); Potassium 4.4 mmol/L (3.4-5.1); Sodium 137 mmol/L (137-145); Total Protein 6.9 g/dL (6.3-8.2)
[2024-08-21 18:02] LABS: NT-proBNP (BNP-Adult 18+) 334 pg/mL (<450); Troponin I 0.039 ng/mL (0.01-0.034)
[2024-08-21 18:02] LABS: INR 1.1 (0.9-1.3); Prothrombin Time 12.3 SECONDS (9.4-12.5)
[2024-08-21 18:04] LABS: PTT Partial Thromboplastin Tim 32 SECONDS (25.1-36.5)
--- NOTE | 2024-08-21 19:13 | CM.DANOTE ---
DCP Assessment Note: Pt is a 83yo female, resident of [place], presents to the ED for left flank pain, weakness. Pt has a hx of lung mass. Pt lives in at the [facility]. Pt's Primary Care Provider is Kaelyn Meier PA-C and insurance is Medicare [facility] Reviewed chart and team rounds for pt's medical status and initial discharge needs. ED ACCOUNTING LECTURER met w/patient at bedside; introduced self and role. Patient was found in bed, alert and oriented, cooperative with assessment. Present in the room is pt's daughter, Ilas (ph#[phone]), who pt consented to be primary historian on pt behalf. Pt daughter confirmed evolving plan of care with recent findings of lung mass and decline within the last 7-10 days. Pt daughter concerned that there are no answers and no plan for this. Per daughter report, pt has a pulmonology appointment on 08/30/24 with [facility]. Pt daughter explains that although pt living situation is clean and safe, her recent decline makes it difficult for ADLs; pt needs extra encouragement by spouse to eat and drink. ED Provider and pt RN notified of daughter concerns of pt discharging home with no safe discharge plan. Plan: Anticipating possible admission or transfer, medical evaluation by ED Provider pending. CM team will follow closely for coordination of discharge plans. MINERVA Bundy Discharge Planning/Care Management CM Discharge Assessment Start: 08/21/24 18:55 Freq: Status: Active Protocol: Document 08/21/24 18:55 MW (Rec: 08/21/24 18:57 MW [id number]) Discharge Planning Assessment Assigned Software Test Specialist JOSIAH Martinez DPOA/Assigned Designee Name Rj Camarillo Contact Information [phone] Advance Directives? Yes Advance Directives on File No History Provided By Patient,Significant Other, Medical Record Has Patient been admitted in last 30 No days? Prior Living Arrangements RV Comment [facility] Household Members spouse Type of transporation used prior to Relies on Others admit Independent with ADL's Yes Is patient alert and oriented? Yes Referrals Initiated None needed Review Status In Process Please Provide Date Initial DC 08/21/24 Assessment Was Performed Next Review Type Continued Stay Review
[2024-08-21] MEDS: HYDROMORPHONE 0.5 MG INJ IV (20:44)
[2024-08-21] MEDS: ONDANSETRON 4 MG/2 ML INJ IV (20:49)
--- NOTE | 2024-08-21 21:38 | PC.NURSE ---
Placed the patient on 2L NC after dilaudid to maintain sats above 92%
--- NOTE | 2024-08-21 23:54 | ED.CHESTPAIN ---
HPI - Chest Pain General Chief Complaint: Chest Pain Stated Complaint: Left chest pain. Time Seen by Provider: 08/21/24 21:01 Source: EMS Mode of arrival: EMS Limitations: altered mental status History of Present Illness HPI narrative: 83-year-old female recently seen and diagnosed with pneumonia treated with a course of azithromycin, had ED visit evaluation 08/11/2024 with CTA chest showing spiculated lung mass without pneumonia changes, presenting again here with left flank and left upper quadrant and left lower chest discomfort, chest x-ray without obvious infiltrate, CT abdomen and pelvis noncontrast study done due to history of single kidney although renal function was reasonable, CT at that time showed suspected aspiration pneumonia not mentioned on prior study, also noted to have splenomegaly and some cirrhosis without ascites, splenomegaly might be some component of her left-sided discomfort if new/recent change. Monospot sent at that time was negative. Patient has numerous antibiotic allergies, had just taken oral antibiotic course of Z-Juan, was discharged on regimen of oral clindamycin and levofloxacin. She apparently has had interval generalized weakness, not taking her medications. Daughter is concerned that she has really not treating the pneumonia. Related Data Home Medications Medication Instructions Recorded Confirmed aspirin 81 mg tablet,delayed 81 mg PO DAILY 01/19/19 04/03/24 release levothyroxine 100 mcg tablet 100 mcg PO DAILY #90 tabs 01/19/19 04/03/24 multivitamin 1 tab PO DAILY 01/19/19 04/03/24 cholecalciferol (vitamin D3) 50 50 mcg PO DAILY 02/24/21 04/03/24 mcg (2,000 unit) capsule metoprolol succinate 50 mg 50 mg PO BID 03/14/21 04/03/24 tablet,extended release 24 hr bimatoprost 0.03 % drops with 1 drp topical ONCE PM 04/03/24 04/03/24 applicator, eyelash base carisoprodol 350 mg tablet 350 mg PO 3XD PRN Pain (Scale 04/03/24 04/03/24 Score 4-6) d-mannose 500 mg capsule 500 mg PO BID PRN infection 04/03/24 04/03/24 prevention venlafaxine 150 mg 150 mg PO DAILY 04/03/24 04/03/24 capsule,extended release 24 hr Previous Rx's Medication Instructions Recorded nystatin 100,000 unit/gram topical 1 applictn topical TID #60 grams 01/19/19 powder docusate sodium 100 mg capsule 100 mg PO BID PRN constipation #30 01/22/21 (Colace) caps atorvastatin 20 mg tablet 20 mg PO DAILY #14 tabs 05/16/21 phenazopyridine 100 mg tablet 100 mg PO TID PRN pain 6 doses #6 04/04/24 (Pyridium) tabs azithromycin 250 mg tablet See Rx Instructions PO .COMPLEX #6 08/02/24 tabs cefpodoxime 200 mg tablet 200 mg PO Q12H #10 tabs 08/02/24 clindamycin HCl 300 mg capsule 300 mg PO Q6H Dental infection 10 08/20/24 days #40 caps levofloxacin 500 mg tablet 500 mg PO DAILY #10 tabs 08/20/24 Allergies Allergy/AdvReac Type Severity Reaction Status Date / Time cyclobenzaprine Allergy Unknown Verified 04/03/24 14:56 [CYCLOBENZAPRINE] doxycycline Allergy Diarrhea Verified 04/03/24 14:56 morphine Allergy hallucinati Verified 04/03/24 14:56 ons acetaminophen [From Percocet] AdvReac Vomiting Verified 04/03/24 14:56 amoxicillin [From Augmentin] AdvReac Nausea Verified 04/03/24 14:56 clavulanic acid AdvReac Nausea Verified 04/03/24 14:56 [From Augmentin] oxycodone [From Percocet] AdvReac Vomiting Verified 04/03/24 14:56 Patient History Medical History Vaginal ulceration E. coli urinary tract infection History of kidney cancer Dysuria Chronic urinary tract infection Prurigo nodularis Urinary tract infection Essential hypertension Anxiety Urinary incontinence Hypothyroidism, acquired Hyperlipidemia Depression Surgical History S/P insertion of spinal cord stimulator History of nephrectomy S/P femoral-popliteal bypass surgery S/P cataract extraction and insertion of intraocular lens S/P hysterectomy (~1976) History of back surgery Social History household members: spouse Smoking Status: Former smoker alcohol intake: current Smoking Status: Former smoker alcohol intake frequency: a few times a week Exam Narrative Exam Narrative: GENERAL: Well-developed patient, in mild distress. HEAD: Atraumatic. Normocephalic. EYES: Pupils equal round and reactive. Extraocular motions intact. No scleral icterus. No injection or drainage. ENT: Nose without bleeding, purulent drainage. Throat without erythema, tonsillar hypertrophy or exudate. Airway patent. Wearing nasal cannula chronic oxygen NECK: Trachea midline. Non tender CARDIOVASCULAR: Regular rate and rhythm without murmurs, gallops, or rubs. RESPIRATORY: Clear to auscultation. Breath sounds equal bilaterally. No wheezes, rales, or rhonchi. GASTROINTESTINAL: Abdomen soft, non-tender, nondistended. EXTREMITIES: No edema or joint tenderness. BACK: Nontender without deformity or crepitance. No flank tenderness. NEURO: AOx3. Motor functions grossly nonfocal SKIN: No rash or erythema of visible areas Initial Vital Signs Initial Vital Signs: Vital Signs Pulse Rate 110 H 08/21/24 17:11 Respiratory Rate 20 08/21/24 17:11 Blood Pressure 132/70 08/21/24 17:11 Pulse Oximetry 96 08/21/24 17:11 Oxygen Delivery Method Room Air 08/21/24 17:11 Course Orders Ordered: ED Orders 08/22/24 00:19 Education, smoking cessation ONGOING 08/22/24 00:27 Consult to Occupational Therapy Evaluate & Treat Consult to Physical Therapy Evaluate & Treat 08/22/24 01:00 BNP [NT-proBNP (BNP-Adult 18+)] Stat Lactate (Lactic Acid) Stat 08/22/24 01:10 Blood Culture Stat 08/22/24 06:00 Basic Metabolic Panel Routine Complete Blood Count AUTO DIFF Routine Acetaminophen (Acetaminophen 325 Mg Tablet) 650 mg PO Q6H PRN PRN Reason: Fever/Mild Pain (1-3) Last Admin: 08/22/24 01:46 Dose: 650 mg Documented By: TAYLOR Albuterol/Ipratropium (Albuterol/Ipratropium 3 Ml Ampul) 3 ml INH RTQ6HR PRN PRN Reason: Shortness Of Breath Heparin Sodium (Porcine) (Heparin 5,000 Unit/Ml Vial) 5,000 unit SUBCUT BID JAHAIRA Hydromorphone HCl (Hydromorphone 0.5 Mg Inj) 0.5 mg IV Q4H PRN PRN Reason: Pain, Severe (7-10) Last Admin: 08/22/24 03:47 Dose: 0.5 mg Documented By: PHOENIX Sodium Chloride (Normal Saline 0.9%) 1,000 mls @ 75 mls/hr IV CONT [facility] Last Admin: 08/22/24 03:48 Dose: 75 mls/hr Documented By: PHOENIX Clindamycin Phosphate (Cleocin) 600 mg in 50 mls @ 50 mls/hr IV Q6H [facility] Levofloxacin (Levaquin) 500 mg in 100 mls @ 100 mls/hr IV Q24H [facility] Naloxone HCl (Naloxone 0.4 Mg/Ml Vial) 0.2 mg IV Q2MIN PRN PRN Reason: Opiate Reversal Ondansetron HCl (Ondansetron 4 Mg/2 Ml Inj) 4 mg IV Q8HR PRN PRN Reason: Nausea And Vomiting Discontinued Medications Aspirin (Aspirin 81 Mg Chew Tab) 324 mg PO NOW ONE Stop: 08/21/24 17:19 Last Admin: 08/21/24 19:05 Dose: Not Given Documented By: ANGELICA Hydromorphone HCl (Hydromorphone 0.5 Mg Inj) 0.5 mg IV NOW ONE Stop: 08/21/24 20:33 Last Admin: 08/21/24 20:44 Dose: 0.5 mg Documented By: ANGELICA Levofloxacin (Levaquin) 750 mg in 150 mls @ 100 mls/hr IV NOW ONE Stop: 08/22/24 01:36 Last Admin: 08/22/24 03:55 Dose: 100 mls/hr Documented By: PHOENIX Clindamycin Phosphate (Cleocin) 900 mg in 50 mls @ 50 mls/hr IV NOW ONE Stop: 08/22/24 01:08 Last Admin: 08/22/24 01:46 Dose: 50 mls/hr Documented By: TAYLOR Clindamycin Phosphate (Cleocin) 600 mg in 50 mls @ 50 mls/hr IV Q6H [facility] Last Admin: 08/22/24 00:54 Dose: Not Given Documented By: TAYLOR Levofloxacin (Levaquin) 500 mg in 100 mls @ 100 mls/hr IV Q24H [facility] Last Admin: 08/22/24 00:54 Dose: Not Given Documented By: TAYLOR Ondansetron HCl (Ondansetron 4 Mg/2 Ml Inj) 4 mg IV NOW ONE Stop: 08/21/24 20:39 Last Admin: 08/21/24 20:49 Dose: 4 mg Documented By: ANGELICA Vital Signs Vital signs: Vital Signs - 8 hr 08/21/24 20:30 08/21/24 20:30 08/21/24 21:00 Pulse Rate 98 H 102 H Respiratory Rate 20 12 Blood Pressure 132/69 Pulse Oximetry 95 87 L Oxygen Delivery Method Oxygen Flow Rate 08/21/24 21:00 08/21/24 21:30 08/21/24 21:30 Pulse Rate 102 H Respiratory Rate 21 Blood Pressure 130/57 L 130/60 Pulse Oximetry 97 Oxygen Delivery Method Oxygen Flow Rate 08/21/24 23:00 08/21/24 23:00 08/21/24 23:30 Pulse Rate 104 H 97 H Respiratory Rate 13 15 Blood Pressure 121/59 L Pulse Oximetry 98 98 Oxygen Delivery Method Oxygen Flow Rate 08/21/24 23:30 08/22/24 00:00 08/22/24 00:00 Pulse Rate 100 H Respiratory Rate 18 Blood Pressure 137/63 145/66 H Pulse Oximetry 97 Oxygen Delivery Method Nasal Cannula Oxygen Flow Rate 2 MDM - Chest Pain Lab Data Attestation: I reviewed the patient's lab results. Lab results narrative: White blood cell count 67189, hemoglobin 14.4, platelets adequate. Basic metabolic panel unremarkable. Lipase 448 slight elevation. Liver functions unremarkable. Troponin slight elevation decreased from prior comparison study. 08/21/24 17:23 08/21/24 17:23 Labs: Lab Results 08/21/24 08/21/24 Range/Units 17:23 17:44 WBC 15.2 H (4.5-11.0) X10^3/uL RBC 5.01 (4.0-5.2) X10^6/uL Hgb 14.4 (12.0-16.0) g/dL Hct 44.5 (36-46) % MCV 88.9 (80-100) fL MCH 28.7 (26-34) PG MCHC 32.3 (30-36) % RDW 16.9 H (11.6-14.8) % Plt Count 136 L (150-400) X10^3/uL Neut % (Auto) Not Reportable Lymph % (Auto) Not Reportable [place] % (Auto) Not Reportable Eos % (Auto) Not Reportable Baso % (Auto) Not Reportable Lymph # (Auto) Not Reportable [place] # (Auto) Not Reportable Baso # (Auto) Not Reportable Total Counted 100 Seg Neutrophils % 71.0 H (38-70) % Band Neutrophils % 5.0 (3-7) % Lymphocytes % (Manual) 18.0 L (25-45) % Monocytes % (Manual) 3.0 (2-11) % Basophils % (Manual) 1.0 (0-1) % Metamyelocytes % 1.0 H (-0) % Myelocytes % 1.0 H (-0) % Neutrophils # (Manual) 26038 H (1888-8415) /uL RBC Morphology See below Anisocytosis 1+ H PT 12.3 (9.4-12.5) SECONDS INR 1.1 (0.9-1.3) APTT 32 (25.1-36.5) SECONDS Sodium 137 (137-145) mmol/L Potassium 4.4 (3.4-5.1) mmol/L Chloride 104 (98-107) mmol/L Carbon Dioxide 27 (22-32) mmol/L BUN 16 (7-17) mg/dL Creatinine 0.74 (0.52-1.04) mg/dL Estimated GFR > 60 (>60) mL/min BUN/Creatinine Ratio 21.6 (6-22) Glucose 92 (80-110) mg/dL Calcium 8.9 (8.4-10.2) mg/dL Magnesium 1.7 (1.6-2.3) mg/dL Total Bilirubin 0.4 (0.2-1.3) mg/dL AST 47 H (14-36) IU/L ALT 33 (<35) IU/L Alkaline Phosphatase 181 H (38-126) U/L Total Creatine Kinase < 20 L (30-135) U/L Troponin I 0.039 H (0.01-0.034) ng/mL NT-Pro-B Natriuret Pep 334 (<450) pg/mL Total Protein 6.9 (6.3-8.2) g/dL Albumin 3.4 L (3.5-5.0) g/dL Globulin 3.5 (1.7-4.1) g/dL Albumin/Globulin Ratio 1.0 (1.0-2.8) Lipase 448 H (23-300) U/L Imaging Data Chest x-ray: Radiologist's Impression: [place] [id number] [place] [id number] XRay Report Signed Patient: Nikki Voss MR#: [id number] : 1940 Acct:[id number] Age/Sex: 83 / F Date of Service: 08/21/24 Loc: ED Accession Number: [id number] Procedure: XR chest 1V Ordering Provider: Noemy Mendes D.O. PROCEDURE: XR CHEST 1V INDICATIONS: chest pain TECHNIQUE: One view of the chest was acquired. COMPARISON: [facility], CR, XR CHEST 1V, 08/01/2024, 23:23. [facility], CR, XR CHEST 1V, 08/19/2024, 22:32. FINDINGS: Surgical changes and devices: Partially imaged thoracolumbar fusion hardware. Lungs and pleura: Diffuse interstitial prominence. No focal consolidation. Previously described left upper lobe pneumonia has demonstrated near complete resolution. No new focal consolidations. No substantial pleural effusion. No pneumothorax. Mediastinum: Mediastinal contours appear stable. Heart size is normal. Bones and chest wall: No suspicious bony lesions. Overlying soft tissues appear unremarkable. IMPRESSION: Mild diffuse interstitial prominence which is nonspecific. Findings may represent an infectious or inflammatory process although pulmonary edema may have a similar appearance. No focal consolidations. Dictated by: Yann Ferreira M.D. on 08/21/2024 at 18:05 Approved by: Yann Ferreira M.D. on 08/21/2024 at 18:07 ECG Data Attestation: I personally reviewed and interpreted this ECG as follows: Interpretation: Sinus tachycardia with rate of 110. No obvious ST segment elevation or depression changes. IA 180, QRS 72, QTC 452. MDM Narrative Medical decision making narrative: 83-year-old female with history of chronic hypoxia, recent course of azithromycin for pneumonia, CT angiogram chest on 08/11/2024 showed spiculated left lung mass but no pneumonia awaiting outpatient further evaluation, recurrent visit here 08/19/2024 when I saw the patient she had left upper quadrant and flank and left lower chest discomfort, renal function reasonable but history of single kidney status post prior nephrectomy, CT abdomen and pelvis noncontrast study therefore done at that visit showing suspected aspiration pneumonia that sounded like a different diagnosis than her previous CT chest that did not show any pneumonia. Recent course of macrolide, history of beta-lactam and doxycycline allergies, she was discharged on regimen of oral Levaquin and oral clindamycin. She apparently at home is having worsening generalized weakness, not taking her medications per daughter at bedside. She has worse generalized weakness, family query about admission for IV antibiotics. Labs sent, white blood cell count elevated. EKG without obvious ischemic change but some mild tachycardia. CMP similar to previous results. Troponin measurable but lower than last visit. Blood cultures, IV Levaquin, IV clindamycin, for treatment of aspiration pneumonia mentioned on recent CT scan 08/19/2024, for which she apparently is not taking the oral antibiotics due to generalized weakness as per daughter concern. Requesting consideration for admission for IV antibiotics Elevated white blood cell count, sinus tachycardia on EKG noted, recent pneumonia diagnosis. Chronic hypoxia. We will consult hospitalist regarding admission 08/22/24, 0100, case discussed with hospitalist Dr. Jimenes, accepts patient for admission to inpatient Discharge Plan Departure Patient Disposition: Admitted As Inpatient Clinical Impression: Pneumonia, Left-sided chest pain, Left flank pain, Mass of left lung, Generalized weakness Admit Date/Time: 08/22/24 00:29 Admit Provider: Rafael Jimenes
[2024-08-22] VITALS (12 sets, daily range): BP systolic 114–145; BP diastolic 57–90; PULSE 84–100; RESP 15–24; TEMP 35.8–37.1; O2SAT 94–98; BMI 32.3
[2024-08-22] MEDS: CLINDAMYCIN 900 MG/50 ML PIGGYBACK 50 MG IV (01:46)
[2024-08-22] MEDS: ACETAMINOPHEN 325 MG TABLET 650 MG PO (01:46)
[2024-08-22 01:56] LABS: NT-proBNP (BNP-Adult 18+) 292 pg/mL (<450)
--- NOTE | 2024-08-22 02:01 | PM.HP.1 ---
History of Present Illness History of Present Illness Chief complaint: Left chest pain. Narrative: 83 year old female with past medical history of HTN, hypothyroidism, HLD and depression/anxiety presents with generalized weakness and left sided flank/chest pain. Of note, the patient recently was seen on 08/11/24 with CTA showing spiculated lung mass without pneuomina. However, patient was seen again on 08/19/[address] that suggested possible aspiration pneumonia. The patient was adviced to be admitted but patient refuse so our ER physician prescribed Levaquin and Clindamycin to take as outpatient. However, the patient was aparently did not take any of her medications when she left our ER since and now has increasing weakness and coughing. Due to this reason, patient's daughte was concern and ask if the patient can be admitted to our hospital for IV antibiotics. Otherwise, the patient denies any fever, chills, nausea, vomiting or diarrhea. In our ER, the patient was hemodynamically stable. EKG shows no acute sign of ischemia and trop was not much elevated. Patient was still requiring 2L of O2 per NC. The patient's family now really requested that the patient be admitted for IV antibiotics. Patient WBC was 15 and lactic acid pending. Note patient was also tachycardic. [facility] Medical History Vaginal ulceration E. coli urinary tract infection History of kidney cancer Dysuria Chronic urinary tract infection Prurigo nodularis Urinary tract infection Essential hypertension Anxiety Urinary incontinence Hypothyroidism, acquired Hyperlipidemia Depression Surgical History S/P insertion of spinal cord stimulator History of nephrectomy S/P femoral-popliteal bypass surgery S/P cataract extraction and insertion of intraocular lens S/P hysterectomy (~1976) History of back surgery Social History household members: spouse Smoking Status: Former smoker alcohol intake: current Meds Home Medications and Allergies Home Medications Medication Instructions Recorded Confirmed Type aspirin 81 mg tablet,delayed 81 mg PO DAILY 01/19/19 04/03/24 History release levothyroxine 100 mcg tablet 100 mcg PO DAILY #90 tabs 01/19/19 04/03/24 History multivitamin 1 tab PO DAILY 01/19/19 04/03/24 History nystatin 100,000 unit/gram topical 1 applictn topical TID #60 grams 01/19/19 04/03/24 Rx powder docusate sodium 100 mg capsule 100 mg PO BID PRN constipation #30 01/22/21 04/03/24 Rx (Colace) caps cholecalciferol (vitamin D3) 50 50 mcg PO DAILY 02/24/21 04/03/24 History mcg (2,000 unit) capsule metoprolol succinate 50 mg 50 mg PO BID 03/14/21 04/03/24 History tablet,extended release 24 hr atorvastatin 20 mg tablet 20 mg PO DAILY #14 tabs 05/16/21 04/03/24 Rx bimatoprost 0.03 % drops with 1 drp topical ONCE PM 04/03/24 04/03/24 History applicator, eyelash base carisoprodol 350 mg tablet 350 mg PO 3XD PRN Pain (Scale 04/03/24 04/03/24 History Score 4-6) d-mannose 500 mg capsule 500 mg PO BID PRN infection 04/03/24 04/03/24 History prevention venlafaxine 150 mg 150 mg PO DAILY 04/03/24 04/03/24 History capsule,extended release 24 hr phenazopyridine 100 mg tablet 100 mg PO TID PRN pain 6 doses #6 04/04/24 Rx (Pyridium) tabs azithromycin 250 mg tablet See Rx Instructions PO .COMPLEX #6 08/02/24 Rx tabs cefpodoxime 200 mg tablet 200 mg PO Q12H #10 tabs 08/02/24 Rx clindamycin HCl 300 mg capsule 300 mg PO Q6H Dental infection 10 08/20/24 Rx days #40 caps levofloxacin 500 mg tablet 500 mg PO DAILY #10 tabs 08/20/24 Rx Allergies Allergy/AdvReac Type Severity Reaction Status Date / Time cyclobenzaprine Allergy Unknown Verified 04/03/24 14:56 [CYCLOBENZAPRINE] doxycycline Allergy Diarrhea Verified 04/03/24 14:56 morphine Allergy hallucinati Verified 04/03/24 14:56 ons acetaminophen [From Percocet] AdvReac Vomiting Verified 04/03/24 14:56 amoxicillin [From Augmentin] AdvReac Nausea Verified 04/03/24 14:56 clavulanic acid AdvReac Nausea Verified 04/03/24 14:56 [From Augmentin] oxycodone [From Percocet] AdvReac Vomiting Verified 04/03/24 14:56 Review of Systems Review of Systems ROS: Yes All systems reviewed with the patient and are negative except as otherwise documented Exam Vital Signs (past 8 hours): - 08/21/24 18:30 08/21/24 18:30 08/21/24 19:00 Pulse Rate 104 H 101 H Respiratory Rate 19 18 Blood Pressure 122/60 Pulse Oximetry 96 96 Oxygen Delivery Method Oxygen Flow Rate 08/21/24 19:00 08/21/24 19:30 08/21/24 19:30 Pulse Rate 95 H Respiratory Rate 23 Blood Pressure 128/58 L 125/58 L Pulse Oximetry 97 Oxygen Delivery Method Oxygen Flow Rate 08/21/24 20:00 08/21/24 20:00 08/21/24 20:30 Pulse Rate 96 H 98 H Respiratory Rate 24 20 Blood Pressure 114/89 Pulse Oximetry 96 95 Oxygen Delivery Method Oxygen Flow Rate 08/21/24 20:30 08/21/24 21:00 08/21/24 21:00 Pulse Rate 102 H Respiratory Rate 12 Blood Pressure 132/69 130/57 L Pulse Oximetry 87 L Oxygen Delivery Method Oxygen Flow Rate 08/21/24 21:30 08/21/24 21:30 08/21/24 23:00 Pulse Rate 102 H 104 H Respiratory Rate 21 13 Blood Pressure 130/60 Pulse Oximetry 97 98 Oxygen Delivery Method Oxygen Flow Rate 08/21/24 23:00 08/21/24 23:30 08/21/24 23:30 Pulse Rate 97 H Respiratory Rate 15 Blood Pressure 121/59 L 137/63 Pulse Oximetry 98 Oxygen Delivery Method Oxygen Flow Rate 08/22/24 00:00 08/22/24 00:00 08/22/24 00:30 Pulse Rate 100 H 97 H Respiratory Rate 18 16 Blood Pressure 145/66 H Pulse Oximetry 97 98 Oxygen Delivery Method Nasal Cannula Nasal Cannula Oxygen Flow Rate 2 2 08/22/24 00:30 08/22/24 01:00 08/22/24 01:00 Pulse Rate 99 H Respiratory Rate 20 Blood Pressure 138/63 132/61 Pulse Oximetry 98 Oxygen Delivery Method Nasal Cannula Oxygen Flow Rate 2 Oxygen Delivery Method Nasal Cannula Oxygen Flow Rate 2 Narrative Exam Narrative: Physical Exam: GENERAL: The patient is not in any acute distressed. Awake and alert. HEENT: Nonicteric sclerae, PERRLA, EOMI. Oropharynx clear. Moist mucous membranes. Conjunctivae appear well perfused. HEART: Regular rate and rhythm without murmurs. No lower extremities edema. LUNGS: Clear to auscultation bilaterally. No wheezing, crackles or rhonchi ABDOMEN: Soft, positive bowel sounds, nontender. SKIN: No rash, no excessive bruising, petechiae, or purpura. NEUROLOGIC: AxO x 3. Cranial nerves II-XII intact without motor/sensory deficit. Objective Labs 08/21/24 17:23 08/21/24 17:23 Labs: Laboratory Results - last 24 hr 08/21/24 08/21/24 08/22/24 17:23 17:44 01:00 WBC 15.2 H RBC 5.01 Hgb 14.4 Hct 44.5 MCV 88.9 MCH 28.7 MCHC 32.3 RDW 16.9 H Plt Count 136 L Neut % (Auto) Not Reportable Lymph % (Auto) Not Reportable [place] % (Auto) Not Reportable Eos % (Auto) Not Reportable Baso % (Auto) Not Reportable Lymph # (Auto) Not Reportable [place] # (Auto) Not Reportable Baso # (Auto) Not Reportable Total Counted 100 Seg Neutrophils % 71.0 H Band Neutrophils % 5.0 Lymphocytes % (Manual) 18.0 L Monocytes % (Manual) 3.0 Basophils % (Manual) 1.0 Metamyelocytes % 1.0 H Myelocytes % 1.0 H Neutrophils # (Manual) 19624 H RBC Morphology See below Anisocytosis 1+ H PT 12.3 INR 1.1 APTT 32 Sodium 137 Potassium 4.4 Chloride 104 Carbon Dioxide 27 BUN 16 Creatinine 0.74 Estimated GFR > 60 BUN/Creatinine Ratio 21.6 Glucose 92 Lactate 1.0 Calcium 8.9 Magnesium 1.7 Total Bilirubin 0.4 AST 47 H ALT 33 Alkaline Phosphatase 181 H Total Creatine Kinase < 20 L Troponin I 0.039 H NT-Pro-B Natriuret Pep 334 292 Total Protein 6.9 Albumin 3.4 L Globulin 3.5 Albumin/Globulin Ratio 1.0 Lipase 448 H Assessment & Plan Assessment & Plan narrative: Possible aspiration pneumonia. Admit the patient to medical telemetry as inpatient. NPO. IVF. Swallow evaluation. Continue IV Clindmaycin and Levaquin. Monitor for sepsis. Chronic respiratory failure with hypoxemia. Patient at baseline O2 requiring. Continue 2L of O2 per NC and monitor respiratory status. Spiculated lung mass. Will need follow up as outpatient. Generlized weakness PT/OT. Hypothyroidism. Resume home synthroid. Anxiety/depression resume home medications. DVT PPx hep SQ Code status full code will need to verify in AM Disposition home in 2 days Time-Based Coding :: [TOTAL MINUTES] spent with patient and on the chart (including review of chart, obtaining history, exam, reviewing outside data, placing orders, documenting exam and treatment plan, and counseling patient) on [DATE].
[2024-08-22] MEDS: HYDROMORPHONE 0.5 MG INJ IV ×2 (03:47→08:17)
[2024-08-22] MEDS: SODIUM CHLORIDE 0.9% 1,000 ML 75 ML IV ×2 (03:48→21:45)
[2024-08-22] MEDS: levoFLOXacin 750 MG/150 ML PIGGYBACK 100 MG IV (03:55)
[2024-08-22] MEDS: CLINDAMYCIN 600 MG/50 ML PIGGYBACK 50 MG IV ×3 (05:43→18:01)
--- NOTE | 2024-08-22 06:36 | PC.NURSE ---
Addendum entered by Pastora Hsu R.N. 08/22/24 07:00: Pt declined lab draws this morning. Asked lab to return and re-attempt later in AM. MD lion. Original Note: NOC: Pt passed bedside nursing swallow test (see worklist history). Received communication order from MD Jimenes to advance diet as tolerated. Provided patient yogurt; pt tolerating well. Care continues.
[2024-08-22] MEDS: ATORVASTATIN 20 MG TABLET PO (08:17)
[2024-08-22] MEDS: METOPROLOL ER 50 MG TABLET PO ×2 (08:17→21:42)
[2024-08-22] MEDS: HEPARIN 5,000 UNIT/ML VIAL 5000 UNIT SUBCUT ×2 (08:17→21:45)
[2024-08-22] MEDS: ASPIRIN EC 81 MG TABLET PO (08:18)
[2024-08-22] MEDS: VENLAFAXINE ER 75 MG CAP 150 MG PO (08:18)
--- NOTE | 2024-08-22 10:27 | PT-IP ANOTE ---
PT eval order received. EMR reviewed. Checked on pt. pt refusing PT. stated that she is going to sleep. obtained PLOF and home set up. educated pt regarding PT and importance of mobility but pt continues to refuse.
--- NOTE | 2024-08-22 10:38 | SLP.IPNOTE ---
Order received and chart reviewed. RN reported pt had passed nursing swallow screen and no overt s/sx of aspiration with current diet of soft and bite-sized (SB6) and thin liquids (TN0). No difficulties noted during med pass. CHIMNEY BUILDER HELPER entered pt's room and introduced self. Pt agitated upon CHIMNEY BUILDER HELPER arrival and declined to participate in CSE. Explained importance of assessing current swallowing function given suspected aspiration pneumonia in order to determine aspiration risk, identify need for further instrumental testing, and make appropriate and updated diet and treatment recommendations. Pt expressed understanding and declined participation at this time. Will follow-up later today or tomorrow as schedule allows and if pt is agreeable.
--- NOTE | 2024-08-22 10:50 | PT.IIE ---
Current Diagnoses Pneumonitis due to inhalation of food and vomit (08/22/24) Surgical History (Last Reviewed 08/02/24 @ 05:04 by Noemy Lima MD) History of back surgery History of nephrectomy S/P cataract extraction and insertion of intraocular lens S/P femoral-popliteal bypass surgery S/P hysterectomy (~1976) S/P insertion of spinal cord stimulator Medical History (Last Reviewed 08/02/24 @ 05:04 by Noemy Lima MD) Anxiety Chronic urinary tract infection Depression Dysuria E. coli urinary tract infection Essential hypertension History of kidney cancer Hyperlipidemia Hypothyroidism, acquired Prurigo nodularis Urinary incontinence Urinary tract infection Vaginal ulceration Physical Therapy Inpatient Evaluation/Re-Eval M1 PT/OT-IP Prior Functional Status Start: 08/22/24 10:24 Freq: NEEDED Status: Active Protocol: Document 08/22/24 10:50 AB (Rec: 08/22/24 12:17 AB [id number]) Medical Review Prior Functional Status Medical History Reviewed Yes Communication able to answer questions; [place] Mobility and Gait pt unsure of info provided; has memory issues stated that she was independent with all mobilities and ambulation without AD but occasionally uses a hurrycane indoors; uses a hurrycane outdoors Social History Household Members spouse Living Arrangements RV Number of Floors (Floors) One Floor Number of Stairs To Enter/Railing? 5 steps with L rail Home Environment Standard Height Toilet,Walk in Shower,Built-In Shower Seat Home Equipment Hand Held Shower,Grab Bars In Shower Additional Social History Comment pt has a hurrycane pt sleeps on a recliner Daughter stated that spouse will not be able to assist pt at home M2 PT-IP Current Condition Start: 08/22/24 10:24 Freq: NEEDED Status: Active Protocol: Document 08/22/24 10:50 AB (Rec: 08/22/24 12:17 AB [id number]) Physical Therapy Current Condition Current Condition Evaluation Date 08/22/24 Treatment Diagnosis PNA; difficulty in walking Onset Date 08/22/24 M3 PT-IP Subjective Start: 08/22/24 10:24 Freq: NEEDED Status: Active Protocol: Document 08/22/24 10:50 AB (Rec: 08/22/24 12:17 AB [id number]) Subjective Physical Therapy Visit Type Type Initial Evaluation Visit Start Time 10:50 Visit Stop Time 11:15 Number of IMPROVEMENT AUDITOR Visits 0 Physical Therapy Visit Comments Patient Comments initially refusing; needs motivation to participate M4 PT-IP Mobility and Gait Start: 08/22/24 10:24 Freq: NEEDED Status: Active Protocol: Document 08/22/24 10:50 AB (Rec: 08/22/24 12:17 AB [id number]) PT-Bed Mobility Assessment Supine to Sit Supine to Sit Standby Assistance PT-Transfer Assessment Sit to and From Stand Sit to and from Stand Minimal Assistance,1 Person Assistance,Use of Upper Extremities Equipment Transfer Assistive Device Gait Belt,Front Wheeled Walker Orthotic/Prosthetic Devices or Brace: No Transfers Transfer Destination Chair Transfer Technique ambulated Transfer Ability Level of Assist Minimal Assistance,1 Person Assistance,Use of Upper Extremities Comments Mobility Comments pt supine in bed. checked pt earlier this morning but refused PT. checked back on pt and family in room. pt initially refusing. encouraged pt to do PT and family also encourages pt. pt agreed. Clarified home set up and PLOF with family. BP: 120/70 O2 sat: 95% PA: 98 pt completed supine to sit SBA . able to sit on EOB SBA. completed sit to stand CGA and ambulated in room ~ 10 ft using FWW min A and cues. presents with unsteady antalgic gait. c/o chronic B knee pain. pt sat on chair. positioned pt on the chair. call light and table placed within reach. Gait Assessment Gait Gait Assistance Required: Minimum Assistance Distance (Feet) 10 Able to Maintain Weight Bearing Status Yes During Gait Assistive Devices Assistive Device Gait Belt,Front Wheeled Walker Orthotic/Prosthetic Devices or Brace: No Gait Deviations General Gait Pattern Antalgic,Decreased Stride Length,Decreased Feet Clearance,Step-to Gait Factors Limiting Gait Function Factors Limiting Gait Function Decreased Activity Tolerance, Decreased Strength,Difficulty Following Directions,Pain,Poor Balance,Poor Safety Awareness PT-Balance Assessment Sitting Balance and Reactions Static Sitting Balance Ability Good Dynamic Sitting Balance Ability Good Standing Balance and Reactions Static Standing Balance Ability Fair Dynamic Standing Balance Ability Fair Device Used FWW M5 PT-IP Objective Assessments Start: 08/22/24 10:24 Freq: NEEDED Status: Active Protocol: Document 08/22/24 10:50 AB (Rec: 08/22/24 12:17 AB [id number]) Orientation Orientation/Cognition Level of Alertness Alert Orientation Name,Place,Situation Language Function Ability Hard of Hearing Safety Awareness Decreased Safety Awareness Memory Description Short Term Impaired Gross Range of Motion Lower Extremity ROM Assessment Within Functional Limits Strength Lower Extremity Strength Assessment Within Functional Limits Muscle Tone Muscle Tone WNL Yes M6 PT-IP Treatment Start: 08/22/24 10:24 Freq: NEEDED Status: Active Protocol: Document 08/22/24 10:50 AB (Rec: 08/22/24 12:17 AB [id number]) Physical Therapy Treatment Education Education Provided Safety M7 PT-IP Assessment and Plan Start: 08/22/24 10:24 Freq: NEEDED Status: Active Protocol: Document 08/22/24 10:50 AB (Rec: 08/22/24 12:17 AB [id number]) PT Summary Assessment and Plan Potential Rehabilitation Potential Fair Status of Condition at Evaluation Evolving Summary Impairments Pain,Strength,Balance, Coordination,Sensation,Tone, Cognition,Bed Mobility, Transfers,Gait,Activity Tolerance Assessment Summary pt is an 83 y/o F who is admitted for PNA. pt also found to have L lung mass. pt requiring min A with mobility using FWW and has decrease activity tolerance affecting mobility independence. pt will require assistance at home and per daughter, spouse will not be able to assist. pt will benefit from SNF rehab at this time. will continue to assess progress. Goals Bed Mobility Goal Independent Transfer Goal Independent,Front Wheeled Walker Gait Goal Independent,Front Wheel Walker Gait Distance 150 Other Goals improve transfers and ambulation using hurrycane/ without AD 200 ft SBA up/down 5 steps L rail ascending SBA Days to Meet Goals 10 Frequency of Treatment Frequency Of Treatment Once a Day Treatment Plan Physical Therapy Treatment Plan Bed Mobility Training,Transfer Training,Gait Training, Therapeutic Exercise,Balance Retraining,Discharge Planning, Hot or Cold Pack,Neuromuscular Re-ed,Coordination Retraining Precautions Other Precautions falls Recommendations To Nursing Amount of Assist Needed 1 Person Assist Discharge Recommendations PT Discharge Recommendations SNF Rehab Transportation Needs at Discharge Wheelchair/Cabulance
--- NOTE | 2024-08-22 11:17 | OT.IPNOTE ---
Pt has refused x2, one earlier as wanting to eat breakfast and not be disturbed and just now as too tired from just completing PT eval. To check on the pt this afternoon.
[2024-08-22] MEDS: CARISOPRODOL 350 MG 350 EACH PO ×2 (11:39→18:02)
[2024-08-22 11:44] LABS: Add Manual Diff / Slide Review NO; Basophils Absolute Auto 200 /uL (0-100); Basophils Percent Auto 1.4 % (0-2); Eosinophils Absolute Auto 100 /uL (0-450); Eosinophils Percent Auto 0.8 % (2-4); Hematocrit 43.5 % (36-46); Hemoglobin 13.9 g/dL (12.0-16.0); Lymphocytes Absolute Auto 2000 /uL (1100-4500); Lymphocytes Percent Auto 14.2 % (25-40); Mean Corpuscular Hemoglobin 28.2 PG (26-34); Monocytes Absolute Auto 1500 /uL (0-900); Monocytes Percent Auto 10.9 % (3-14); Neutrophils Absolute Auto 10200 /uL (1500-7000); Neutrophils Percent Auto 72.7 % (50-75); Platelet Count 129 X10^3/uL (150-400); Red Blood Cell Count 4.94 X10^6/uL (4.0-5.2); Red Cell Distribution Width 17.4 % (11.6-14.8)
[2024-08-22 12:06] LABS: BUN Creatinine Ratio 17.7 (6-22); Blood Urea Nitrogen 14 mg/dL (7-17); Calcium 8.4 mg/dL (8.4-10.2); Carbon Dioxide 28 mmol/L (22-32); Chloride 104 mmol/L (98-107); Estimated Glomerular Filt Rate > 60 mL/min (>60); Glucose 112 mg/dL (80-110); HEMOLYSIS < 15 (0-50); Potassium 4.6 mmol/L (3.4-5.1); Sodium 135 mmol/L (137-145)
--- NOTE | 2024-08-22 13:03 | DI.US.S_ITS ---
PROCEDURE: US ABDOMEN COMPLETE INDICATIONS: liver morphology, spleen size, and eval remaining R kidney. TECHNIQUE: Real-time scanning was performed of the abdominal and retroperitoneal organs, with image documentation. COMPARISON: [facility], US, US ABDOMEN COMPLETE, 04/15/2021, 9:54., CT abdomen pelvis 08/19/2024 FINDINGS: Limited exam due to body habitus and bowel gas. Liver: Liver is normal in size with heterogeneous echotexture and increased echogenicity. Lobulated liver contour. Gallbladder: Cholelithiasis. Normal gallbladder wall thickness. No pericholecystic fluid. Negative sonographic Hsu sign. Biliary ducts: Not well visualized Pancreas: Visualized portions of the pancreas are sonographically normal. Spleen: Spleen is normal in size measuring 11.3 cm with estimated volume of 267 cc. The spleen is homogeneous in echotexture. Kidneys: Limited views of the right kidney demonstrate no gross abnormality, hydronephrosis or nephrolithiasis. Right kidney is normal in size measuring 12.2 cm. Kidneys are normal in size and echotexture. Status post left nephrectomy. Aorta: Visualized aorta is normal in caliber at less than 3 cm. Iliacs: Proximal common iliac arteries are not well visualized. IVC: Intrahepatic inferior vena cava is patent. Miscellaneous: No free abdominal fluid. IMPRESSION: Limited exam secondary to body habitus and overlying bowel gas. Cirrhotic liver morphology. Cholelithiasis without sonographic evidence of acute cholecystitis. Status post left nephrectomy. No right nephrolithiasis or hydronephrosis. Approved by: Asia Montesinos M.D.,Ph.D. on 08/22/2024 at 17:28
[2024-08-22] MEDS: HYDROMORPHONE 2 MG TABLET PO ×2 (14:09→22:01)
--- NOTE | 2024-08-22 14:13 | OT.IP.EVAL ---
Current Diagnoses Pneumonitis due to inhalation of food and vomit (08/22/24) Past Medical History (Last Reviewed 08/02/24 @ 05:04 by Noemy Lima MD) Anxiety Chronic urinary tract infection Depression Dysuria E. coli urinary tract infection Essential hypertension History of kidney cancer Hyperlipidemia Hypothyroidism, acquired Prurigo nodularis Urinary incontinence Urinary tract infection Vaginal ulceration Surgical History (Last Reviewed 08/02/24 @ 05:04 by Noemy Lima MD) History of back surgery History of nephrectomy S/P cataract extraction and insertion of intraocular lens S/P femoral-popliteal bypass surgery S/P hysterectomy (~1976) S/P insertion of spinal cord stimulator Occupational Therapy Inpatient Evaluation/Re-Eval M1 PT/OT-IP Prior Functional Status Start: 08/22/24 10:24 Freq: NEEDED Status: Active Protocol: Document 08/22/24 14:15 [facility] (Rec: 08/22/24 14:28 [facility] [id number]) Medical Review Prior Functional Status Medical History Reviewed Yes Communication able to answer questions; [place] Mobility and Gait pt unsure of info provided; has memory issues stated that she was independent with all mobilities and ambulation without AD but occasionally uses a hurrycane indoors; uses a hurrycane outdoors Activities of Daily Living and IADL's Pt states did all her ADL's and shared IADL needs. Social History Household Members spouse Living Arrangements RV Number of Floors (Floors) One Floor Number of Stairs To Enter/Railing? 5 steps with L rail Home Environment Standard Height Toilet,Walk in Shower,Built-In Shower Seat Home Equipment Hand Held Shower,Grab Bars In Shower Additional Social History Comment pt has a hurrycane pt sleeps on a recliner Daughter stated that spouse will not be able to assist pt at home M2 OT-IP Current Condition Start: 08/22/24 14:15 Freq: Status: Active Protocol: Document 08/22/24 14:15 [facility] (Rec: 08/22/24 14:28 [facility] [id number]) Occupational Therapy Current Condition Current Condition Evaluation Date 08/22/24 Treatment Diagnosis PNA Diagnosis Onset Date 08/22/24 M3 OT- IP Subjective and Pain Start: 08/22/24 14:15 Freq: Status: Active Protocol: Document 08/22/24 14:15 [facility] (Rec: 08/22/24 14:28 [facility] [id number]) OT- Subjective Occupational Therapy Visit Type Type Initial Evaluation Visit Start Time 09:15 Visit Stop Time 14:13 Occupational Therapy Visit Comments Patient Comments Pt seen from [id number] and 1403- 1413. Pt's and family present second time. Patient/Caregiver Goals Pt wanting to go home. OT Pain Assessment Pain When Pain Assessed At Rest Pain Present Pain Present Pain Reported Location Neck Intensity 8 Scale Used Numeric (0 - 10) M4 OT- IP ADL's Start: 08/22/24 14:15 Freq: Status: Active Protocol: Document 08/22/24 14:15 [facility] (Rec: 08/22/24 14:28 [facility] [id number]) OT [id number] Comments OT Self-Feeding Comments NOt at meal time. OT ADL-Grooming Comments OT Grooming Comments Pt refused. OT ADL-Oral Care Comments Oral Care Comments Pt refused. OT ADL-Dressing General Eval Lower Body Dressing Ability Standby Assistance,Minimal Assistance Comments OT Dressing Comments Pt able to stefan/doff socks while seated on the edge of bed. Pt mostly likely will ladonna GISELA for clothing management due to decreased dynamic balance. OT ADL-Toileting Comments OT Toileting Comments Pt not having to go at this time. OT ADL-Bathing Comments OT Bathing Comments NOt performed. M5 OT- IP IADL's Start: 08/22/24 14:15 Freq: Status: Active Protocol: Document 08/22/24 14:15 [facility] (Rec: 08/22/24 14:28 [facility] [id number]) OT-Instrumental Activities of Daily Living Home Safety Awareness Home Safety Comments Pt insistent that she is able to care for herself. Medication Management Medication Management Comments assists. Money Management Money Management Comments assists. Meal Preparation Meal Preparation Comments shares duties. Inside Trucker Inside Trucker Comments shares dutues. M6 OT- IP Functional Cognition Start: 08/22/24 14:15 Freq: Status: Active Protocol: Document 08/22/24 14:15 [facility] (Rec: 08/22/24 14:28 [facility] [id number]) Cognitive Factors Limiting Selfcare Function Cognitive Ability Level of Alertness Alert Patient Orientation Name,Place,Situation Attention Span Ability Capable of Focused Attention, Capable of Sustained Attention Ability to Follow Commands Able to Follow One Step Commands Memory Description Short Term Impaired Cognitive Comments Cognitive Assessment Comments Pt initially not motivated to get up however did so on OT eval as her present. To reassess SLUMS, pt scored 20/30 on 04/04/24. OT- Vision and Hearing OT- Hearing Assessment OT- Hearing Assessment Hearing Impaired OT- Vision Assessment Visual Acuity Glasses For Reading Visual Attentiveness WFL Occular Pursuits WFL Visual Convergence WFL Visual Flores WFL M7 OT- IP Mobility and Balance Start: 08/22/24 14:15 Freq: Status: Active Protocol: Document 08/22/24 14:15 [facility] (Rec: 08/22/24 14:28 [facility] [id number]) OT- Bed Mobility Assessment Supine to Sit Supine to Sit Assist Minimal Assistance Scooting Scooting to Edge of Bed Minimal Assistance Scooting Up and Down in Bed Minimal Assistance OT-Transfer Assessment Sit to and From Stand Sit to and from Stand Contact Guard Assistance Transfers Transfer Ability Contact Guard Assistance Technique Transfer Destination Bed Transfer Technique Stand Step Pivot Devices Transfer Assistive Devices Gait Belt,Front Wheeled Walker Comments Mobility Comments GISELA to help get her trunk upright. CGA to stand and take a few steps to the head of the bed. OT- Balance Assessment Sitting Balance and Reactions Static Sitting Balance Ability Good Dynamic Sitting Balance Ability Fair Standing Balance and Reactions Static Standing Balance Ability Fair Dynamic Standing Balance Ability Fair M8 OT- IP Objective Assessments Start: 08/22/24 14:15 Freq: Status: Active Protocol: Document 08/22/24 14:15 [facility] (Rec: 08/22/24 14:28 [facility] [id number]) OT Gross Range of Motion Upper Extremity Range of Motion ROM Impairments decreased at end ROM, as affected by neck pain OT Strength Upper Extremity Strength Assessment Within Functional Limits OT- Coordination Assessment Upper Extremity Finger to Nose Test Within Functional Limits M9 OT- IP Assessment and Plan Start: 08/22/24 14:15 Freq: Status: Active Protocol: Document 08/22/24 14:15 [facility] (Rec: 08/22/24 14:28 [facility] [id number]) OT Summary Assessment and Plan Potential Rehabilitation Potential Good Analytic Complexity at Evaluation Moderate Summary OT Impairments Pain,Range of Motion,Balance, Functional Cognition, Functional Mobility,Grooming, Dressing,Toileting,Bathing, Toilet Transfers,Shower Transfers,Activity Tolerance Progress Towards Goals Slow Progress due to Pain,Slow Progress due to Medical Issues,Slow Progress due to Cognition Assessment Summary Pt MOD complexity and main barriers are pain, decreased activity tolerance, initiation , and at this time best to go to skilled rehab as her is limited and not able to assist her. Pt's daughter aware pt is going to need more assist at home especially for cognitive and IADl needs. Goals Self-Feeding Goal Independent Grooming Goal Independent Dressing Goal Standby Assistance Toileting Goal Independent Bathing Goal Standby Assistance Toilet Transfer Goal Independent Shower Transfer Goal Independent Days to Meet Goals 10 Frequency of Treatment Other frequency 5x/week Discharge Recommendations OT Discharge Recommendations SNF Rehab Transportation Needs at Discharge Private Vehicle,Wheelchair/ Cabulance
--- NOTE | 2024-08-22 14:40 | PM.HP.1 ---
History of Present Illness History of Present Illness Date Patient Seen: 08/22/24 Time Patient Seen: 15:10 Chief complaint: Left chest pain. Narrative: Per overnight provider, 83 year old female with past medical history of HTN, hypothyroidism, HLD and depression/anxiety presents with generalized weakness and left sided flank/chest pain. Of note, the patient recently was seen on 08/11/24 with CTA showing spiculated lung mass without pneuomina. However, patient was seen again on 08/19/[address] that suggested possible aspiration pneumonia. The patient was adviced to be admitted but patient refuse so our ER physician prescribed Levaquin and Clindamycin to take as outpatient. However, the patient was aparently did not take any of her medications when she left our ER since and now has increasing weakness and coughing. Due to this reason, patient's daughte was concern and ask if the patient can be admitted to our hospital for IV antibiotics. Otherwise, the patient denies any fever, chills, nausea, vomiting or diarrhea. In our ER, the patient was hemodynamically stable. EKG shows no acute sign of ischemia and trop was not much elevated. Patient was still requiring 2L of O2 per NC. The patient's family now really requested that the patient be admitted for IV antibiotics. Patient WBC was 15 and lactic acid pending. Note patient was also tachycardic. Interval history: WBC is slightly improving today, patient refused labs initially, along with OT and speech. Was then agreeable to speech once family came in later in the morning. [facility]LY [facility] Medical History Vaginal ulceration E. coli urinary tract infection History of kidney cancer Dysuria Chronic urinary tract infection Prurigo nodularis Urinary tract infection Essential hypertension Anxiety Urinary incontinence Hypothyroidism, acquired Hyperlipidemia Depression Surgical History S/P insertion of spinal cord stimulator History of nephrectomy S/P femoral-popliteal bypass surgery S/P cataract extraction and insertion of intraocular lens S/P hysterectomy (~1976) History of back surgery Social History household members: spouse Smoking Status: Former smoker alcohol intake: current Meds Home Medications and Allergies Home Medications Medication Instructions Recorded Confirmed Type aspirin 81 mg tablet,delayed 81 mg PO DAILY 01/19/19 04/03/24 History release levothyroxine 100 mcg tablet 100 mcg PO DAILY #90 tabs 01/19/19 04/03/24 History multivitamin 1 tab PO DAILY 01/19/19 04/03/24 History nystatin 100,000 unit/gram topical 1 applictn topical TID #60 grams 01/19/19 04/03/24 Rx powder docusate sodium 100 mg capsule 100 mg PO BID PRN constipation #30 01/22/21 04/03/24 Rx (Colace) caps cholecalciferol (vitamin D3) 50 50 mcg PO DAILY 02/24/21 04/03/24 History mcg (2,000 unit) capsule metoprolol succinate 50 mg 50 mg PO BID 03/14/21 04/03/24 History tablet,extended release 24 hr atorvastatin 20 mg tablet 20 mg PO DAILY #14 tabs 05/16/21 04/03/24 Rx bimatoprost 0.03 % drops with 1 drp topical ONCE PM 04/03/24 04/03/24 History applicator, eyelash base carisoprodol 350 mg tablet 350 mg PO 3XD PRN Pain (Scale 04/03/24 04/03/24 History Score 4-6) d-mannose 500 mg capsule 500 mg PO BID PRN infection 04/03/24 04/03/24 History prevention venlafaxine 150 mg 150 mg PO DAILY 04/03/24 04/03/24 History capsule,extended release 24 hr phenazopyridine 100 mg tablet 100 mg PO TID PRN pain 6 doses #6 04/04/24 Rx (Pyridium) tabs azithromycin 250 mg tablet See Rx Instructions PO .COMPLEX #6 08/02/24 Rx tabs cefpodoxime 200 mg tablet 200 mg PO Q12H #10 tabs 08/02/24 Rx clindamycin HCl 300 mg capsule 300 mg PO Q6H Dental infection 10 08/20/24 Rx days #40 caps levofloxacin 500 mg tablet 500 mg PO DAILY #10 tabs 08/20/24 Rx Allergies Allergy/AdvReac Type Severity Reaction Status Date / Time cyclobenzaprine Allergy Unknown Verified 04/03/24 14:56 [CYCLOBENZAPRINE] doxycycline Allergy Diarrhea Verified 04/03/24 14:56 morphine Allergy hallucinati Verified 04/03/24 14:56 ons acetaminophen [From Percocet] AdvReac Vomiting Verified 04/03/24 14:56 amoxicillin [From Augmentin] AdvReac Nausea Verified 04/03/24 14:56 clavulanic acid AdvReac Nausea Verified 04/03/24 14:56 [From Augmentin] oxycodone [From Percocet] AdvReac Vomiting Verified 04/03/24 14:56 Review of Systems Review of Systems Narrative: All other systems reviewed with the patient and are negative unless otherwise stated. Exam Vital Signs (past 8 hours): - 08/22/24 08:00 08/22/24 08:17 08/22/24 12:00 Temperature 96.8 F L 96.4 F L Pulse Rate 91 H 96 H 87 Respiratory Rate 18 18 Blood Pressure 114/72 137/76 137/57 L Pulse Oximetry 98 94 Oxygen Flow Rate 0 0 Fraction of Inspired Oxygen 28 SaO2/FiO2 Ratio 350 Oxygen Delivery Method Nasal Cannula Oxygen Flow Rate 0 Narrative Exam Narrative: General:? Patient is well developed and well nourished, in no distress at this time. Lungs:? CTA b/l no wheezing rhonchi or rales. Cardio:?RRR no m/r/g. Abdomen: S NT ND. Musculoskeletal:? Muscle strength and tone are equal within normal limits, no deformity. Extremities: No edema or joint effusions. No cyanosis or clubbing. Objective Labs 08/22/24 11:35 08/22/24 11:35 Labs: Laboratory Results - last 24 hr 08/21/24 08/21/24 08/22/24 17:23 17:44 01:00 WBC 15.2 H RBC 5.01 Hgb 14.4 Hct 44.5 MCV 88.9 MCH 28.7 MCHC 32.3 RDW 16.9 H Plt Count 136 L Neut % (Auto) Not Reportable Lymph % (Auto) Not Reportable [place] % (Auto) Not Reportable Eos % (Auto) Not Reportable Baso % (Auto) Not Reportable Neut # (Auto) Lymph # (Auto) Not Reportable [place] # (Auto) Not Reportable Eos # (Auto) Baso # (Auto) Not Reportable Total Counted 100 Seg Neutrophils % 71.0 H Band Neutrophils % 5.0 Lymphocytes % (Manual) 18.0 L Monocytes % (Manual) 3.0 Basophils % (Manual) 1.0 Metamyelocytes % 1.0 H Myelocytes % 1.0 H Neutrophils # (Manual) 12674 H RBC Morphology See below Anisocytosis 1+ H PT 12.3 INR 1.1 APTT 32 Sodium 137 Potassium 4.4 Chloride 104 Carbon Dioxide 27 BUN 16 Creatinine 0.74 Estimated GFR > 60 BUN/Creatinine Ratio 21.6 Glucose 92 Lactate 1.0 Calcium 8.9 Magnesium 1.7 Total Bilirubin 0.4 AST 47 H ALT 33 Alkaline Phosphatase 181 H Total Creatine Kinase < 20 L Troponin I 0.039 H NT-Pro-B Natriuret Pep 334 292 Total Protein 6.9 Albumin 3.4 L Globulin 3.5 Albumin/Globulin Ratio 1.0 Lipase 448 H 08/22/24 11:35 WBC 14.0 H RBC 4.94 Hgb 13.9 Hct 43.5 MCV 88.0 MCH 28.2 MCHC 32.0 RDW 17.4 H Plt Count 129 L Neut % (Auto) 72.7 Lymph % (Auto) 14.2 L [place] % (Auto) 10.9 Eos % (Auto) 0.8 L Baso % (Auto) 1.4 Neut # (Auto) 46621 H Lymph # (Auto) 2000 [place] # (Auto) 1500 H Eos # (Auto) 100 Baso # (Auto) 200 H Total Counted Seg Neutrophils % Band Neutrophils % Lymphocytes % (Manual) Monocytes % (Manual) Basophils % (Manual) Metamyelocytes % Myelocytes % Neutrophils # (Manual) RBC Morphology Anisocytosis PT INR APTT Sodium 135 L Potassium 4.6 Chloride 104 Carbon Dioxide 28 BUN 14 Creatinine 0.79 Estimated GFR > 60 BUN/Creatinine Ratio 17.7 Glucose 112 H Lactate Calcium 8.4 Magnesium Total Bilirubin AST ALT Alkaline Phosphatase Total Creatine Kinase Troponin I NT-Pro-B Natriuret Pep Total Protein Albumin Globulin Albumin/Globulin Ratio Lipase Assessment & Plan Assessment & Plan narrative: Possible aspiration pneumonia vs post obstructive pneumonia secondary to lung mass - continue antibiotics with levaquin and clindamycin for now given multiple drug allergies and intolerances - now on room air without need for supplemental O2. - WBC improving this morning - OUTSIDE SALES INSPECTOR evaluation pending, likely tomorrow given NPO today for abdominal US. - PT/OT Spiculated lung mass. Will need follow up as outpatient, has pulmonary appointment next week. - also noted to have possible cirrhosis or liver lesions on CT - further patient with possible liver lesions and / or new cirrhosis, further evaluate with abdominal ultrasound - patient is currently hesitant for aggressive evaluation, will continue goals of care after ultrasound obtained. - long discussion with patient and family about spiculated lung mass, differentials, and above evaluation today. Hypothyroidism. Resume home synthroid. Anxiety/depression resume home medications. DVT PPx hep SQ Code: Full, surrogate is patient's daughter I have utilized all available immediate resources to obtain, update, or review the patient's current medications. Dispo: patient admitted under inpatient status. Unclear if will be able to discharge home or possible SNF, will have PT/OT evaluations. Additional history obtained via discussions with the overnight provider and patient's daughter. These discussions contributed to the creation of the above assessment and plan. I have reviewed patient's presenting documentation, labs, and imaging personally. Time-Based Coding :: [TOTAL MINUTES] spent with patient and on the chart (including review of chart, obtaining history, exam, reviewing outside data, placing orders, documenting exam and treatment plan, and counseling patient) on [DATE].
--- NOTE | 2024-08-22 14:49 | SLP.IPNOTE ---
DOORPERSON OR LUGGAGE PORTER re-attempted CSE in afternoon. Per RN, pt to be kept NPO for ultrasound. Will follow-up.
[2024-08-23] MEDS: CARISOPRODOL 350 MG 350 EACH PO ×3 (00:50→17:16)
[2024-08-23] MEDS: levoFLOXacin 500 MG/100 ML PIGGYBACK 100 MG IV (00:51)
[2024-08-23 01:00] VITALS: BP 141/81; PULSE 84; RESP 18; TEMP 36.3; O2SAT 92
[2024-08-23] MEDS: CLINDAMYCIN 600 MG/50 ML PIGGYBACK 50 MG IV ×4 (01:43→18:05)
[2024-08-23 05:00] VITALS: BP 113/71; PULSE 82; RESP 18; TEMP 36.2; O2SAT 92
[2024-08-23] MEDS: HYDROMORPHONE 2 MG TABLET PO ×3 (05:39→20:14)
[2024-08-23] MEDS: LEVOTHYROXINE 100 MCG TABLET PO (05:40)
[2024-08-23 07:11] LABS: Ammonia (NH3) < 9 umol/L (9-30)
[2024-08-23 07:15] LABS: Alanine Aminotransferase 22 IU/L (<35); Alkaline Phosphatase 144 U/L (38-126); Aspartate Aminotransferase 29 IU/L (14-36); BUN Creatinine Ratio 18.7 (6-22); Bilirubin Total 0.4 mg/dL (0.2-1.3); Blood Urea Nitrogen 14 mg/dL (7-17); Calcium 8.4 mg/dL (8.4-10.2); Carbon Dioxide 24 mmol/L (22-32); Chloride 105 mmol/L (98-107); Estimated Glomerular Filt Rate > 60 mL/min (>60); Globulin 3.1 g/dL (1.7-4.1); Glucose 104 mg/dL (80-110); HEMOLYSIS < 15 (0-50); Magnesium 1.6 mg/dL (1.6-2.3); Potassium 4.2 mmol/L (3.4-5.1); Sodium 132 mmol/L (137-145); Total Protein 6.1 g/dL (6.3-8.2)
[2024-08-23 07:24] LABS: Add Manual Diff / Slide Review NO; Basophils Absolute Auto 100 /uL (0-100); Eosinophils Absolute Auto 100 /uL (0-450); Eosinophils Percent Auto 1.1 % (2-4); Hematocrit 40.2 % (36-46); Hemoglobin 13.1 g/dL (12.0-16.0); Lymphocytes Absolute Auto 1900 /uL (1100-4500); Lymphocytes Percent Auto 15.6 % (25-40); Mean Corpuscular HGB Conc 32.5 % (30-36); Mean Corpuscular Hemoglobin 28.4 PG (26-34); Mean Corpuscular Volume 87.3 fL (80-100); Monocytes Absolute Auto 1500 /uL (0-900); Monocytes Percent Auto 12.2 % (3-14); Neutrophils Absolute Auto 8600 /uL (1500-7000); Neutrophils Percent Auto 70.1 % (50-75); Platelet Count 119 X10^3/uL (150-400); Red Blood Cell Count 4.61 X10^6/uL (4.0-5.2); White Blood Cell Count 12.3 X10^3/uL (4.5-11.0)
[2024-08-23 08:00] VITALS: BP 116/71; PULSE 77; RESP 18; TEMP 36.2; O2SAT 92
[2024-08-23] MEDS: VENLAFAXINE ER 75 MG CAP 150 MG PO (08:15)
[2024-08-23] MEDS: ATORVASTATIN 20 MG TABLET PO (08:15)
[2024-08-23] MEDS: METOPROLOL ER 50 MG TABLET PO ×2 (08:16→21:20)
[2024-08-23] MEDS: HEPARIN 5,000 UNIT/ML VIAL 5000 UNIT SUBCUT ×2 (08:16→20:14)
[2024-08-23] MEDS: ASPIRIN EC 81 MG TABLET PO (08:16)
--- NOTE | 2024-08-23 10:12 | PT.IPTN ---
Current Diagnoses Pneumonitis due to inhalation of food and vomit (08/22/24) Physical Therapy Treatment Note M2 PT-IP Current Condition Start: 08/22/24 10:24 Freq: NEEDED Status: Active Protocol: Document 08/22/24 10:50 AB (Rec: 08/22/24 12:17 AB [id number]) Physical Therapy Current Condition Current Condition Evaluation Date 08/22/24 Treatment Diagnosis PNA; difficulty in walking Onset Date 08/22/24 M3 PT-IP Subjective Start: 08/22/24 10:24 Freq: NEEDED Status: Active Protocol: Document 08/23/24 10:30 TS (Rec: 08/23/24 10:40 TS [id number]) Subjective Physical Therapy Visit Type Type Treatment Note Visit Start Time 10:12 Visit Stop Time 10:30 Number of MANAGER DISH Visits 1 Physical Therapy Visit Comments Patient Comments Pt found resting in bed, she is agreeable to PT. M4 PT-IP Mobility and Gait Start: 08/22/24 10:24 Freq: NEEDED Status: Active Protocol: Document 08/23/24 10:30 TS (Rec: 08/23/24 10:40 TS [id number]) PT-Bed Mobility Assessment Supine to Sit Supine to Sit Contact Guard Assistance Sit to Supine Sit to Supine Standby Assistance PT-Transfer Assessment Comments Mobility Comments Supine to sit CGA with HOB elevated, pt normally sleeps in a recliner. Pt sat EOB, Spo2 90% on RA, pt refused to stand up, she reports being too tired at this time. Sit to supine into bed SBA. Pt required assistance scooting to HOB. Pt was left in bed, all needs met. Gait Assessment Comments Gait Comments not at this time PT-Balance Assessment Sitting Balance and Reactions Static Sitting Balance Ability Good Dynamic Sitting Balance Ability Fair Standing Balance and Reactions Static Standing Balance Ability Fair Dynamic Standing Balance Ability Fair Device Used FWW M5 PT-IP Objective Assessments Start: 08/22/24 10:24 Freq: NEEDED Status: Active Protocol: Document 08/22/24 10:50 AB (Rec: 08/22/24 12:17 AB [id number]) Orientation Orientation/Cognition Level of Alertness Alert Orientation Name,Place,Situation Language Function Ability Hard of Hearing Safety Awareness Decreased Safety Awareness Memory Description Short Term Impaired Gross Range of Motion Lower Extremity ROM Assessment Within Functional Limits Strength Lower Extremity Strength Assessment Within Functional Limits Muscle Tone Muscle Tone WNL Yes M6 PT-IP Treatment Start: 08/22/24 10:24 Freq: NEEDED Status: Active Protocol: Document 08/23/24 10:30 TS (Rec: 08/23/24 10:40 TS [id number]) Physical Therapy Treatment Education Education Provided Safety M7 PT-IP Assessment and Plan Start: 08/22/24 10:24 Freq: NEEDED Status: Active Protocol: Document 08/23/24 10:30 TS (Rec: 08/23/24 10:40 TS [id number]) PT Summary Assessment and Plan Potential Rehabilitation Potential Fair Summary Impairments Pain,Strength,Balance, Coordination,Sensation,Tone, Cognition,Bed Mobility, Transfers,Gait,Activity Tolerance Progress Towards Goals Slow Progress due to Activity Tolerance Assessment Summary Pt is making slow progress with her mobility. She performs bed mobility CGA/SBA. Sitting EOB pt refused to stand due to feeling weak and too tired. Her Spo2 was 90% sitting EOB on RA. She has 5 steps to complete to get into RV. PT will continue to recommend SNF at this time. Unsure if pt can complete stairs to get into house due to being too tired to work with therapy. Goals Bed Mobility Goal Independent Transfer Goal Independent,Front Wheeled Walker Gait Goal Independent,Front Wheel Walker Gait Distance 150 Other Goals improve transfers and ambulation using hurrycane/ without AD 200 ft SBA up/down 5 steps L rail ascending SBA Days to Meet Goals 10 Frequency of Treatment Frequency Of Treatment Once a Day Treatment Plan Physical Therapy Treatment Plan Bed Mobility Training,Transfer Training,Gait Training, Therapeutic Exercise,Balance Retraining,Discharge Planning, Hot or Cold Pack,Neuromuscular Re-ed,Coordination Retraining Precautions Other Precautions falls Recommendations To Nursing Amount of Assist Needed 1 Person Assist Discharge Recommendations PT Discharge Recommendations SNF Rehab Transportation Needs at Discharge Wheelchair/Cabulance
--- NOTE | 2024-08-23 11:56 | ST.IPCSEOM ---
Visit Care Team Role Provider Type Kaelyn Meier PA-C Primary Care Provider Advanced Certified Histologic Technician Specialty: Medical Address: [address] [place] [address], [id number] Email: Noble Sanchez MD Emergency Provider Physician Referring Provider Specialty: Emergency Medicine Address: [address] [place] [address], [facility] Fax: Email: [email or web address] Rafael Jimenes MD Admit Provider Physician Attending Provider Specialty: Internal Medicine Address: [address] [place] [address], [id number] Email: [email or web address] Current Diagnoses Pneumonitis due to inhalation of food and vomit (08/22/24) Past Medical History (Last Reviewed 08/02/24 @ 05:04 by Noemy Lima MD) Anxiety (Medical) Chronic urinary tract infection (Medical) Depression (Medical) Dysuria (Medical) E. coli urinary tract infection (Medical) Essential hypertension (Medical) History of kidney cancer (Medical) Hyperlipidemia (Medical) Hypothyroidism, acquired (Medical) Prurigo nodularis (Medical) Urinary incontinence (Medical) Urinary tract infection (Medical) Vaginal ulceration (Medical) Speech-Language Pathology Swallow Evaluation REFRACTORY FURNACE DESIGNER Clinical Swallow Evaluation Start: 08/23/24 11:37 Freq: Status: Active Protocol: Document 08/23/24 11:38 SS (Rec: 08/23/24 11:55 SS [id number]) Clinical Swallow Evaluation Session Time Visit Start Time 11:10 Visit Stop Time 11:35 Total Visit Minutes 25 Visit Information Visit Number Initial Evaluation Referral Referring Provider Dr. Sherman Barrios Reason for Referral Potential aspiration PNA Setting Assessment Location Acute Care Visit Type Note Type Initial evaluation Patient Information Identification Type Name History Nikki Voss is an 83 year-old female referred for a clinical swallowing evaluation d/t potential aspiration PNA. Per H&P: 83 year old female with past medical history of HTN, hypothyroidism, HLD and depression/anxiety presents with generalized weakness and left sided flank/chest pain. Of note, the patient recently was seen on 08/11/24 with CTA showing spiculated lung mass without pneuomina. However, patient was seen again on with abdominal CT that suggested possible aspiration pneumonia. The patient was adviced to be admitted but patient refuse so our ER physician prescribed Levaquin and Clindamycin to take as outpatient. However, the patient was aparently did not take any of her medications when she left our ER since and now has increasing weakness and coughing. Due to this reason, patient's daughte was concern and ask if the patient can be admitted to our hospital for IV antibiotics. Otherwise, the patient denies any fever, chills, nausea, vomiting or diarrhea. In our ER, the patient was hemodynamically stable. EKG shows no acute sign of ischemia and trop was not much elevated. Patient was still requiring 2L of O2 per NC. The patient's family now really requested that the patient be admitted for IV antibiotics. Patient WBC was 15 and lactic acid pending. Note patient was also tachycardic. PMHx includes kidney cancer, chronic urinary tract infection, hypertension , hypothyroidism, hyperlipidemia, depression, and anxiety. Subjective Observations RN reported no overt s/sx of aspiration with soft and bite- sized diet (SB6), thin liquids (TN0), or during med pass. Pt reclined in bed upon REFRACTORY FURNACE DESIGNER arrival. She reported difficulty masticating regular textures (e.g., bread, raw vegetables) and stated that she eats softer food at home. She has dentures, thiugh does not wear them when she eats due to discomfort. She denied hx of GERD, PNA, and unintentional weight loss. Daughter reported pt occasionally chokes on regular textures when she does not chew it fully. Reported by Patient/Caregiver Current Diet Soft & Bite-sized (IDDSI 6) Baseline Feeding Method Independent in self-feeding The IDDSI Framework Protocol: IDDSI.1 Objective Assessment Mental Status Alert,Responsive,Cooperative Oral Integrity Thrush Dentition Edentulous,Poor denture or partial fitting Lip Function Within normal limits Observation of Lips at Rest Symmetrical Pucker Within normal limits Lip Retraction Within normal limits Alternating Pucker/Lip Retraction Within normal limits Tongue Function Within normal limits Observations of Tongue at Rest Within normal limits Tongue Protrusion Within normal limits Tongue Retraction Within normal limits Tongue Lateralization Within normal limits Jaw Function Within normal limits Observation of Jaw at Rest Within normal limits Jaw Opening Within normal limits Jaw Closing Within normal limits Jaw Lateralization Within normal limits Jaw Protrusion Within normal limits Jaw Retraction Within normal limits Hard/Soft Palate Function Within normal limits Observations of Hard/Soft Palate Within normal limits Nasality Within normal limits Respiratory Sufficiency Within normal limits Comment OME WNL. White buildup noted on tongue. Pt reported she does not complete oral care regularly. Discussed importance of completing oral care to reduce colonization of oral pathogens and reduce risk of aspiration PNA if aspirated. Food and Liquid Trials Position During Assessment Upright (90 degrees) Liquids Trialed Thin (IDDSI 0) Solid Trials Purred (IDDSI 4),Soft & Bite- sized (IDDSI 6),Regular (IDDSI 7) Administration Type Tea spoon,Cup single sip,Cup consecutive sips,Straw,Self- feeding Oral Impairment Within normal limits Oral Phase Comments Oral phase is WNL. Good containment, normal rotary mastication. AP transport and manipulation appear to be WNL. No abnormal oral residue observed. Pharyngeal Impairment Within normal limits Pharyngeal Phase Comments swallow trigger timing appears WNL. Good laryngeal elevation and anterior propulsion via palpation. No overt s/sx of aspiration were observed or reported by the pt . She exhibited no coughing or changes to vocal quality throughout all trials. Fatigue/Endurance Endurance WNL The IDDSI Framework Protocol: IDDSI.1 Findings Swallowing Function Within functional limits Severity of Swallow Impairment Within functional limits Contributing Factors to Swallow Reduced oral strength/ Impairment coordination/sensation, Mastication inefficiency Prognosis Good Based on Cognitive status,Family support,Age Comment Pt presented with within functional limits swallowing function at this time and aspiration risk appears low. she does have difficulty fully masticating certain regular texture food items. No overt s /sx of aspiration observed with all PO trials. Recommend pt continue baseline diet of easy to chew textures (self- selecting softer foods as needed) and thin liquids with adherence to aspiration precautions below. Pt and family expressed they would prefer to stay on SB6 diet level while at hospital. Pt may have easy to chew texture food items based on today's evaluation if she requests. Impact on Safety and Functioning No limitations Recommendations Instrumental Assessment No Swallowing Treatment No Recommended Solids Soft & Bite-sized (IDDSI 6) Recommended Liquids Thin (IDDSI 0) Other Recommendations Oral care BID. Safety Precautions/Swallowing Reduce distractions,Remain Recommendations upright (90 degrees) during all oral intake,Upright position at least 30 minutes after meals,Small bites and sips when eating,Slow rate; swallow between bites Medication Recommendations As Tolerated,Whole Discharge Recommendations Home,Home with Home Health Education Patient/Caregiver Education Patient expressed understanding of evaluation, Patient expressed agreement with goals & treatment plans
[2024-08-23 12:00] VITALS: BP 102/64; PULSE 73; RESP 19; TEMP 36.3; O2SAT 91
--- NOTE | 2024-08-23 13:00 | PT.IPTN ---
Current Diagnoses Pneumonitis due to inhalation of food and vomit (08/22/24) Physical Therapy Treatment Note M2 PT-IP Current Condition Start: 08/22/24 10:24 Freq: NEEDED Status: Active Protocol: Document 08/22/24 10:50 AB (Rec: 08/22/24 12:17 AB [id number]) Physical Therapy Current Condition Current Condition Evaluation Date 08/22/24 Treatment Diagnosis PNA; difficulty in walking Onset Date 08/22/24 M3 PT-IP Subjective Start: 08/22/24 10:24 Freq: NEEDED Status: Active Protocol: Document 08/23/24 14:42 TS (Rec: 08/23/24 14:49 TS [id number]) Subjective Physical Therapy Visit Type Type Treatment Note Visit Start Time 13:00 Visit Stop Time 13:20 Number of RN SANE Visits 2 Physical Therapy Visit Comments Patient Comments Pt found sitting in chair, she is agreeable to PT. M4 PT-IP Mobility and Gait Start: 08/22/24 10:24 Freq: NEEDED Status: Active Protocol: Document 08/23/24 14:42 TS (Rec: 08/23/24 14:49 TS [id number]) PT-Bed Mobility Assessment Sit to Supine Sit to Supine Standby Assistance PT-Transfer Assessment Sit to and From Stand Sit to and from Stand Standby Assistance,Contact Guard Assistance Equipment Transfer Assistive Device Gait Belt,Front Wheeled Walker Orthotic/Prosthetic Devices or Brace: No Comments Mobility Comments STS from the chair SBA/CGA with FWW. She ambulates in the room ~20', pt's Spo2 desats to low 80's. Pt sits on bed to recover. Pt placed on 3L's for mobility. Pt ambulates ~20 ' SBA/CGA with FWW. She performs steps x2 with single rail and PRESCHOOL ASSISTANT. Sit to supine into bed SBA. Pt was left in bed, daughter in room, all needs met. Gait Assessment Gait Gait Assistance Required: Standby Assistance,Contact Guard Assist Distance (Feet) 40 Assistive Devices Assistive Device Gait Belt,Front Wheeled Walker Orthotic/Prosthetic Devices or Brace: No Gait Deviations General Gait Pattern Antalgic,Decreased Stride Length,Decreased Feet Clearance,Step-to Gait Factors Limiting Gait Function Factors Limiting Gait Function Decreased Activity Tolerance, Decreased Strength,Difficulty Following Directions,Pain,Poor Balance,Poor Safety Awareness PT-Balance Assessment Sitting Balance and Reactions Static Sitting Balance Ability Good Dynamic Sitting Balance Ability Good Standing Balance and Reactions Static Standing Balance Ability Good Dynamic Standing Balance Ability Fair Device Used FWW M5 PT-IP Objective Assessments Start: 08/22/24 10:24 Freq: NEEDED Status: Active Protocol: Document 08/22/24 10:50 AB (Rec: 08/22/24 12:17 AB [id number]) Orientation Orientation/Cognition Level of Alertness Alert Orientation Name,Place,Situation Language Function Ability Hard of Hearing Safety Awareness Decreased Safety Awareness Memory Description Short Term Impaired Gross Range of Motion Lower Extremity ROM Assessment Within Functional Limits Strength Lower Extremity Strength Assessment Within Functional Limits Muscle Tone Muscle Tone WNL Yes M6 PT-IP Treatment Start: 08/22/24 10:24 Freq: NEEDED Status: Active Protocol: Document 08/23/24 14:42 TS (Rec: 08/23/24 14:49 TS [id number]) Physical Therapy Treatment Education Education Provided Safety M7 PT-IP Assessment and Plan Start: 08/22/24 10:24 Freq: NEEDED Status: Active Protocol: Document 08/23/24 14:42 TS (Rec: 08/23/24 14:49 TS [id number]) PT Summary Assessment and Plan Potential Rehabilitation Potential Fair Summary Impairments Pain,Strength,Balance, Coordination,Sensation,Tone, Cognition,Bed Mobility, Transfers,Gait,Activity Tolerance Progress Towards Goals Slow Progress due to Activity Tolerance Assessment Summary Nikki is making slow progress with her mobility. Her Spo2 desats to low 80's with exertion. She required 3L's of o2 to maintain Spo2 in mid 90 's with mobility. She completed steps x2 with some assistance. PT will continue to recommend SNF at this time to progress strength, activity tolerance and functional mobility. Goals Bed Mobility Goal Independent Transfer Goal Independent,Front Wheeled Walker Gait Goal Independent,Front Wheel Walker Gait Distance 150 Other Goals improve transfers and ambulation using hurrycane/ without AD 200 ft SBA up/down 5 steps L rail ascending SBA Days to Meet Goals 10 Frequency of Treatment Frequency Of Treatment Once a Day Treatment Plan Physical Therapy Treatment Plan Bed Mobility Training,Transfer Training,Gait Training, Therapeutic Exercise,Balance Retraining,Discharge Planning, Hot or Cold Pack,Neuromuscular Re-ed,Coordination Retraining Precautions Other Precautions falls Recommendations To Nursing Amount of Assist Needed 1 Person Assist Discharge Recommendations PT Discharge Recommendations SNF Rehab Transportation Needs at Discharge Wheelchair/Cabulance
--- NOTE | 2024-08-23 13:05 | OT.IP.TRT ---
Current Diagnoses Pneumonitis due to inhalation of food and vomit (08/22/24) Occupational Therapy Treatment Note M2 OT-IP Current Condition Start: 08/22/24 14:15 Freq: Status: Active Protocol: Document 08/22/24 14:15 [facility] (Rec: 08/22/24 14:28 [facility] [id number]) Occupational Therapy Current Condition Current Condition Evaluation Date 08/22/24 Treatment Diagnosis PNA Diagnosis Onset Date 08/22/24 M3 OT- IP Subjective and Pain Start: 08/22/24 14:15 Freq: Status: Active Protocol: Document 08/23/24 13:21 [facility] (Rec: 08/23/24 13:28 [facility] [id number]) OT- Subjective Occupational Therapy Visit Type Type Treatment Note Visit Start Time 13:05 Visit Stop Time 13:15 Occupational Therapy Visit Comments Patient Comments Pt's daughter in the room. Patient/Caregiver Goals Pt's daughter wanting pt to go to skilled rehab. OT Pain Assessment Pain When Pain Assessed At Rest Pain Present Pain Present Pain Reported M4 OT- IP ADL's Start: 08/22/24 14:15 Freq: Status: Active Protocol: Document 08/22/24 14:15 [facility] (Rec: 08/22/24 14:28 [facility] [id number]) OT [id number] Comments OT Self-Feeding Comments NOt at meal time. OT ADL-Grooming Comments OT Grooming Comments Pt refused. OT ADL-Oral Care Comments Oral Care Comments Pt refused. OT ADL-Dressing General Eval Lower Body Dressing Ability Standby Assistance,Minimal Assistance Comments OT Dressing Comments Pt able to stefan/doff socks while seated on the edge of bed. Pt mostly likely need GISELA for clothing management due to decreased dynamic balance. OT ADL-Toileting Comments OT Toileting Comments Pt not having to go at this time. OT ADL-Bathing Comments OT Bathing Comments NOt performed. M5 OT- IP IADL's Start: 08/22/24 14:15 Freq: Status: Active Protocol: Document 08/22/24 14:15 [facility] (Rec: 08/22/24 14:28 [facility] [id number]) OT-Instrumental Activities of Daily Living Home Safety Awareness Home Safety Comments Pt insistent that she is able to care for herself. Medication Management Medication Management Comments assists. Money Management Money Management Comments assists. Meal Preparation Meal Preparation Comments shares duties. Investment Director Investment Director Comments shares duties. M6 OT- IP Functional Cognition Start: 08/22/24 14:15 Freq: Status: Active Protocol: Document 08/23/24 13:21 [facility] (Rec: 08/23/24 13:28 [facility] [id number]) Cognitive Factors Limiting Selfcare Function Cognitive Ability Level of Alertness Alert Patient Orientation Name,Place,Situation Attention Span Ability Capable of Focused Attention, Capable of Sustained Attention Ability to Follow Commands Able to Follow One Step Commands Memory Description Short Term Impaired Cognitive Comments Cognitive Assessment Comments Pt initially states no and then agrees to work with therapy. Pt able to follow commands. Pt is a little impulsive and needing cues to slow down and take deep breaths as her O2 drop with exertion. M7 OT- IP Mobility and Balance Start: 08/22/24 14:15 Freq: Status: Active Protocol: Document 08/23/24 13:21 [facility] (Rec: 08/23/24 13:28 [facility] [id number]) OT-Transfer Assessment Sit to and From Stand Sit to and from Stand Standby Assistance,Contact Guard Assistance Transfers Transfer Ability Standby Assistance,Contact Guard Assistance Technique Transfer Destination Bed,Chair Transfer Technique Stand Step Pivot Devices Transfer Assistive Devices Gait Belt,Front Wheeled Walker Comments Mobility Comments CGA to stand and able to walk in the room and O2 drops from 91% to high 70's and low 80's and having to put pt on 2L and increases to 95%. Pt prior to sitting down getting very woozy and dizzy as O2 readings dropping. Able to notify nursing and okayed to put2L of o2 on pt. OT- Balance Assessment Sitting Balance and Reactions Static Sitting Balance Ability Good Dynamic Sitting Balance Ability Good Standing Balance and Reactions Static Standing Balance Ability Good Dynamic Standing Balance Ability Fair M8 OT- IP Objective Assessments Start: 08/22/24 14:15 Freq: Status: Active Protocol: Document 08/22/24 14:15 [facility] (Rec: 08/22/24 14:28 [facility] [id number]) OT Gross Range of Motion Upper Extremity Range of Motion ROM Impairments decreased at end ROM, as affected by neck pain OT Strength Upper Extremity Strength Assessment Within Functional Limits OT- Coordination Assessment Upper Extremity Finger to Nose Test Within Functional Limits M9 OT- IP Assessment and Plan Start: 08/22/24 14:15 Freq: Status: Active Protocol: Document 08/23/24 13:21 [facility] (Rec: 08/23/24 13:28 [facility] [id number]) OT Summary Assessment and Plan Potential Rehabilitation Potential Good Analytic Complexity at Evaluation Moderate Summary OT Impairments Pain,Range of Motion,Balance, Functional Cognition, Functional Mobility,Grooming, Dressing,Toileting,Bathing, Toilet Transfers,Shower Transfers,Activity Tolerance Progress Towards Goals Slow Progress due to Pain,Slow Progress due to Medical Issues,Slow Progress due to Activity Tolerance Assessment Summary Pt O2 decreases on RA after minimal exertion and drops to high 70's to low 80's. Nursing notified. Continue to recommend skilled rehab for pt Goals Self-Feeding Goal Independent Grooming Goal Independent Dressing Goal Standby Assistance Toileting Goal Independent Bathing Goal Standby Assistance Toilet Transfer Goal Independent Shower Transfer Goal Independent OT-Other Goals Goals based on pt with RA. Days to Meet Goals 20 Frequency of Treatment Other frequency 5x/week Discharge Recommendations OT Discharge Recommendations SNF Rehab Transportation Needs at Discharge Private Vehicle,Wheelchair/ Cabulance
--- NOTE | 2024-08-23 14:51 | CM.DPC ---
DCP Cont. Reviewed EMR and team rounds for status updates. Per family request, submitted referral to [facility] for review for rehab at d/c. Met with dtr and discussed with her preference. Pending acceptance.
--- NOTE | 2024-08-23 16:26 | PM.PN.1 ---
Subjective Subjective Interval history: 83 F admitted with pneumonia, presumed aspiration vs post obstructive due to lung mass on CT. Abdominal ultrasound did show cirrhotic appearing liver, normal spleen size, no obvious liver lesions. Discussed with family today. Pending therapy evaluations including Speech, PT, OT today. Exam Vital Signs (past 8 hours): - 08/23/24 12:00 Temperature 97.4 F L Pulse Rate 73 Respiratory Rate 19 Blood Pressure 102/64 Pulse Oximetry 91 Oxygen Flow Rate 0 Fraction of Inspired Oxygen 28 SaO2/FiO2 Ratio 350 Oxygen Delivery Method Room Air Oxygen Flow Rate 0 Narrative Exam Narrative: General:? Patient is well developed and well nourished, in no distress at this time. Lungs:? CTA b/l no wheezing rhonchi or rales. Cardio:?RRR no m/r/g. Abdomen: S NT ND. Musculoskeletal:? Muscle strength and tone are equal within normal limits, no deformity. Extremities: No edema or joint effusions. No cyanosis or clubbing. Objective Labs 08/23/24 06:40 08/23/24 06:40 Labs: Laboratory Results - last 24 hr 08/23/24 06:40 WBC 12.3 H RBC 4.61 Hgb 13.1 Hct 40.2 MCV 87.3 MCH 28.4 MCHC 32.5 RDW 17.0 H Plt Count 119 L Neut % (Auto) 70.1 Lymph % (Auto) 15.6 L Bollinger % (Auto) 12.2 Eos % (Auto) 1.1 L Baso % (Auto) 1.0 Neut # (Auto) 8600 H Lymph # (Auto) 1900 Bollinger # (Auto) 1500 H Eos # (Auto) 100 Baso # (Auto) 100 Sodium 132 L Potassium 4.2 Chloride 105 Carbon Dioxide 24 BUN 14 Creatinine 0.75 Estimated GFR > 60 BUN/Creatinine Ratio 18.7 Glucose 104 Calcium 8.4 Magnesium 1.6 Total Bilirubin 0.4 AST 29 ALT 22 Alkaline Phosphatase 144 H Ammonia < 9 L Total Protein 6.1 L Albumin 3.0 L Globulin 3.1 Albumin/Globulin Ratio 1.0 PFSH Medical History Vaginal ulceration E. coli urinary tract infection History of kidney cancer Dysuria Chronic urinary tract infection Prurigo nodularis Urinary tract infection Essential hypertension Anxiety Urinary incontinence Hypothyroidism, acquired Hyperlipidemia Depression Surgical History S/P insertion of spinal cord stimulator History of nephrectomy S/P femoral-popliteal bypass surgery S/P cataract extraction and insertion of intraocular lens S/P hysterectomy (~1976) History of back surgery Social History household members: spouse Smoking Status: Former smoker alcohol intake: current Assessment & Plan Assessment & Plan narrative: Possible aspiration pneumonia vs post obstructive pneumonia secondary to lung mass - continue antibiotics with levaquin and clindamycin for now given multiple drug allergies and intolerances - now on room air without need for supplemental O2. - WBC improving this morning now down to 12.3. - HAND PAINTER evaluation today - PT/OT Spiculated lung mass. - Will need follow up as outpatient, has pulmonary appointment next week. - also noted to have possible cirrhosis or liver lesions on CT, though abdominal ultrasound showed cirrhotic liver without lesions. - patient now willing to have further evaluation, has outpatient pulmonology follow up next week. - long discussion with patient and family about spiculated lung mass, differentials, and above evaluation Hypothyroidism. Resume home synthroid. Anxiety/depression resume home medications. 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 No splenomegaly on abdominal ultrasound - check hepatitis serologies - outpatient evaluation with PCP or GI. - ammonia <9. - normal bili and INR on admit. Probable cognitive impairment - Will check a SLUMS with either speech therapy or OT. History of Renal Cell Carcinoma s/p L lephrectomy DVT PPx hep SQ Code: Full, surrogate is patient's daughter I have utilized all available immediate resources to obtain, update, or review the patient's current medications. Dispo: patient admitted under inpatient status. Unclear if will be able to discharge home or possible SNF, will have PT/OT evaluations. Possibly ready in 1-3 more days. Additional history obtained via discussions with the overnight provider and patient's daughter. These discussions contributed to the creation of the above assessment and plan. I have reviewed patient's presenting documentation, labs, and imaging personally. Time-Based Coding :: [TOTAL MINUTES] spent with patient and on the chart (including review of chart, obtaining history, exam, reviewing outside data, placing orders, documenting exam and treatment plan, and counseling patient) on [DATE].
[2024-08-23 20:00] VITALS: BP 118/63; PULSE 85; RESP 18; TEMP 37.3; O2SAT 95
[2024-08-24] VITALS (7 sets, daily range): BP systolic 115–144; BP diastolic 60–96; PULSE 76–89; RESP 16–24; TEMP 36.3–37.2; O2SAT 91–94
[2024-08-24] MEDS: CLINDAMYCIN 600 MG/50 ML PIGGYBACK 50 MG IV ×5 (00:34→23:14)
[2024-08-24] MEDS: levoFLOXacin 500 MG/100 ML PIGGYBACK 100 MG IV (01:57)
[2024-08-24] MEDS: CARISOPRODOL 350 MG 350 EACH PO ×3 (01:59→21:08)
[2024-08-24] MEDS: HYDROMORPHONE 2 MG TABLET PO ×2 (02:40→06:43)
[2024-08-24] MEDS: LEVOTHYROXINE 100 MCG TABLET PO (06:30)
[2024-08-24 07:02] LABS: Add Manual Diff / Slide Review NO; Basophils Absolute Auto 100 /uL (0-100); Basophils Percent Auto 0.9 % (0-2); Eosinophils Absolute Auto 100 /uL (0-450); Eosinophils Percent Auto 0.9 % (2-4); Hematocrit 39.1 % (36-46); Hemoglobin 12.9 g/dL (12.0-16.0); Lymphocytes Absolute Auto 2000 /uL (1100-4500); Lymphocytes Percent Auto 15.7 % (25-40); Mean Corpuscular HGB Conc 33.1 % (30-36); Mean Corpuscular Hemoglobin 28.9 PG (26-34); Mean Corpuscular Volume 87.4 fL (80-100); Monocytes Absolute Auto 1500 /uL (0-900); Monocytes Percent Auto 12.1 % (3-14); Neutrophils Absolute Auto 9000 /uL (1500-7000); Neutrophils Percent Auto 70.4 % (50-75); Platelet Count 119 X10^3/uL (150-400); Red Blood Cell Count 4.47 X10^6/uL (4.0-5.2); Red Cell Distribution Width 17.3 % (11.6-14.8); White Blood Cell Count 12.7 X10^3/uL (4.5-11.0)
[2024-08-24 07:17] LABS: Alanine Aminotransferase 21 IU/L (<35); Albumin 3.1 g/dL (3.5-5.0); Alkaline Phosphatase 140 U/L (38-126); Aspartate Aminotransferase 34 IU/L (14-36); BUN Creatinine Ratio 17.2 (6-22); Bilirubin Total 0.5 mg/dL (0.2-1.3); Blood Urea Nitrogen 15 mg/dL (7-17); Calcium 8.7 mg/dL (8.4-10.2); Carbon Dioxide 25 mmol/L (22-32); Chloride 104 mmol/L (98-107); Estimated Glomerular Filt Rate > 60 mL/min (>60); Glucose 97 mg/dL (80-110); HEMOLYSIS < 15 (0-50); Magnesium 1.6 mg/dL (1.6-2.3); Potassium 4.2 mmol/L (3.4-5.1); Sodium 132 mmol/L (137-145); Total Protein 6.1 g/dL (6.3-8.2)
[2024-08-24] MEDS: VENLAFAXINE ER 75 MG CAP 150 MG PO (08:13)
[2024-08-24] MEDS: HEPARIN 5,000 UNIT/ML VIAL 5000 UNIT SUBCUT ×2 (08:14→21:08)
[2024-08-24] MEDS: ASPIRIN EC 81 MG TABLET PO (08:14)
[2024-08-24] MEDS: METOPROLOL ER 50 MG TABLET PO ×2 (08:14→21:06)
[2024-08-24] MEDS: ATORVASTATIN 20 MG TABLET PO (08:14)
[2024-08-24] MEDS: GABAPENTIN 300 MG CAPSULE PO (09:37)
[2024-08-24] MEDS: HYDROMORPHONE 0.5 MG INJ IV (09:38)
[2024-08-24] MEDS: LIDOCAINE 5% PATCH 1 EACH TOP (09:38)
--- NOTE | 2024-08-24 11:05 | PT.IPTN ---
Current Diagnoses Pneumonitis due to inhalation of food and vomit (08/22/24) Physical Therapy Treatment Note M2 PT-IP Current Condition Start: 08/22/24 10:24 Freq: NEEDED Status: Active Protocol: Document 08/22/24 10:50 AB (Rec: 08/22/24 12:17 AB [id number]) Physical Therapy Current Condition Current Condition Evaluation Date 08/22/24 Treatment Diagnosis PNA; difficulty in walking Onset Date 08/22/24 M3 PT-IP Subjective Start: 08/22/24 10:24 Freq: NEEDED Status: Active Protocol: Document 08/24/24 11:30 TS (Rec: 08/24/24 11:43 TS [id number]) Subjective Physical Therapy Visit Type Type Treatment Note Visit Start Time 11:05 Visit Stop Time 11:25 Number of ONION FARMER Visits 3 Physical Therapy Visit Comments Patient Comments Pt found resting in bed, she is agreeable to PT. M4 PT-IP Mobility and Gait Start: 08/22/24 10:24 Freq: NEEDED Status: Active Protocol: Document 08/24/24 11:30 TS (Rec: 08/24/24 11:43 TS [id number]) PT-Bed Mobility Assessment Supine to Sit Supine to Sit Minimal Assistance,1 Person Assistance Scooting Scooting to Edge of Bed Contact Guard Assistance PT-Transfer Assessment Sit to and From Stand Sit to and from Stand Contact Guard Assistance Equipment Transfer Assistive Device Gait Belt,Front Wheeled Walker Transfers Transfer Destination Chair Transfer Technique ambulated Comments Mobility Comments Spo2 88% on RA. Supine to sit HOB elevated 45D Prashant with DIRECTOR REPORT for uprighting trunk. Pt requires extra time to complete task of scooting to EOB. STS with FWW CGA. Pt ambulates to chair, reports dizziness and requires to sit in the chair. Pt was left in the chair, all needs met. Gait Assessment Gait Gait Assistance Required: Standby Assistance,Contact Guard Assist Distance (Feet) 5 Able to Maintain Weight Bearing Status Yes During Gait Assistive Devices Assistive Device Gait Belt,Front Wheeled Walker Orthotic/Prosthetic Devices or Brace: No Gait Deviations General Gait Pattern Antalgic,Decreased Stride Length,Decreased Feet Clearance,Step-to Gait Factors Limiting Gait Function Factors Limiting Gait Function Decreased Activity Tolerance, Decreased Strength,Difficulty Following Directions,Pain,Poor Balance,Poor Safety Awareness PT-Balance Assessment Sitting Balance and Reactions Static Sitting Balance Ability Good Dynamic Sitting Balance Ability Good Standing Balance and Reactions Static Standing Balance Ability Good Dynamic Standing Balance Ability Fair Device Used FWW M5 PT-IP Objective Assessments Start: 08/22/24 10:24 Freq: NEEDED Status: Active Protocol: Document 08/22/24 10:50 AB (Rec: 08/22/24 12:17 AB [id number]) Orientation Orientation/Cognition Level of Alertness Alert Orientation Name,Place,Situation Language Function Ability Hard of Hearing Safety Awareness Decreased Safety Awareness Memory Description Short Term Impaired Gross Range of Motion Lower Extremity ROM Assessment Within Functional Limits Strength Lower Extremity Strength Assessment Within Functional Limits Muscle Tone Muscle Tone WNL Yes M6 PT-IP Treatment Start: 08/22/24 10:24 Freq: NEEDED Status: Active Protocol: Document 08/24/24 11:30 TS (Rec: 08/24/24 11:43 TS [id number]) Physical Therapy Treatment Education Education Provided Safety M7 PT-IP Assessment and Plan Start: 08/22/24 10:24 Freq: NEEDED Status: Active Protocol: Document 08/24/24 11:30 TS (Rec: 08/24/24 11:43 TS [id number]) PT Summary Assessment and Plan Potential Rehabilitation Potential Fair Summary Impairments Pain,Strength,Balance, Coordination,Sensation,Tone, Cognition,Bed Mobility, Transfers,Gait,Activity Tolerance Progress Towards Goals Slow Progress due to Activity Tolerance Assessment Summary Nikki is making slow progress with her mobility. Spo2 remains in high 80's during treatment. She has poor tolerance to gait this session , she had some dizziness and ambulated ~5' to the chair. PT will continue to recommend SNF at this time to improve activity tolerance and functional mobility. Goals Bed Mobility Goal Independent Transfer Goal Independent,Front Wheeled Walker Gait Goal Independent,Front Wheel Walker Gait Distance 150 Other Goals improve transfers and ambulation using hurrycane/ without AD 200 ft SBA up/down 5 steps L rail ascending SBA Days to Meet Goals 10 Frequency of Treatment Frequency Of Treatment Once a Day Treatment Plan Physical Therapy Treatment Plan Bed Mobility Training,Transfer Training,Gait Training, Therapeutic Exercise,Balance Retraining,Discharge Planning, Hot or Cold Pack,Neuromuscular Re-ed,Coordination Retraining Precautions Other Precautions falls Recommendations To Nursing Amount of Assist Needed 1 Person Assist Discharge Recommendations PT Discharge Recommendations SNF Rehab Transportation Needs at Discharge Wheelchair/Cabulance
--- NOTE | 2024-08-24 13:05 | PM.PN.1 ---
Subjective Subjective Interval history: 83 F admitted with pneumonia, presumed aspiration vs post obstructive due to lung mass on CT. Abdominal ultrasound did show cirrhotic appearing liver, normal spleen size, no obvious liver lesions. Discussed with family today. Her neck pain is a bit better with lidocaine patch. Family have noticed her to be a bit more sleepy today would like to stop gabapentin added. Patient mainly complains of left wrist pain. Exam Vital Signs (past 8 hours): - 08/24/24 06:00 08/24/24 08:00 08/24/24 08:14 Temperature 98.6 F 98.9 F Pulse Rate 76 77 Respiratory Rate 16 16 Blood Pressure 115/75 120/66 115/75 Pulse Oximetry 93 94 Oxygen Flow Rate 0 0 Fraction of Inspired Oxygen 28 SaO2/FiO2 Ratio 350 Oxygen Delivery Method Room Air Oxygen Flow Rate 0 Narrative Exam Narrative: General:? Patient is well developed and well nourished, in no distress at this time. Lungs:? CTA b/l no wheezing rhonchi or rales. Cardio:?RRR no m/r/g. Abdomen: S NT ND. Musculoskeletal:? 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 No joint tenderness. + tinel testing on L wrist. Extremities: No edema or joint effusions. No cyanosis or clubbing. Objective Labs 08/24/24 06:10 08/24/24 06:10 Labs: Laboratory Results - last 24 hr 08/24/24 06:10 WBC 12.7 H RBC 4.47 Hgb 12.9 Hct 39.1 MCV 87.4 MCH 28.9 MCHC 33.1 RDW 17.3 H Plt Count 119 L Neut % (Auto) 70.4 Lymph % (Auto) 15.7 L Whitman % (Auto) 12.1 Eos % (Auto) 0.9 L Baso % (Auto) 0.9 Neut # (Auto) 9000 H Lymph # (Auto) 2000 Whitman # (Auto) 1500 H Eos # (Auto) 100 Baso # (Auto) 100 Sodium 132 L Potassium 4.2 Chloride 104 Carbon Dioxide 25 BUN 15 Creatinine 0.87 Estimated GFR > 60 BUN/Creatinine Ratio 17.2 Glucose 97 Calcium 8.7 Magnesium 1.6 Total Bilirubin 0.5 AST 34 ALT 21 Alkaline Phosphatase 140 H Total Protein 6.1 L Albumin 3.1 L Globulin 3.0 Albumin/Globulin Ratio 1.0 PFSH Medical History Vaginal ulceration E. coli urinary tract infection History of kidney cancer Dysuria Chronic urinary tract infection Prurigo nodularis Urinary tract infection Essential hypertension Anxiety Urinary incontinence Hypothyroidism, acquired Hyperlipidemia Depression Surgical History S/P insertion of spinal cord stimulator History of nephrectomy S/P femoral-popliteal bypass surgery S/P cataract extraction and insertion of intraocular lens S/P hysterectomy (~1976) History of back surgery Social History household members: spouse Smoking Status: Former smoker alcohol intake: current Assessment & Plan Assessment & Plan narrative: Possible aspiration pneumonia vs post obstructive pneumonia secondary to lung mass - continue antibiotics with levaquin and clindamycin for now given multiple drug allergies and intolerances, family is concerned with intolerance otherwise of oral antibiotics. We discussed treatment with oral vs IV antibiotics. Given plan for SNF, family elected to continue with IV therapy, will complete 7 day course of the above antibiotics. Midline ordered today. Last day of treatment will be 08/28/2024. - now on room air without need for supplemental O2. 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 - PT/OT recommending SNF Spiculated lung mass. - Will need follow up as outpatient, has pulmonary appointment next week. - also noted to have possible cirrhosis or liver lesions on CT, though abdominal ultrasound showed cirrhotic liver without lesions. - patient now willing to have further evaluation, has outpatient pulmonology follow up next week. She is still very resistant to any biopsy, though family would like to persue further evaluation. - long discussion shortly after admission performed with patient and family about spiculated lung mass, differentials, and above evaluation Hypothyroidism. Resume home synthroid. Anxiety/depression resume home medications. 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 No splenomegaly on abdominal ultrasound - check hepatitis serologies - outpatient evaluation with PCP or GI. - ammonia <9. - normal bili and INR on admit. Probable cognitive impairment - Will check a SLUMS with either speech therapy or OT. History of Renal Cell Carcinoma s/p L lephrectomy L wrist carpal tunnel, musculoskeletal upper thoracic and low neck pain. - ordered L wrist support brace, patient does not take NSAIDs with her solitary kidney. Continue current pain medications. - lidocaine patch ordered which helped a bit today. DVT PPx hep SQ Code: Full, surrogate is patient's daughter I have utilized all available immediate resources to obtain, update, or review the patient's current medications. Dispo: patient admitted under inpatient status. Plan for SNF, likely 1-2 days. Additional history obtained via discussions with the overnight provider and patient's daughter. These discussions contributed to the creation of the above assessment and plan. I have reviewed patient's presenting documentation, labs, and imaging personally. Time-Based Coding :: [TOTAL MINUTES] spent with patient and on the chart (including review of chart, obtaining history, exam, reviewing outside data, placing orders, documenting exam and treatment plan, and counseling patient) on [DATE].
--- NOTE | 2024-08-24 15:03 | OT.IP.TRT ---
Current Diagnoses Pneumonitis due to inhalation of food and vomit (08/22/24) Occupational Therapy Treatment Note M2 OT-IP Current Condition Start: 08/22/24 14:15 Freq: Status: Active Protocol: Document 08/22/24 14:15 [facility] (Rec: 08/22/24 14:28 [facility] [id number]) Occupational Therapy Current Condition Current Condition Evaluation Date 08/22/24 Treatment Diagnosis PNA Diagnosis Onset Date 08/22/24 M3 OT- IP Subjective and Pain Start: 08/22/24 14:15 Freq: Status: Active Protocol: Document 08/24/24 15:29 [facility] (Rec: 08/24/24 15:36 [facility] [id number]) OT- Subjective Occupational Therapy Visit Type Type Treatment Note Visit Start Time 14:45 Visit Stop Time 15:03 Occupational Therapy Visit Comments Patient Comments Pt not wanting to get up but agreed to do the SLUMS. Patient/Caregiver Goals TO go home. OT Pain Assessment Pain When Pain Assessed At Rest Pain Present Pain Present Pain Reported Location Left Hand Pain Behaviors Facial Grimacing M6 OT- IP Functional Cognition Start: 08/22/24 14:15 Freq: Status: Active Protocol: Document 08/24/24 15:29 [facility] (Rec: 08/24/24 15:36 [facility] [id number]) Cognitive Factors Limiting Selfcare Function Cognitive Ability Level of Alertness Alert Patient Orientation Name,Age,Birthday,Month,Year, Place,Situation Attention Span Ability Capable of Focused Attention, Capable of Sustained Attention Ability to Follow Commands Able to Follow One Step Commands Memory Description Short Term Impaired,Working Impaired Cognitive Tests SLUMS Pt scored 17/30 on the SLUMS which implies dementia. Pt feels that she is not at her baseline for cognition at this time. Pt not able to subtract 100-23, able to name 13 animals in one minute and needing encouragement and cues to continue. Pt able to recall 2/5 objects after time passed. Not able to draw the numbers on the clock accurately or the hands of the clock after time given, and able to answer 3/4 questions after paragraph read. Cognitive Comments Cognitive Assessment Comments Pt states good understanding how to stefan/doff the wrist brace and to use as needed and okay to be off for hygiene needs. OT- Balance Assessment Sitting Balance and Reactions Static Sitting Balance Ability Good Dynamic Sitting Balance Ability Good Standing Balance and Reactions Static Standing Balance Ability Good Dynamic Standing Balance Ability Fair M8 OT- IP Objective Assessments Start: 08/22/24 14:15 Freq: Status: Active Protocol: Document 08/22/24 14:15 [facility] (Rec: 08/22/24 14:28 [facility] [id number]) OT Gross Range of Motion Upper Extremity Range of Motion ROM Impairments decreased at end ROM, as affected by neck pain OT Strength Upper Extremity Strength Assessment Within Functional Limits OT- Coordination Assessment Upper Extremity Finger to Nose Test Within Functional Limits M9 OT- IP Assessment and Plan Start: 08/22/24 14:15 Freq: Status: Active Protocol: Document 08/24/24 15:29 [facility] (Rec: 08/24/24 15:36 [facility] [id number]) OT Summary Assessment and Plan Potential Rehabilitation Potential Good Analytic Complexity at Evaluation Moderate Summary OT Impairments Pain,Range of Motion,Balance, Functional Cognition, Functional Mobility,Grooming, Dressing,Toileting,Bathing, Toilet Transfers,Shower Transfers,Activity Tolerance Progress Towards Goals Slow Progress due to Pain,Slow Progress due to Medical Issues,Slow Progress due to Activity Tolerance Assessment Summary Able to issue left wrist brace for pt and complete the SLUMS which implies dementia, however pt feels still not at her baseline.Pt is still recovering from sepsis,PNA, and acute enceph, Pt will benefit from skilled rehab prior to going home. Goals Self-Feeding Goal Independent Grooming Goal Independent Dressing Goal Standby Assistance Toileting Goal Independent Bathing Goal Standby Assistance Toilet Transfer Goal Independent Shower Transfer Goal Independent Days to Meet Goals 20 Frequency of Treatment Other frequency 5x/week Discharge Recommendations OT Discharge Recommendations SNF Rehab Transportation Needs at Discharge Private Vehicle,Wheelchair/ Cabulance
[2024-08-24 15:37] LABS: Hep C Virus Ab w/Reflex Quant NEGATIVE s/c (NEGATIVE); Hepatitis B Surface Antigen NEGATIVE s/c (NEGATIVE)
[2024-08-25] MEDS: levoFLOXacin 500 MG/100 ML PIGGYBACK 100 MG IV (00:53)
[2024-08-25] MEDS: HYDROMORPHONE 2 MG TABLET PO ×4 (02:54→21:44)
[2024-08-25 04:00] VITALS: BP 128/65; PULSE 80; RESP 20; TEMP 37.1; O2SAT 93
[2024-08-25] MEDS: CLINDAMYCIN 600 MG/50 ML PIGGYBACK 50 MG IV ×4 (05:01→23:35)
[2024-08-25] MEDS: LEVOTHYROXINE 100 MCG TABLET PO (05:14)
[2024-08-25 05:20] LABS: Add Manual Diff / Slide Review NO; Basophils Absolute Auto 200 /uL (0-100); Eosinophils Absolute Auto 100 /uL (0-450); Eosinophils Percent Auto 0.6 % (2-4); Hematocrit 39.3 % (36-46); Hemoglobin 13.1 g/dL (12.0-16.0); Lymphocytes Absolute Auto 1600 /uL (1100-4500); Lymphocytes Percent Auto 9.7 % (25-40); Mean Corpuscular HGB Conc 33.3 % (30-36); Mean Corpuscular Volume 87.3 fL (80-100); Monocytes Absolute Auto 2000 /uL (0-900); Monocytes Percent Auto 12.4 % (3-14); Neutrophils Absolute Auto 12300 /uL (1500-7000); Neutrophils Percent Auto 76.3 % (50-75); Platelet Count 95 X10^3/uL (150-400); Red Blood Cell Count 4.51 X10^6/uL (4.0-5.2); White Blood Cell Count 16.2 X10^3/uL (4.5-11.0)
[2024-08-25 05:39] LABS: Alanine Aminotransferase 24 IU/L (<35); Albumin 3.2 g/dL (3.5-5.0); Alkaline Phosphatase 159 U/L (38-126); Aspartate Aminotransferase 41 IU/L (14-36); BUN Creatinine Ratio 23.4 (6-22); Bilirubin Total 0.6 mg/dL (0.2-1.3); Blood Urea Nitrogen 18 mg/dL (7-17); Calcium 8.8 mg/dL (8.4-10.2); Carbon Dioxide 23 mmol/L (22-32); Chloride 104 mmol/L (98-107); Estimated Glomerular Filt Rate > 60 mL/min (>60); Globulin 3.1 g/dL (1.7-4.1); Glucose 113 mg/dL (80-110); HEMOLYSIS < 15 (0-50); Magnesium 1.6 mg/dL (1.6-2.3); Sodium 131 mmol/L (137-145); Total Protein 6.3 g/dL (6.3-8.2)
[2024-08-25 07:39] LABS: Hepatitis B Surf Ab Qualitativ Reactive (.)
[2024-08-25 08:00] VITALS: BP 128/63; PULSE 83; RESP 20; TEMP 36.9; O2SAT 91
[2024-08-25] MEDS: CARISOPRODOL 350 MG 350 EACH PO (09:04)
[2024-08-25] MEDS: ASPIRIN EC 81 MG TABLET PO (09:04)
[2024-08-25] MEDS: VENLAFAXINE ER 75 MG CAP 150 MG PO (09:04)
[2024-08-25] MEDS: METOPROLOL ER 50 MG TABLET PO ×2 (09:04→21:09)
[2024-08-25] MEDS: HEPARIN 5,000 UNIT/ML VIAL 5000 UNIT SUBCUT ×2 (09:05→21:09)
[2024-08-25] MEDS: LIDOCAINE 5% PATCH 1 EACH TOP (09:05)
[2024-08-25] MEDS: ATORVASTATIN 20 MG TABLET PO (09:05)
[2024-08-25] MEDS: ACETAMINOPHEN 325 MG TABLET 650 MG PO (11:37)
--- NOTE | 2024-08-25 12:19 | P.PN_ITS ---
Subjective Subjective Interval history: Summary: 83 F admitted with pneumonia, presumed aspiration vs post obstructive due to lung mass on CT. Abdominal ultrasound did show cirrhotic appearing liver, normal spleen size, no obvious liver lesions. Discussed with family today. Her neck pain is a bit better with lidocaine patch. Family have noticed her to be a bit more sleepy today would like to stop gabapentin added. Patient mainly complains of left wrist pain. S: No dyspnea, some right neck and head pain. No cough or chest pain. Exam Vital Signs (past 8 hours): - 08/25/24 08:00 Temperature 98.4 F Pulse Rate 83 Respiratory Rate 20 Blood Pressure 128/63 Pulse Oximetry 91 Oxygen Flow Rate 0 Fraction of Inspired Oxygen 28 SaO2/FiO2 Ratio 350 Oxygen Delivery Method Room Air Oxygen Flow Rate 0 Narrative Exam Narrative: NAD, alert and oriented. Fluent speech. She was alert and very appropriate in her communication. Lungs are clear, normal rate and effort. Heart is regular, no murmur gallop or rub. Abdomen is soft, non distended. Extremities are free of edema. She was a left wrist splint on. Objective Imaging Multiple studies:: Radiologist's impression: Abdomen ultrasound: Limited exam secondary to body habitus and overlying bowel gas. Cirrhotic liver morphology. Cholelithiasis without sonographic evidence of acute cholecystitis. Status post left nephrectomy. No right nephrolithiasis or hydronephrosis. Chest x-ray: Mild diffuse interstitial prominence which is nonspecific. Findings may represent an infectious or inflammatory process although pulmonary edema may have a similar appearance. No focal consolidations. Abdomen CT: Minor alveolar opacity at the right lung base, possibly aspiration or infection. Cirrhotic liver morphology with several hypodensities not well characterized on this exam. Prior left nephrectomy without evidence of recurrent disease. Mild splenomegaly, new since the prior exam. Correlate with point tenderness. Chest x-ray: No acute cardiopulmonary disease. Interval improvement in previous left upper lobe pneumonia. Recent chest CT, 08/11: 1. No CT evidence of pulmonary embolism to the distal interlobar level. 2. Left upper lobe 2.6 cm spiculated mass, which may represent a primary pulmonary malignancy. EBUS would be recommended for sampling. 3. Cirrhotic morphology of the liver with indeterminate hypodense lesions, although these have been present on prior exams based on available reports. Labs 08/25/24 05:05 08/25/24 05:05 Labs: Laboratory Results - last 24 hr 08/24/24 08/25/24 06:10 05:05 WBC 16.2 H RBC 4.51 Hgb 13.1 Hct 39.3 MCV 87.3 MCH 29.0 MCHC 33.3 RDW 17.0 H Plt Count 95 L Neut % (Auto) 76.3 H Lymph % (Auto) 9.7 L [place] % (Auto) 12.4 Eos % (Auto) 0.6 L Baso % (Auto) 1.0 Neut # (Auto) 60981 H Lymph # (Auto) 1600 [place] # (Auto) 2000 H Eos # (Auto) 100 Baso # (Auto) 200 H Sodium 131 L Potassium 4.0 Chloride 104 Carbon Dioxide 23 BUN 18 H Creatinine 0.77 Estimated GFR > 60 BUN/Creatinine Ratio 23.4 H Glucose 113 H Calcium 8.8 Magnesium 1.6 Total Bilirubin 0.6 AST 41 H ALT 24 Alkaline Phosphatase 159 H Total Protein 6.3 Albumin 3.2 L Globulin 3.1 Albumin/Globulin Ratio 1.0 Hep Bs Antigen Negative Hep Bs Antibody Reactive Hepatitis C Antibody Negative [facility] Medical History Vaginal ulceration E. coli urinary tract infection History of kidney cancer Dysuria Chronic urinary tract infection Prurigo nodularis Urinary tract infection Essential hypertension Anxiety Urinary incontinence Hypothyroidism, acquired Hyperlipidemia Depression Surgical History S/P insertion of spinal cord stimulator History of nephrectomy S/P femoral-popliteal bypass surgery S/P cataract extraction and insertion of intraocular lens S/P hysterectomy (~1976) History of back surgery Social History household members: spouse Smoking Status: Former smoker alcohol intake: current Assessment & Plan Assessment & Plan narrative: 1. Aspiration pneumonia vs post obstructive pneumonia secondary to lung mass, present on admission and active. - continue antibiotics with levaquin and clindamycin for now given multiple drug allergies and intolerances, family is concerned with intolerance otherwise of oral antibiotics. We discussed treatment with oral vs IV antibiotics. Given plan for SNF, family elected to continue with IV therapy, will complete 7 day course of the above antibiotics. Midline ordered today. Last day of treatment will be 08/28/2024. - now on room air without need for supplemental O2. 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 - PT/OT recommending SNF Spiculated lung mass. Right upper lobe, present on admission and active. - Will need follow up as outpatient, has pulmonary appointment next week. - also noted to have possible cirrhosis or liver lesions on CT, though abdominal ultrasound showed cirrhotic liver without lesions. - patient now willing to have further evaluation, has outpatient pulmonology follow up next week. She is still very resistant to any biopsy, though family would like to persue further evaluation. - long discussion shortly after admission performed with patient and family about spiculated lung mass, differentials, and above evaluation Hypothyroidism. Stable. Resume home synthroid. Anxiety/depression. Stable. Resume home medications. Cirrhotic appearing liver, present on admission and active. - likely EtOH related. No splenomegaly on abdominal ultrasound - check hepatitis serologies - outpatient evaluation with PCP or GI. - ammonia <9. - normal bili and INR on admit. Probable cognitive impairment, present on admission and active. - Will check a SLUMS with either speech therapy or OT. History of Renal Cell Carcinoma s/p L lephrectomy, stable. L wrist carpal tunnel, musculoskeletal upper thoracic and low neck pain. - ordered L wrist support brace, patient does not take NSAIDs with her solitary kidney. Continue current pain medications. - lidocaine patch ordered which helped a bit today. PLAN: -continue IV antibiotics through Wednesday morning. -anticipate discharge to [facility] on Wednesday. [facility] facility. -follow up with Pulmonary (Dr. Pulido) on August 30, this is already scheduled. FILEMON: 08/26. [facility] SNF. DVT PPx hep SQ Code: Full, surrogate is patient's daughter Time-Based Coding :: [TOTAL MINUTES] spent with patient and on the chart (including review of chart, obtaining history, exam, reviewing outside data, placing orders, documenting exam and treatment plan, and counseling patient) on [DATE].
--- NOTE | 2024-08-25 12:32 | PC.NURSE ---
Patient complained of neck discomfort this morning, put patients lidocaine patch to the back of her neck and gave her Soma around 0900. She was doing well until about 1130. Family just came in a bit prior to this. Patients daughter approached this RN for an update on patient and asked when she last received pain medication. This RN explained that she had soma at 0900 and that I did not feel comfortable giving the dilaudid to early with the Soma, as patient is already a bit confused. Both medications are prn . Patient just given tylenol and Dilaudid around 1200 and she is now sitting up in the chair. Her iv antibiotic is infusing and she is drinking her smoothie for lunch. Daughter does state that patient can take the soma and dilaudid together. Family in room visiting now.
--- NOTE | 2024-08-25 14:40 | PT.IPTN ---
Current Diagnoses Pneumonitis due to inhalation of food and vomit (08/22/24) Physical Therapy Treatment Note M2 PT-IP Current Condition Start: 08/22/24 10:24 Freq: NEEDED Status: Active Protocol: Document 08/22/24 10:50 AB (Rec: 08/22/24 12:17 AB [id number]) Physical Therapy Current Condition Current Condition Evaluation Date 08/22/24 Treatment Diagnosis PNA; difficulty in walking Onset Date 08/22/24 M3 PT-IP Subjective Start: 08/22/24 10:24 Freq: NEEDED Status: Active Protocol: Document 08/25/24 14:40 AB (Rec: 08/25/24 15:46 AB [id number]) Subjective Physical Therapy Visit Type Type Treatment Note Visit Start Time 14:40 Visit Stop Time 15:05 Number of PASTRY WRAPPER Visits 0 Physical Therapy Visit Comments Patient Comments agreeable to do PT Therapy Pain Assessment Pain When Pain Assessed At Rest Pain Present Pain Present Pain Reported Location Neck Scale Used pain scale not stated Pain Management Techniques Distraction,Modification of Treatment,Re-positioning, Timing of Activity with Medications M4 PT-IP Mobility and Gait Start: 08/22/24 10:24 Freq: NEEDED Status: Active Protocol: Document 08/25/24 14:40 AB (Rec: 08/25/24 15:46 AB [id number]) PT-Bed Mobility Assessment Sit to Supine Sit to Supine Maximum Assistance,1 Person Assistance PT-Transfer Assessment Sit to and From Stand Sit to and from Stand Minimal Assistance,1 Person Assistance,Use of Upper Extremities Equipment Transfer Assistive Device Gait Belt,Front Wheeled Walker Orthotic/Prosthetic Devices or Brace: No Transfers Transfer Destination Bed Transfer Technique ambulated Transfer Ability Level of Assist Minimal Assistance,1 Person Assistance Comments Mobility Comments pt sitting on the chair and requested to go back to bed but agreed to walk first. completed sit to stand from the chair min A and ambulated in room using FWW min A ~ 30 ft. pt sat on EOB. pt stated that that is all she can do. completed sit to supine max A and max cues. positioned pt in bed. call light and table placed within reach. Gait Assessment Gait Gait Assistance Required: Minimum Assistance Distance (Feet) 30 Able to Maintain Weight Bearing Status Yes During Gait Assistive Devices Assistive Device Gait Belt,Front Wheeled Walker Orthotic/Prosthetic Devices or Brace: No Gait Deviations General Gait Pattern Antalgic,Decreased Stride Length,Decreased Feet Clearance,Step-to Gait Factors Limiting Gait Function Factors Limiting Gait Function Decreased Activity Tolerance, Decreased Strength,Difficulty Following Directions,Limited Range of Motion,Pain,Poor Balance,Poor Safety Awareness M5 PT-IP Objective Assessments Start: 08/22/24 10:24 Freq: NEEDED Status: Active Protocol: Document 08/22/24 10:50 AB (Rec: 08/22/24 12:17 AB [id number]) Orientation Orientation/Cognition Level of Alertness Alert Orientation Name,Place,Situation Language Function Ability Hard of Hearing Safety Awareness Decreased Safety Awareness Memory Description Short Term Impaired Gross Range of Motion Lower Extremity ROM Assessment Within Functional Limits Strength Lower Extremity Strength Assessment Within Functional Limits Muscle Tone Muscle Tone WNL Yes M6 PT-IP Treatment Start: 08/22/24 10:24 Freq: NEEDED Status: Active Protocol: Document 08/25/24 14:40 AB (Rec: 08/25/24 15:46 AB [id number]) Physical Therapy Treatment Education Education Provided Safety M7 PT-IP Assessment and Plan Start: 08/22/24 10:24 Freq: NEEDED Status: Active Protocol: Document 08/25/24 14:40 AB (Rec: 08/25/24 15:46 AB [id number]) PT Summary Assessment and Plan Potential Rehabilitation Potential Fair Summary Impairments Pain,ROM,Strength,Balance, Coordination,Sensation,Tone, Cognition,Bed Mobility, Transfers,Gait,Activity Tolerance Progress Towards Goals Slow Progress due to Pain,Slow Progress due to Activity Tolerance Assessment Summary pt requiring max A for bed mobility and min A for transfers and ambulation using FWW. pt will require 24/7 assist and will benefit from SNF rehab to improve overall strength and function. Goals Bed Mobility Goal Independent Transfer Goal Independent,Front Wheeled Walker Gait Goal Independent,Front Wheel Walker Gait Distance 150 Other Goals improve transfers and ambulation using hurrycane/ without AD 200 ft SBA up/down 5 steps L rail ascending SBA Days to Meet Goals 10 Frequency of Treatment Frequency Of Treatment Once a Day Treatment Plan Physical Therapy Treatment Plan Bed Mobility Training,Transfer Training,Gait Training, Therapeutic Exercise,Balance Retraining,Discharge Planning, Hot or Cold Pack,Neuromuscular Re-ed,Coordination Retraining Precautions Other Precautions falls Recommendations To Nursing Amount of Assist Needed 1 Person Assist Discharge Recommendations PT Discharge Recommendations SNF Rehab Transportation Needs at Discharge Wheelchair/Cabulance
--- NOTE | 2024-08-25 16:57 | CM.DPC ---
DCP Continued: Reviewed EMR and team rounds for pt?s medical status. Per hospitalist, pt cleared to discharge to SNF when accepted. DCP spoke with [facility], confirmed that pt can be accepted if pt and family in agreement that while pt is admitted for rehab, all out of county appointments and/or cancer interventions (chemo, radiation, infusions, etc) cannot be completed. [facility] stated they are aware of Pulmonology appt on 08/30. DCP confirmed with hospitalist that there are no cancer interventions scheduled at this time apart from pulmonary appt on 08/30 with pulmonology. DCP entered room, present are pt's daughter and son-in-law. Per daughter, they are hopeful pt can discharge to [facility] and would like more clarification of pulmonary plan of care. DCP utilized reflective listening and validated their concerns, identified that daughter seemed overwhelmed with navigating plan of care. DCP reviewed and answered all questions regarding SNF admission and [facility] care planning with family. DCP reviewed above information from [facility] admissions with family, pt family agreeable with dc to SNF on Wednesday, 08/26 if cleared. Pt family verbalized understanding that there are no cancer treatments scheduled at this time and none to be completed while pt is admitted at SNF Rehab. DCP discussed referral to [facility] RN party plan sales consultant, pt family appreciative; provided party plan sales consultant contact information. DCP called Keke Verdin, [facility] party plan sales consultant and provided referral. PASRR initiated, need hospitalist signature. Plan: Anticipating dc to [facility] on 08/26 at 1:30pm. CM Team will continue to follow for coordination of discharge plans. MINERVA Bundy
[2024-08-25 19:00] VITALS: BP 129/66; PULSE 79; RESP 20; TEMP 37.1; O2SAT 90
[2024-08-25 21:09] VITALS: BP 129/66; PULSE 77
[2024-08-25] MEDS: SODIUM CHLORIDE 0.9% FLUSH 10 ML IV ×2 (21:11→23:27)
[2024-08-25 21:41] VITALS: BP 128/63; PULSE 78
[2024-08-26] MEDS: levoFLOXacin 500 MG/100 ML PIGGYBACK 100 MG IV (00:40)
[2024-08-26] MEDS: HYDROMORPHONE 2 MG TABLET PO ×3 (01:17→11:24)
[2024-08-26] MEDS: CARISOPRODOL 350 MG 350 EACH PO ×2 (02:50→13:49)
[2024-08-26 03:00] VITALS: BP 104/60; PULSE 74; RESP 18; TEMP 36.7; O2SAT 92
[2024-08-26] MEDS: LEVOTHYROXINE 100 MCG TABLET PO (05:18)
[2024-08-26] MEDS: SODIUM CHLORIDE 0.9% FLUSH 10 ML IV ×2 (05:25→09:43)
[2024-08-26] MEDS: CLINDAMYCIN 600 MG/50 ML PIGGYBACK 50 MG IV ×2 (05:28→12:17)
[2024-08-26 08:00] VITALS: BP 116/60; PULSE 77; RESP 20; TEMP 37.3; O2SAT 94
--- NOTE | 2024-08-26 08:11 | PC.NURSE ---
Addendum entered by Jose L Arshad R.N. 08/26/24 14:00: Pt readied for d/c a.m. care complete. IV right arm d/c'd intact. Family has belongings. Family spoke with Dr. Mireles regarding meds prior to d/c. Pt escorted to [facility] with Ady via facility vehicle. Original Note: Pt is a&0, [place], follows commands, makes needs know easily. Presently up in chair for b'fast.
[2024-08-26 09:39] VITALS: BP 116/60; PULSE 77
[2024-08-26] MEDS: METOPROLOL ER 50 MG TABLET PO (09:39)
[2024-08-26] MEDS: LIDOCAINE 5% PATCH 1 EACH TOP (09:40)
[2024-08-26] MEDS: HEPARIN 5,000 UNIT/ML VIAL 5000 UNIT SUBCUT (09:41)
[2024-08-26] MEDS: VENLAFAXINE ER 75 MG CAP 150 MG PO (09:41)
[2024-08-26] MEDS: ASPIRIN EC 81 MG TABLET PO (09:42)
[2024-08-26] MEDS: ATORVASTATIN 20 MG TABLET PO (09:42)
--- NOTE | 2024-08-26 11:01 | CM.DPC ---
DCP Discharge SNF Per MD, pt's labs are stabilized and medically stable to d/c to SNF today with abx Levo and Clinda until 08/28/24. No identified barriers to discharge. SW confirmed with [facility] they can accept today and provide transport around 1330 but the IV Levo and Clinda cannot be secured through their pharmacy until Mon PM. confirms abx can be PO at d/c and Barbara confirms they can accept and provide the PO abx at d/c. PATIENCE faxed signed PASRR to PASRR coordinator Anel due to positive for Depression and medications. SW faxed signed PASRR, signed med list, script, orders to [facility] to review and awaiting discharge summary to be completed. Updated licensed land surveyor, [employer]IST, and RN and provided number to call report. Per OT edgardo, MARY LOU completed and pt scored 17/30 showing evidence of dementia. Called pt's DPOA Dtr Ilsa and updated on above and she confirms she remains agreeable to the discharge plans and wants to have a copy of the discharge meds or at least see them prior to d/c and will ask RN prior to discharge as she is attempting to set up patient portal to have better access. Plan: Patient to d/c to [facility] today via facility van at 1330 before safe return to with spouse. JOSIAH Lan
[2024-08-26 12:04] VITALS: BP 112/69; PULSE 73
--- NOTE | 2024-08-26 12:59 | P.DS_ITS ---
History of Present Illness History of Present Illness Date Patient Seen: 08/26/24 Time Patient Seen: 09:00 Date of Onset of Symptoms: 08/22/24 Chief complaint: Left chest pain. Narrative: 83 year old female with past medical history of HTN, hypothyroidism, HLD and depression/anxiety presents with generalized weakness and left sided flank/chest pain. Of note, the patient recently was seen on 08/11/24 with CTA showing spiculated lung mass without pneuomina. However, patient was seen again on 08/19/[address] that suggested possible aspiration pneumonia. The patient was adviced to be admitted but patient refuse so our ER physician prescribed Levaquin and Clindamycin to take as outpatient. However, the patient was aparently did not take any of her medications when she left our ER since and now has increasing weakness and coughing. Due to this reason, patient's daughte was concern and ask if the patient can be admitted to our hospital for IV antibiotics. Otherwise, the patient denies any fever, chills, nausea, vomiting or diarrhea. In our ER, the patient was hemodynamically stable. EKG shows no acute sign of ischemia and trop was not much elevated. Patient was still requiring 2L of O2 per NC. The patient's family now really requested that the patient be admitted for IV antibiotics. Patient WBC was 15 and lactic acid pending. Note patient was also tachycardic. WBC is slightly improving today, patient refused labs initially, along with OT and speech. Was then agreeable to speech once family came in later in the morning. Discharge Providers Provider Date of admission: 08/22/24 00:29 Discharge Date: 08/26/24 Primary care physician: Kaelyn Meier PA-C Consults: 08/21/24 17:15 Consult to [facility] - [employer] Stat Comment: [employer] Consult needed for:: Other reason (Comment) Comment: recent lung CA diagnosis, lives in with , unable to care for her 08/22/24 00:27 Consult to Occupational Therapy Evaluate & Treat Comment: Physician Instructions: Evaluate and treat Consult to Physical Therapy Evaluate & Treat Comment: Physician Instructions: Evaluate and Treat 08/22/24 04:08 Consult to [facility] - [employer] Routine Comment: [employer] Consult needed for:: Unable to care for self No caregiver at home 08/22/24 08:43 Consult to Speech Therapy Evaluate & Treat Comment: Physician Instructions: Evaluate and treat Discharge provider: Jose A Mireles MD Summary Hospital Course Discharge Diagnosis: 1. Aspiration pneumonia vs post obstructive pneumonia secondary to lung mass 2. Spiculated lung mass left upper lobe 3. Hypothyroidism 4. Anxiety/depression 5. 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 Possible cognitive impairment 7. History of Renal Cell Carcinoma s/p left nephrectomy 8. Left wrist carpal tunnel, musculoskeletal upper thoracic and low neck pain Hospital Course: 83-year-old woman under the primary care of Kaelyn Meier PA-C was admitted with a diagnosis presumed aspiration versus postobstructive pneumonia on recent CT imaging, and treated with broad-spectrum IV antibiotics. She improved over subsequent days and was feeling significantly better. Given a stated intolerance of oral antibiotics, a 5 day course of intravenous antibiotics which included levofloxacin and clindamycin was felt sufficient. Outpatient follow-up with Pulmonary consultation was planned following discharge with Dr. Pulido on August 30. The patient was resistant to biopsy though family would like pursue further evaluation. The patient was also noted to have possible cirrhosis of the liver based on CT imaging, with possible liver lesions not seen on ultrasound study. Lengthy discussions were carried out regarding these findings with the patient and family, differential diagnosis, including possibility of malignancy of the lung and cirrhosis of the liver. The patient has a history of excess alcohol use her history and hepatitis B and C serologies returned negative, with normal bilirubin, INR and ammonia during the hospitalization. Further evaluation is deferred to outpatient evaluation and further consultation if desired. The patient demonstrated cognitive impairment during her hospitalization and a [facility] exam scored 17/30. However she and family felt that this was affected by her illness and further outpatient evaluation and repeat testing is advised. She was provided with a left wrist brace support and lidocaine patch for left wrist carpal tunnel syndromes as well as musculoskeletal upper thoracic and low neck pain. No other issues arose. The patient and family acknowledged understanding, agreement and appreciation of this plan of care, and agreed to call back with any questions or concerns. Time Spent with Patient Time spent: Greater than 30 minutes Exam Vital Signs (past 8 hours): - 08/26/24 08:00 08/26/24 09:39 08/26/24 12:04 Temperature 99.1 F Pulse Rate 77 77 73 Respiratory Rate 20 Blood Pressure 116/60 116/60 112/69 Pulse Oximetry 94 Oxygen Flow Rate 0 Fraction of Inspired Oxygen 28 SaO2/FiO2 Ratio 350 Oxygen Delivery Method Room Air Oxygen Flow Rate 0 Narrative Exam Narrative: NAD, alert and oriented. Fluent speech. She was alert and very appropriate in her communication. Lungs are clear, normal rate and effort. Heart is regular, no murmur gallop or rub. Abdomen is soft, non distended. Extremities are free of edema, left wrist splint in place. Objective ECG Impression: EKG 08/21/2024: Sinus tachycardia at 110bpm Low voltage QRS Imaging *: Radiologist's impression: 1. Chest x-ray 08/01/2024: Left upper lobe zone consolidation, concerning for pneumonia. Recommend follow- up in 1-2 months with chest x-ray to ensure resolution. 2. Chest x-ray 08/04/2024: Chronic interstitial prominence but now with superimposed persistent left upper lobe pneumonia. There has been mild worsening of this pneumonia over the prior [address] angiography 08/11/2024: 1. No CT evidence of pulmonary embolism to the distal interlobar level. 2. Left upper lobe 2.6 cm spiculated mass, which may represent a primary pulmonary malignancy. EBUS would be recommended for sampling. 3. Cirrhotic morphology of the liver with indeterminate hypodense lesions, although these have been present on prior exams based on available reports. 3. Chest x-ray 08/19/2024: No acute cardiopulmonary disease. Interval improvement in previous left upper lobe pneumonia. 4. Abdomen/pelvis CT without contrast 08/19/2024: Minor alveolar opacity at the right lung base, possibly aspiration or infection. Cirrhotic liver morphology with several hypodensities not well characterized on this exam. Prior left nephrectomy without evidence of recurrent disease. Mild splenomegaly, new since the prior exam. Correlate with point tenderness. 5. Chest x-ray 08/21/2024: Mild diffuse interstitial prominence which is nonspecific. Findings may represent an infectious or inflammatory process although pulmonary edema may have a similar appearance. No focal consolidations. 6. Abdomen ultrasound 08/22/2024: Limited exam secondary to body habitus and overlying bowel gas. Cirrhotic liver morphology. Cholelithiasis without sonographic evidence of acute cholecystitis. Status post left nephrectomy. No right nephrolithiasis or hydronephrosis. Labs 08/25/24 05:05 08/25/24 05:05 [facility] Medical History Anxiety Chronic urinary tract infection Depression Dysuria E. coli urinary tract infection Essential hypertension History of kidney cancer Hyperlipidemia Hypothyroidism, acquired Prurigo nodularis Urinary incontinence Urinary tract infection Vaginal ulceration Surgical History History of back surgery History of nephrectomy S/P cataract extraction and insertion of intraocular lens S/P femoral-popliteal bypass surgery S/P hysterectomy (~1976) S/P insertion of spinal cord stimulator Social History household members: spouse Smoking Status: Former smoker alcohol intake: current Discharge Plan Discharge Plan Patient Disposition: SNF Transfer to: [facility] Under care of provider: Consult with Dr. Hayes (pulmonary) 08/30 as planned Consult as needed: Dental, Hearing, Mental health, Podiatry and Vision Discharge orders & Medications Prescriptions: New acetaminophen 325 mg Tablet 650 mg PO Q6H PRN (Reason: Fever/Mild Pain (1-3)) Qty: 30 0RF lidocaine 5 % Adhesive Patch,Medicated 1 patch topical BEDTIME Qty: 15 0RF carisoprodol 350 mg Tablet 350 mg PO TID PRN (Reason: Pain, Moderate (4-6)) Qty: 30 0RF Continued aspirin 81 mg tablet,delayed release (DR/EC) 81 mg PO DAILY levothyroxine 100 mcg tablet 100 mcg PO DAILY Qty: 90 multivitamin tablet 1 tab PO DAILY nystatin 100,000 unit/gram powder 1 applictn TOP TID Qty: 60 3RF carisoprodol 350 mg tablet 350 mg PO 3XD PRN (Reason: Pain (Scale Score 4-6)) Qty: 30 0RF docusate sodium [Colace] 100 mg capsule 100 mg PO BID PRN (Reason: constipation) Qty: 30 0RF atorvastatin 20 mg tablet 20 mg PO DAILY Qty: 14 0RF bimatoprost 0.03 % drops with applicator 1 drp TOPICAL ONCE PM d-mannose 500 mg Capsule 500 mg PO BID PRN (Reason: infection prevention) venlafaxine 150 mg capsule,extended release 24hr 150 mg PO DAILY phenazopyridine [Pyridium] 100 mg tablet 100 mg PO TID PRN (Reason: pain) Qty: 6 0RF cholecalciferol (vitamin D3) 50 mcg (2,000 unit) capsule 50 mcg PO DAILY Patient Comments: take 1 capsule by mouth once daily metoprolol succinate 50 mg tablet extended release 24 hr 50 mg PO BID Discontinued levofloxacin 500 mg tablet 500 mg PO DAILY Qty: 10 0RF Follow up/Referrals: Kaelyn Meier, JULIANN [Primary Care Provider] - Diet/Activity/Treatments Diet: Regular Liquid consistency: Normal/Thin Food texture: Soft Diet comment: soft and bite sized [id number], upright postition, sips when eating [facility] Reason for rehabilitation: Recovery r/t decondition Rehab type: Physical therapy, Occupational therapy and Speech therapy Restrictions to mobility: brace on left wrist Visit Report/Discharge Packet Stand Alone Forms: Patient Portal/API, Stroke Signs & Symptoms Discharge Data Primary Care Provider: Kaelyn Meier Quality MIPS - Admit I confirm the patient?s Advance Care Plan is present, Code status is documented, Surrogate decision maker is in patient?s record [If Yes, STOP here]: Yes MIPS - Meds 'Current medications' to include all prescriptions, [id number] products, herbals, cannabis/cannabidiol products, and vitamin/mineral/dietary (nutritional) supplements. I have utilized all available resources to obtain, update, or review the patient?s current medications. [If Yes, STOP here]: Yes MIPS - DC The patient has a history of heart transplant or Left Ventricular Assist Device (LVAD). If yes, STOP here.: No The patient has current or prior documentation of left ventricular ejection fraction (LVEF) less than or equal to 40%, or moderate or severely depressed left ventricular systolic function.: No A. The patient was prescribed or already taking an Angiotensin-Converting Enzyme (SUSAN) Inhibitor, or Angiotensin Receptor Freddie (ARB).: No B. The patient was prescribed or already taking a beta-freddie. [If Yes to Both A & B, STOP here]: Yes Patient not prescribed/taking SUSAN or ARB, no reason given.: No Patient not prescribed/taking beta-freddie, no reason given.: No IH PROFEE Charge Codes Discharge inpatient/observation: 11654
[2024-08-31 03:12] LABS: Hepatitis B Core Antibody Negative (Negative)
== END 2024-08-26 13:45 | DRG 178 ==
LOC: ED 08-22 00:26 → AC 08-22 00:30
PROVIDERS: Emergency Medicine; Internal Medicine; Admitting Provider Internal Medicine; Emergency Provider Emergency Medicine; PCP Physician Assistant; Referring Provider Emergency Medicine; Visit Provider Internal Medicine
DX: J69.0 Pneumonitis due to inhalation of food and vomit (principal); J96.11 Chronic respiratory failure with hypoxia; R00.0 Tachycardia, unspecified; R91.8 Other nonspecific abnormal finding of lung field; R53.1 Weakness; E03.9 Hypothyroidism, unspecified; F32.A Depression, unspecified; F41.9 Anxiety disorder, unspecified; K74.60 Unspecified cirrhosis of liver; G56.02 Carpal tunnel syndrome, left upper limb; M54.6 Pain in thoracic spine; M54.2 Cervicalgia; J18.9 Pneumonia, unspecified organism; G31.84 Mild cognitive impairment of uncertain or unknown etiology; I10 Essential (primary) hypertension; E78.5 Hyperlipidemia, unspecified; Z87.891 Personal history of nicotine dependence; Z90.5 Acquired absence of kidney; Z85.520 Personal history of malignant carcinoid tumor of kidney; Z88.1 Allergy status to other antibiotic agents; R10.12 Left upper quadrant pain; R16.1 Splenomegaly, not elsewhere classified
CPT/HCPCS: 0241U; 36415; 71045; 74176; 76700; 80048; 80053; 82140; 82550; 83605; 83690; 83735; 83880; 84484; 85007; 85025; 85610; 85730; 86318; 86704; 86706; 86803; 87040; 87340; 92610; 93005; 93010; 94762; 96374; 96375; 97129; 97162; 97166; 97530; 99284; 99285; J1171; J1644; J1956; J2405

== ENCOUNTER 2024-09-11 23:53 | Emergency (ER) | payer MEDICARE, SELFPAY ==
[2024-08-22 01:17] VITALS: BMI 32.3
[2024-09-11 23:59] VITALS: BP 151/62; PULSE 98; RESP 19; TEMP 36.1; O2SAT 98; BMI 28.2
== END 2024-09-12 02:35 | disposition left against medical advice (07) ==
PROVIDERS: PCP Physician Assistant
CPT/HCPCS: 99281

== ENCOUNTER 2024-10-23 12:32 | Emergency (ER) | payer MEDICARE, SELFPAY ==
[2024-08-22 01:17] VITALS: BMI 32.3
[2024-10-23 12:35] VITALS: BP 125/78; PULSE 106; RESP 18; TEMP 36.3; O2SAT 97; BMI 28.2
--- NOTE | 2024-10-23 12:48 | ED_ITS ---
HPI - Back Pain/Injury <Sadia Kim PA-C - Last Filed: 10/24/24 12:37> General Chief Complaint: Back Pain/Injury Stated Complaint: left side back px, Time Seen by Provider: 10/23/24 12:42 Source: patient and family History of Present Illness HPI Narrative: 84-year-old female presents to the ED with 1 week of left upper quadrant pain. No fever, chills, chest pain, shortness of breath, nausea, vomiting, diarrhea, lightheadedness, dizziness, syncope. Patient is currently on a course of antibiotics for a UTI. Patient states that her UTI symptoms have resolved and is progressing well. 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 Patient was recently diagnosed with a recent pneumonia as well as a CTA that shows a spiculated lung mass without pneumonia changes. Patient is being followed by a director statistical programming and they will be doing repeat imaging in the next 2-3 months. Related Data Home Medications Medication Instructions Recorded Confirmed aspirin 81 mg tablet,delayed 81 mg PO DAILY 01/19/19 08/30/24 release levothyroxine 100 mcg tablet 100 mcg PO DAILY #90 tabs 01/19/19 08/30/24 multivitamin 1 tab PO DAILY 01/19/19 08/30/24 cholecalciferol (vitamin D3) 50 50 mcg PO DAILY 02/24/21 08/30/24 mcg (2,000 unit) capsule metoprolol succinate 50 mg 50 mg PO BID 03/14/21 08/30/24 tablet,extended release 24 hr bimatoprost 0.03 % drops with 1 drp topical ONCE PM 04/03/24 08/30/24 applicator, eyelash base d-mannose 500 mg capsule 500 mg PO BID PRN infection 04/03/24 08/30/24 prevention venlafaxine 150 mg 150 mg PO DAILY 04/03/24 08/23/24 capsule,extended release 24 hr Previous Rx's Medication Instructions Recorded nystatin 100,000 unit/gram topical 1 applictn topical TID #60 grams 01/19/19 powder docusate sodium 100 mg capsule 100 mg PO BID PRN constipation #30 01/22/21 (Colace) caps atorvastatin 20 mg tablet 20 mg PO DAILY #14 tabs 05/16/21 phenazopyridine 100 mg tablet 100 mg PO TID PRN pain 6 doses #6 04/04/24 (Pyridium) tabs acetaminophen 325 mg tablet 650 mg (2 x 325 mg) PO Q6H PRN 08/26/24 Fever/Mild Pain (1-3) #30 tabs carisoprodol 350 mg tablet 350 mg PO 3XD PRN Pain (Scale 08/26/24 Score 4-6) #30 tabs carisoprodol 350 mg tablet 350 mg PO TID PRN Pain, Moderate 08/26/24 (4-6) #30 tabs hydromorphone 2 mg tablet 2 mg PO Q6H PRN pain #14 tabs 08/26/24 lidocaine 5 % topical patch 1 patch topical BEDTIME #15 ea 08/26/24 Allergies Allergy/AdvReac Type Severity Reaction Status Date / Time cyclobenzaprine Allergy Unknown Verified 08/30/24 15:41 [CYCLOBENZAPRINE] doxycycline Allergy Diarrhea Verified 08/30/24 15:41 morphine Allergy hallucinati Verified 08/30/24 15:41 ons acetaminophen [From Percocet] AdvReac Vomiting Verified 08/30/24 15:41 amoxicillin [From Augmentin] AdvReac Nausea Verified 08/30/24 15:41 clavulanic acid AdvReac Nausea Verified 08/30/24 15:41 [From Augmentin] oxycodone [From Percocet] AdvReac Vomiting Verified 08/30/24 15:41 Review of Systems <Sadia Kim PA-C - Last Filed: 10/24/24 12:37> Constitutional Constitutional: Denies chills, Denies fatigue, Denies fever(s), Denies frequent falls, Denies lethargy and Denies weakness Eyes Eyes: Denies change in vision, Denies eye discharge, Denies irritation and Denies loss of vision ENT Ears, Nose, Mouth, and Throat: Denies change in voice, Denies dizziness, Denies neck pain, Denies sore throat and Denies throat swelling Cardiovascular Cardiovascular: Denies chest pain, Denies irregular heart rhythm, Denies lightheadedness, Denies palpitations, Denies dyspnea, Denies dyspnea on exertion and Denies orthopnea Respiratory Respiratory: Denies cough, Denies dyspnea, Denies dyspnea on exertion and Denies wheezing Gastrointestinal Gastrointestinal: Reports abdominal pain, Denies change in bowel habits, Denies diarrhea, Denies nausea and Denies vomiting Musculoskeletal Musculoskeletal: Denies neck pain and Denies numbness Integumentary/Breasts Skin/Breast: Denies pruritus, Denies erythema, Denies rash and Denies wounds Neurologic Neurologic: Denies behavioral changes, Denies confusion, Denies dizziness, Denies frequent falls, Denies loss of vision, Denies numbness and Denies weakness Psychiatric Psychiatric: Denies anxiety, Denies behavioral changes, Denies confusion, Denies depression, Denies homicidal ideation and Denies suicidal ideation Endocrine Endocrine: Denies fatigue, Denies flushing and Denies palpitations Hematologic/Lymphatic Hematologic/Lymphatic: Denies easy bruising Allergic/Immunologic Allergic/Immunologic: Denies urticaria, Denies throat swelling and Denies wheezing Patient History <Sadia Kim PA-C - Last Filed: 10/24/24 12:37> Medical History Vaginal ulceration E. coli urinary tract infection History of kidney cancer Dysuria Chronic urinary tract infection Prurigo nodularis Urinary tract infection Essential hypertension Anxiety Urinary incontinence Hypothyroidism, acquired Hyperlipidemia Depression Surgical History S/P insertion of spinal cord stimulator History of nephrectomy S/P femoral-popliteal bypass surgery S/P cataract extraction and insertion of intraocular lens S/P hysterectomy (~1976) History of back surgery Social History household members: spouse Smoking Status: Former smoker alcohol intake: current Smoking Status: Former smoker alcohol intake frequency: a few times a week Exam <Sadia Kim PA-C - Last Filed: 10/24/24 12:37> Narrative Exam Narrative: Const General:?cooperative, healthy appearing and comfortable [facility] Head:?normal to inspection Ears:?hearing grossly normal bilaterally Nose:?external nose normal Face and sinus:?normal facial exam and sinuses nontender Mouth:?oral mucosae normal Throat:?posterior oropharynx normal Eyes General:?appearance normal, both eyes and all related structures Neck Neck:?normal visual inspection and no lymphadenopathy noted Resp Effort & Inspection:?normal respiratory effort Auscultation:?clear to auscultation bilaterally Cardio Rate:?regular rate Rhythm:?regular rhythm GI Abdomen is soft, nondistended, tender to palpation in the left upper and left lower quadrants. Neuro General:?patient alert, patient awake and patient oriented x3 Initial Vital Signs Initial Vital Signs: Vital Signs Temperature 97.3 F L 10/23/24 12:35 Pulse Rate 106 H 10/23/24 12:35 Respiratory Rate 18 10/23/24 12:35 Blood Pressure 125/78 10/23/24 12:35 Pulse Oximetry 97 10/23/24 12:35 Oxygen Delivery Method Room Air 10/23/24 12:35 <DO Molina Manriquez Last Filed: 10/27/24 07:12> Initial Vital Signs Initial Vital Signs: Vital Signs Temperature 97.3 F L 10/23/24 12:35 Pulse Rate 106 H 10/23/24 12:35 Respiratory Rate 18 10/23/24 12:35 Blood Pressure 125/78 10/23/24 12:35 Pulse Oximetry 97 10/23/24 12:35 Oxygen Delivery Method Room Air 10/23/24 12:35 Course <Sadia Kim PA-C - Last Filed: 10/24/24 12:37> Orders Ordered: Discontinued Medications Tramadol HCl (Tramadol 50 Mg Tablet) 50 mg PO NOW ONE Stop: 10/23/24 14:04 Last Admin: 10/23/24 14:41 Dose: 50 mg Documented By: SPF Vital Signs Vital signs: Vital Signs - 8 hr 10/23/24 12:35 Temperature 97.3 F L Pulse Rate 106 H Respiratory Rate 18 Blood Pressure 125/78 Pulse Oximetry 97 Oxygen Delivery Method Room Air <DO Molina Manriquez Last Filed: 10/27/24 07:12> Orders Ordered: Discontinued Medications Tramadol HCl (Tramadol 50 Mg Tablet) 50 mg PO NOW ONE Stop: 10/23/24 14:04 Last Admin: 10/23/24 14:41 Dose: 50 mg Documented By: SPF Vital Signs Vital signs: Vital Signs - 8 hr 10/23/24 12:35 Temperature 97.3 F L Pulse Rate 106 H Respiratory Rate 18 Blood Pressure 125/78 Pulse Oximetry 97 Oxygen Delivery Method Room Air MDM - Back Pain/Injury <JULIANN Preciado Last Filed: 10/24/24 12:37> Lab Data 10/23/24 14:10 10/23/24 14:10 Labs: Lab Results 10/23/24 10/23/24 Range/Units 14:10 14:32 WBC 11.4 H (4.5-11.0) X10^3/uL RBC 4.95 (4.0-5.2) X10^6/uL Hgb 13.9 (12.0-16.0) g/dL Hct 43.2 (36-46) % MCV 87.3 (80-100) fL MCH 28.2 (26-34) PG MCHC 32.3 (30-36) % RDW 19.0 H (11.6-14.8) % Plt Count 183 (150-400) X10^3/uL Neut % (Auto) Not Reportable Lymph % (Auto) Not Reportable [place] % (Auto) Not Reportable Eos % (Auto) Not Reportable Baso % (Auto) Not Reportable Lymph # (Auto) Not Reportable [place] # (Auto) Not Reportable Baso # (Auto) Not Reportable Total Counted 100 Seg Neutrophils % 56.0 (38-70) % Lymphocytes % (Manual) 37.0 (25-45) % Monocytes % (Manual) 4.0 (2-11) % Eosinophils % (Manual) 1.0 L (2-4) % Basophils % (Manual) 2.0 H (0-1) % Neutrophils # (Manual) 6384 H (3839-1124) /uL RBC Morphology Normal morphology Sodium 139 (137-145) mmol/L Potassium 4.6 (3.4-5.1) mmol/L Chloride 106 (98-107) mmol/L Carbon Dioxide 27 (22-32) mmol/L BUN 10 (7-17) mg/dL Creatinine 0.75 (0.52-1.04) mg/dL Estimated GFR > 60 (>60) mL/min BUN/Creatinine Ratio 13.3 (6-22) Glucose 99 (80-110) mg/dL Calcium 9.1 (8.4-10.2) mg/dL Total Bilirubin 0.5 (0.2-1.3) mg/dL AST 32 (14-36) IU/L ALT 17 (<35) IU/L Alkaline Phosphatase 99 (38-126) U/L Total Protein 7.2 (6.3-8.2) g/dL Albumin 3.8 (3.5-5.0) g/dL Globulin 3.4 (1.7-4.1) g/dL Albumin/Globulin Ratio 1.1 (1.0-2.8) Lipase 145 (23-300) U/L Urine RBC 0-1/hpf (0-5/HPF) Urine WBC 1-5/hpf (0-5/HPF) Ur Squamous Epith Cells 1-5 /hpf (0-5/HPF) Urine Bacteria Occasional (0-1) (None) Ur Culture Indicated? Specimen cultured Vol Urine Centrifuged 10ml (spun) Urine Dip Bedside Urine Glucose Negative Bedside Urine Bilirubin - Negative Bedside Urine Ketone - Negative Urine Specific [place] 1.010 Bedside Urine Occult Blood - Negative Bedside Urine pH 6.5 Bedside Urine Protein - Negative Bedside Urine Urobilinogen - Negative Bedside Urine Nitrite - Negative Bedside Urine Leukocytes + 70 Esterase MDM Narrative Medical decision making narrative: 84-year-old female presents to the ED with 1 week of left upper quadrant pain. Concern for diverticulitis versus constipation versus pneumonia versus other intra-abdominal pathology versus other. Will obtain labs, urine, CT abdomen pelvis, chest x-ray. Chest x-ray without pneumonia. Suggestion of reactive airway disease such as bronchitis. CT abdomen pelvis shows moderate constipation. No bowel obstruction or abnormal bowel wall thickening. No free fluid or free air. Cholelithiasis without CT evidence of acute cholecystitis. No biliary ductal dilation. Cirrhotic liver morphology with stable appearance of tiny hypodensities scattered and liver parenchyma and may represent hepatic cyst not significantly changed from prior studies. Prior left nephrectomy. No abnormality seen in the right kidney. Labs within normal limits. UA without UTI. Discussed findings with patient. Counseled patient on bowel regimen and constipation. Patient endorses using tramadol daily for pain, counseled patient that opioids were constipation as well. Recommend MiraLax, Dulcolax. Recommend good hydration. Recommend follow-up with PCP as soon as possible. ED return precautions discussed with patient. Patient verbalized understanding. Medical records reviewed: Yes <Zahra Ordonez, - Last Filed: 10/27/24 07:12> Lab Data Labs: Lab Results 10/23/24 10/23/24 Range/Units 14:10 14:32 WBC 11.4 H (4.5-11.0) X10^3/uL RBC 4.95 (4.0-5.2) X10^6/uL Hgb 13.9 (12.0-16.0) g/dL Hct 43.2 (36-46) % MCV 87.3 (80-100) fL MCH 28.2 (26-34) PG MCHC 32.3 (30-36) % RDW 19.0 H (11.6-14.8) % Plt Count 183 (150-400) X10^3/uL Neut % (Auto) Not Reportable Lymph % (Auto) Not Reportable [place] % (Auto) Not Reportable Eos % (Auto) Not Reportable Baso % (Auto) Not Reportable Lymph # (Auto) Not Reportable [place] # (Auto) Not Reportable Baso # (Auto) Not Reportable Total Counted 100 Seg Neutrophils % 56.0 (38-70) % Lymphocytes % (Manual) 37.0 (25-45) % Monocytes % (Manual) 4.0 (2-11) % Eosinophils % (Manual) 1.0 L (2-4) % Basophils % (Manual) 2.0 H (0-1) % Neutrophils # (Manual) 6384 H (0073-6088) /uL RBC Morphology Normal morphology Sodium 139 (137-145) mmol/L Potassium 4.6 (3.4-5.1) mmol/L Chloride 106 (98-107) mmol/L Carbon Dioxide 27 (22-32) mmol/L BUN 10 (7-17) mg/dL Creatinine 0.75 (0.52-1.04) mg/dL Estimated GFR > 60 (>60) mL/min BUN/Creatinine Ratio 13.3 (6-22) Glucose 99 (80-110) mg/dL Calcium 9.1 (8.4-10.2) mg/dL Total Bilirubin 0.5 (0.2-1.3) mg/dL AST 32 (14-36) IU/L ALT 17 (<35) IU/L Alkaline Phosphatase 99 (38-126) U/L Total Protein 7.2 (6.3-8.2) g/dL Albumin 3.8 (3.5-5.0) g/dL Globulin 3.4 (1.7-4.1) g/dL Albumin/Globulin Ratio 1.1 (1.0-2.8) Lipase 145 (23-300) U/L Urine RBC 0-1/hpf (0-5/HPF) Urine WBC 1-5/hpf (0-5/HPF) Ur Squamous Epith Cells 1-5 /hpf (0-5/HPF) Urine Bacteria Occasional (0-1) (None) Ur Culture Indicated? Specimen cultured Vol Urine Centrifuged 10ml (spun) Urine Dip Bedside Urine Glucose Negative Bedside Urine Bilirubin - Negative Bedside Urine Ketone - Negative Urine Specific [place] 1.010 Bedside Urine Occult Blood - Negative Bedside Urine pH 6.5 Bedside Urine Protein - Negative Bedside Urine Urobilinogen - Negative Bedside Urine Nitrite - Negative Bedside Urine Leukocytes + 70 Esterase Discharge Plan Departure Patient Disposition: Home Clinical Impression: Abdominal pain Qualifiers: Abdominal location: left upper quadrant Qualified Code(s): R10.12 - Left upper quadrant pain Instructions: DI for Abdominal Pain-Adult, DI for Constipation Activity Restrictions/Additional Instructions: You were evaluated in the ED today for left-sided abdominal pain. Your CT scan shows constipation, which can be causing your symptoms. It is recommended that you take MiraLax nightly and also add on Dulcolax which will help keep your regular. Please continue to drink lots of water and increase your fiber intake. Please follow-up with your PCP as soon as possible. Return to the ED if you have worsening symptoms. Prescriptions: No Action aspirin 81 mg tablet,delayed release (DR/EC) 81 mg PO DAILY levothyroxine 100 mcg tablet 100 mcg PO DAILY Qty: 90 multivitamin tablet 1 tab PO DAILY nystatin 100,000 unit/gram powder 1 applictn TOP TID Qty: 60 3RF acetaminophen 325 mg Tablet 650 mg PO Q6H PRN (Reason: Fever/Mild Pain (1-3)) Qty: 30 0RF lidocaine 5 % Adhesive Patch,Medicated 1 patch topical BEDTIME Qty: 15 0RF carisoprodol 350 mg tablet 350 mg PO 3XD PRN (Reason: Pain (Scale Score 4-6)) Qty: 30 0RF carisoprodol 350 mg Tablet 350 mg PO TID PRN (Reason: Pain, Moderate (4-6)) Qty: 30 0RF hydromorphone 2 mg tablet 2 mg PO Q6H PRN (Reason: pain) Qty: 14 0RF docusate sodium [Colace] 100 mg capsule 100 mg PO BID PRN (Reason: constipation) Qty: 30 0RF atorvastatin 20 mg tablet 20 mg PO DAILY Qty: 14 0RF bimatoprost 0.03 % drops with applicator 1 drp TOPICAL ONCE PM d-mannose 500 mg Capsule 500 mg PO BID PRN (Reason: infection prevention) venlafaxine 150 mg capsule,extended release 24hr 150 mg PO DAILY phenazopyridine [Pyridium] 100 mg tablet 100 mg PO TID PRN (Reason: pain) Qty: 6 0RF cholecalciferol (vitamin D3) 50 mcg (2,000 unit) capsule 50 mcg PO DAILY Patient Comments: take 1 capsule by mouth once daily metoprolol succinate 50 mg tablet extended release 24 hr 50 mg PO BID Referrals: Kaelyn Meier, [facility] [Primary Care Provider] - Stand Alone Forms: Patient Portal/API/Survey ED Sign-out <Zahra Ordonez DO - Last Filed: 10/27/24 07:12> Cosign ED Attending Cosignature Attestation: I was available for consultation.
--- NOTE | 2024-10-23 13:11 | PC.NURSE ---
Ambulated to bathroom with pt for urine sample. Pt unable to produce urine at this time. Pt describes her pain as left flank pain, however points to her left abdomen for location of her pain. Pt taking abx for UTI and endorses her UTI symptoms are decreasing and she is feeling better in that area. She does not know which kidney has been removed. Pt did had a fall 3 days ago while going out for a meal at [employer] and she landed on her right knee/right ankle and has a abrasion to right elbow. Pt has treated these abrasions and applied band aids to them.
--- NOTE | 2024-10-23 13:55 | DI.CT.S_ITS ---
PROCEDURE: CT ABDOMEN PELVIS W CON INDICATIONS: LUQ pain TECHNIQUE: After the administration of intravenous contrast, axial sections acquired from the lung bases to the pubic symphysis. Coronal and sagittal reformats were performed. For radiation dose reduction, the following was used: automated exposure control, adjustment of mA and/or kV according to patient size. COMPARISON: [facility], CT, CT ABDOMEN PELVIS WO CON, 08/19/2024, 23:21. [facility], CT, CT ABDOMEN PELVIS W CON, 01/21/2021, 22:56. FINDINGS: Image quality: Diagnostic. Lower Chest: Small amount of left pleural effusion and trace right pleural effusion is seen with adjacent bibasilar dependent atelectasis. Heart size is normal, no pericardial effusion. ABDOMEN: Liver: No solid mass. Numerous hepatic hypodensities are again seen not significantly changed in size and distribution compared to prior study likely represent hepatic cysts. Few calcifications are again noted in the right hepatic lobe also unchanged from prior study. Gallbladder: Hyperdense sludge material versus layering stone again seen in dependent portion of gallbladder lumen. No gallbladder wall thickening or pericholecystic fluid. Biliary ducts: No biliary dilation. Pancreas: No ductal dilation. Spleen: Normal in size and density. Adrenal Glands: No adrenal nodules. Kidneys and Ureters: There is prior left nephrectomy. Left kidney show no hydronephrosis. No solid mass. No complex renal cystic lesion which requires follow up. Stomach and Bowel: Normal colonic caliber, without significant wall thickening. Moderate fecal stasis in the colon is seen. No abscess collection. Peritoneum: No abnormal intraperitoneal fluid. No free air. Ventral Wall: No significant ventral hernia. Abdominal Nodes: No retroperitoneal or mesenteric adenopathy by size criteria. Vessels: Aorta and inferior vena cava are normal in size. PELVIS: Pelvic Organs: Unremarkable. Bladder: No bladder wall thickening, accounting for underdistention. Pelvic Nodes: No enlarged lymph nodes. Miscellaneous: No inguinal hernias are seen. Bones: No aggressive osseous abnormality. Extensive surgical fusion of lower thoracic and lumbar spine is seen. No acute vertebral body compression fracture. IMPRESSION: 1. Prior left nephrectomy. No abnormality is seen in right kidney. 2. Cirrhotic liver morphology with stable appearance of tiny hypodensities scattered in liver parenchyma and may represent hepatic cysts not significantly changed from prior studies. 3. Cholelithiasis without CT evidence of acute cholecystitis. No biliary ductal dilatation. 4. Moderate constipation. No bowel obstruction or abnormal bowel wall thickening. No free fluid or free air. Dictated by: Jj Dao M.D. on 10/23/2024 at 15:08 Approved by: Jj Dao M.D. on 10/23/2024 at 15:16
[2024-10-23 14:32] LABS: Alanine Aminotransferase 17 IU/L (<35); Albumin 3.8 g/dL (3.5-5.0); Albumin Globulin Ratio 1.1 (1.0-2.8); Alkaline Phosphatase 99 U/L (38-126); Aspartate Aminotransferase 32 IU/L (14-36); BUN Creatinine Ratio 13.3 (6-22); Bilirubin Total 0.5 mg/dL (0.2-1.3); Blood Urea Nitrogen 10 mg/dL (7-17); Calcium 9.1 mg/dL (8.4-10.2); Carbon Dioxide 27 mmol/L (22-32); Chloride 106 mmol/L (98-107); Estimated Glomerular Filt Rate > 60 mL/min (>60); Globulin 3.4 g/dL (1.7-4.1); Glucose 99 mg/dL (80-110); HEMOLYSIS 19 (0-50); Lipase 145 U/L (23-300); Potassium 4.6 mmol/L (3.4-5.1); Sodium 139 mmol/L (137-145); Total Protein 7.2 g/dL (6.3-8.2)
[2024-10-23 14:38] LABS: Hematocrit 43.2 % (36-46); Hemoglobin 13.9 g/dL (12.0-16.0); Mean Corpuscular HGB Conc 32.3 % (30-36); Mean Corpuscular Hemoglobin 28.2 PG (26-34); Mean Corpuscular Volume 87.3 fL (80-100); Platelet Count 183 X10^3/uL (150-400); Red Blood Cell Count 4.95 X10^6/uL (4.0-5.2); White Blood Cell Count 11.4 X10^3/uL (4.5-11.0)
[2024-10-23] MEDS: TRAMADOL 50 MG TABLET PO (14:41)
[2024-10-23 14:52] LABS: Add Manual Diff / Slide Review YES
[2024-10-23 15:34] LABS: Neutrophils Absolute Manual 6384 /uL (3000-5900); RBC Morphology Normal Morphology; Total Cells Counted 100
--- NOTE | 2024-10-23 15:35 | DI.RAD.S_ITS ---
PROCEDURE: XR CHEST 2V INDICATIONS: ?pna TECHNIQUE: 2 views of the chest were acquired. COMPARISON: [facility], CR, XR CHEST 1V, 08/21/2024, 17:17. FINDINGS: Surgical changes and devices: Postsurgical changes are seen in thoracolumbar spine. Lungs and pleura: Increased bronchovascular markings in bilateral hilar region are seen with mild bronchial wall thickening. No definite focal infiltrate. No pleural effusions or pneumothorax. Mediastinum: Mediastinal contours are normal. Heart size is normal. Bones and chest wall: No suspicious bony abnormalities. Soft tissues appear unremarkable. IMPRESSION: Suggestion of reactive airway disease such as bronchitis. No definite focal infiltrate. No significant pleural effusion or gross pneumothorax. Dictated by: Jj Dao M.D. on 10/23/2024 at 16:03 Approved by: Jj Dao M.D. on 10/23/2024 at 16:05
--- NOTE | 2024-10-23 15:40 | PC.NURSE ---
@ 1540 pt uses call light to ask again for food and states she is starving. I educated pt that provider wants her to not have food until we get results back from imaging department. Pt rolled her eyes and states My hasnt had anything to eat all day. I told pt that I could provide snacks for her , but she would not be able to eat any of his food. Pt states Thats ok, just feed him. I provided spouse with 2 sandwiches and crackers. @ 1553 pt uses call light to state I'm ready to kill him!. I asked what pt is referring to. Pt states I want to eat his food. I told pt that she will have to wait for provider to update her on imaging reports. I asked if I needed to remove food from the room and pt states No.
[2024-10-23 16:17] VITALS: PULSE 87; RESP 18; O2SAT 97
[2024-10-23 16:19] LABS: Bacteria Urine Occasional (0-1); Culture Indicated Urine Specimen Cultured; RBC Urine 0-1/HPF (0-5/HPF); Squamous Epithelial Cell Urine 1-5 /HPF (0-5/HPF); Urine Volume 10mL (spun); WBC Urine 1-5/HPF (0-5/HPF)
[2024-10-23 16:36] VITALS: BP 166/81; RESP 20
== END 2024-10-23 16:38 | disposition home or self-care (01) ==
PROVIDERS: Emergency Provider Student in an Organized Health Care Education/Training Program; PCP Physician Assistant
DX: R10.12 Left upper quadrant pain (principal)
CPT/HCPCS: 36415; 71046; 74177; 80053; 81003; 81015; 83690; 85007; 85025; 87086; 99283; 99284; Q9967

== ENCOUNTER → 2024-11-16 11:53 | Outpatient (CLI) | payer MEDICARE, SELFPAY ==
[2024-08-22 01:17] VITALS: BMI 32.3
[2024-11-16 12:46] LABS: Appearance Urine UA CLEAR; Bilirubin Urine UA NEGATIVE (NEGATIVE); Color Urine UA YELLOW; Glucose Urine UA NEGATIVE (Negative); Ketones Urine UA NEGATIVE (NEGATIVE); Leukocyte Esterase Urine UA 2+ (NEGATIVE); Nitrite Urine UA POSITIVE (Negative); Occult Blood Urine UA 3+ (Negative); Protein Urine UA TRACE (Negative); Urobilinogen Urine UA 0.2 E.U./dL (0.2)
[2024-11-16 13:04] LABS: pH Urine UA 5.5 (4.5-8.0)
[2024-11-16 13:19] LABS: Bacteria Urine Moderate (10-30); Culture Indicated Urine Specimen Cultured; RBC Urine 1-5/HPF (0-5/HPF); Squamous Epithelial Cell Urine 1-5 /HPF (0-5/HPF); Urine Volume 10mL (spun); WBC Urine >100/HPF (0-5/HPF)
== END ==
PROVIDERS: PCP Physician Assistant; Referring Provider Internal Medicine Infectious Disease; Visit Provider Internal Medicine Infectious Disease
DX: N39.0 Urinary tract infection, site not specified (principal)
CPT/HCPCS: 81001; 87077; 87086

== ENCOUNTER → 2024-12-18 14:41 | Outpatient (CLI) | payer MEDICARE, SELFPAY ==
[2024-12-13 16:19] VITALS: BMI 32.3
== END ==
PROVIDERS: PCP Physician Assistant; Visit Provider Urology
DX: N39.0 Urinary tract infection, site not specified (principal); N32.81 Overactive bladder; Z85.528 Personal history of other malignant neoplasm of kidney
CPT/HCPCS: 51798; 87086; 99213

== ENCOUNTER 2024-12-29 19:09 | Emergency (ER) | payer MEDICARE, SELFPAY ==
[2024-12-13 16:19] VITALS: BMI 32.3
[2024-12-29] VITALS (8 sets, daily range): BP systolic 112–148; BP diastolic 55–85; PULSE 79–93; RESP 16–20; TEMP 36.2; O2SAT 89–95; BMI 29.1
[2024-12-29 20:24] LABS: Add Manual Diff / Slide Review NO; Basophils Absolute Auto 100 /uL (0-100); Basophils Percent Auto 0.8 % (0-2); Eosinophils Absolute Auto 200 /uL (0-450); Eosinophils Percent Auto 1.5 % (2-4); Hematocrit 43.5 % (36-46); Hemoglobin 14.1 g/dL (12.0-16.0); Lymphocytes Absolute Auto 1400 /uL (1100-4500); Lymphocytes Percent Auto 9.5 % (25-40); Mean Corpuscular HGB Conc 32.4 % (30-36); Mean Corpuscular Hemoglobin 26.6 PG (26-34); Mean Corpuscular Volume 81.9 fL (80-100); Monocytes Absolute Auto 1400 /uL (0-900); Monocytes Percent Auto 9.1 % (3-14); Neutrophils Absolute Auto 11900 /uL (1500-7000); Neutrophils Percent Auto 79.1 % (50-75); Platelet Count 120 X10^3/uL (150-400); Red Blood Cell Count 5.31 X10^6/uL (4.0-5.2); Red Cell Distribution Width 18.3 % (11.6-14.8)
[2024-12-29 20:29] LABS: Alanine Aminotransferase 14 IU/L (<35); Albumin Globulin Ratio 1.3 (1.0-2.8); Alkaline Phosphatase 98 U/L (38-126); Aspartate Aminotransferase 32 IU/L (14-36); Blood Urea Nitrogen 18 mg/dL (7-17); Calcium 8.9 mg/dL (8.4-10.2); Carbon Dioxide 22 mmol/L (22-32); Chloride 106 mmol/L (98-107); Estimated Glomerular Filt Rate 52 mL/min (>60); Globulin 3.1 g/dL (1.7-4.1); Glucose 104 mg/dL (70-99); HEMOLYSIS 21 (0-50); Lipase 79 U/L (23-300); Potassium 3.8 mmol/L (3.4-5.1); Sodium 136 mmol/L (137-145); Total Protein 7.1 g/dL (6.3-8.2)
--- NOTE | 2024-12-29 20:56 | ED.ABDPAIN ---
HPI - Abdominal Pain General Chief Complaint: Abdominal Pain Stated Complaint: lower pelvic pain Time Seen by Provider: 12/29/24 20:49 Source: patient and EMS Mode of arrival: EMS History of Present Illness HPI narrative: 84-year-old female history of left renal cell carcinoma status post left radical nephrectomy in 2017 with a history of also recurrent UTIs just finished her last dose of Bactrim 2 days ago presents with bladder pain today. Patient had a InterStim device placed in 2017 for management of her overactive bladder as well and states that she believes this is what has caused her to have continued urinary tract infections. Other than what is stated 14 point review of system is negative Related Data Home Medications Medication Instructions Recorded Confirmed aspirin 81 mg tablet,delayed 81 mg PO DAILY 01/19/19 12/18/24 release levothyroxine 100 mcg tablet 100 mcg PO DAILY #90 tabs 01/19/19 12/18/24 multivitamin 1 tab PO DAILY 01/19/19 12/18/24 cholecalciferol (vitamin D3) 50 50 mcg PO DAILY 02/24/21 12/18/24 mcg (2,000 unit) capsule metoprolol succinate 50 mg 50 mg PO BID 03/14/21 12/18/24 tablet,extended release 24 hr bimatoprost 0.03 % drops with 1 drp topical ONCE PM 04/03/24 12/18/24 applicator, eyelash base d-mannose 500 mg capsule 500 mg PO BID PRN infection 04/03/24 12/18/24 prevention venlafaxine 150 mg 150 mg PO DAILY 04/03/24 12/18/24 capsule,extended release 24 hr estradiol 0.01% (0.1 mg/gram) 1 g vaginal QWEEK 12/18/24 12/18/24 vaginal cream Previous Rx's Medication Instructions Recorded atorvastatin 20 mg tablet 20 mg PO DAILY #14 tabs 05/16/21 phenazopyridine 100 mg tablet 100 mg PO TID PRN pain 6 doses #6 04/04/24 (Pyridium) tabs carisoprodol 350 mg tablet 350 mg PO 3XD PRN Pain (Scale 08/26/24 Score 4-6) #30 tabs carisoprodol 350 mg tablet 350 mg PO TID PRN Pain, Moderate 08/26/24 (4-6) #30 tabs tolterodine 2 mg capsule,extended 2 mg PO DAILY #90 caps 12/21/24 release 24 hr Allergies Allergy/AdvReac Type Severity Reaction Status Date / Time cyclobenzaprine Allergy Unknown Verified 08/30/24 15:41 [CYCLOBENZAPRINE] doxycycline Allergy Diarrhea Verified 08/30/24 15:41 morphine Allergy hallucinati Verified 08/30/24 15:41 ons acetaminophen [From Percocet] AdvReac Vomiting Verified 08/30/24 15:41 amoxicillin [From Augmentin] AdvReac Nausea Verified 08/30/24 15:41 clavulanic acid AdvReac Nausea Verified 08/30/24 15:41 [From Augmentin] oxycodone [From Percocet] AdvReac Vomiting Verified 08/30/24 15:41 Review of Systems Review of Systems ROS Unobtainable: All systems reviewed & are unremarkable except as noted in HPI and below Patient History Medical History Hx of skin malignancy Vaginal ulceration E. coli urinary tract infection History of kidney cancer Dysuria Chronic urinary tract infection Prurigo nodularis Urinary tract infection Essential hypertension Anxiety Urinary incontinence Hypothyroidism, acquired Hyperlipidemia Depression Surgical History Hx of vaginal surgery History of knee replacement S/P insertion of spinal cord stimulator History of nephrectomy S/P femoral-popliteal bypass surgery S/P cataract extraction and insertion of intraocular lens S/P hysterectomy (~1976) History of back surgery Social History marital status: number of children: 3 household members: spouse alcohol intake: former caffeine: Yes Type(s) of exercise: none alcohol intake frequency: a few times a week Exam Narrative Exam Narrative: GENERAL: [84] year old patient appears stated age. Well-developed patient, in mild distress. HEAD: Atraumatic. Normocephalic. EYES: Pupils equal round and reactive. Extraocular motions intact. No scleral icterus. No injection or drainage. ENT: Nose without bleeding, purulent drainage. Throat without erythema, tonsillar hypertrophy or exudate. Airway patent. NECK: Trachea midline. Non tender CARDIOVASCULAR: Regular rate and rhythm without murmurs, gallops, or rubs. RESPIRATORY: Clear to auscultation. Breath sounds equal bilaterally. No wheezes, rales, or rhonchi. GASTROINTESTINAL: Abdomen soft, non-tender, nondistended. EXTREMITIES: No edema or joint tenderness. BACK: Nontender without deformity or crepitance. No flank tenderness. NEURO: AOx3. SKIN: No rash or erythema of visible areas Initial Vital Signs Initial Vital Signs: Vital Signs Temperature 97.2 F L 12/29/24 19:15 Pulse Rate 93 H 12/29/24 19:15 Respiratory Rate 18 12/29/24 19:15 Blood Pressure 143/65 H 12/29/24 19:15 Pulse Oximetry 93 12/29/24 19:15 Oxygen Delivery Method Room Air 12/29/24 19:15 Course Orders Ordered: ED Orders 12/29/24 19:39 EKG-12 Lead Stat 12/29/24 20:00 Complete Blood Count AUTO DIFF Stat Comprehensive Metabolic Panel Stat Lipase Stat 12/29/24 20:59 CT abdomen pelvis w con Stat 12/29/24 21:49 Ictotest Urine Stat Urine Culture Stat Urine Microscopic Stat Ondansetron HCl (Ondansetron 4 Mg/2 Ml Inj) 4 mg IV NOW PRN PRN Reason: Nausea And Vomiting Ondansetron HCl (Ondansetron 4 Mg Odt) 4 mg PO NOW PRN PRN Reason: Nausea And Vomiting Discontinued Medications Lactated Ringer's (Lactated Ringers) 1,000 mls @ 1,000 mls/hr IV BOLUS ONE Stop: 12/29/24 21:55 Ceftriaxone Sodium 1,000 mg/ (Sodium Chloride) 100 mls @ 200 mls/hr IV NOW ONE Stop: 12/29/24 20:57 Last Admin: 12/29/24 22:01 Dose: 200 mls/hr Documented By: AB Vital Signs Vital signs: Vital Signs - 8 hr 12/29/24 19:15 12/29/24 19:30 12/29/24 20:00 Temperature 97.2 F L Pulse Rate 93 H 85 79 Respiratory Rate 18 18 18 Blood Pressure 143/65 H 129/59 L 112/55 L Pulse Oximetry 93 94 94 Oxygen Delivery Method Room Air Room Air Room Air 12/29/24 20:30 12/29/24 22:16 12/29/24 22:17 Temperature Pulse Rate 88 89 Respiratory Rate 18 Blood Pressure 128/61 148/85 H Pulse Oximetry 89 L 95 Oxygen Delivery Method Room Air 12/29/24 22:17 Temperature Pulse Rate 85 Respiratory Rate 16 Blood Pressure Pulse Oximetry 95 Oxygen Delivery Method MDM - Abdominal Pain Lab Data 12/29/24 20:00 12/29/24 20:00 Labs: Lab Results 12/29/24 12/29/24 Range/Units 20:00 21:49 WBC 15.0 H (4.5-11.0) X10^3/uL RBC 5.31 H (4.0-5.2) X10^6/uL Hgb 14.1 (12.0-16.0) g/dL Hct 43.5 (36-46) % MCV 81.9 (80-100) fL MCH 26.6 (26-34) PG MCHC 32.4 (30-36) % RDW 18.3 H (11.6-14.8) % Plt Count 120 L (150-400) X10^3/uL Neut % (Auto) 79.1 H (50-75) % Lymph % (Auto) 9.5 L (25-40) % Cloud % (Auto) 9.1 (3-14) % Eos % (Auto) 1.5 L (2-4) % Baso % (Auto) 0.8 (0-2) % Neut # (Auto) 06798 H (6186-6663) /uL Lymph # (Auto) 1400 (0319-3909) /uL Cloud # (Auto) 1400 H (0-900) /uL Eos # (Auto) 200 (0-450) /uL Baso # (Auto) 100 (0-100) /uL Sodium 136 L (137-145) mmol/L Potassium 3.8 (3.4-5.1) mmol/L Chloride 106 (98-107) mmol/L Carbon Dioxide 22 (22-32) mmol/L BUN 18 H (7-17) mg/dL Creatinine 1.06 H (0.52-1.04) mg/dL Estimated GFR 52 L (>60) mL/min BUN/Creatinine Ratio 17.0 (6-22) Glucose 104 H (70-99) mg/dL Calcium 8.9 (8.4-10.2) mg/dL Total Bilirubin 1.0 (0.2-1.3) mg/dL AST 32 (14-36) IU/L ALT 14 (<35) IU/L Alkaline Phosphatase 98 (38-126) U/L Total Protein 7.1 (6.3-8.2) g/dL Albumin 4.0 (3.5-5.0) g/dL Globulin 3.1 (1.7-4.1) g/dL Albumin/Globulin Ratio 1.3 (1.0-2.8) Lipase 79 (23-300) U/L Ur Bilirubin Confirm Negative (Negative) Urine RBC 1-5/hpf (0-5/HPF) Urine WBC 30-100/hpf H (0-5/HPF) Ur Squamous Epith Cells 1-5 /hpf (0-5/HPF) Urine Bacteria Moderate (10-30) H (None) Ur Culture Indicated? Specimen cultured Vol Urine Centrifuged Low vol <10ml (spun) A Point of care testing: Urine Dip Bedside Urine Glucose Negative Bedside Urine Bilirubin - Negative Bedside Urine Ketone +/- 5 Urine Specific [place] 1.025 Bedside Urine Occult Blood ++ Bedside Urine pH 6.0 Bedside Urine Protein ++ 100 Bedside Urine Urobilinogen - Negative Bedside Urine Nitrite - Negative Bedside Urine Leukocytes +++ 500 Esterase MDM Narrative Medical decision making narrative: All lab work, vital signs, nurse triage note, medication list, and all previous ER visits and CT scan all reviewed. Patient given lactulose and Mag citrate here and to be discharged on it. Differential diagnosis includes recurrent UTIs constipation diverticulitis kidney infection kidney stone. CT scan shows moderate constipation and fecal impaction no bowel wall thickening no abscess collection no free fluid or free air. Patient already on MiraLax at home told her to take it regularly for the next few days Discharge Plan Departure Patient Disposition: Home Clinical Impression: Constipation Qualifiers: Constipation type: slow transit constipation Qualified Code(s): K59.01 - Slow transit constipation Instructions: DI for Constipation Activity Restrictions/Additional Instructions: Return with new or worsening symptoms. Please take Mag citrate as directed and miralax that you have at home as needed for constipation. Prescriptions: No Action tolterodine 2 mg capsule,extended release 24hr 2 mg PO DAILY Qty: 90 0RF aspirin 81 mg tablet,delayed release (DR/EC) 81 mg PO DAILY levothyroxine 100 mcg tablet 100 mcg PO DAILY Qty: 90 multivitamin tablet 1 tab PO DAILY carisoprodol 350 mg tablet 350 mg PO 3XD PRN (Reason: Pain (Scale Score 4-6)) Qty: 30 0RF carisoprodol 350 mg Tablet 350 mg PO TID PRN (Reason: Pain, Moderate (4-6)) Qty: 30 0RF atorvastatin 20 mg tablet 20 mg PO DAILY Qty: 14 0RF bimatoprost 0.03 % drops with applicator 1 drp TOPICAL ONCE PM d-mannose 500 mg Capsule 500 mg PO BID PRN (Reason: infection prevention) venlafaxine 150 mg capsule,extended release 24hr 150 mg PO DAILY phenazopyridine [Pyridium] 100 mg tablet 100 mg PO TID PRN (Reason: pain) Qty: 6 0RF cholecalciferol (vitamin D3) 50 mcg (2,000 unit) capsule 50 mcg PO DAILY Patient Comments: take 1 capsule by mouth once daily estradiol 0.01 % (0.1 mg/gram) cream 1 g vaginal QWEEK metoprolol succinate 50 mg tablet extended release 24 hr 50 mg PO BID Referrals: Kaelyn Meier PA-C [Primary Care Provider] - Stand Alone Forms: Patient Portal/API/Survey
--- NOTE | 2024-12-29 20:59 | DI.CT.S_ITS ---
PROCEDURE: CT ABDOMEN PELVIS W CON INDICATIONS: abd pain/recurrent uti TECHNIQUE: After the administration of intravenous contrast, axial sections acquired from the lung bases to the pubic symphysis. Coronal and sagittal reformats were performed. For radiation dose reduction, the following was used: automated exposure control, adjustment of mA and/or kV according to patient size. COMPARISON: [facility], CT, CT ABDOMEN PELVIS W CON, 10/23/2024, 14:11. FINDINGS: Image quality: Diagnostic. Lower Chest: Small left pleural effusion with adjacent compressive atelectasis in posterior aspect of left lower lobe. Heart size is mildly enlarged, no pericardial effusion. ABDOMEN: Liver: Cirrhotic appearing liver with numerous well-circumscribed hypodensities scattered in liver parenchyma unchanged from prior study. Gallbladder: Hyperdense sludge material is again seen within gallbladder lumen. No gallbladder wall thickening. Biliary ducts: No biliary dilation. Pancreas: No ductal dilation. Spleen: Size is within normal limits. Adrenal Glands: No adrenal nodules. Kidneys and Ureters: Prior left nephrectomy. Right kidney is normal in size. No hydronephrosis. No solid mass. No complex renal cystic lesion which requires follow up. Stomach and Bowel: There is no bowel obstruction. No abnormal bowel wall thickening. Significant fecal stasis in the colon is seen extending to sigmoid colon and rectum. No abscess collection. Peritoneum: No abnormal intraperitoneal fluid. No free air. Ventral Wall: No significant ventral hernia. Abdominal Nodes: No retroperitoneal or mesenteric adenopathy by size criteria. Vessels: Aorta and inferior vena cava are normal in size. PELVIS: Pelvic Organs: Unremarkable. Bladder: No bladder wall thickening, accounting for underdistention. Pelvic Nodes: No enlarged lymph nodes. Miscellaneous: No inguinal hernias are seen. Bones: No aggressive osseous abnormality. Extensive postsurgical changes are again seen lower thoracic and lumbar spine extending to bilateral pelvic region unchanged from prior study. No evidence of hardware loosening or failure. IMPRESSION: 1. Moderate constipation and fecal impaction. No abnormal bowel wall thickening. No abscess collection. No free fluid or free air. 2. Prior left nephrectomy. No right-sided hydronephrosis or hydroureter. 3. Other chronic findings are all unchanged from prior study. Dictated by: Jj Dao M.D. on 12/29/2024 at 21:35 Approved by: Jj Dao M.D. on 12/29/2024 at 21:38
--- NOTE | 2024-12-29 21:53 | PC.NURSE ---
assisted pt to br per wc to obtain urine specimen, pt had episode of diarrhea, assisted pt in cleaning up and pt had another episode of diarrhea was able to obtain a small urine specimen while standing, then pt was cleaned and taken back to her room
[2024-12-29] MEDS: cefTRIAXone 1,000 MG in SODIUM CHLORIDE 0.9% 100 ML 200 MG IV (22:01)
[2024-12-29 22:04] LABS: Ictotest Urine Negative (Negative)
[2024-12-29 22:09] LABS: Bacteria Urine Moderate (10-30); RBC Urine 1-5/HPF (0-5/HPF); Squamous Epithelial Cell Urine 1-5 /HPF (0-5/HPF); Urine Volume Low Vol <10mL (spun); WBC Urine 30-100/HPF (0-5/HPF)
[2024-12-29 22:10] LABS: Culture Indicated Urine Specimen Cultured
--- NOTE | 2024-12-29 22:41 | EKG_ITS ---
[address] [address] Test Date: 2024-12-29 Pat Name: Nikki Voss Department: Room: Gender: Female [employer]: : 1940 Requested By: Order Number: [id number] Reading MD: Ulysses Koo MD Measurements Intervals [place] Rate: 87 P: 49 AL: 182 QRS: 14 QRSD: 70 T: 24 QT: 378 QTc: 454 Interpretive Statements Normal sinus rhythm Low voltage QRS Electronically Signed On 12-30-2024 8:26:01 PDT by Ulysses Koo MD
[2024-12-29] MEDS: LACTATED RINGERS 1,000 ML 1000 ML IV (22:45)
[2024-12-29] MEDS: MAGNESIUM CITRATE 300 ML SOLUTION 150 ML PO (23:38)
[2024-12-29] MEDS: LACTULOSE 20 GM/30 ML SOLUTION PO (23:38)
== END 2024-12-29 23:54 | disposition home or self-care (01) ==
PROVIDERS: Emergency Provider Family Medicine; PCP Physician Assistant
DX: K59.01 Slow transit constipation (principal)
CPT/HCPCS: 36415; 74177; 80053; 81003; 81015; 83690; 85025; 87086; 93005; 96365; 99284; J0696; Q9967

== ENCOUNTER → 2025-03-20 15:58 | Outpatient (CLI) | payer MEDICARE, SELFPAY ==
[2025-02-20 10:55] VITALS: BMI 32.3
[2025-03-20 16:15] LABS: Appearance Urine UA CLOUDY; Bilirubin Urine UA NEGATIVE (NEGATIVE); Color Urine UA YELLOW; Glucose Urine UA NEGATIVE (Negative); Ketones Urine UA NEGATIVE (NEGATIVE); Leukocyte Esterase Urine UA 3+ (NEGATIVE); Nitrite Urine UA POSITIVE (Negative); Occult Blood Urine UA NEGATIVE (Negative); Protein Urine UA NEGATIVE (Negative); Specific Gravity Urine UA 1.015 (1.000-1.035); Urobilinogen Urine UA 0.2 E.U./dL (0.2)
[2025-03-20 16:16] LABS: pH Urine UA 6.5 (4.5-8.0)
[2025-03-20 16:22] LABS: Culture Indicated Urine Specimen Cultured
== END ==
PROVIDERS: PCP Physician Assistant; Visit Provider Obstetrics & Gynecology Gynecology
DX: N32.81 Overactive bladder (principal); N39.0 Urinary tract infection, site not specified; N95.2 Postmenopausal atrophic vaginitis
CPT/HCPCS: 81001; 87077; 87086